=== PATIENT | male | born 1960 | race Hispanic/Latino ===

== ENCOUNTER 2018-10-12 11:32 | Emergency (ER) | payer OTHER ==
[~2018-10-12] VITALS: Ht 172.7 cm; Wt 63.5 kg
[~2018-10-12 11:32] MED LIST: AGGRENOX 25 MG-1 CAP PEG; BUSPIRONE HCL5 MG PEG; CARBAMAZEPINE200 MG PEG; DEPAKOTE125 MG PEG; NEXIUM40 M1 PEG; TOPAMAX25 MG PEG
--- OUTSIDE RECORDS SUMMARY | 2018-10-12 11:35 | XMS REPORT ---
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 Allergies, Adverse Reactions, Alerts Allergy Name Allergy Type Status Severity Reaction(s) Onset Date Inactive Date Treating Clinician Comments No Known Allergies DA Active U 2018-09-20 00:00:00 No Known Allergies DA Active U 2018-09-19 00:00:00 No Known Allergies DA Active U 2015-10-28 00:00:00 Medications This patient has no known medications.
[2018-10-12] MEDS ORDERED: DIATRIZOATE MEGL/DIATRIZOA SOD 30 ML BTL PO ONE (12:35)
--- NOTE | 2018-10-12 13:25 | Diagnostic Imaging Report ---
PROCEDURE:X-RAY ABDOMEN - KUB COMPARISON:None. INDICATIONS:G-TUBE PLACMENT FINDINGS: A tube overlying the stomach has been injected with contrast and there is opacification noted of the stomach. There are two T-tacks noted inferior to the greater curvature. There is a non-obstructed bowel-gas pattern. There are no calcifications projected over the renal shadows, expected course of the ureters or bladder. The rectum appears distended with contrast from a previous contrast exam. There are no acute osseous abnormalities. The lung bases are clear. CONCLUSION: Injection of tube in the abdomen shows opacification of the stomach. Aamir Ha D.O. Dictated by: Aamir Ha D.O. on 10/12/2018 at 13:36 Electronically approved by: Aamir Ha D.O. on 10/12/2018 at 13:36
[2018-10-12 13:39] VITALS: BP 101/73
== END 2018-10-12 13:45 | disposition home or self-care (01) ==
LOC: ER 11:32
DX: Z43.1 Encounter for attention to gastrostomy (principal); G40.909 Epilepsy, unspecified, not intractable, without status epilepticus; Z87.820 Personal history of traumatic brain injury; B19.20 Unspecified viral hepatitis C without hepatic coma
CPT/HCPCS: 74018; 99283; Q9663

== ENCOUNTER → 2019-12-04 | Day surgery (SDC) | payer OTHER ==
[2019-12-01 15:15] LABS: BASOPHILS % 0.6 % (0.0-1.0); EOSINOPHILS # (AUTO) 0.1 (0.0-0.4); EOSINOPHILS % 1.4 % (0.0-6.0); HEMATOCRIT 40.9 % (38.2-49.6); HEMOGLOBIN 13.5 g/dL (14.0-18.0); LYMPHOCYTES # (AUTO) 2.1 (1.0-3.2); MEAN CORPUSCULAR HEMOGLOBIN 26.6 pg (28-32); MEAN CORPUSCULAR VOLUME 80.5 fL (81-99); MONOCYTES # (AUTO) 0.5 (0.2-0.8); MONOCYTES % 9.6 % (4.4-11.3); NEUTROPHILS # (AUTO) 2.4 (2.1-6.9); NEUTROPHILS % 47.4 % (38.7-80.0); PLATELET COUNT 183 x10e3/uL (140-360); RED BLOOD COUNT 5.08 x10e6/uL (4.3-5.7); RED CELL DISTRIBUTION WIDTH 13.9 % (11.7-14.4)
[2019-12-01 15:37] LABS: INR 0.97; PROTHROMBIN TIME 13.5 seconds (11.9-14.5)
[2019-12-01 15:38] LABS: ALANINE AMINOTRANSFERASE 194 IU/L (0-55); ALBUMIN 3.5 g/dL (3.5-5.0); ALBUMIN/GLOBULIN RATIO 1.1 (0.8-2.0); ALKALINE PHOSPHATASE 135 IU/L (40-150); ANION GAP 13.9 mmol/L (8-16); BLOOD UREA NITROGEN 10 mg/dL (7-26); BUN/CREATININE RATIO 17 (6-25); CARBON DIOXIDE 21 mmol/L (22-29); CHLORIDE 97 mmol/L (98-107); EST GLOMERULAR FILTRATION RATE > 60 ML/MIN (60-); GLUCOSE 94 mg/dL (74-118); PARTIAL THROMBOPLASTIN TIME 34.9 seconds (23.8-35.5); POTASSIUM 3.9 mmol/L (3.5-5.1); SODIUM 128 mmol/L (136-145)
[~2019-12-04] MED LIST changes: +FENTANYL CITRATE/PF 100MCG/2 ML INJ ONE; +LIDOCAINE HCL 2% LOCAL INJ 5 ML SDV VIAL INJ ONE; +PROPOFOL IV EMULSION 10 MG/ML 20 ML VIAL ONE
[2019-12-04 16:42] VITALS: BP 112/71
--- NOTE | 2019-12-04 22:39 | Operative Report ---
DATE OF PROCEDURE: 12/04/2019 SURGEON: Fidel Savage MD PROCEDURE PERFORMED: EGD with PEG tube replacement. INDICATION FOR PROCEDURE: Dysphagia, dysfunctional G-tube, the patient is G-tube dependent. MEDICATIONS: The patient was done under MAC. Please see anesthesiologist's note. PROCEDURE IN DETAIL: With the patient in the supine position, the flexible fiberoptic Olympus gastroscope was introduced into the esophagus under direct visualization without any difficulty. There was some patchy erythema noted in the distal esophagus. The scope was then advanced with ease into the stomach and the mucosa overlying the antrum and the body revealed some patchy areas of erythema. Pylorus was of normal contour and shape, was intubated with ease and the scope was advanced all the way to the second portion of the duodenum. The scope was then withdrawn slowly. Mucosa overlying the proximal second portion and the duodenal bulb appeared to be within normal limits. The scope was then withdrawn back into the stomach and retroflexed mucosa overlying the fundus appeared to be within normal limits. An intact Janee fundoplication was also noted. The scope was then straightened out. The old G-tube was removed per the pull traction method. The G-tube was then inserted through the old G-tube stoma in the usual fashion. The scope was subsequently withdrawn after documenting good positioning of the intragastric bumper. The patient tolerated the procedure well. IMPRESSION: 1. Distal esophagitis, mild. 2. Status post Janee fundoplication intact. 3. Gastritis, mild. 4. PEG tube replacement carried out in the usual fashion. The patient tolerated procedure well. The patient can use the G-tube upon return to home. Fidel Savage MD [facility] [place]/MODL /[id number] cc: David Juarez MD
== END | disposition home or self-care (01) ==
LOC: OR 12:00
PROVIDERS: ATTEND Internal Medicine Gastroenterology
DX: K20.9 Esophagitis, unspecified (principal); K94.23 Gastrostomy malfunction; K29.70 Gastritis, unspecified, without bleeding; I69.365 Other paralytic syndrome following cerebral infarction, bilateral; N39.0 Urinary tract infection, site not specified; B19.10 Unspecified viral hepatitis B without hepatic coma; G40.909 Epilepsy, unspecified, not intractable, without status epilepticus; Z98.890 Other specified postprocedural states; Y83.3 Surgical operation with formation of external stoma as the cause of abnormal reaction of the patient, or of later complication, without mention of misadventure at the time of the procedure; Z01.810 Encounter for preprocedural cardiovascular examination; Z01.812 Encounter for preprocedural laboratory examination; Z87.891 Personal history of nicotine dependence
CPT/HCPCS: 36415; 43246; 80053; 85025; 85610; 85730; 93005; J2001; J2704; J3010; 43239

== ENCOUNTER 2020-06-11 15:00 | Emergency (ER) | payer OTHER ==
[~2020-06-11] VITALS: Ht 172.7 cm; Wt 63.5 kg
[~2020-06-11 15:00] MED LIST changes: -FENTANYL CITRATE/PF 100MCG/2 ML INJ ONE; -LIDOCAINE HCL 2% LOCAL INJ 5 ML SDV VIAL INJ ONE; -PROPOFOL IV EMULSION 10 MG/ML 20 ML VIAL ONE
--- OUTSIDE RECORDS SUMMARY | 2020-06-11 15:29 | XMS REPORT | Continuity of Care Document ---
Author Author [facility] t Organization [facility] Address [address] [place] [phone] Phone Unavailable Care Team Providers Care Court Transcriber Name Role Phone DAVID JUAREZ MD PCP Yuriy GREGG Attphys Unavailable Payers Payer Name Policy Type Policy Number Effective Date Expiration Date [employer] [id number] 2011 00:00 :00 [facility] Problems Condition Name Condition Details Condition Category Status Onset Date Resolution Date Last Treatment Date Treating Clinician Comments Source Status post insertion of percutaneous endoscopic gastr ostomy (PEG) tube Status post insertion of percutaneous endoscopic gastrostomy (PEG) tube Problem Active [facility] Allergies, Adverse Reactions, Alerts Allergy Name Allergy Type Status Severity Reaction(s) Onset Date Inacti ve Date Treating Clinician Comments Source No Known Allergies DA Active U 2019-11-03 00:00:00 [facility] No Known Allergies DA Active U 2018-09-20 00:00:00 [facility] No Known Allergies DA Active U 2018-09-19 00:00:00 [facility] No Known Allergies DA Active U 2015-10-28 00:00:00 [facility] Medications Ordered Medication Name Filled Medication Name Start Date Stop Da te Current Medication? Ordering Clinician Indication Dosage Frequency Signature (SIG) Comments Components Source Buspirone Hcl 5 Mg Tablet Buspirone Hcl 5 Mg Tablet Yes 10 Daily [facility] Carbamazepine 200 Mg Tablet Carbamazepine 200 Mg Tablet Yes 200 Four Times Daily [facility] Dipyridamole/Aspirin (Aggrenox 25 Mg-200 Mg Capsule) 1 Cap Capcr Dipyridamole/Aspirin (Aggrenox 25 Mg-200 Mg Capsule) 1 Cap Capcr Yes Twice A Day [facility] Divalproex Sodium (Depakote) 125 Mg Tablet. Divalpro ex Sodium (Depakote) 125 Mg Tablet. Yes 125 Twice A Day [facility] Esomeprazole Magnesium (Nexium) 40 Mg Suspdr.pkt Esome prazole Magnesium (Nexium) 40 Mg Suspdr.pkt Yes 40 Daily [facility] Topiramate (Topamax) 25 Mg Tablet Topiramate (Topamax) 25 Mg Tablet Yes 100 Daily [facility] Procedures This patient has no known procedures. Encounters Start Date/Time End Date/Time [facility] Source 2018-10-12 11:32:00 2018-10-12 13:45:00 Departed Emergency Room [address] [facility] [id number] [facility] Results Test Description Test Time Test Comments Results Result Comments Source PHOSPHOROUS 2019-11-11 15:00:00 Test Item PHOSPHOROUS (test code = PHOS) 3.5 MG/DL 2.5-4.9 N CBC W/AUTO [id number] 08:11:00* Test Item Value Reference Range Interpretation Comments WHITE BLOOD CELL (test code = WBC) 8.47 x10 3/uL 4.5-11.0 RED BLOOD CELL (test code = RBC) 3.91 x10 6/uL 4.00-5.60 L HEMOGLOBIN (test code = HGB) 10.3 g/dL 12.5-16.9 L HEMATOCRIT (test code = HCT) 32.2 % 37.5-50.7 L MEAN CELL VOLUME (test code = MCV) 82.4 fL 81.0-99.0 N MEAN CELL HGB (test code = MCH) 26.3 pg 27.0-33.0 L MEAN CELL HGB CONCETRATION (test code = MCHC) 32.0 g/dL 33.0-37. 0 L RED CELL DISTRIBUTION WIDTH CV (test code = RDW) 13.1 % 11.5- 14.5 N RED CELL DISTRIBUTION WIDTH SD (test code = RDW-SD) 39.0 fL 37 .0-54.0 N PLATELET COUNT (test code = PLT) 364 x10 3/uL 150-400 N MEAN PLATELET VOLUME (test code = MPV) 8.9 fL 7.0-9.0 N NEUTROPHIL % (test code = NT%) 72.9 % 56.0-77.0 N IMMATURE GRANULOCYTE % (test code = IG%) 0.9 % 0.0-2.0 N LYMPHOCYTE % (test code = LY%) 11.8 % 14.0-32.0 L MONOCYTE % (test code = MO%) 10.7 % 4.8-9.0 H EOSINOPHIL % (test code = EO%) 3.2 % 0.3-3.7 N BASOPHIL % (test code = BA%) 0.5 % 0.0-2.0 N NUCLEATED RBC % (test code = NRBC%) 0.0 % 0-0 N NEUTROPHIL # (test code = NT#) 6.17 x10 3/uL 2.0-7.6 N IMMATURE GRANULOCYTE # (test code = IG#) 0.08 x10 3/uL 0.00-0.03 H LYMPHOCYTE # (test code = LY#) 1.00 x10 3/uL 1.0-3.8 N MONOCYTE # (test code = MO#) 0.91 x10 3/uL 0.1-0.8 H EOSINOPHIL # (test code = EO#) 0.27 x10 3/uL 0.0-0.2 H BASOPHIL # (test code = BA#) 0.04 x10 3/uL 0.0-0.2 N NUCLEATED RBC # (test code = NRBC#) 0.00 x10 3/uL 0.0-0.1 N MANUAL DIFF REQUIRED (test code = MDIFF) NO BASIC METABOLIC [id number] 08:08:00* Test Item Value Reference Range Interpretation Comments SODIUM (test code = NA) 133 mEq/L 134-147 L POTASSIUM (test code = K) 4.0 mEq/L 3.4-5.0 N CHLORIDE (test code = CL) 102 mEq/L 100-108 N CARBON DIOXIDE (test code = CO2) 25 mEq/L 21-33 N ANION GAP (test code = GAP) 10 0-20 N GLUCOSE (test code = GLU) 126 mg/dL 70-110 H BLOOD UREA NITROGEN (test code = BUN) 17 mg/dL 7-18 N GLOMERULAR FILTRATION RATE (test code = GFR) 171.4 90-95 H Units of measure = ml/min/1.73 m2 CREATININE (test code = CREAT) 0.5 mg/dL 0.6-1.3 L CALCIUM (test code = CA) 8.3 mg/dL 8.0-10.5 N - XR SWLW FUN W/C [id number] 15:28:00 FAX: Juan Martinez NP [phone] [place]: St: ADM FAX: Сергей James I [phone] FAX: David Finch MD [phone] Name: CHRISTINA LYNN [facility] : 1960 Age/S: 59/M [address] [place] [address] Unit #: [id number] Loc: G.5531 [place] [address] Phys: Juan Martinez NP Acct: [id number] Dis Date: Status: ADM IN ONE #: [phone] Exam Date: 11/08/2019 1421 FAX #: [phone] Reason: DYSPHAGIA EXAMS: CPT CODE: [id number] XR SWLW FUN W/C V 37495 Modified barium swallow: HISTORY: Pneumonia, dysphagia area FINDIN GS: The study was performed with speech pathology using various barium con sistencies. The oral stage of the swallow is unremarkable with all tested consistencies. The patient was not able to drink through a straw. The patient demonstrated intermittent premature spillage over the base of the tongue within liquid and nectar consistency. There is consistent laryngeal penetration and tracheal aspiration with thin liquid. The patie nt performed better with increasingly thick consistencies of to and includ ing barium impregnated cracker. No further episodes of aspiration was witn essed. Please refer to speech pathology report for additional exam detail. Reference air kerma: 8.61 mGy, fluoroscopy time 230 seconds SL: [id number] at 1528 Reported and sign ed by: Dio Keene M.D. CC: Juan Martinez NP; Сергей rios MD; David Juarez M.D. Technologist: RT Richardson(Shawn) Trnscrd Date/Time/By: 11/08/2019 (4348) : By: NancyETG Orig Print D/T: S: 11/08/2019 (8642) PAGE 1 Signed Report VANCOMYCIN [id number] 10:06:00* Test Item Value Reference Range Interpretation Comments VANCOMYCIN TROUGH (test code = VANCT) 9.7 mcg/mL 10.0-20.0 L 10-15 mcg/mL - Cellulitis, Urinary Tract Infection. 15-20 mcg/mL - Bacteremia, Infective Endocarditis, Meningitis, Osteomyelitis, Pneumonia, Severe Skin/Soft- Tissue Infection, Spinal Abscess. INFLUENZA A [id number] 21:58:00* Test Item Value Reference Range Interpretation Comments INFLUENZA A (test code = FLUAPCR) Negative Negative INFLUENZA B (test code = FLUBPCR) Negative Negative LACTIC [id number] 22:20:00* Test Item Value Reference Range Interpretation Comments LACTIC ACID (test code = LACT) 1.1 mmol/L 0.4-1.9 N UA RFLX MICR CULT IF [id number] 20:38:00* Test Item Value Reference Range Interpretation Comments UA COLOR (test code = COLU) YOU YEL/STRAW A UA APPEARANCE (test code = APPU) CLEAR CLEAR UA GLUCOSE DIPSTICK (test code = DGLUU) NEGATIVE NEGATIVE UA BILIRUBIN DIPSTICK (test code = BILU) NEGATIVE NEGATIVE UA KETONE DIPSTICK (test code = KETU) NEGATIVE NEGATIVE UA SPECIFIC GRAVITY (test code = SGU) 1.015 1.005-1.030 N UA BLOOD DIPSTICK (test code = SHANNAN) NEGATIVE NEGATIVE UA PH DIPSTICK (test code = MP) 6.0 5.0-7.0 N UA PROTEIN DIPSTICK (test code = PROU) NEGATIVE NEGATIVE UA UROBILINIOGEN DIPSTICK (test code = URO) 4.0 mg/dL 0.2-1.0 A UA NITRITE DIPSTICK (test code = DEMETRI) NEGATIVE NEGATIVE UA LEUKOCYTE ESTERASE DIPSTICK (test code = LEUU) NEGATIVE NEGA TIVE UA WBC (test code = WBCU) 0-3 WBC/HPF 0-3 UA RBC (test code = RBCU) 0-3 RBC/HPF 0-3 UA WBC NO REFLEX (test code = WBCUCL) 0-3 WBC/HPF 0-3 UA BACTERIA (test code = BACU) TRACE /HPF NONE SEEN UA SQUAMOUS CELLS (test code = SQU) 0-5 /HPF NONE SEEN UA MUCUS (test code = MUCU) 3+ /LPF NONE SEEN A Indication for culture: Dysuria/FrequencySpecimen Description: STRAIGHT CATH VALPROIC ACID (DEPAKENE)2019-11-03 19:55:00* Test Item Value Reference Range Interpretation Comments VALPROIC ACID (DEPAKENE) (test code = VALP) 19 mcg/mL 50.0-100.0 L COMPREHENSIVE METABOLIC [id number] 19:55:00* Test Item Value Reference Range Interpretation Comments SODIUM (test code = NA) 129 mEq/L 134-147 L POTASSIUM (test code = K) 3.9 mEq/L 3.4-5.0 N CHLORIDE (test code = CL) 97 mEq/L 100-108 L CARBON DIOXIDE (test code = CO2) 25 mEq/L 21-33 N ANION GAP (test code = GAP) 11 0-20 N GLUCOSE (test code = GLU) 116 mg/dL 70-110 H BLOOD UREA NITROGEN (test code = BUN) 11 mg/dL 7-18 N GLOMERULAR FILTRATION RATE (test code = GFR) 171.4 90-95 H Units of measure = ml/min/1.73 m2 CREATININE (test code = CREAT) 0.5 mg/dL 0.6-1.3 L TOTAL PROTEIN (test code = PROT) 6.7 g/dL 6.4-8.2 N ALBUMIN (test code = ALB) 2.60 g/dL 3.4-5.0 L CALCIUM (test code = CA) 8.5 mg/dL 8.0-10.5 N BILIRUBIN TOTAL (test code = BILT) 0.7 MG/DL <1.5 N SGOT/AST (test code = AST) 26 IUnit/L 15-37 N SGPT/ALT (test code = ALT) 28 IUnit/L 15-65 N ALKALINE PHOSPHATASE TOTAL (test code = ALKP) 127 IUnit/L 20-125 H [id number] 19:55:00* Test Item Value Reference Range Interpretation Comments MAGNESIUM (test code = MAG) 2.00 mg/dL 1.8-2.4 N - XR CHEST 1 [id number] 19:53:00 FAX: Cari Lr MD [phone] [place]: St: REG FAX: David Finch MD [phone] Name: CHRISTINA LYNN [facility] : 1960 Age/S: 59/M [address] [place] [address] Unit #: [id number] Loc: [address] [address] Phys: Cari Mckee MD Acct: [id number] Dis Date: Status: REG ER PHONE #: [phone] Exam Date: 11/03/20191942 FAX #: [phone] Reason: acute cough fever EXAMS: CPT CODE: [id number] XR CHEST 1 V 64852 SINGLE VIEW RADIOGRAPH CHEST INDICATION: acute cough fever. TECHNIQUE: A single view frontal radiograph of the chest was obtained. COMPARISONS: Chest x-ray 09/22/2017 FINDINGS: There is internal fixation metallic plate and screw hardware within the distal right clavicle. There is no acute osseous fracture or dislocation. There is no subdiaphragmatic free gas. The cardiomediastinal size and contour are normal. There is reticular and consolidative opacity in the right lung base. There is no pneumothorax. There is a trace right pleural effusion. The left lung is clear. IMPRESSION: 1. There is pneumonia in the right lung base with a trace pleural effusion. Electronically Signed by Tiffani Rey on 0 11/03/2019 at 1952 Reported and signed by: Roosevelt Rey D.O. CC: Cari Mckee MD; David Juarez M.D. Technologist: Jeaneth Daly, RT(R)(M) Trn scrd Date/Time/By: 11/03/2019 (1952) : By: [email or web address] Orig Print D/T: S : 11/03/2019 (1955) PAGE 1 Signed Report COMPREHENSIVE METABOLIC [id number] 19:48:00* Test Item Value Reference Range Interpretation Comments SODIUM (test code = NA) 129 mEq/L 134-147 L POTASSIUM (test code = K) 3.9 mEq/L 3.4-5.0 N CHLORIDE (test code = CL) 97 mEq/L 100-108 L CARBON DIOXIDE (test code = CO2) 25 mEq/L 21-33 N ANION GAP (test code = GAP) 11 0-20 N GLUCOSE (test code = GLU) 116 mg/dL 70-110 H BLOOD UREA NITROGEN (test code = BUN) 11 mg/dL 7-18 N GLOMERULAR FILTRATION RATE (test code = GFR) 90-95 CREATININE (test code = CREAT) mg/dL 0.6-1.3 TOTAL PROTEIN (test code = PROT) g/dL 6.4-8.2 ALBUMIN (test code = ALB) g/dL 3.4-5.0 CALCIUM (test code = CA) 8.5 mg/dL 8.0-10.5 N BILIRUBIN TOTAL (test code = BILT) MG/DL <1.5 SGOT/AST (test code = AST) IUnit/L 15-37 SGPT/ALT (test code = ALT) IUnit/L 15-65 ALKALINE PHOSPHATASE TOTAL (test code = ALKP) IUnit/L 20-125 [id number] 19:48:00* Test Item Value Reference Range Interpretation Comments MAGNESIUM (test code = MAG) mg/dL 1.8-2.4 CBC W/AUTO [id number] 19:46:00* Test Item Value Reference Range Interpretation Comments WHITE BLOOD CELL (test code = WBC) 16.86 x10 3/uL 4.5-11.0 H RED BLOOD CELL (test code = RBC) 4.54 x10 6/uL 4.00-5.60 N HEMOGLOBIN (test code = HGB) 12.0 g/dL 12.5-16.9 L HEMATOCRIT (test code = HCT) 35.7 % 37.5-50.7 L MEAN CELL VOLUME (test code = MCV) 78.6 fL 81.0-99.0 L MEAN CELL HGB (test code = MCH) 26.4 pg 27.0-33.0 L MEAN CELL HGB CONCETRATION (test code = MCHC) 33.6 g/dL 33.0-37. 0 N RED CELL DISTRIBUTION WIDTH CV (test code = RDW) 12.7 % 11.5- 14.5 N RED CELL DISTRIBUTION WIDTH SD (test code = RDW-SD) 36.0 fL 37 .0-54.0 L PLATELET COUNT (test code = PLT) 475 x10 3/uL 150-400 H MEAN PLATELET VOLUME (test code = MPV) 8.6 fL 7.0-9.0 N NEUTROPHIL % (test code = NT%) 82.8 % 56.0-77.0 H IMMATURE GRANULOCYTE % (test code = IG%) 0.5 % 0.0-2.0 N LYMPHOCYTE % (test code = LY%) 6.9 % 14.0-32.0 L MONOCYTE % (test code = MO%) 8.0 % 4.8-9.0 N EOSINOPHIL % (test code = EO%) 1.6 % 0.3-3.7 N BASOPHIL % (test code = BA%) 0.2 % 0.0-2.0 N NUCLEATED RBC % (test code = NRBC%) 0.0 % 0-0 N NEUTROPHIL # (test code = NT#) 13.94 x10 3/uL 2.0-7.6 H IMMATURE GRANULOCYTE # (test code = IG#) 0.09 x10 3/uL 0.00-0.03 H LYMPHOCYTE # (test code = LY#) 1.17 x10 3/uL 1.0-3.8 N MONOCYTE # (test code = MO#) 1.35 x10 3/uL 0.1-0.8 H EOSINOPHIL # (test code = EO#) 0.27 x10 3/uL 0.0-0.2 H BASOPHIL # (test code = BA#) 0.04 x10 3/uL 0.0-0.2 N NUCLEATED RBC # (test code = NRBC#) 0.00 x10 3/uL 0.0-0.1 N MANUAL DIFF REQUIRED (test code = MDIFF) NO COMPREHENSIVE METABOLIC [id number] 06:09:00* Test Item Value Reference Range Interpretation Comments SODIUM (test code = NA) 139 mmol/L 136-145 N POTASSIUM (test code = K) 3.8 mmol/L 3.5-5.1 N CHLORIDE (test code = CL) 105.0 mmol/L 98-107 N CARBON DIOXIDE (test code = CO2) 28.0 mmol/L 21-32 N ANION GAP (test code = GAP) 9.8 10-20 L GLUCOSE (test code = GLU) 99 mg/dL 74-106 N BLOOD UREA NITROGEN (test code = BUN) 12 mg/dL 7-18 N GLOMERULAR FILTRATION RATE (test code = GFR) > 60 mL/min >=60 Estimated GFR by using Modified MDRD formula.Chronic kidney disease is defined as either kidney damageor GFR <60 mL/min/1.73 m2 for >3 months. CREATININE (test code = CREAT) 0.70 mg/dL 0.7-1.3 N BUN/CREATININE RATIO (test code = BUN/CREA) 18.1 10-20 N TOTAL PROTEIN (test code = PROT) 7.1 gram/dL 6.4-8.2 N ALBUMIN (test code = ALB) 3.0 g/dL 3.4-5.0 L GLOBULIN (test code = GLOB) 4.1 gram/dL 2.7-4.2 N ALBUMIN/GLOBULIN RATIO (test code = A/G) 0.7 0.75-1.50 L CALCIUM (test code = CA) 9.2 mg/dL 8.5-10.1 N BILIRUBIN TOTAL (test code = BILT) 0.30 mg/dL 0.0-1.0 N SGOT/AST (test code = AST) 37 IUnit/L 15-37 N SGPT/ALT (test code = ALT) 40 IUnit/L 12-78 N ALKALINE PHOSPHATASE TOTAL (test code = ALKP) 92 IUnit/L 45-117 N Note change in reference range due to change in reagent. LIPID PROFILE (CORONARY RISK)2019-09-26 06:09:00* Test Item Value Reference Range Interpretation Comments TRIGLYCERIDES (test code = TRIG) 132 mg/dL 20-150 N CHOLESTEROL (test code = CHOL) 158 mg/dL 0-200 N CHOLESTEROL/HDL RATIO (test code = CHOLHDL) 3.0 RATIO 0-4.9 N RISK ASSOCIATED WITH CHOL/HDL RATIOS: Risk Male Female1/2 AVERAGE 3.43 3.27AVERAGE 4.97 4.442X AVERAGE 9.55 7.053X AVERAGE 23.39 11.04 REFERENCE VALUE IS RELATED TO RISK LEVELS ASRECOMMENDED BY THE [place]. HEART, LUNG, AND BLOOD INST. HDL CHOLESTEROL (test code = HDL) 50 mg/dL 40-60 N LIPOPROTEIN LDL (test code = LDL) 95 mg/dL 100-129 L Reference Interval: mg/dL mmol/L Optimal <100 <2.6Near/above optimal 100-129 2.6- 3.3Borderline High 130-159 3.4-4.1High 160-189 4.1-4.9Very High >=190 >=4.9========= This LDL result is a direct measurement.========= VITAMIN D [id number] 06:09:00* Test Item Value Reference Range Interpretation Comments VITAMIN D 25-HYDROXY (test code = VITD25) 22.5 ng/mL 30.0-100.0 A Vitamin D deficiency has been defined by the [place] [employer] and an Endocrine Society practice guideline as alevel of serum 25-OH vitamin D less than 20 ng/mL (1,2).The Endocrine Society went on to further define vitamin Dinsufficiency as a level between 21 and 29 ng/mL (2).1. IOM ([place] [employer]). 2010. Dietary reference intakes for calcium and D. [place]: The National Academies Press.2. Andrey MF, Lili TREVINO, Chayo HURTADO, et al. Evaluation, treatment, and prevention of vitamin D deficiency: an Endocrine Society clinical practice guideline. JCEM. 2010; 96(7):1911-30.Performed At: [facility] [address] [id number] Koffi De La Torre MD Ph:[phone] performed at: [facility] [address] [id number] COMPREHENSIVE METABOLIC [id number] 12:07:00* Test Item Value Reference Range Interpretation Comments SODIUM (test code = NA) 139 mmol/L 136-145 N POTASSIUM (test code = K) 3.8 mmol/L 3.5-5.1 N CHLORIDE (test code = CL) 105.0 mmol/L 98-107 N CARBON DIOXIDE (test code = CO2) 28.0 mmol/L 21-32 N ANION GAP (test code = GAP) 9.8 10-20 L GLUCOSE (test code = GLU) 99 mg/dL 74-106 N BLOOD UREA NITROGEN (test code = BUN) 12 mg/dL 7-18 N GLOMERULAR FILTRATION RATE (test code = GFR) > 60 mL/min >=60 Estimated GFR by using Modified MDRD formula.Chronic kidney disease is defined as either kidney damageor GFR <60 mL/min/1.73 m2 for >3 months. CREATININE (test code = CREAT) 0.70 mg/dL 0.7-1.3 N BUN/CREATININE RATIO (test code = BUN/CREA) 18.1 10-20 N TOTAL PROTEIN (test code = PROT) 7.1 gram/dL 6.4-8.2 N ALBUMIN (test code = ALB) 3.0 g/dL 3.4-5.0 L GLOBULIN (test code = GLOB) 4.1 gram/dL 2.7-4.2 N ALBUMIN/GLOBULIN RATIO (test code = A/G) 0.7 0.75-1.50 L CALCIUM (test code = CA) 9.2 mg/dL 8.5-10.1 N BILIRUBIN TOTAL (test code = BILT) 0.30 mg/dL 0.0-1.0 N SGOT/AST (test code = AST) 37 IUnit/L 15-37 N SGPT/ALT (test code = ALT) 40 IUnit/L 12-78 N ALKALINE PHOSPHATASE TOTAL (test code = ALKP) 92 IUnit/L 45-117 N Note change in reference range due to change in reagent. LIPID PROFILE (CORONARY RISK)2019-09-25 12:07:00* Test Item Value Reference Range Interpretation Comments TRIGLYCERIDES (test code = TRIG) 132 mg/dL 20-150 N CHOLESTEROL (test code = CHOL) 158 mg/dL 0-200 N CHOLESTEROL/HDL RATIO (test code = CHOLHDL) 3.0 RATIO 0-4.9 N RISK ASSOCIATED WITH CHOL/HDL RATIOS: Risk Male Female1/2 AVERAGE 3.43 3.27AVERAGE 4.97 4.442X AVERAGE 9.55 7.053X AVERAGE 23.39 11.04 REFERENCE VALUE IS RELATED TO RISK LEVELS ASRECOMMENDED BY THE [employer]. HEART, LUNG, AND BLOOD INST. HDL CHOLESTEROL (test code = HDL) 50 mg/dL 40-60 N LIPOPROTEIN LDL (test code = LDL) 95 mg/dL 100-129 L Reference Interval: mg/dL mmol/L Optimal <100 <2.6Near/above optimal 100-129 2.6- 3.3Borderline High 130-159 3.4-4.1High 160-189 4.1-4.9Very High >=190 >=4.9========= This LDL result is a direct measurement.========= VITAMIN D [id number] 12:07:00* Test Item Value Reference Range Interpretation Comments VITAMIN D 25-HYDROXY (test code = VITD25) ng/mL 30-100 COMPREHENSIVE METABOLIC [id number] 11:50:00* Test Item Value Reference Range Interpretation Comments SODIUM (test code = NA) 139 mmol/L 136-145 N POTASSIUM (test code = K) 3.8 mmol/L 3.5-5.1 N CHLORIDE (test code = CL) 105.0 mmol/L 98-107 N CARBON DIOXIDE (test code = CO2) mmol/L 21-32 ANION GAP (test code = GAP) 10-20 GLUCOSE (test code = GLU) mg/dL 74-106 BLOOD UREA NITROGEN (test code = BUN) mg/dL 7-18 GLOMERULAR FILTRATION RATE (test code = GFR) mL/min >=60 CREATININE (test code = CREAT) mg/dL 0.7-1.3 BUN/CREATININE RATIO (test code = BUN/CREA) 10-20 TOTAL PROTEIN (test code = PROT) gram/dL 6.4-8.2 ALBUMIN (test code = ALB) g/dL 3.4-5.0 GLOBULIN (test code = GLOB) gram/dL 2.7-4.2 ALBUMIN/GLOBULIN RATIO (test code = A/G) 0.75-1.50 CALCIUM (test code = CA) mg/dL 8.5-10.1 BILIRUBIN TOTAL (test code = BILT) mg/dL 0.0-1.0 SGOT/AST (test code = AST) IUnit/L 15-37 SGPT/ALT (test code = ALT) IUnit/L 12-78 ALKALINE PHOSPHATASE TOTAL (test code = ALKP) IUnit/L 45-117 LIPID PROFILE (CORONARY RISK)2019-09-25 11:50:00* Test Item Value Reference Range Interpretation Comments TRIGLYCERIDES (test code = TRIG) mg/dL 20-150 CHOLESTEROL (test code = CHOL) mg/dL 0-200 CHOLESTEROL/HDL RATIO (test code = CHOLHDL) RATIO 0-4.9 HDL CHOLESTEROL (test code = HDL) mg/dL 40-60 LIPOPROTEIN LDL (test code = LDL) mg/dL 100-129 VITAMIN D [id number] 11:50:00* Test Item Value Reference Range Interpretation Comments VITAMIN D 25-HYDROXY (test code = VITD25) ng/mL 30-100 CBC W/AUTO [id number] 10:53:00* Test Item Value Reference Range Interpretation Comments WHITE BLOOD CELL (test code = WBC) 6.1 K/mm3 4.5-12.5 N RED BLOOD CELL (test code = RBC) 4.77 mill/mm3 4.0-5.8 N HEMOGLOBIN (test code = HGB) 12.9 gram/dL 13.0-17.5 L HEMATOCRIT (test code = HCT) 40.6 % 42.0-52.0 L MEAN CELL VOLUME (test code = MCV) 85.1 fL 80-98 N MEAN CELL HGB (test code = MCH) 27.0 picogram 27.0-33.0 N MEAN CELL HGB CONCETRATION (test code = MCHC) 31.8 gram/dL 33.0-36. 0 L RED CELL DISTRIBUTION WIDTH (test code = RDW) 12.6 % 11.6-16. 2 N RED CELL DISTRIBUTION WIDTH SD (test code = RDW-SD) 38.5 fL 37 .0-51.0 N PLATELET COUNT (test code = PLT) 348 K/mm3 150-450 N MEAN PLATELET VOLUME (test code = MPV) 9.3 fL 6.7-11.0 N NEUTROPHIL % (test code = NT%) 58.3 % 39.0-69.0 N IMMATURE GRANULOCYTE % (test code = IG%) 0.3 % 0.0-5.0 N LYMPHOCYTE % (test code = LY%) 27.9 % 25.0-55.0 N MONOCYTE % (test code = MO%) 10.3 % 0.0-10.0 H EOSINOPHIL % (test code = EO%) 2.5 % 0.0-5.0 N BASOPHIL % (test code = BA%) 0.7 % 0.0-1.0 N NUCLEATED RBC % (test code = NRBC%) 0.0 % 0-0 N NEUTROPHIL # (test code = NT#) 3.55 K/mm3 1.8-7.7 N IMMATURE GRANULOCYTE # (test code = IG#) 0.02 x10 3/uL 0-0.03 N LYMPHOCYTE # (test code = LY#) 1.70 K/mm3 1.0-5.0 N MONOCYTE # (test code = MO#) 0.63 K/mm3 0-0.8 N EOSINOPHIL # (test code = EO#) 0.15 K/mm3 0.0-0.5 N BASOPHIL # (test code = BA#) 0.04 K/mm3 0.0-0.2 N NUCLEATED RBC # (test code = NRBC#) 0.00 K/mm3 0.0-0.1 N COMPREHENSIVE METABOLIC [id number] 13:23:00* Test Item Value Reference Range Interpretation Comments SODIUM (test code = NA) 139 mmol/L 136-145 N POTASSIUM (test code = K) 4.0 mmol/L 3.5-5.1 N CHLORIDE (test code = CL) 106.0 mmol/L 98-107 N CARBON DIOXIDE (test code = CO2) 26.0 mmol/L 21-32 N ANION GAP (test code = GAP) 11.0 10-20 N GLUCOSE (test code = GLU) 91 mg/dL 74-106 N BLOOD UREA NITROGEN (test code = BUN) 10 mg/dL 7-18 N GLOMERULAR FILTRATION RATE (test code = GFR) > 60 mL/min >=60 Estimated GFR by using Modified MDRD formula.Chronic kidney disease is defined as either kidney damageor GFR <60 mL/min/1.73 m2 for >3 months. CREATININE (test code = CREAT) 0.60 mg/dL 0.7-1.3 L BUN/CREATININE RATIO (test code = BUN/CREA) 15.7 10-20 N TOTAL PROTEIN (test code = PROT) 7.4 gram/dL 6.4-8.2 N ALBUMIN (test code = ALB) 3.8 g/dL 3.4-5.0 N GLOBULIN (test code = GLOB) 3.6 gram/dL 2.7-4.2 N ALBUMIN/GLOBULIN RATIO (test code = A/G) 1.1 0.75-1.50 N CALCIUM (test code = CA) 8.9 mg/dL 8.5-10.1 N BILIRUBIN TOTAL (test code = BILT) 0.40 mg/dL 0.0-1.0 N SGOT/AST (test code = AST) 82 IUnit/L 15-37 H SGPT/ALT (test code = ALT) 112 IUnit/L 12-78 H ALKALINE PHOSPHATASE TOTAL (test code = ALKP) 100 IUnit/L 45-117 N Note change in reference range due to change in reagent. AG PROSTATE [id number] 13:23:00* Test Item Value Reference Range Interpretation Comments AG PROSTATE SPECIFIC (test code = PSA) 0.24 ng/mL 0.0-4.0 N THYROID STIMULATING [id number] 13:23:00* Test Item Value Reference Range Interpretation Comments THYROID STIMULATING HORMONE (test code = TSH) 1.890 uIU/mL 0.36-3.7 4 N TSH REFERENCE RANGES: EUTHYROID: 0.35 - 4.3 mIU/mL HYPO : > 5.5 mIU/mL HYPER : < 0.35 mIU/mL COMPREHENSIVE METABOLIC [id number] 13:19:00* Test Item Value Reference Range Interpretation Comments SODIUM (test code = NA) 139 mmol/L 136-145 N POTASSIUM (test code = K) 4.0 mmol/L 3.5-5.1 N CHLORIDE (test code = CL) 106.0 mmol/L 98-107 N CARBON DIOXIDE (test code = CO2) mmol/L 21-32 ANION GAP (test code = GAP) 10-20 GLUCOSE (test code = GLU) mg/dL 74-106 BLOOD UREA NITROGEN (test code = BUN) mg/dL 7-18 GLOMERULAR FILTRATION RATE (test code = GFR) mL/min >=60 CREATININE (test code = CREAT) mg/dL 0.7-1.3 BUN/CREATININE RATIO (test code = BUN/CREA) 10-20 TOTAL PROTEIN (test code = PROT) gram/dL 6.4-8.2 ALBUMIN (test code = ALB) g/dL 3.4-5.0 GLOBULIN (test code = GLOB) gram/dL 2.7-4.2 ALBUMIN/GLOBULIN RATIO (test code = A/G) 0.75-1.50 CALCIUM (test code = CA) mg/dL 8.5-10.1 BILIRUBIN TOTAL (test code = BILT) mg/dL 0.0-1.0 SGOT/AST (test code = AST) IUnit/L 15-37 SGPT/ALT (test code = ALT) IUnit/L 12-78 ALKALINE PHOSPHATASE TOTAL (test code = ALKP) IUnit/L 45-117 AG PROSTATE [id number] 13:19:00* Test Item Value Reference Range Interpretation Comments AG PROSTATE SPECIFIC (test code = PSA) 0.24 ng/mL 0.0-4.0 N THYROID STIMULATING [id number] 13:19:00* Test Item Value Reference Range Interpretation Comments THYROID STIMULATING HORMONE (test code = TSH) uIU/mL 0.36-3.7 4 COMPREHENSIVE METABOLIC [id number] 13:08:00* Test Item Value Reference Range Interpretation Comments SODIUM (test code = NA) 139 mmol/L 136-145 N POTASSIUM (test code = K) 4.0 mmol/L 3.5-5.1 N CHLORIDE (test code = CL) 106.0 mmol/L 98-107 N CARBON DIOXIDE (test code = CO2) mmol/L 21-32 ANION GAP (test code = GAP) 10-20 GLUCOSE (test code = GLU) mg/dL 74-106 BLOOD UREA NITROGEN (test code = BUN) mg/dL 7-18 GLOMERULAR FILTRATION RATE (test code = GFR) mL/min >=60 CREATININE (test code = CREAT) mg/dL 0.7-1.3 BUN/CREATININE RATIO (test code = BUN/CREA) 10-20 TOTAL PROTEIN (test code = PROT) gram/dL 6.4-8.2 ALBUMIN (test code = ALB) g/dL 3.4-5.0 GLOBULIN (test code = GLOB) gram/dL 2.7-4.2 ALBUMIN/GLOBULIN RATIO (test code = A/G) 0.75-1.50 CALCIUM (test code = CA) mg/dL 8.5-10.1 BILIRUBIN TOTAL (test code = BILT) mg/dL 0.0-1.0 SGOT/AST (test code = AST) IUnit/L 15-37 SGPT/ALT (test code = ALT) IUnit/L 12-78 ALKALINE PHOSPHATASE TOTAL (test code = ALKP) IUnit/L 45-117 AG PROSTATE [id number] 13:08:00* Test Item Value Reference Range Interpretation Comments AG PROSTATE SPECIFIC (test code = PSA) ng/mL 0.0-4.0 THYROID STIMULATING [id number] 13:08:00* Test Item Value Reference Range Interpretation Comments THYROID STIMULATING HORMONE (test code = TSH) uIU/mL 0.36-3.7 4 CBC W/AUTO [id number] 12:52:00* Test Item Value Reference Range Interpretation Comments WHITE BLOOD CELL (test code = WBC) 4.9 K/mm3 4.5-12.5 N RED BLOOD CELL (test code = RBC) 5.20 mill/mm3 4.0-5.8 N HEMOGLOBIN (test code = HGB) 13.8 gram/dL 13.0-17.5 N HEMATOCRIT (test code = HCT) 44.2 % 42.0-52.0 N MEAN CELL VOLUME (test code = MCV) 85.0 fL 80-98 N MEAN CELL HGB (test code = MCH) 26.5 picogram 27.0-33.0 L MEAN CELL HGB CONCETRATION (test code = MCHC) 31.2 gram/dL 33.0-36. 0 L RED CELL DISTRIBUTION WIDTH (test code = RDW) 13.1 % 11.6-16. 2 N RED CELL DISTRIBUTION WIDTH SD (test code = RDW-SD) 40.2 fL 37 .0-51.0 N PLATELET COUNT (test code = PLT) 205 K/mm3 150-450 N MEAN PLATELET VOLUME (test code = MPV) 10.2 fL 6.7-11.0 N NEUTROPHIL % (test code = NT%) 56.9 % 39.0-69.0 N IMMATURE GRANULOCYTE % (test code = IG%) 0.4 % 0.0-5.0 N LYMPHOCYTE % (test code = LY%) 30.9 % 25.0-55.0 N MONOCYTE % (test code = MO%) 9.6 % 0.0-10.0 N EOSINOPHIL % (test code = EO%) 1.6 % 0.0-5.0 N BASOPHIL % (test code = BA%) 0.6 % 0.0-1.0 N NUCLEATED RBC % (test code = NRBC%) 0.0 % 0-0 N NEUTROPHIL # (test code = NT#) 2.78 K/mm3 1.8-7.7 N IMMATURE GRANULOCYTE # (test code = IG#) 0.02 x10 3/uL 0-0.03 N LYMPHOCYTE # (test code = LY#) 1.51 K/mm3 1.0-5.0 N MONOCYTE # (test code = MO#) 0.47 K/mm3 0-0.8 N EOSINOPHIL # (test code = EO#) 0.08 K/mm3 0.0-0.5 N BASOPHIL # (test code = BA#) 0.03 K/mm3 0.0-0.2 N NUCLEATED RBC # (test code = NRBC#) 0.00 K/mm3 0.0-0.1 N MANUAL DIFF REQUIRED (test code = MDIFF) NO ABDOMEN-1VIEW (KUB)2018-10-12 13:36:00 [place] [id number] Patient Name: CHRISTINA LYNN MR #: [id number] : 1960 Age/Sex: 58/M Req #: [id number] Adm Physician: Ordered by: TONI GREGG MD Report #: [id number] Location: ER Room/Bed: Procedure: [id number] DX/ABD OMEN-1VIEW (KUB) Exam Date: Exam Time: REPORT STATUS: Signed PROCEDURE: X-RAY AB DOMEN - KUB COMPARISON: None. INDICATIONS: G-TUBE PLACMENT FINDINGS: A tube overlying the stomach has been injected with contrast and there is opacification noted of the stomach. There are two T-tacks noted inferior to the greater curvature. There is a non-obstructed bowel-gas patter n. There are no calcifications projected over the renal shadows, expected cou rse of the ureters or bladder. The rectum appears distended with contrast fro m a previous contrast exam. There are no acute osseous abnormalities. The guanaco g bases are clear. CONCLUSION: Injection of tube in the abdomen shows opacification of the stomach. Aamir Del Cid D.O. Dictated by: Aamir Del Cid D.O. on 10/12/2018 at 13:36 Electronically approved by: Bella Del Cid D.O. on 10/12/2018 at 13:36 Dictated By: AAMIR MERCHANT DO [id number] Transcri bed By: HAYDEE on 10/12/18 1336 COPY TO: TONI GREGG MD
--- NOTE | 2020-06-11 15:40 | Diagnostic Imaging Report ---
EXAMINATION: CHEST SINGLE (PORTABLE) INDICATION: Altered mental status COMPARISON: None FINDINGS: LINES/TUBES:None LUNGS:The lungs are well-inflated. No focal consolidation or pulmonary edema. PLEURA:No pleural effusion or pneumothorax. MEDIASTINUM:The cardiomediastinal silhouette appears normal in size and shape. BONES/SOFT TISSUES:No acute osseous injury. Right distal clavicle fixation hardware. ABDOMEN:No free air under the diaphragm. Surgical clips at the left upper abdomen. IMPRESSION: No focal pneumonia or pulmonary edema. Signed by: Raji Lewis MD on 06/11/2020 3:37 PM
[2020-06-11] MEDS ORDERED: SODIUM CHLORIDE 0.9% 1000ML 1,000 ML IV SCH (15:45)
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
[2020-06-11 16:26] LABS: BASOPHILS % 0.2 % (0.0-1.0); EOSINOPHILS # (AUTO) 0.1 (0.0-0.4); EOSINOPHILS % 0.9 % (0.0-6.0); HEMOGLOBIN 13.2 g/dL (14.0-18.0); LYMPHOCYTES # (AUTO) 1.2 (1.0-3.2); LYMPHOCYTES % 14.2 % (18.0-39.1); MEAN CORPUSCULAR HEMOGLOBIN 28.4 pg (28-32); MEAN CORPUSCULAR HGB CONC 33.8 g/dL (31-35); MEAN CORPUSCULAR VOLUME 83.9 fL (81-99); MONOCYTES # (AUTO) 1.2 (0.2-0.8); MONOCYTES % 15.2 % (4.4-11.3); NEUTROPHILS # (AUTO) 5.6 (2.1-6.9); PLATELET COUNT 179 x10e3/uL (140-360); RED BLOOD COUNT 4.65 x10e6/uL (4.3-5.7); RED CELL DISTRIBUTION WIDTH 12.3 % (11.7-14.4)
[2020-06-11 16:34] LABS: BILIRUBIN,URINE NEGATIVE (NEGATIVE); CLARITY,URINE SL CLOUDY (CLEAR); COLOR,URINE YELLOW (YELLOW); KETONES,URINE NEGATIVE (NEGATIVE); LEUKOCYTE ESTERASE ,URINE NEGATIVE (NEGATIVE); NITRITE,URINE NEGATIVE (NEGATIVE); PROTEIN,URINE DIPSTICK NEGATIVE (NEGATIVE); URINE UROBILINOGEN 2 mg/dL (0.2 - 1)
[2020-06-11 16:38] LABS: INR 0.87; PARTIAL THROMBOPLASTIN TIME 23.4 seconds (23.8-35.5); PROTHROMBIN TIME 12.3 seconds (11.9-14.5)
[2020-06-11 16:43] LABS: AMORPHOUS SEDIMENT,URINE MODERATE (FEW); BACTERIA,URINE FEW /HPF
--- NOTE | 2020-06-11 16:44 | Diagnostic Imaging Report ---
CT BRAIN WO HISTORY: Altered mental status COMPARISON: None. Technique: Noncontrast axial scans were obtained from skull base to the vertex. Coronal and sagittal reconstructions obtained from the axial data. One or more of the following dose reduction techniques were used: Automated exposure control, adjustment of the mA and/or kV according to patient size, and/or utilization of iterative reconstruction technique. DISCUSSION: Scalp/Skull: Left frontoparietal craniotomy changes. Apparent left mastoidectomy changes with opacification of the mastoidectomy bowl. Brain sulci: Mildly prominent. Ventricles: Compensatory dilatation. Extra-axial spaces: No masses or fluid collections. Carotid siphon calcifications are present. Parenchyma: Areas of right inferior frontal and left lateral temporal encephalomalacia may be from remote trauma. Mild bilateral deep white matter hypodensity is likely chronic microvascular ischemic change. Otherwise, no masses, hemorrhage, or large vascular territory acute infarct. Dural sinuses: No abnormal densities. Sellar/Suprasellar region: Intact. Skull base: Intact. Incidental findings: Old fracture of the left zygomatic arch. IMPRESSION: 1. No acute intracranial abnormalities. 2. Areas of right inferior frontal and left lateral temporal encephalomalacia may be from remote trauma. 3. Associated left frontoparietal craniotomy and left mastoidectomy changes. There is nonspecific opacification of the left mastoidectomy bowl 4. Mild supratentorial chronic microvascular ischemic change. Generalized cerebral volume loss. Signed by: Dr. Abraham Nunez M.D. on 06/11/2020 4:40 PM
[2020-06-11 16:48] LABS: ALANINE AMINOTRANSFERASE 75 IU/L (0-55); ALBUMIN 3.2 g/dL (3.5-5.0); ALBUMIN/GLOBULIN RATIO 1.1 (0.8-2.0); ALKALINE PHOSPHATASE 102 IU/L (40-150); ANION GAP 14.8 mmol/L (8-16); BLOOD UREA NITROGEN 12 mg/dL (7-26); BUN/CREATININE RATIO 18 (6-25); CALCIUM 8.6 mg/dL (8.4-10.2); CARBON DIOXIDE 20 mmol/L (22-29); CHLORIDE 97 mmol/L (98-107); CREATINE KINASE 35 IU/L (30-200); CREATININE, SERUM 0.66 mg/dL (0.72-1.25); EST GLOMERULAR FILTRATION RATE > 60 ML/MIN (60-); GLUCOSE 103 mg/dL (74-118); POTASSIUM 3.8 mmol/L (3.5-5.1); SODIUM 128 mmol/L (136-145)
--- NOTE | 2020-06-11 17:00 | NUR ---
CONTINUED LITER OF FLUID HUNG BY EMS, WILL DO REPEAT LACTIC
--- NOTE | 2020-06-11 17:08 | NUR ---
[facility] on way to get pt to take home
--- NOTE | 2020-06-11 17:38 | NUR ---
mom called er for update, update given, verified address and phone number and notified them ems to bring pt home. mom states they will wait there to receive him.
== END 2020-06-11 18:40 | disposition home or self-care (01) ==
LOC: ER 15:26
DX: F03.90 Unspecified dementia, unspecified severity, without behavioral disturbance, psychotic disturbance, mood disturbance, and anxiety (principal); G40.909 Epilepsy, unspecified, not intractable, without status epilepticus; B19.20 Unspecified viral hepatitis C without hepatic coma; Z87.820 Personal history of traumatic brain injury
CPT/HCPCS: 36415; 70450; 71045; 80053; 81001; 82550; 82553; 83605; 84484; 85025; 85610; 85730; 93005; 99284

== ENCOUNTER 2020-06-28 15:14 | Observation (INO) | payer OTHER ==
[~2020-06-28] VITALS: Ht 172.7 cm; Wt 63.5 kg
--- OUTSIDE RECORDS SUMMARY | 2020-06-28 15:29 | XMS REPORT | Continuity of Care Document ---
Author Author [facility] t Organization [facility] Address [address] [place] [phone] Phone Unavailable Care Team Providers Care Edge Banding Machine Offbearer Name Role Phone TISH DOSS, MD RICHARDS PCP Adeel Pacheco Attphys Unavailable Yuriy GREGG Attphys Unavailable Payers Payer Name Policy Type Policy Number Effective Date Expiration Date [facility] [id number] [facility] Problems Condition Name Condition Details Condition Category Status Onset Date Resolution Date Last Treatment Date Treating Clinician Comments Source Status post insertion of percutaneous endoscopic gastr ostomy (PEG) tube Status post insertion of percutaneous endoscopic gastrostomy (PEG) tube Problem Active [facility] Encounter for medical screening examination Problem Active [facility] Allergies, Adverse Reactions, Alerts Allergy Name Allergy Type Status Severity Reaction(s) Onset Date Inacti ve Date Treating Clinician Comments Source No Known Allergies DA Active U 2019-11-03 00:00:00 [facility] No Known Allergies DA Active U 2018-09-20 00:00:00 [facility] No Known Allergies DA Active U 2018-09-19 00:00:00 [facility] No Known Allergies DA Active U 2015-10-28 00:00:00 [facility] Social History Social Habit Start Date Stop Date Quantity Comments Source Sex Assigned At 1960 00:00:00 1960 00:00:00 Male [facility] Medications Ordered Medication Name Filled Medication Name Start Date Stop Da te Current Medication? Ordering Clinician Indication Dosage Frequency Signature (SIG) Comments Components Source Buspirone Hcl Buspirone Hcl Yes 10 Daily [facility] Carbamazepine Carbamazepine Yes 200 Three Times A Day [facility] Divalproex Sodium (Depakote) 125 Mg TABLET.DR Najerapro ex Sodium (Depakote) 125 Mg TABLET.DR Shannon 125 Twice A Day [facility] Topiramate (Topamax) 25 Mg TABLET Topiramate (Topamax) 25 Mg TABLET Yes 100 Daily [facility] Esomeprazole Magnesium (Nexium) 40 Mg SUSPDR.PKT Esome prazole Magnesium (Nexium) 40 Mg SUSPDR.PKT 2019-12-04 00:00:00 No 40 Daily [facility] Dipyridamole/Aspirin (Aggrenox 25 Mg-200 Mg Capsule) 1 Cap CAPCR Dipyridamole/Aspirin (Aggrenox 25 Mg-200 Mg Capsule) 1 Cap CAPCR 2019-12-01 00:00:00 No Twice A Day [facility] Vital Signs Vital Name Observation Time Observation Value Comments Source Weight 2020-06-11 15:12:00 140 [lb_av] [facility] BMI (Body Mass Index) 2020-06-11 15:12:00 21.3 kg/m2 [facility] Body Temperature 2019-12-04 15:22:00 97.6 [degF] [facility] Procedures Procedure Date / Time Performed Performing Clinician [facility] e Computed tomography of brain without radiopaque contrast 2020-05 00:00:00 [facility] EGD PLACE GASTROSTOMY TUBE 2019-12-04 00:00:00 [facility] Plan of Care Planned Activity Planned Date Details Comments Source Instructions Heart Healthy Diet [facility] Encounters Start Date/Time End Date/Time Encounter Type Admission Type Attendi [facility] Care Department Encounter ID Source 2019-12-04 11:00:00 2019-12-04 11:00:00 Registered Surgical Day Care [facility] [id number] [facility] 2018-10-12 11:32:00 2018-10-12 13:45:00 Departed Emergency Room 1 TONI GREGG [facility] [id number] [facility] Results Test Description Test Time Test Comments Results Result Comments Source CT BRAIN WO 2020-06-11 16:35:00 [facility] [address] [address] Patient Name: CHRISTINA LYNN MR #: [id number] : 1960 Age/Sex: 60/M Req #: [id number] Adm Physician: Ordered by: Marino Pacheco MD Report #: [id number] Location: ER Room/Bed: Procedure: [id number] CT/CT BRAIN WO Exam Date: 06/11/20 Exam Time: 1624 REPORT STATUS: Signed CT BRAIN WO HISTORY: Altered mental status COMPARISON: None. Technique: Noncontrast axial scans were obtained from skull base to the vertex. Coronal and sagittal reconstructions obtained from the axial data. One or more of the following dose reduction techniques were used: Automated exposure control, adjustment of the mA and/or kV according to patient size, and/or utilization of iterative reconstruction technique. DISCUSSION: Scalp/Skull: Left frontoparietal craniotomy changes. Apparent left mastoidectomy changes with opacification of the mastoidectomy bowl. Brain sulci: Mildly prominent. Ventricles: Compensatory dilatation. Extra-axial spaces: No masses or fluid collections. Carotid siphon calcifications are present. Parenchyma: Areas of right inferior frontal and left lateral temporal encephalomalacia may be from remote trauma. Mild bilateral deep white matter hypodensity is likely chronic microvascular ischemic change. Otherwise, no masses, hemorrhage, or large vascular territory acute infarct. Dural sinuses: No abnormal densities. Sellar/Suprasellar region: Intact. Skull base: Intact. Incidental findings: Old fracture of the left zygomatic arch. IMPRESSION: 1. No acute intracr anial abnormalities. 2. Areas of right inferior frontal and left lateral temporal encephalomalacia may be from remote trauma. 3. Associated left frontoparietal craniotomy and left mastoidectomy changes. There is nonspecific opacification of the left mastoidectomy bowl 4. Mild supratentorial chronic microvascular ischemic change. Generalized cerebral volume loss. Signed by: Dr. bAraham Nunez M.D. on 06/11/2020 4:40 PM Dictated By: ABRAHAM NUNEZ MD 1640 Transcribed By: DURAN on 06/11/20 1640 COPY TO: MARINO PACHECO MD Blood leukocytes automated count (number/volume) 2020-06-11 16:06:00 Test Item White Blood Count (test code = 6690-2) 8.09 4.8-10.8 [facility] automated count (number/volume)2020-06-11 16:06:00* Test Item Value Reference Range Interpretation Comments Red Blood Count (test code = 789-8) 4.65 4.3-5.7 [facility] hemoglobin measurement (moles/volume)2020-06-11 16:06:00* Test Item Value Reference Range Interpretation Comments Hemoglobin (test code = 33952-1) 13.2 14.0-18.0 [facility] HospitalAutomated blood hematocrit (volume fraction)2020-06-11 16:06:00* Test Item Value Reference Range Interpretation Comments Hematocrit (test code = 4544-3) 39.0 38.2-49.6 [facility] HospitalAutomated erythrocyte mean corpuscular aagvlh0094-49-16 16:06:00* Test Item Value Reference Range Interpretation Comments Mean Corpuscular Volume (test code = 787-2) 83.9 81-99 [facility] HospitalAutomated erythrocyte mean corpuscular hemoglobin (mass per erythrocyte)2020-06-11 16:06:00* Test Item Value Reference Range Interpretation Comments Mean Corpuscular Hemoglobin (test code = 785-6) 28.4 28-32 [facility] HospitalAutom[facility] erythrocyte mean corpuscular hemoglobin concentration measurement (mass/volume)2020-06-11 16:06:00* Test Item Value Reference Range Interpretation Comments Mean Corpuscular Hemoglobin Concent (test code = 786-4) 33.8 31-35 [facility] HospitalRDW LqeIh-Por7785-91-25 16:06:00* Test Item Value Reference Range Interpretation Comments Red Cell Distribution Width (test code = 16087-2) 12.3 11.7 -14.4 [facility] HospitalAutomated blood platelet count (count/volume)2020-06-11 16:06:00* Test Item Value Reference Range Interpretation Comments Platelet Count (test code = 777-3) 179 140-360 [facility] HospitalAutomated blood segmented neutrophil count as percentage of total vckntjymdk1841-08-51 16:06:00* Test Item Value Reference Range Interpretation Comments Neutrophils (%) (Auto) (test code = 05313-8) 69.0 38.7-80.0 [facility] HospitalAutomated blood lymphocyte count as percentage ot total nejiexmuup4321-56-99 16:06:00* Test Item Value Reference Range Interpretation Comments Lymphocytes (%) (Auto) (test code = 736-9) 14.2 18.0-39.1 [facility] HospitalAutomated blood monocyte count as percentage of total drkynwuuyv6255-67-36 16:06:00* Test Item Value Reference Range Interpretation Comments Monocytes (%) (Auto) (test code = 5905-5) 15.2 4.4-11.3 [facility] HospitalAutomated blood eosinophil count as percentage of total iiovrekfgc5467-37-57 16:06:00* Test Item Value Reference Range Interpretation Comments Eosinophils (%) (Auto) (test code = 713-8) 0.9 0.0-6.0 [facility] HospitalAutomated blood basophil count as percentage of total gfawdqjvpw0507-79-25 16:06:00* Test Item Value Reference Range Interpretation Comments Basophils (%) (Auto) (test code = 706-2) 0.2 0.0-1.0 [facility] HospitalFluoroscopic procedure less than one hour yzzegytv8033-83-10 16:06:00* Test Item Value Reference Range Interpretation Comments IM GRANULOCYTES % (test code = IM GRANULOCYTES %) 0.5 0.0- 1.0 [facility] HospitalAutomated blood neutrophil count 2020-06-11 16:06:00* Test Item Value Reference Range Interpretation Comments Neutrophils # (Auto) (test code = 751-8) 5.6 2.1-6.9 [facility] lymphocytes count (number/volume) 2020-06-11 16:06:00* Test Item Value Reference Range Interpretation Comments Lymphocytes # (Auto) (test code = 38148-3) 1.2 1.0-3.2 [facility] HospitalBlood monocytes automated count (number/volume)2020-06-11 16:06:00* Test Item Value Reference Range Interpretation Comments Monocytes # (Auto) (test code = 742-7) 1.2 0.2-0.8 [facility] HospitalAutomated blood eosinophil count 2020-06-11 16:06:00* Test Item Value Reference Range Interpretation Comments Eosinophils # (Auto) (test code = 711-2) 0.1 0.0-0.4 [facility] HospitalAutomated blood basophil count (count/volume)2020-06-11 16:06:00* Test Item Value Reference Range Interpretation Comments Basophils # (Auto) (test code = 704-7) 0.0 0.0-0.1 [facility] HospitalFluoroscopic procedure less than one hour vrkjrfnj9823-85-61 16:06:00* Test Item Value Reference Range Interpretation Comments Absolute Immature Granulocyte (auto (mark t code = Absolute Immature Granulocyte (auto) 0.04 0-0.1 [facility] HospitalProthrombin time (PT) in platelet poor plasma by coagulation hhwtw0917-00-34 16:06:00* Test Item Value Reference Range Interpretation Comments Prothrombin Time (test code = 5902-2) 12.3 11.9-14.5 [facility] HospitalINR in Platelet poor plasma by Coagulation zacjq0721-66-04 16:06:00* Test Item Value Reference Range Interpretation Comments Prothromb Time International Ratio (test code = 6301-6) 0.87 Oral Anticoagulant Therapy INR Values:1. Low Intensity Therapy 1.5 - 2.02 . Moderate Intensity Therapy 2.0 - 3.03. High Intensity Therapy(1) 2.5 - 3. 54. High Intensity Therapy(2) 3.0 - 4.05. Panic Value INR > 5.0 [facility] HospitalActivated partial thromboplastin time (aPTT) in platelet poor plasma by coagulation mxqpe6667-02-77 16:06:00* Test Item Value Reference Range Interpretation Comments Activated Partial Thromboplast Time (test code = 12586-4) 23.4 23.8-35.5 [facility] HospitalUrine color mmjesdlqbwzqn7025-97-69 16:06:00* Test Item Value Reference Range Interpretation Comments Urine Color (test code = 5778-6) YELLOW YELLOW [facility] HospitalUrine kqrwchi4184-85-74 16:06:00* Test Item Value Reference Range Interpretation Comments Urine Clarity (test code = 57842-4) SL CLOUDY CLEAR [facility] of Urine by Test strip 2020-06-11 16:06:00* Test Item Value Reference Range Interpretation Comments Urine Specific [place] (test code = 5811-5) 1.020 1.010-1.02 5 [facility] HospitalUrine pH measurement by automated test seokr4700-83-47 16:06:00* Test Item Value Reference Range Interpretation Comments Urine pH (test code = 93744-4) 7.5 5-7 [facility] HospitalUrine leukocyte esterase detection by skgvtunr2457-48-48 16:06:00* Test Item Value Reference Range Interpretation Comments Urine Leukocyte Esterase (test code = 5799-2) NEGATIVE NEGATIVE [facility] HospitalUrine nitrite xbujnaslp0869-45-52 16:06:00* Test Item Value Reference Range Interpretation Comments Urine Nitrite (test code = 61587-7) NEGATIVE NEGATIVE [facility] HospitalUrine protein measurement by test strip (mass/volume)2020-06-11 16:06:00* Test Item Value Reference Range Interpretation Comments Urine Protein (test code = 5804-0) NEGATIVE NEGATIVE [facility] HospitalUrine glucose abnxskfcc6802-18-82 16:06:00* Test Item Value Reference Range Interpretation Comments Urine Glucose (UA) (test code = 2349-9) NEGATIVE NEGATIVE [facility] HospitalUrine ketones detection by automated test edlrt5163-06-34 16:06:00* Test Item Value Reference Range Interpretation Comments Urine Ketones (test code = 45939-0) NEGATIVE NEGATIVE [facility] HospitalUrine urobilinogen measurement by test strip (mass/volume)2020-06-11 16:06:00* Test Item Value Reference Range Interpretation Comments Urine Urobilinogen (test code = 62414-2) 2 0.2-1 [facility] HospitalUrine total bilirubin measurement (mass/volume)2020-06-11 16:06:00* Test Item Value Reference Range Interpretation Comments Urine Bilirubin (test code = 1978-6) NEGATIVE NEGATIVE [facility] HospitalUrine erythrocytes lcxxdueim0652-08-38 16:06:00* Test Item Value Reference Range Interpretation Comments Urine Blood (test code = 79691-8) NEGATIVE NEGATIVE [facility] HospitalAutomated urine sediment leukocyte count by microscopy (number/high power field)2020-06-11 16:06:00* Test Item Value Reference Range Interpretation Comments Urine WBC (test code = 5821-4) NONE 0-5 [facility] HospitalErythrocytes detection in urine sediment by light ryetdvqnso0831-69-29 16:06:00* Test Item Value Reference Range Interpretation Comments Urine RBC (test code = 38793-4) NONE 0-5 [facility] HospitalBacteria detection in urine sediment by light ssnqyuzobf7325-79-06 16:06:00* Test Item Value Reference Range Interpretation Comments Urine Bacteria (test code = 69168-9) FEW NONE [facility] HospitalEpithelial cells detection in urine sediment by light auptbwqwal9280-04-00 16:06:00* Test Item Value Reference Range Interpretation Comments Urine Epithelial Cells (test code = 95337-8) NONE NONE [facility] HospitalAmorphous sediment detection in urine sediment by light evkflvtmpf2877-45-80 16:06:00* Test Item Value Reference Range Interpretation Comments Urine Amorphous Sediment (test code = 8246-1) MODERATE FEW [facility]oerum or plasma sodium measurement (moles/volume)2020-06-11 16:06:00* Test Item Value Reference Range Interpretation Comments Sodium Level (test code = 2951-2) 128 136-145 [facility]oerum or plasma potassium measurement (moles/volume)2020-06-11 16:06:00* Test Item Value Reference Range Interpretation Comments Potassium Level (test code = 2823-3) 3.8 3.5-5.1 [facility] or plasma chloride measurement (moles/volume)2020-06-11 16:06:00* Test Item Value Reference Range Interpretation Comments Chloride Level (test code = 2075-0) 97 98-107 [facility]erum or plasma carbon dioxide, total measurement (moles/volume)2020-06-11 16:06:00* Test Item Value Reference Range Interpretation Comments Carbon Dioxide Level (test code = 2028-9) 20 22-29 [facility]um or plasma anion lec3734-65-42 16:06:00* Test Item Value Reference Range Interpretation Comments Anion Gap (test code = 16327-0) 14.8 8-16 [facility] or plasma urea nitrogen measurement (mass/volume)2020-06-11 16:06:00* Test Item Value Reference Range Interpretation Comments Blood Urea Nitrogen (test code = 3094-0) 12 7-26 [facility] or plasma creatinine measurement (mass/volume)2020-06-11 16:06:00* Test Item Value Reference Range Interpretation Comments Creatinine (test code = 2160-0) 0.66 0.72-1.25 [facility]um or plasma urea nitrogen/creatinine mass jdaox3036-83-92 16:06:00* Test Item Value Reference Range Interpretation Comments BUN/Creatinine Ratio (test code = 3097-3) 18 6-25 [facility] HospitalEstimated glomerular filtration rate (GFR) ztamooazvdooe3939-93-61 16:06:00* Test Item Value Reference Range Interpretation Comments Estimat Glomerular Filtration Rate (test code = 070240127) > 60 >60 Ranges were taken from the National Kidney Disease Education Program and the [facility] Kidney Foundation literature.Reference ranges:60 or greater: Ubenjn97-52 ( for 3 consecutive months): Chronic kidney disease 15 or less: Kidney failureAspire Behavioral Health HospitalGlucose chxjnyebefj4896-41-66 16:06:00* Test Item Value Reference Range Interpretation Comments Glucose Level (test code = YTF8023) 103 74-118 [facility] or plasma calcium measurement (mass/volume)2020-06-11 16:06:00* Test Item Value Reference Range Interpretation Comments Calcium Level (test code = 76670-8) 8.6 8.4-10.2 [facility] HospitalFluoroscopic procedure less than one hour vnnqltqx0133-52-29 16:06:00* Test Item Value Reference Range Interpretation Comments Lactic Acid Level (test code = Lactic Acid Level) 2.4 0.5- 2.0 Results repeated and called to ADEN APONTE at 1641 on 06/11/20 by JOSY MCGRATH . Read back and verified.[facility]oerum or plasma total bilirubin measurement (mass/volume)2020-06-11 16:06:00* Test Item Value Reference Range Interpretation Comments Total Bilirubin (test code = 1975-2) 0.5 0.2-1.2 [facility] HospitalFluoroscopic procedure less than one hour qlyblurj3936-67-06 16:06:00* Test Item Value Reference Range Interpretation Comments Aspartate Amino Transf (AST/SGOT) (test code = Aspartate Amino Transf (AST/SGOT)) 60 5-34 [facility]um or plasma alanine aminotransferase measurement (enzymatic activity/volume)2020-06-11 16:06:00* Test Item Value Reference Range Interpretation Comments Alanine Aminotransferase (ALT/SGPT) (test code = 1742-6) 75 0-55 [facility] or plasma protein measurement (mass/volume)2020-06-11 16:06:00* Test Item Value Reference Range Interpretation Comments Total Protein (test code = 2885-2) 6.0 6.5-8.1 [facility] or plasma albumin measurement (mass/volume)2020-06-11 16:06:00* Test Item Value Reference Range Interpretation Comments Albumin (test code = 1751-7) 3.2 3.5-5.0 [facility] HospitalPlasma globulin measurement (mass/volume) 2020-06-11 16:06:00* Test Item Value Reference Range Interpretation Comments Globulin (test code = 02796-7) 2.8 2.3-3.5 [facility] or plasma albumin/globulin mass iyufg1975-12-91 16:06:00* Test Item Value Reference Range Interpretation Comments Albumin/Globulin Ratio (test code = 1759-0) 1.1 0.8-2.0 [facility] or plasma alkaline phosphatase measurement (enzymatic activity/volume)2020-06-11 16:06:00* Test Item Value Reference Range Interpretation Comments Alkaline Phosphatase (test code = 6768-6) 102 40-150 [facility]oerum or plasma creatine kinase measurement (enzymatic activity/volume)2020-06-11 16:06:00* Test Item Value Reference Range Interpretation Comments Creatine Kinase (test code = 2157-6) 35 30-200 [facility]oerum or plasma creatine kinase MB measurement (mass/volume)2020-06-11 16:06:00* Test Item Value Reference Range Interpretation Comments Creatine Kinase MB (test code = 87801-3) 0.60 0-5.0 [facility] HospitalTroponin I measurement by highly sensitive enzyme qirlbghndbg2345-82-41 16:06:00* Test Item Value Reference Range Interpretation Comments Troponin I (test code = 60415-2) 0.018 0-0.300 [facility] HospitalCHEST SINGLE (PORTABLE)2020-06-11 15:35:[address] [address] Patient Name: CHRISTINA LYNN MR #: [id number] : 1960 Age/Sex: 60/M Req #: [id number] Adm Physician: Ordered by: Marino Pacheco MD Report #: [id number] Location: ER Room/Bed: Procedure: [id number] DX/CHEST SIN GLE (PORTABLE) Exam Date: 06/11/20 Exam Time: 1500 REPORT STATUS: Signed EXAMINATION : CHEST SINGLE (PORTABLE) INDICATION: Altered mental status JAYE RISON: None FINDINGS: LINES/TUBES:None LUNGS:The lungs are w ell-inflated. No focal consolidation or pulmonary edema. PLEURA:No pleural effusion or pneumothorax. MEDIASTINUM:The cardiomediastinal silhouette appe ars normal in size and shape. BONES/SOFT TISSUES:No acute osseous injury. R ight distal clavicle fixation hardware. ABDOMEN:No free air under the vanessa phragm. Surgical clips at the left upper abdomen. IMPRESSION: No fo eliane pneumonia or pulmonary edema. Signed by: Ashutosh Pa MD on 06/11/2020 3: 37 PM Dictated By: ASHUTOSH PA MD 153 Transcribed By: DURAN on 06/11/20 1537 COPY TO: MARINO BURCH MD [id number] 15:00:00* Test Item Value Reference Range Interpretation Comments PHOSPHOROUS (test code = PHOS) 3.5 MG/DL 2.5-4.9 N CBC W/AUTO [id number] 08:11:00* Test Item Value Reference Range Interpretation [...] (test code = MDIFF) NO BASIC METABOLIC [id number] 08:08:00* Test Item Value Reference Range Interpretation [...] 8.3 mg/dL 8.0-10.5 N - XR SWLW [facility] W/C [id number] 15:28:00 FAX: Juan Martinez NP [phone] [place]: St: ADM FAX: Сергей James I [phone] FAX: David Finch MD [phone] Name: CHRISTINA YLNN PHILLY [facility] : 1960 Age/S: 59/M [address] [place] [address] Unit #: [id number] Loc: G.55[address] [place] [address] Phys: Jaun Martinez NP Acct: [id number] Dis Date: Status: ADM IN PH ONE #: [phone] Exam Date: 11/08/2019 1421 FAX #: [phone] Reason: DYSPHAGIA EXAMS: CPT CODE: [id number] XR SWLW FUNC W/C V 27145 Modified bariu m swallow: HISTORY: Pneumonia, dysphagia area FINDIN GS: [...] 8.61 mGy, fluoroscopy time 230 seconds SL: [id number] at 1528 Reported and sign ed by: Dio Keene M.D. CC: Juan Martinez NP; Сергей rios MD; David Juarez M.D. Technologist: RT Richardson(R) Trnscrd Date/Time/By: 11/08/2019 (1528) : By: NancyETG Orig Print D/T: S: 11/08/2019 (7482) PAGE 1 Signed Report VANCOMYCIN [id number] 10:06:00* Test Item Value Reference Range Interpretation Comments VANCOMYCIN TROUGH (test code = VANCT) 9.7 mcg/mL 10.0-20.0 L 10-15 mcg/mL - Cellulitis, Urinary Tract Infection. 15-20 mcg/mL - Bacteremia, Infective Endocarditis, Meningitis, Osteomyelitis, Pneumonia, Severe Skin/Soft- Tissue Infection, Spinal Abscess. INFLUENZA A [id number] 21:58:00* Test Item Value Reference Range Interpretation Comments INFLUENZA A (test code = FLUAPCR) Negative Negative INFLUENZA B (test code = FLUBPCR) Negative Negative LACTIC [id number] 22:20:00* Test Item Value Reference Range Interpretation Comments LACTIC ACID (test code = LACT) 1.1 mmol/L 0.4-1.9 N UA RFLX MICR CULT IF [id number] 20:38:00* Test Item Value Reference Range Interpretation [...] VALP) 19 mcg/mL 50.0-100.0 L COMPREHENSIVE METABOLIC [id number] 19:55:00* Test Item Value Reference Range Interpretation [...] code = ALKP) 127 IUnit/L 20-125 H [id number] 19:55:00* Test Item Value Reference Range Interpretation Comments MAGNESIUM (test code = MAG) 2.00 mg/dL 1.8-2.4 N - XR CHEST 1 [id number] 19:53:00 FAX: Cari Lr MD [phone] [place]: St: [facility] FAX: David Finch MD [phone] Name: CHRISTINA LYNN PHILLY [facility] : 1960 Age/S: 59/M [address] [place] [address] Unit #: [id number] Loc: [place] [address] Phys: Cari Mckee MD Acct: [id number] Dis Date: Status: REG ER PHONE #: [phone] Exam Date: 11/03/20191942 FAX #: [phone] Reason: acute cough fever EXAMS: CPT CODE: [id number] XR CHEST 1 V 95405 SINGLE VIEW RADIOGRAPH CHEST INDICATION: acute cough fever. TECHNIQUE: A single view frontal radiograph of the chest was obtained. COMPARISONS: Chest x-ray 09/22/2017 FINDINGS: There is internal fixation metallic plate and screw nayana dware within the distal right clavicle. There is no acute osseous fractur e or dislocation. There is no subdiaphragmatic free gas. The cardiomediastinal size and contour are normal. Ther e is reticular and consolidative opacity in the [...] Cari Mckee MD; David Juarez M.D. Technologist: RT Maribel(Shawn)(Eddie) Trn scrd Date/Time/By: 11/03/2019 (1952) : By: [email or web address] Orig Print D/T: S : 11/03/2019 (1955) PAGE 1 Signed Report COMPREHENSIVE METABOLIC [id number] 19:48:00* Test Item Value Reference Range Interpretation [...] TOTAL (test code = ALKP) IUnit/L 20-125 [id number] 19:48:00* Test Item Value Reference Range Interpretation Comments MAGNESIUM (test code = MAG) mg/dL 1.8-2.4 CBC W/AUTO [id number] 19:46:00* Test Item Value Reference Range Interpretation [...] (test code = MDIFF) NO COMPREHENSIVE METABOLIC [id number] 06:09:00* Test Item Value Reference Range Interpretation [...] result is a direct measurement.========= VITAMIN D [id number] 06:09:00* Test Item Value Reference Range Interpretation Comments VITAMIN D 25-HYDROXY (test code = VITD25) 22.5 ng/mL 30.0-100.0 A Vitamin D deficiency has been defined by the [place] [employer] and an Endocrine Society practice guideline as alevel of serum 25-OH vitamin D less than 20 ng/mL (1,2).The Endocrine Society went on to further define vitamin Dinsufficiency as a level between 21 and 29 ng/mL (2).1. IOM ([place] [employer]). 2010. Dietary reference intakes for calcium and D. [place]: The National Academies Press.2. Andrey MF, Lili NC, Chayo HURTADO, et al. Evaluation, treatment, and prevention of vitamin D deficiency: an Endocrine Society clinical practice guideline. JCEM. 2010; 96(7):1911-30.Performed At: [facility] [id number] Koffi De La Torre MD Ph:[phone] performed at: [facility] [address] COMPREHENSIVE METABOLIC [id number] 12:07:00* Test Item Value Reference Range Interpretation [...] result is a direct measurement.========= VITAMIN D 86-[id number] 12:07:00* Test Item Value Reference Range Interpretation Comments VITAMIN D 25-HYDROXY (test code = VITD25) ng/mL 30-100 COMPREHENSIVE METABOLIC [id number] 11:50:00* Test Item Value Reference Range Interpretation [...] code = LDL) mg/dL 100-129 VITAMIN D 12-[id number] 11:50:00* Test Item Value Reference Range Interpretation Comments VITAMIN D 25-HYDROXY (test code = VITD25) ng/mL 30-100 CBC W/AUTO [id number] 10:53:00* Test Item Value Reference Range Interpretation [...] NRBC#) 0.00 K/mm3 0.0-0.1 N COMPREHENSIVE METABOLIC [id number] 13:23:00* Test Item Value Reference Range Interpretation [...] due to change in reagent. AG PROSTATE [id number] 13:23:00* Test Item Value Reference Range Interpretation Comments AG PROSTATE SPECIFIC (test code = PSA) 0.24 ng/mL 0.0-4.0 N THYROID STIMULATING [id number] 13:23:00* Test Item Value Reference Range Interpretation Comments THYROID STIMULATING HORMONE (test code = TSH) 1.890 uIU/mL 0.36-3.7 4 N TSH REFERENCE RANGES: EUTHYROID: 0.35 - 4.3 mIU/mL HYPO : > 5.5 mIU/mL HYPER : < 0.35 mIU/mL COMPREHENSIVE METABOLIC [id number] 13:19:00* Test Item Value Reference Range Interpretation [...] code = ALKP) IUnit/L 45-117 AG PROSTATE [id number] 13:19:00* Test Item Value Reference Range Interpretation Comments AG PROSTATE SPECIFIC (test code = PSA) 0.24 ng/mL 0.0-4.0 N THYROID STIMULATING [id number] 13:19:00* Test Item Value Reference Range Interpretation Comments THYROID STIMULATING HORMONE (test code = TSH) uIU/mL 0.36-3.7 4 COMPREHENSIVE METABOLIC [id number] 13:08:00* Test Item Value Reference Range Interpretation [...] code = ALKP) IUnit/L 45-117 AG PROSTATE [id number] 13:08:00* Test Item Value Reference Range Interpretation Comments AG PROSTATE SPECIFIC (test code = PSA) ng/mL 0.0-4.0 THYROID STIMULATING [id number] 13:08:00* Test Item Value Reference Range Interpretation Comments THYROID STIMULATING HORMONE (test code = TSH) uIU/mL 0.36-3.7 4 CBC W/AUTO [id number] 12:52:00* Test Item Value Reference Range Interpretation [...] REQUIRED (test code = MDIFF) NO ABDOMEN-1VIEW ([facility])2018-10-12 13:36:00 [place] [address] Patient Name: CHRISTINA LYNN MR #: [id number] : 1960 Age/Sex: 58/M Req #: [id number] Adm Physician: Ordered by: TONI GREGG MD Report #: [id number] Location: ER Room/Bed: Procedure: [id number] DX/ABD OMEN-1VIEW ([facility]) Exam Date: Exam Time: [...]
[2020-06-28] MEDS ORDERED: SODIUM CHLORIDE 0.9% 1000ML 1,000 ML IV STA (15:31)
[2020-06-28] MEDS: CEFEPIME 1GM/NS 0.9% 50 ML 50 ML IV SCH (15:55)
--- NOTE | 2020-06-28 16:03 | NUR ---
Notified md of concern for availability of IV access for abd/pelvis ct with contrast. Multiple RN's looking to obtain iv access.
[2020-06-28] MEDS ORDERED: DIATRIZOATE MEGL/DIATRIZOA SOD 30 ML BTL PO ONE (16:22)
--- NOTE | 2020-06-28 16:25 | NUR ---
gastro grafin pushed into peg tube without incidence per md order for ct.
--- NOTE | 2020-06-28 16:26 | NUR ---
now to room to see pt.
[2020-06-28 16:27] LABS: BASOPHILS % 0.4 % (0.0-1.0); EOSINOPHILS # (AUTO) 0.1 (0.0-0.4); EOSINOPHILS % 0.6 % (0.0-6.0); HEMOGLOBIN 12.2 g/dL (14.0-18.0); MEAN CORPUSCULAR HGB CONC 34.9 g/dL (31-35); MEAN CORPUSCULAR VOLUME 80.5 fL (81-99); MONOCYTES % 11.9 % (4.4-11.3); NEUTROPHILS # (AUTO) 5.9 (2.1-6.9); NEUTROPHILS % 74.5 % (38.7-80.0); PLATELET COUNT 319 x10e3/uL (140-360); RED BLOOD COUNT 4.35 x10e6/uL (4.3-5.7)
[2020-06-28] MEDS ORDERED: VANCOMYCIN 1GM/NS 250 ML 250 ML IV ONE (16:30)
[2020-06-28 16:33] LABS: BILIRUBIN,URINE NEGATIVE (NEGATIVE); CLARITY,URINE SL CLOUDY (CLEAR); COLOR,URINE YELLOW (YELLOW); KETONES,URINE NEGATIVE (NEGATIVE); LEUKOCYTE ESTERASE ,URINE NEGATIVE (NEGATIVE); NITRITE,URINE NEGATIVE (NEGATIVE); PROTEIN,URINE DIPSTICK NEGATIVE (NEGATIVE); URINE UROBILINOGEN 2 mg/dL (0.2 - 1)
[2020-06-28 16:47] LABS: AMORPHOUS SEDIMENT,URINE MODERATE (FEW); BACTERIA,URINE FEW /HPF
[2020-06-28 16:50] LABS: ALANINE AMINOTRANSFERASE 62 IU/L (0-55); ALBUMIN 3.6 g/dL (3.5-5.0); ALBUMIN/GLOBULIN RATIO 1.4 (0.8-2.0); ALKALINE PHOSPHATASE 104 IU/L (40-150); ANION GAP 16.8 mmol/L (8-16); BLOOD UREA NITROGEN 11 mg/dL (7-26); BUN/CREATININE RATIO 18 (6-25); CALCIUM 8.4 mg/dL (8.4-10.2); CARBON DIOXIDE 20 mmol/L (22-29); CHLORIDE 93 mmol/L (98-107); CREATINE KINASE 21 IU/L (30-200); EST GLOMERULAR FILTRATION RATE > 60 ML/MIN (60-); GLUCOSE 123 mg/dL (74-118); POTASSIUM 3.8 mmol/L (3.5-5.1); SODIUM 126 mmol/L (136-145)
--- NOTE | 2020-06-28 17:11 | NUR ---
notified again of poor venous access. Unable to obtain iv in ac for ct abd/pelvis with contrast. states she will look with ultrasound for iv access.
--- NOTE | 2020-06-28 17:12 | NUR ---
Notified Alexis, Documentation Lead, of need for IV access. Alexis states he will come with his ultrasound machine and look for access for pt.
[2020-06-28] MEDS ORDERED: D5.45%NS/KCL 20MEQ 1,000 ML IV ONE (17:30)
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
--- OUTSIDE RECORDS SUMMARY | 2020-06-28 17:37 | XMS REPORT | Continuity of Care Document ---
Author Author [facility] t Organization [facility] Address [address] [place] [address] Phone Unavailable Care Team Providers Care Retail Stocker Name Role Phone TISH DOSS, MD RICHARDS PCP Adeel Pacheco Attphys Unavailable Yuriy GREGG Attphys Unavailable Payers Payer Name Policy Type Policy Number Effective Date Expiration Date [facility] [id number] [facility] Problems Condition Name Condition Details Condition Category Status Onset Date Resolution Date Last Treatment Date Treating Clinician Comments Source Status post insertion of percutaneous endoscopic gastr ostomy (PEG) tube Status post insertion of percutaneous endoscopic gastrostomy (PEG) tube Problem Active [facility] Encounter for medical screening examination Problem Active [facility] Allergies, Adverse Reactions, Alerts Allergy Name Allergy Type Status Severity Reaction(s) Onset Date Inacti ve Date Treating Clinician Comments Source No Known Allergies DA Active U 2019-11-03 00:00:00 [facility] No Known Allergies DA Active U 2018-09-20 00:00:00 [facility] No Known Allergies DA Active U 2018-09-19 00:00:00 [facility] No Known Allergies DA Active U 2015-10-28 00:00:00 [facility] Social History Social Habit Start Date Stop Date Quantity Comments Source Sex Assigned At 1960 00:00:00 1960 00:00:00 Male [facility] Medications Ordered Medication Name Filled Medication Name Start Date Stop Da te Current Medication? Ordering Clinician Indication Dosage Frequency Signature (SIG) Comments Components Source Buspirone Hcl Buspirone Hcl Yes 10 Daily [facility] Carbamazepine Carbamazepine Yes 200 Three Times A Day [facility] Divalproex Sodium (Depakote) 125 Mg TABLET.DR Najerapro ex Sodium (Depakote) 125 Mg TABLET.DR Shannon 125 Twice A Day [facility] Topiramate (Topamax) 25 Mg TABLET Topiramate (Topamax) 25 Mg TABLET Yes 100 Daily [facility] Esomeprazole Magnesium (Nexium) 40 Mg SUSPDR.PKT Esome prazole Magnesium (Nexium) 40 Mg SUSPDR.PKT 2019-12-04 00:00:00 No 40 Daily [facility] Dipyridamole/Aspirin (Aggrenox 25 Mg-200 Mg Capsule) 1 Cap CAPCR Dipyridamole/Aspirin (Aggrenox 25 Mg-200 Mg Capsule) 1 Cap CAPCR 2019-12-01 00:00:00 No Twice A Day [facility] Vital Signs Vital Name Observation Time Observation Value Comments Source Weight 2020-06-11 15:12:00 140 [lb_av] [facility] BMI (Body Mass Index) 2020-06-11 15:12:00 21.3 kg/m2 [facility] Body Temperature 2019-12-04 15:22:00 97.6 [degF] [facility] Procedures Procedure Date / Time Performed Performing Clinician [facility] e Computed tomography of brain without radiopaque contrast 2020-05 00:00:00 [facility] EGD PLACE GASTROSTOMY TUBE 2019-12-04 00:00:00 C [facility] Plan of Care Planned Activity Planned Date Details Comments Source Instructions Heart Healthy Diet [facility] Encounters Start Date/Time End Date/Time Encounter Type Admission Type [facility] Care Department Encounter ID Source 2019-12-04 11:00:00 2019-12-04 11:00:00 Registered Surgical Day Care [facility] [id number] [facility] 2018-10-12 11:32:00 2018-10-12 13:45:00 Departed Emergency Room 1 TONI GREGG [facility] [id number] [facility] Results Test Description Test Time Test Comments Results Result Comments Source CT BRAIN WO 2020-06-11 16:35:00 [facility] [address] [address] Patient Name: CHRISTINA LYNN MR #: [id number] : 1960 Age/Sex: 60/M Req #: [id number] Adm Physician: Ordered by: Marino Pacheco MD Report #: [id number] Location: ER Room/Bed: Procedure: [id number] CT/CT BRAIN WO Exam Date: 06/11/20 Exam [...] Generalized cerebral volume loss. Signed by: Dr. Abraham Nunez M.D. on 06/11/2020 4:40 PM Dictated By: ABRAHAM NUNEZ MD 1640 Transcribed By: DURAN on 06/11/20 1640 COPY TO: MARINO PACHECO MD Blood leukocytes automated count (number/volume) 2020-06-11 16:06:00 Test Item White Blood Count (test code = 6690-2) 8.09 4.8-10.8 [facility] erythrocytes automated count (number/volume)2020-06-11 16:06:00* Test Item Value Reference Range Interpretation Comments Red Blood Count (test code = 789-8) 4.65 4.3-5.7 [facility] hemoglobin measurement (moles/volume)2020-06-11 16:06:00* Test Item Value Reference Range Interpretation Comments Hemoglobin (test code = 46686-5) 13.2 14.0-18.0 [facility] Austin[facility] blood hematocrit (volume fraction)2020-06-11 16:06:00* Test Item Value Reference Range Interpretation Comments Hematocrit (test code = 4544-3) 39.0 38.2-49.6 [facility] Austin[facility] erythrocyte mean corpuscular aapbek4519-86-46 16:06:00* Test Item Value Reference Range Interpretation Comments Mean Corpuscular Volume (test code = 787-2) 83.9 81-99 [facility] Austin[facility] erythrocyte mean corpuscular hemoglobin (mass per erythrocyte)2020-06-11 16:06:00* Test Item Value Reference Range Interpretation Comments Mean Corpuscular Hemoglobin (test code = 785-6) 28.4 28-32 [facility] Austin[facility] erythrocyte mean corpuscular hemoglobin concentration measurement (mass/volume)2020-06-11 16:06:00* Test Item Value Reference Range Interpretation Comments Mean Corpuscular Hemoglobin Concent (test code = 786-4) 33.8 31-35 [facility] AustinRDW XsrZw-[id number] 16:06:00* Test Item Value Reference Range Interpretation Comments Red Cell Distribution Width (test code = 36449-7) 12.3 11.7 -14.4 [facility] Austin[facility] blood platelet count (count/volume)2020-06-11 16:06:00* Test Item Value Reference Range Interpretation Comments Platelet Count (test code = 777-3) 179 140-360 [facility] AustinAutomated blood segmented neutrophil count as percentage of total jdveqznnxl5599-54-95 16:06:00* Test Item Value Reference Range Interpretation Comments Neutrophils (%) (Auto) (test code = 18895-7) 69.0 38.7-80.0 [facility] AustinAutomated blood lymphocyte count as percentage ot total oidskrlepe5859-21-57 16:06:00* Test Item Value Reference Range Interpretation Comments Lymphocytes (%) (Auto) (test code = 736-9) 14.2 18.0-39.1 [facility] AustinAutomated blood monocyte count as percentage of total qjoailuwtg2023-89-87 16:06:00* Test Item Value Reference Range Interpretation Comments Monocytes (%) (Auto) (test code = 5905-5) 15.2 4.4-11.3 [facility] AustinAutomated blood eosinophil count as percentage of total pgfsminsma1447-32-91 16:06:00* Test Item Value Reference Range Interpretation Comments Eosinophils (%) (Auto) (test code = 713-8) 0.9 0.0-6.0 [facility] AustinAutomated blood basophil count as percentage of total sdrkwmywvo3498-45-53 16:06:00* Test Item Value Reference Range Interpretation Comments Basophils (%) (Auto) (test code = 706-2) 0.2 0.0-1.0 [facility] AustinFluoroscopic procedure less than one hour oqhiybxg2144-28-44 16:06:00* Test Item Value Reference Range Interpretation Comments IM GRANULOCYTES % (test code = IM GRANULOCYTES %) 0.5 0.0- 1.0 [facility] AustinAutom[facility] blood neutrophil count 2020-06-11 16:06:00* Test Item Value Reference Range Interpretation Comments Neutrophils # (Auto) (test code = 751-8) 5.6 2.1-6.9 [facility] lymphocytes count (number/volume) 2020-06-11 16:06:00* Test Item Value Reference Range Interpretation Comments Lymphocytes # (Auto) (test code = 62449-3) 1.2 1.0-3.2 [facility] AustinBlood monocytes automated count (number/volume)2020-06-11 16:06:00* Test Item Value Reference Range Interpretation Comments Monocytes # (Auto) (test code = 742-7) 1.2 0.2-0.8 [facility] AustinAutomated blood eosinophil count 2020-06-11 16:06:00* Test Item Value Reference Range Interpretation Comments Eosinophils # (Auto) (test code = 711-2) 0.1 0.0-0.4 [facility] AustinAutomated blood basophil count (count/volume)2020-06-11 16:06:00* Test Item Value Reference Range Interpretation Comments Basophils # (Auto) (test code = 704-7) 0.0 0.0-0.1 [facility] AustinFluoroscopic procedure less than one hour sbwdbfkw6626-78-85 16:06:00* Test Item Value Reference Range Interpretation Comments Absolute Immature Granulocyte (auto (mark t code = Absolute Immature Granulocyte (auto) 0.04 0-0.1 [facility] AustinProthrombin time (PT) in platelet poor plasma by coagulation btewj7369-50-64 16:06:00* Test Item Value Reference Range Interpretation Comments Prothrombin Time (test code = 5902-2) 12.3 11.9-14.5 [facility] AustinINR in Platelet poor plasma by Coagulation swndy8470-80-44 16:06:00* Test Item Value Reference Range Interpretation Comments Prothromb Time International Ratio (test code = 6301-6) 0.87 Oral Anticoagulant Therapy INR Values:1. Low Intensity Therapy 1.5 - 2.02 . Moderate Intensity Therapy 2.0 - 3.03. High Intensity Therapy(1) 2.5 - 3. 54. High Intensity Therapy(2) 3.0 - 4.05. Panic Value INR > 5.0 [facility] AustinActivated partial thromboplastin time (aPTT) in platelet poor plasma by coagulation iopsv4589-10-86 16:06:00* Test Item Value Reference Range Interpretation Comments Activated Partial Thromboplast Time (test code = 22367-6) 23.4 23.8-35.5 [facility] AustinUrine color wfkgpfhgbwtve0738-33-59 16:06:00* Test Item Value Reference Range Interpretation Comments Urine Color (test code = 5778-6) YELLOW YELLOW [facility] AustinUrine nuouqxv5342-61-32 16:06:00* Test Item Value Reference Range Interpretation Comments Urine Clarity (test code = 04827-1) SL CLOUDY CLEAR [facility] gravity of Urine by Test strip 2020-06-11 16:06:00* Test Item Value Reference Range Interpretation Comments Urine Specific [place] (test code = 5811-5) 1.020 1.010-1.02 5 [facility] AustinUrine pH measurement by automated test qodji0873-44-04 16:06:00* Test Item Value Reference Range Interpretation Comments Urine pH (test code = 87120-2) 7.5 5-7 [facility] AustinUrine leukocyte esterase detection by txidsskk2540-20-41 16:06:00* Test Item Value Reference Range Interpretation Comments Urine Leukocyte Esterase (test code = 5799-2) NEGATIVE NEGATIVE [facility] AustinUrine nitrite jeprvyvgz8967-87-74 16:06:00* Test Item Value Reference Range Interpretation Comments Urine Nitrite (test code = 12422-2) NEGATIVE NEGATIVE [facility] AustinUrine protein measurement by test strip (mass/volume)2020-06-11 16:06:00* Test Item Value Reference Range Interpretation Comments Urine Protein (test code = 5804-0) NEGATIVE NEGATIVE [facility] AustinUrine glucose pbdcmtzlt1002-46-73 16:06:00* Test Item Value Reference Range Interpretation Comments Urine Glucose (UA) (test code = 2349-9) NEGATIVE NEGATIVE [facility] AustinUrine ketones detection by automated test fuvec7374-19-84 16:06:00* Test Item Value Reference Range Interpretation Comments Urine Ketones (test code = 41951-3) NEGATIVE NEGATIVE [facility] AustinUrine urobilinogen measurement by test strip (mass/volume)2020-06-11 16:06:00* Test Item Value Reference Range Interpretation Comments Urine Urobilinogen (test code = 07919-3) 2 0.2-1 [facility] AustinUrine total bilirubin measurement (mass/volume)2020-06-11 16:06:00* Test Item Value Reference Range Interpretation Comments Urine Bilirubin (test code = 1978-6) NEGATIVE NEGATIVE [facility] AustinUrine erythrocytes afhpqdlys6188-92-71 16:06:00* Test Item Value Reference Range Interpretation Comments Urine Blood (test code = 68433-3) NEGATIVE NEGATIVE [facility] AustinAutomated urine sediment leukocyte count by microscopy (number/high power field)2020-06-11 16:06:00* Test Item Value Reference Range Interpretation Comments Urine WBC (test code = 5821-4) NONE 0-5 [facility] AustinErythrocytes detection in urine sediment by light fodtnhopgx0482-39-62 16:06:00* Test Item Value Reference Range Interpretation Comments Urine RBC (test code = 70671-9) NONE 0-5 [facility] AustinBacteria detection in urine sediment by light ahoexzrizv0355-03-55 16:06:00* Test Item Value Reference Range Interpretation Comments Urine Bacteria (test code = 62064-3) FEW NONE [facility] AustinEpithelial cells detection in urine sediment by light hcgdvibenw8775-22-33 16:06:00* Test Item Value Reference Range Interpretation Comments Urine Epithelial Cells (test code = 32080-9) NONE NONE [facility] AustinAmorphous sediment detection in urine sediment by light vcxairtlqq3622-07-41 16:06:00* Test Item Value Reference Range Interpretation Comments Urine Amorphous Sediment (test code = 8246-1) MODERATE FEW [facility]ererum or plasma sodium measurement (moles/volume)2020-06-11 16:06:00* Test Item Value Reference Range Interpretation Comments Sodium Level (test code = 2951-2) 128 136-145 [facility]ererum or plasma potassium measurement (moles/volume)2020-06-11 16:06:00* Test Item Value Reference Range Interpretation Comments Potassium Level (test code = 2823-3) 3.8 3.5-5.1 [facility]ererum or plasma chloride measurement (moles/volume)2020-06-11 16:06:00* Test Item Value Reference Range Interpretation Comments Chloride Level (test code = 2075-0) 97 98-107 [facility]ererum or plasma carbon dioxide, total measurement (moles/volume)2020-06-11 16:06:00* Test Item Value Reference Range Interpretation Comments Carbon Dioxide Level (test code = 2028-9) 20 22-29 [facility]ererum or plasma anion cds5131-19-58 16:06:00* Test Item Value Reference Range Interpretation Comments Anion Gap (test code = 54032-3) 14.8 8-16 [facility]ererum or plasma urea nitrogen measurement (mass/volume)2020-06-11 16:06:00* Test Item Value Reference Range Interpretation Comments Blood Urea Nitrogen (test code = 3094-0) 12 7-26 [facility]ererum or plasma creatinine measurement (mass/volume)2020-06-11 16:06:00* Test Item Value Reference Range Interpretation Comments Creatinine (test code = 2160-0) 0.66 0.72-1.25 [facility]ererum or plasma urea nitrogen/creatinine mass bhbtw5595-68-89 16:06:00* Test Item Value Reference Range Interpretation Comments BUN/Creatinine Ratio (test code = 3097-3) 18 6-25 [facility] AustinEstimated glomerular filtration rate (GFR) ckabvapxoqqqo2318-54-46 16:06:00* Test Item Value Reference Range Interpretation Comments Estimat Glomerular Filtration Rate (test code = 021722628) > 60 >60 Ranges were taken from the National Kidney Disease Education Program and the [facility] Kidney Foundation literature.Reference ranges:60 or greater: Osgrtx57-96 ( for 3 consecutive months): Chronic kidney disease 15 or less: Kidney failureHeart Hospital of AustinGlucose nohqfgdwgbq4131-61-15 16:06:00* Test Item Value Reference Range Interpretation Comments Glucose Level (test code = BMT4145) 103 74-118 [facility]ererum or plasma calcium measurement (mass/volume)2020-06-11 16:06:00* Test Item Value Reference Range Interpretation Comments Calcium Level (test code = 22106-2) 8.6 8.4-10.2 [facility] AustinFluoroscopic procedure less than one hour ezcyjsws0045-28-20 16:06:00* Test Item Value Reference Range Interpretation Comments Lactic Acid Level (test code = Lactic Acid Level) 2.4 0.5- 2.0 Results repeated and called to ADEN APONTE at 1641 on 06/11/20 by JOSY MCGRATH . Read back and verified.[facility]ererum or plasma total bilirubin measurement (mass/volume)2020-06-11 16:06:00* Test Item Value Reference Range Interpretation Comments Total Bilirubin (test code = 1975-2) 0.5 0.2-1.2 [facility] AustinFluoroscopic procedure less than one hour irsxuvlt7331-99-24 16:06:00* Test Item Value Reference Range Interpretation Comments Aspartate Amino Transf (AST/SGOT) (test code = Aspartate Amino Transf (AST/SGOT)) 60 5-34 [facility]ererum or plasma alanine aminotransferase measurement (enzymatic activity/volume)2020-06-11 16:06:00* Test Item Value Reference Range Interpretation Comments Alanine Aminotransferase (ALT/SGPT) (test code = 1742-6) 75 0-55 [facility]ere[facility] or plasma protein measurement (mass/volume)2020-06-11 16:06:00* Test Item Value Reference Range Interpretation Comments Total Protein (test code = 2885-2) 6.0 6.5-8.1 [facility]ererum or plasma albumin measurement (mass/volume)2020-06-11 16:06:00* Test Item Value Reference Range Interpretation Comments Albumin (test code = 1751-7) 3.2 3.5-5.0 [facility] AustinPlasma globulin measurement (mass/volume) 2020-06-11 16:06:00* Test Item Value Reference Range Interpretation Comments Globulin (test code = 41808-3) 2.8 2.3-3.5 [facility]ere[facility] or plasma albumin/globulin mass znfnw7751-00-10 16:06:00* Test Item Value Reference Range Interpretation Comments Albumin/Globulin Ratio (test code = 1759-0) 1.1 0.8-2.0 [facility]ererum or plasma alkaline phosphatase measurement (enzymatic activity/volume)2020-06-11 16:06:00* Test Item Value Reference Range Interpretation Comments Alkaline Phosphatase (test code = 6768-6) 102 40-150 [facility]ererum or plasma creatine kinase measurement (enzymatic activity/volume)2020-06-11 16:06:00* Test Item Value Reference Range Interpretation Comments Creatine Kinase (test code = 2157-6) 35 30-200 [facility]ererum or plasma creatine kinase MB measurement (mass/volume)2020-06-11 16:06:00* Test Item Value Reference Range Interpretation Comments Creatine Kinase MB (test code = 45064-4) 0.60 0-5.0 [facility] AustinTroponin I measurement by highly sensitive enzyme joqduczigdh4515-71-18 16:06:00* Test Item Value Reference Range Interpretation Comments Troponin I (test code = 41845-5) 0.018 0-0.300 [facility] AustinCHEST SINGLE (PORTABLE)2020-06-11 15:35:[address] [address] Patient Name: CHRISTINA LYNN MR #: [id number] : 1960 Age/Sex: 60/M Req #: [id number] Adm Physician: Ordered by: Marino Pacheco MD Report #: [id number] Location: ER Room/Bed: Procedure: [id number] DX/CHEST SIN GLE (PORTABLE) Exam Date: 06/11/20 [...] 06/11/20 1537 COPY TO: MARINO BURCH MD [id number] 15:00:00* Test Item Value Reference Range Interpretation Comments PHOSPHOROUS (test code = PHOS) 3.5 MG/DL 2.5-4.9 N CBC W/AUTO [id number] 08:11:00* Test Item Value Reference Range Interpretation [...] (test code = MDIFF) NO BASIC METABOLIC [id number] 08:08:00* Test Item Value Reference Range Interpretation [...] 8.3 mg/dL 8.0-10.5 N - XR [facility] W/C [id number] 15:28:00 FAX: Juan Martinez NP [phone] [place]: St: ADM FAX: Сергей James I [phone] FAX: David Finch MD [phone] Name: CHRISTINA LYNN PHILLY [facility] : 1960 Age/S: 59/M [address] [place] [address] Unit #: [id number] Loc: G.5531 [place] [address] Phys: Juan Martinez NP Acct: [id number] Dis Date: Status: ADM IN PH ONE #: [phone] Exam Date: 11/08/2019 1421 FAX #: [phone] Reason: DYSPHAGIA EXAMS: CPT CODE: [id number] XR SWLW FUNC W/C V 32987 Modified bariu m swallow: HISTORY: Pneumonia, dysphagia [...] 8.61 mGy, fluoroscopy time 230 seconds SL: [id number] at 1528 Reported and sign ed by: Dio Keene M.D. CC: Juan Martinez NP; Сергей rios MD; David Juarez M.D. Technologist: RT Richardson(R) Trnscrd Date/Time/By: 11/08/2019 (1528) : By: NancyETG Orig Print D/T: S: 11/08/2019 (1949) PAGE 1 Signed Report VANCOMYCIN [id number] 10:06:00* Test Item Value Reference Range Interpretation Comments VANCOMYCIN TROUGH (test code = VANCT) 9.7 mcg/mL 10.0-20.0 L 10-15 mcg/mL - Cellulitis, Urinary Tract Infection. 15-20 mcg/mL - Bacteremia, Infective Endocarditis, Meningitis, Osteomyelitis, Pneumonia, Severe Skin/Soft- Tissue Infection, Spinal Abscess. INFLUENZA A [id number] 21:58:00* Test Item Value Reference Range Interpretation Comments INFLUENZA A (test code = FLUAPCR) Negative Negative INFLUENZA B (test code = FLUBPCR) Negative Negative LACTIC [id number] 22:20:00* Test Item Value Reference Range Interpretation Comments LACTIC ACID (test code = LACT) 1.1 mmol/L 0.4-1.9 N UA RFLX MICR CULT IF [id number] 20:38:00* Test Item Value Reference Range Interpretation [...] VALP) 19 mcg/mL 50.0-100.0 L COMPREHENSIVE METABOLIC [id number] 19:55:00* Test Item Value Reference Range Interpretation [...] code = ALKP) 127 IUnit/L 20-125 H GEVTULFBA6101-10-20 19:55:00* Test Item Value Reference Range Interpretation Comments MAGNESIUM (test code = MAG) 2.00 mg/dL 1.8-2.4 N - XR CHEST 1 [id number] 19:53:00 FAX: Cari Lr MD [phone] [place]: St: [facility] FAX: David Finch MD [phone] Name: CHRISTINA LYNN PHILLY [facility] : 1960 Age/S: 59/M [address] [place] [address] Unit #: [id number] Loc: [address] [address] Phys: Cari Mckee MD Acct: [id number] Dis Date: Status: REG ER PHONE #: [phone] Exam Date: 11/03/20191942 FAX #: [phone] Reason: acute cough fever EXAMS: CPT CODE: [id number] XR CHEST 1 V 69077 SINGLE VIEW RADIOGRAPH CHEST INDICATION: acute cough [...] (1955) PAGE 1 Signed Report COMPREHENSIVE METABOLIC [id number] 19:48:00* Test Item Value Reference Range Interpretation [...] TOTAL (test code = ALKP) IUnit/L 20-125 [id number] 19:48:00* Test Item Value Reference Range Interpretation Comments MAGNESIUM (test code = MAG) mg/dL 1.8-2.4 CBC W/AUTO [id number] 19:46:00* Test Item Value Reference Range Interpretation [...] (test code = MDIFF) NO COMPREHENSIVE METABOLIC [id number] 06:09:00* Test Item Value Reference Range Interpretation [...] result is a direct measurement.========= VITAMIN D 75-DDSESDL2862-10-10 06:09:00* Test Item Value Reference Range Interpretation Comments VITAMIN D 25-HYDROXY (test code = VITD25) 22.5 ng/mL 30.0-100.0 A Vitamin D deficiency has been defined by the [place] of[place] and an Endocrine Society practice guideline as alevel of serum 25-OH vitamin D less than 20 ng/mL (1,2).The Endocrine Society went on to further define vitamin Dinsufficiency as a level between 21 and 29 ng/mL (2).1. IOM ([place] of [employer]). 2010. Dietary reference intakes for calcium and D. [place]: The National Academies Press.2. Andrey MF, Lili NC, Chayo HURTADO, et al. Evaluation, treatment, and prevention of vitamin D deficiency: an Endocrine Society clinical practice guideline. JCEM. 2010; 96(7):1911-30.Performed At: [facility] [id number] Koffi De La Torre MD Ph:[phone] performed at: [facility] [address] COMPREHENSIVE METABOLIC [id number] 12:07:00* Test Item Value Reference Range Interpretation [...] result is a direct measurement.========= VITAMIN D 06-[id number] 12:07:00* Test Item Value Reference Range Interpretation Comments VITAMIN D 25-HYDROXY (test code = VITD25) ng/mL 30-100 COMPREHENSIVE METABOLIC [id number] 11:50:00* Test Item Value Reference Range Interpretation [...] code = LDL) mg/dL 100-129 VITAMIN D 84-[id number] 11:50:00* Test Item Value Reference Range Interpretation Comments VITAMIN D 25-HYDROXY (test code = VITD25) ng/mL 30-100 CBC W/AUTO [id number] 10:53:00* Test Item Value Reference Range Interpretation [...] NRBC#) 0.00 K/mm3 0.0-0.1 N COMPREHENSIVE METABOLIC [id number] 13:23:00* Test Item Value Reference Range Interpretation [...] due to change in reagent. AG PROSTATE [id number] 13:23:00* Test Item Value Reference Range Interpretation Comments AG PROSTATE SPECIFIC (test code = PSA) 0.24 ng/mL 0.0-4.0 N THYROID STIMULATING [id number] 13:23:00* Test Item Value Reference Range Interpretation Comments THYROID STIMULATING HORMONE (test code = TSH) 1.890 uIU/mL 0.36-3.7 4 N TSH REFERENCE RANGES: EUTHYROID: 0.35 - 4.3 mIU/mL HYPO : > 5.5 mIU/mL HYPER : < 0.35 mIU/mL COMPREHENSIVE METABOLIC [id number] 13:19:00* Test Item Value Reference Range Interpretation [...] code = ALKP) IUnit/L 45-117 AG PROSTATE [id number] 13:19:00* Test Item Value Reference Range Interpretation Comments AG PROSTATE SPECIFIC (test code = PSA) 0.24 ng/mL 0.0-4.0 N THYROID STIMULATING [id number] 13:19:00* Test Item Value Reference Range Interpretation Comments THYROID STIMULATING HORMONE (test code = TSH) uIU/mL 0.36-3.7 4 COMPREHENSIVE METABOLIC [id number] 13:08:00* Test Item Value Reference Range Interpretation [...] code = ALKP) IUnit/L 45-117 AG PROSTATE [id number] 13:08:00* Test Item Value Reference Range Interpretation Comments AG PROSTATE SPECIFIC (test code = PSA) ng/mL 0.0-4.0 THYROID STIMULATING [id number] 13:08:00* Test Item Value Reference Range Interpretation Comments THYROID STIMULATING HORMONE (test code = TSH) uIU/mL 0.36-3.7 4 CBC W/AUTO [id number] 12:52:00* Test Item Value Reference Range Interpretation [...] REQUIRED (test code = MDIFF) NO ABDOMEN-1VIEW ([facility])2018-10-12 13:36:00 [place] [id number] Patient Name: CHRISTINA LYNN MR #: [id number] : 1960 Age/Sex: 58/M Req #: [id number] Adm Physician: Ordered by: TONI GREGG MD Report #: [id number] Location: ER Room/Bed: Procedure: [id number] DX/ABD OMEN-1VIEW ([facility]) Exam Date: Exam Time: [...]
--- NOTE | 2020-06-28 17:55 | NUR ---
Alexis unable to get iv access. Md notified. Md ask for central line set up. Ultrasound and all supplies at bedside for md.
--- NOTE | 2020-06-28 18:10 | NUR ---
XRAY HERE TO SHOOT FOR LINE PLACEMENT
--- NOTE | 2020-06-28 18:26 | NUR ---
Per er md, called xray for line verification placement. orders read back and verified with md. pippa did xray. order placed in computer per radiology need to put xray on line. per er md dr coughlin and carroll green to use central line she placed.
[2020-06-28] MEDS ORDERED: BUSPIRONE HCL10 MG (18:35)
[2020-06-28] MEDS ORDERED: CIPROFLOXACIN2.5 ML (18:35)
[2020-06-28] MEDS ORDERED: MIRTAZAPINE7.5 MG PO (18:35)
[2020-06-28] MEDS ORDERED: DIVALPROEX SOD125 M1 (18:35)
--- NOTE | 2020-06-28 18:44 | NUR ---
CALLED FOR TELE BOX
--- NOTE | 2020-06-28 18:44 | Diagnostic Imaging Report ---
EXAMINATION: CHEST SINGLE (PORTABLE) INDICATION: LINE PLACEMENT VERIFICATION COMPARISON: Chest x-ray on 06/11/2020. FINDINGS: TUBES and LINES: Interval placement of right central venous catheter which takes a turn underneath the right clavicle. Bibasilar atelectasis. LUNGS: Normal lung volumes. No interval change in radiographic appearance of the lungs. PLEURA: No pleural effusion or pneumothorax. HEART AND MEDIASTINUM: The cardiomediastinal silhouette is unchanged. BONES AND SOFT TISSUES: No acute osseous lesion. Soft tissues are unchanged. UPPER ABDOMEN: No free air under the diaphragm. IMPRESSION: Interval placement of right central venous catheter which likely terminates in the subclavian vein. Recommend repositioning. Signed by: Margarita Gamez MD on 06/28/2020 6:41 PM
[2020-06-28] MEDS ORDERED: IOPAMIDOL 370 MG/ML 200 ML INFUS..BTL INJ ONE (19:00)
[2020-06-28] MEDS ORDERED: SODIUM CHLORIDE 0.9% 50ML 50 ML ONE (19:00)
[2020-06-28 19:34] VITALS: BP 103/72
[2020-06-28 20:00] VITALS: BP 103/72
--- NOTE | 2020-06-28 20:27 | Diagnostic Imaging Report ---
ADDENDUM #1 PEG tube terminates appropriately within the gastric body. Signed by: Margarita Gamez MD on 06/29/2020 8:56 AM ORIGINAL REPORT EXAM: CT Abdomen and Pelvis WITH contrast INDICATION: Abdominal pain COMPARISON: None. TECHNIQUE: Abdomen and pelvis were scanned utilizing a multidetector helical scanner from the lung base to the pubic symphysis after administration of IV contrast. Coronal and sagittal reformations were obtained. Routine protocol was performed. Scan was performed when during portal venous phase. IV CONTRAST: 100 mL of Isovue 370 ORAL CONTRAST: None COMPLICATIONS: None RADIATION DOSE: Total DLP: 322.56 mGy*cm Estimated effective dose: (DLP x 0.015 x size factor) mSv CTDIvol has been reviewed. It is below the limits set by the Radiation Protocol Committee (RPC). Dose modulation, iterative reconstruction, and/or weight based adjustment of the mA/kV was utilized to reduce the radiation dose to as low as reasonably achievable. FINDINGS: LINES and TUBES: None. LOWER THORAX: There is partially imaged groundglass opacity in the right middle lobe. Is bibasilar atelectasis. HEPATOBILIARY: There is a hypodense 1.3 x 0.6 cm lesion in the right hepatic lobe with patchy peripheral enhancement which most likely represents a hemangioma (series 2 image 18). No biliary ductal dilation. GALLBLADDER: No radio-opaque stones or sludge. No wall thickening. SPLEEN: No splenomegaly. PANCREAS: No focal masses or ductal dilatation. ADRENALS: No adrenal nodules KIDNEYS/URETERS: Kidneys enhance symmetrically. No hydronephrosis. No cystic or solid mass lesions. There is a nonobstructive stone in the inferior pole of the left kidney. GI TRACT: There is large impacted well-formed stool burden in the severely distended rectum and distal sigmoid colon which measures up to 9 x 7.5 cm. There is also mucosal wall thickening, hyperenhancement and peripheral fat stranding. This severely distended rectosigmoid colon causes mass effect and displacement of the urinary bladder. There is also well-formed stool throughout the colon although with no evidence of abnormal distention or or obstruction. Appendix is normal. PELVIC ORGANS/BLADDER: The urinary bladder is displaced by the distended rectum. No abnormal wall contour of the urinary bladder. LYMPH NODES: No lymphadenopathy. VESSELS: Scattered mild arterial vascular calcifications. PERITONEUM / RETROPERITONEUM: No free air or fluid. BONES: There are degenerative changes in the spine. SOFT TISSUES: Unremarkable. IMPRESSION: 1. Large impacted stool burden in the severely distended rectum/distal sigmoid colon with associated mucosal wall thickening, hyperenhancement and peripheral fat stranding. 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 The degree of distention puts patient at risk for rectosigmoid perforation and/or ulceration. 2. Well-formed stool burden throughout the colon can present clinically as constipation. 3. Partially imaged groundglass opacity in the right middle lobe. Nonemergent baseline chest CT is recommended for complete assessment of the lungs. 4. Left nonobstructive nephrolithiasis. Signed by: Margarita Gamez MD on 06/28/2020 8:23 PM
[2020-06-28] MEDS: FLUCONAZOLE 100 MG/NS 50 ML 50 ML IV SCH (21:17)
[2020-06-28] MEDS ORDERED: NAPROXEN250 MG PO (21:56)
[2020-06-28] MEDS ORDERED: LORAZEPAM PO (21:56)
[2020-06-29] VITALS (8 sets, daily range): BP systolic 101–122; BP diastolic 63–77
--- NOTE | 2020-06-29 03:45 | NUR ---
CENTRAL LINE CARE PROVIDED. DAILY CHG BATH. NEW PORTS. SALINE FLUSHES. ALCOHOL CAPS APPLIED. PERICARE PROVIDED. TOLERATED WELL.
[2020-06-29 06:03] LABS: BASOPHILS % 0.4 % (0.0-1.0); EOSINOPHILS # (AUTO) 0.1 (0.0-0.4); EOSINOPHILS % 1.2 % (0.0-6.0); HEMATOCRIT 33.7 % (38.2-49.6); HEMOGLOBIN 11.6 g/dL (14.0-18.0); LYMPHOCYTES # (AUTO) 1.1 (1.0-3.2); MEAN CORPUSCULAR HEMOGLOBIN 28.2 pg (28-32); MEAN CORPUSCULAR HGB CONC 34.4 g/dL (31-35); MEAN CORPUSCULAR VOLUME 81.8 fL (81-99); MONOCYTES # (AUTO) 0.6 (0.2-0.8); MONOCYTES % 11.9 % (4.4-11.3); NEUTROPHILS # (AUTO) 3.3 (2.1-6.9); NEUTROPHILS % 63.9 % (38.7-80.0); PLATELET COUNT 296 x10e3/uL (140-360); RED BLOOD COUNT 4.12 x10e6/uL (4.3-5.7); RED CELL DISTRIBUTION WIDTH 12.4 % (11.7-14.4)
--- NOTE | 2020-06-29 06:32 | NUR ---
SPOKE TO MD HOOD. REPORTS WILL PUT CONSULT FOR GI.
[2020-06-29 06:35] LABS: ALANINE AMINOTRANSFERASE 58 IU/L (0-55); ALBUMIN 3.5 g/dL (3.5-5.0); ANION GAP 14.4 mmol/L (8-16); BLOOD UREA NITROGEN 8 mg/dL (7-26); BUN/CREATININE RATIO 14 (6-25); CALCIUM 8.2 mg/dL (8.4-10.2); CARBON DIOXIDE 20 mmol/L (22-29); CHLORIDE 102 mmol/L (98-107); CREATININE, SERUM 0.56 mg/dL (0.72-1.25); EST GLOMERULAR FILTRATION RATE > 60 ML/MIN (60-); GLUCOSE 127 mg/dL (74-118); POTASSIUM 4.4 mmol/L (3.5-5.1); SODIUM 132 mmol/L (136-145)
--- NOTE | 2020-06-29 06:35 | NUR ---
H&P cc: dislodged feeding tube HPI 60yoM, PCP , sent to hospital for dislodged feeding tube. Pt is unable to provide any history. D/w sister Diana, via telephone. PMH: Dysphagia s/p feeidng tube, Mood d/o, constipaiton, CVA, head injusry s/p multiple marciano surgeries PShx: multiple brain surgeries, feeding tube Allergies; see emr Fh/SH: lives with mother (also Diana) Med;s see MAR ROS: unobtainable v/s; revd PE nad anicteric ns1s2 mod bs soft; PEG; no e/t; B/L LEG CONTRACTURES; RIGHT ARM AND HAND CONTRACTURE skin dry flat affect tracks with eyes; moves left arm labs/meds revd A/P: 60yoM Dislodged feeding tube- GI eval Cellulitis at feeding tube site- IV abx Hyponatremia- start NS Transaminitis- IVF Fecal impaction- bowel regimen Left nephrolithiasis- not symptomatic Mood d/o- resume meds as soon as possible Prop; scd; PPi Dispo: consult GI; d/w sister Diana via telephone (mother's name is also Diana). BRO TOM MD, PHD.
[2020-06-29 06:36] LABS: ALBUMIN/GLOBULIN RATIO 1.5 (0.8-2.0); ALKALINE PHOSPHATASE 91 IU/L (40-150)
--- NOTE | 2020-06-29 06:36 | NUR ---
CALLED MD Stu DIAZ. LEFT MESSAGE WITH ANSWERING SERVICE REGARDING NEW CONSULT. AWAITING CALL BACK.
--- NOTE | 2020-06-29 07:24 | NUR ---
REPORT GIVEN TO DAYSHIFT NURSE. ALERT AND RESTING IN BED. NO SIGNS IV INFILTRATION. BED LOCKED AND IN LOW POSITION. CALL LIGHT WITHIN REACH. BED ALARM ACTIVATED.
--- NOTE | 2020-06-29 08:50 | NUR ---
SPOKE WITH DR. Stu DIAZ WHO STATES CONFIRM WITH PT'S MOTHER IF PT CAN HAVE ANYTHING BY MOUTH. MOTHER STATES IS TOTALLY TUBE DEPENDENT AND ASPIRATES WITH ANY FOOD OR DRINK BY MOUTH. STAT KUB X-RAY ORDERED PER MD REQUEST.
[2020-06-29] MEDS: CARBAMAZEPINE 200 MG TAB PEG SCH ×3 (09:00→19:38)
[2020-06-29] MEDS: BUSPIRONE HCL 5 MG TAB PEG SCH (09:00)
[2020-06-29] MEDS: VALPROATE 250MG/5ML ORAL LIQ 5ml PEG SCH ×2 (10:00→17:00)
[2020-06-29] MEDS: TOPIRAMATE 100 MG TAB PEG SCH (10:00)
[2020-06-29] MEDS: FAMOTIDINE 20 MG/2 ML VIAL IV SCH ×2 (10:30→17:53)
--- NOTE | 2020-06-29 11:15 | NUR ---
SPOKE WITH DR. DIAZ ABOUT CT FINDINGS ADDENDUM. NO NEW ORDERS RECEIVED. Addendum: 06/29/20 at 1214 by Fabricio Solis RN DR. DIAZ STATES HE WILL VIEW THE CT REPORT WHEN HE COMES TO SEE THE PATIENT.
--- NOTE | 2020-06-29 12:21 | NUR ---
Nutrition Intervention Note RD Recommendation(s) for Physician: Awaiting GI consult for EN access. If medically feasible can place post pyloric nasoenteric tube until PEG can be replaced. Jevity 1.2 at 60ml/hr. Plan of Care: RD following, monitoring for tolerance and adequacy Nutrition reason for involvement: Nutrition Risk Trigger - PEG tube dislodged RD Assessment Initial encounter with patient. Pt was not able to provide a nutrition Hx at the time of visit. Pt with a dislodged PEG. Pt has dysphagia, has been on Home EN, and is not safe for PO due to high aspiration risk. Pt will require EN greater than 90 days. Pt is contracted, bedbound. Unable to observe oral cavity. Principal Problems/Diagnoses: PEG dislodged PMH: Dysphagia, CVA, Constipation, brain injury GI: Constipation Skin: Cellulitis at PEG site Labs: 06/29/2020) biochemical data reviewed Meds: (06/29/2020) MAR reviewed Ht:68 in. Wt:140lbs BMI:21.3kg/m2 IBW:154lbs (-/+)10% Malnutrition Evaluation (06/29/2020) The patient does not meet criteria for a specified degree of malnutrition at this time. Will re-evaluate at follow-up as appropriate. Nutrition Prescription (Diet Order):NPO Estimated Nutritional Needs: 4329-6600 kcals at 25-30 kcals/kg/BW 64-76g protein/day ( 1-1.2g pro/kg/ BW) Diet Adequacy: Not meeting calorie needs, Not meeting protein needs Diet Education Needs Assessment: Diet education not indicated. Nutrition Care Level: High Nutrition Diagnosis: Swallowing difficulty related to CVA as evidenced by dysphagia Goal: Patient will meet 75-100% of estimated needs by follow up Progress: ( Not Progressing) Interventions: Commercial food, Composition, Rate, Route, IVF, Prescription medications, Collaboration with other providers Monitoring/Evaluation: Total energy intake, Total protein intake, Formula/Solution, IVF, Prescription medication, Weight change. Signed: Nam Marcelo RD, LD, [facility]
--- NOTE | 2020-06-29 17:14 | NUR ---
STILL AWAITING DR. AILYN DIAZ TO EVALUATE PT; UNABLE TO USE PEG TUBE AT THIS TIME.
[2020-06-29] MEDS: CEFEPIME 1GM/NS 0.9% 50 ML 50 ML IV SCH (17:53)
--- NOTE | 2020-06-29 19:11 | NUR ---
WALKING ROUNDS PERFORMED, RECEIVED PT (R) SIDE LAYING IN BED, PT EYES OPEN TO VERBAL CUES BUT NO RESPONSE FROM PT, RR EVEN AND NON-LABORED, ON ROOM AIR. NO S/SX OF DISTRESS NOTED. LEFT PT LAYING (R) SIDE LAYING IN BED, BED IN LOW LOCKED POSITION, SIDE RAILS UPX3, CALL LIGHT AND PHONE WITHIN REACH.
[2020-06-29] MEDS: FLUCONAZOLE 100 MG/NS 50 ML 50 ML IV SCH (19:46)
--- NOTE | 2020-06-29 19:50 | NUR ---
Resumed care of patient. Patient awake and resting quietly in bed, no s/s of distress at this time. Bed locked and in lowest position, side rails upx3, call light placed within reach. All safety measures in place.
--- NOTE | 2020-06-29 19:55 | NUR ---
REPORT GIVEN TO DAMARIS Davis RN FOR CONTINUED CARE OF PATIENT. PT IN STABLE CONDITION, NO S/SX OF DISTRESS.
[2020-06-29] MEDS ORDERED: MIRTAZAPINE 15 MG TAB PO SCH (21:00)
--- NOTE | 2020-06-29 22:59 | NUR ---
Dr. Stu Savage here to see patient. PEG tube flushed at bedside, no drainage or leakage noted. Received orders from MD to clean site and apply single-ply sterile gauze. Per okay to resume tube feedings, Jevity 1.2 at 30 cc/hr with goal rate of 50 cc/hr.
--- NOTE | 2020-06-29 23:11 | NUR ---
Received orders from Dr. Stu Savage to give 20 mg Dulcolax suppository and 60 cc milk of magnesia via PEG tube now. Per MD, if patient does not have bowel movement by morning, give one fleet enema followed by another 60 cc milk of magnesia.
[2020-06-29] MEDS ORDERED: MAGNESIUM HYDROXIDE 30 ML UDC PEG ONE (23:15)
[2020-06-29] MEDS ORDERED: BISACODYL 10 MG SUPP PR ONE (23:15)
[2020-06-30] VITALS: BP 109/80
--- NOTE | 2020-06-30 00:23 | NUR ---
Provided PEG tube care. Tube feedings resumed at 30 cc/hr as ordered with 100 ml water flush Q4H. Will increase as tolerated.
[2020-06-30 04:00] VITALS: BP 110/74
[2020-06-30] MEDS ORDERED: MINERAL OIL 132 ML BTL PR ONE (06:00)
[2020-06-30] MEDS ORDERED: MAGNESIUM HYDROXIDE 30 ML UDC PEG ONE (06:00)
--- NOTE | 2020-06-30 07:17 | NUR ---
Bedside report given to oncoming nurse. Patient in stable condition, no s/s of distress at this time. All safety measures in place.
[2020-06-30 07:33] VITALS: BP 121/82
[2020-06-30 07:43] VITALS: BP 121/82
[2020-06-30] MEDS: VALPROATE 250MG/5ML ORAL LIQ 5ml PEG SCH (08:16)
[2020-06-30] MEDS: CARBAMAZEPINE 200 MG TAB PEG SCH (08:16)
[2020-06-30] MEDS: BUSPIRONE HCL 5 MG TAB PEG SCH (08:16)
[2020-06-30] MEDS: TOPIRAMATE 100 MG TAB PEG SCH (08:16)
[2020-06-30] MEDS: FAMOTIDINE 20 MG/2 ML VIAL IV SCH (08:16)
[2020-06-30 11:21] VITALS: BP 107/73
--- NOTE | 2020-06-30 12:03 | NUR ---
D/C summary Principal Dx: Dislodged feeding tube- GI eval Cellulitis at feeding tube site- IV abx Hyponatremia- start NS Transaminitis- IVF Fecal impaction- bowel regimen Left nephrolithiasis- not symptomatic Secondary Dx: Mood d/o- resume meds as soon as possible Dysphagia- has PEg Prop; scd; PPi Dispo: consult GI; d/w sister Diana via telephone (mother's name is also Diana). PEG flushed; had large BM; d/c home d/c home with mother; stable d/c>35mins f/u pcp [address]>Janette in 2 weeks BRO TOM MD, PHD.
[2020-06-30] MEDS ORDERED: VIBRAMYCIN100 MG PO (12:05)
[2020-06-30] MEDS ORDERED: SENOKOT8.6 MG PO (12:05)
[2020-06-30] MEDS ORDERED: COLACE100 MG/10 NG (12:05)
--- NOTE | 2020-06-30 12:33 | NUR ---
Dr. Arciniega put in discharge orders. called and spoke with Diana Rousseau (mother) to inform her that the PEG tube was now functional and that the patient was being discharged. the mother was upset because the PEG tube was not changed, requested that Dr. Savage be called to get the PEG tube changed.
[2020-06-30 15:39] VITALS: BP 124/78
[2020-06-30] MEDS ORDERED: DOCUSATE SODIUM LIQD 100 MG/10 ML UDC NG SCH (17:00)
[2020-06-30] MEDS ORDERED: SENNOSIDES 8.6 MG TAB PO SCH (17:00)
== END 2020-06-30 17:25 | disposition home or self-care (01) ==
LOC: ER 15:25 → INTOOBSV 17:27 → ERHOLD 17:27 → MED/SURG3 20:17
PROVIDERS: ADMIT Internal Medicine; ATTEND Internal Medicine
DX: K94.23 Gastrostomy malfunction (principal); Z87.820 Personal history of traumatic brain injury; N20.0 Calculus of kidney; K94.22 Gastrostomy infection; L03.311 Cellulitis of abdominal wall; E87.1 Hypo-osmolality and hyponatremia; R74.0 Nonspecific elevation of levels of transaminase and lactic acid dehydrogenase [LDH]; K56.41 Fecal impaction; F39 Unspecified mood [affective] disorder; Z11.59 Encounter for screening for other viral diseases
CPT/HCPCS: 36415 ×2; 36556; 71045; 74177; 80053 ×2; 81001; 82550; 82553; 83605; 84484; 85025 ×2; 87040; 99285; G0378 ×3; J0692 ×2; J1450 ×3; J3370; J7030; Q9967; U0002; 36555

== ENCOUNTER → 2020-07-01 | Day surgery (SDC) | payer OTHER ==
[~2020-07-01] VITALS: Ht 172.7 cm; Wt 63.5 kg
[~2020-07-01] MED LIST changes: +BUSPIRONE HCL10 MG; +CIPROFLOXACIN2.5 ML; +COLACE100 MG/10 NG; +DIATRIZOATE MEGL/DIATRIZOA SOD 30 ML BTL PO ONE; +DIVALPROEX SOD125 M1; +LORAZEPAM PO; +MIRTAZAPINE7.5 MG PO; +NAPROXEN250 MG PO; +PROPOFOL IV EMULSION 10 MG/ML 20 ML VIAL ONE; +SENOKOT8.6 MG PO; +VIBRAMYCIN100 MG PO
--- OUTSIDE RECORDS SUMMARY | 2020-07-01 14:14 | XMS REPORT | Continuity of Care Document ---
Author Author [facility] t Organization [facility] Address 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 Name Role Phone TISH DOSS, MD RICHARDS PCP BRO HOOD Attphys Unavailable Adeel Pacheco Attphys Unavailable Yuriy GREGG Attphys Unavailable BRO HOOD Admphytevin Unavailable Payers Payer Name Policy Type Policy Number Effective Date Expiration Date [facility] [id number] 2019 00:00 :00 [facility] Problems Condition Name Condition Details Condition Category Status Onset Date Resolution Date Last Treatment Date Treating Clinician Comments Source Status post insertion of percutaneous endoscopic gastr ostomy (PEG) tube Status post insertion of percutaneous endoscopic gastrostomy (PEG) tube Problem Active [facility] Encounter for medical screening examination Problem Active [facility] Gastrostomy tube dysfunction Problem Active [facility] Allergies, Adverse Reactions, Alerts Allergy Name Allergy Type Status Severity Reaction(s) Onset Date Inacti ve Date Treating Clinician Comments Source No Known Allergies DA Active U 2019-11-03 00:00:00 [facility] No Known Allergies DA Active U 2018-09-20 00:00:00 [facility] No Known Allergies DA Active U 2018-09-19 00:00:00 [facility] No Known Allergies DA Active U 2015-10-28 00:00:00 [facility] Social History Social Habit Start Date Stop Date Quantity Comments Source Sex Assigned At 1960 00:00:00 1960 00:00:00 Male [facility] Medications Ordered Medication Name Filled Medication Name Start Date Stop Da te Current Medication? Ordering Clinician Indication Dosage Frequency Signature (SIG) Comments Components Source Docusate Sodium (Colace) 100 Mg/10 Ml LIQD Docusate So dium (Colace) 100 Mg/10 Ml LIQD 2020-06-30 12:05:00 Yes 100 Twice A Day [facility] Doxycycline Hyclate (Vibramycin) 100 Mg CAPSULE Doxycy gonzales Hyclate (Vibramycin) 100 Mg CAPSULE 2020-06-30 12:05:00 Yes 100 Every 12 Hours [facility] Sennosides (Senokot) 8.6 Mg TABLET Sennosides (Senokot) 8.6 Mg TABLET 2020-06-30 12:05:00 Yes 8.6 Twice A Day [facility] Buspirone Hcl Buspirone Hcl Yes 10 Daily [facility] Buspirone Hcl Buspirone Hcl Yes [facility] Carbamazepine Carbamazepine Yes 200 Three Times A Day [facility] Ciprofloxacin Hcl Ciprofloxacin Hcl Yes [facility] Divalproex Sodium (Depakote) 125 Mg TABLET. Divalpro ex Sodium (Depakote) 125 Mg TABLET. Yes 125 Twice A Day [facility] Divalproex Sodium Divalproex Sodium Yes [facility] Lorazepam Lorazepam Yes .5 [facility] Mirtazapine Mirtazapine Yes 7.5 Bedtime [facility] Naproxen Naproxen Yes 500 Twice A Day [facility] Topiramate (Topamax) 25 Mg TABLET Topiramate (Topamax) 25 Mg TABLET Yes 100 Daily [facility] Esomeprazole Magnesium (Nexium) 40 Mg SUSPDR.PKT Esome prazole Magnesium (Nexium) 40 Mg SUSPDR.PKT 2019-12-04 00:00:00 No 40 Daily [facility] Dipyridamole/Aspirin (Aggrenox 25 Mg-200 Mg Capsule) 1 Cap CAPCR Dipyridamole/Aspirin (Aggrenox 25 Mg-200 Mg Capsule) 1 Cap CAPCR 2019-12-01 00:00:00 No Twice A Day [facility] Vital Signs Vital Name Observation Time Observation Value Comments Source Body Temperature 2020-06-30 15:39:00 98.1 [degF] [facility] BMI (Body Mass Index) 2020-06-28 19:34:00 21.3 kg/m2 [facility] Weight 2020-06-28 15:20:00 140 [lb_av] [facility] Weight 2020-06-11 15:12:00 140 [lb_av] [facility] BMI (Body Mass Index) 2020-06-11 15:12:00 21.3 kg/m2 [facility] Body Temperature 2019-12-04 15:22:00 97.6 [degF] [facility] Procedures Procedure Date / Time Performed Performing Clinician Formerly [facility] e Computed tomography of abdomen and pelvis with contrast 00:00:00 [facility] Computed tomography of brain without radiopaque contrast 2020-05 00:00:00 [facility] EGD PLACE GASTROSTOMY TUBE 2019-12-04 00:00:00 [facility] Plan of Care Planned Activity Planned Date Details Comments Source Instructions GI Tube Care [facility] Encounters Start Date/Time End Date/Time Encounter Type Admission Type Attendi [facility] Emergency Department Facility Care Department Encounter ID Source 2020-06-28 17:27:00 2020-06-30 17:25:00 Discharged Inpatient (obs) 1 BRO HOOD [facility] [id number] I [facility] 2020-06-11 15:26:00 2020-06-11 18:40:00 Departed Emergency Room 1 Marino Pacheco [facility] [id number] OLIVE Sandoval [facility] 2019-12-04 11:00:00 2019-12-04 11:00:00 Registered Surgical Day Care [facility] [id number] [facility] 2018-10-12 11:32:00 2018-10-12 13:45:00 Departed Emergency Room 1 TONI GREGG [facility] [id number] [facility] Results Test Description Test Time Test Comments Results Result Comments Source Blood leukocytes automated count (number/volume) 2020-06-29 05:36:00 Test Item White Blood Count (test code = 6690-2) 5.19 4.8-10.8 [facility] automated count (number/volume)2020-06-29 05:36:00* Test Item Value Reference Range Interpretation Comments Red Blood Count (test code = 789-8) 4.12 4.3-5.7 [facility] hemoglobin measurement (moles/volume)2020-06-29 05:36:00* Test Item Value Reference Range Interpretation Comments Hemoglobin (test code = 17531-7) 11.6 14.0-18.0 [facility] blood hematocrit (volume fraction)2020-06-29 05:36:00* Test Item Value Reference Range Interpretation Comments Hematocrit (test code = 4544-3) 33.7 38.2-49.6 [facility] erythrocyte mean corpuscular ihqurm3473-06-70 05:36:00* Test Item Value Reference Range Interpretation Comments Mean Corpuscular Volume (test code = 787-2) 81.8 81-99 [facility] erythrocyte mean corpuscular hemoglobin (mass per erythrocyte)2020-06-29 05:36:00* Test Item Value Reference Range Interpretation Comments Mean Corpuscular Hemoglobin (test code = 785-6) 28.2 28-32 [facility] erythrocyte mean corpuscular hemoglobin concentration measurement (mass/volume)2020-06-29 05:36:00* Test Item Value Reference Range Interpretation Comments Mean Corpuscular Hemoglobin Concent (test code = 786-4) 34.4 31-35 [facility] CampusRDW NieMp-Nzg7787-06-12 05:36:00* Test Item Value Reference Range Interpretation Comments Red Cell Distribution Width (test code = 75291-7) 12.4 11.7 -14.4 [facility] CampusAutom[facility] blood platelet count (count/volume)2020-06-29 05:36:00* Test Item Value Reference Range Interpretation Comments Platelet Count (test code = 777-3) 296 140-360 [facility] CampusAutom[facility] blood segmented neutrophil count as percentage of total xmdtxrmwvb2884-93-84 05:36:00* Test Item Value Reference Range Interpretation Comments Neutrophils (%) (Auto) (test code = 77566-7) 63.9 38.7-80.0 [facility] CampusAutom[facility] blood lymphocyte count as percentage ot total dzaysyutlg7313-25-29 05:36:00* Test Item Value Reference Range Interpretation Comments Lymphocytes (%) (Auto) (test code = 736-9) 22.0 18.0-39.1 [facility] CampusAutom[facility] blood monocyte count as percentage of total ncdwaacvht5068-86-48 05:36:00* Test Item Value Reference Range Interpretation Comments Monocytes (%) (Auto) (test code = 5905-5) 11.9 4.4-11.3 [facility] CampusAutomated blood eosinophil count as percentage of total boevmjfpua4155-05-45 05:36:00* Test Item Value Reference Range Interpretation Comments Eosinophils (%) (Auto) (test code = 713-8) 1.2 0.0-6.0 [facility] CampusAutomated blood basophil count as percentage of total gcfenovfbz8620-52-25 05:36:00* Test Item Value Reference Range Interpretation Comments Basophils (%) (Auto) (test code = 706-2) 0.4 0.0-1.0 [facility] CampusFluoroscopic procedure less than one hour gtlciibi0948-28-26 05:36:00* Test Item Value Reference Range Interpretation Comments IM GRANULOCYTES % (test code = IM GRANULOCYTES %) 0.6 0.0- 1.0 [facility] CampusAutom[facility] blood neutrophil count 2020-06-29 05:36:00* Test Item Value Reference Range Interpretation Comments Neutrophils # (Auto) (test code = 751-8) 3.3 2.1-6.9 [facility] lymphocytes count (number/volume) 2020-06-29 05:36:00* Test Item Value Reference Range Interpretation Comments Lymphocytes # (Auto) (test code = 41922-4) 1.1 1.0-3.2 [facility] monocytes automated count (number/volume)2020-06-29 05:36:00* Test Item Value Reference Range Interpretation Comments Monocytes # (Auto) (test code = 742-7) 0.6 0.2-0.8 [facility] CampusAutomated blood eosinophil count 2020-06-29 05:36:00* Test Item Value Reference Range Interpretation Comments Eosinophils # (Auto) (test code = 711-2) 0.1 0.0-0.4 [facility] CampusAutomated blood basophil count (count/volume)2020-06-29 05:36:00* Test Item Value Reference Range Interpretation Comments Basophils # (Auto) (test code = 704-7) 0.0 0.0-0.1 [facility] CampusFluoroscopic procedure less than one hour qbeqnuzr0450-20-74 05:36:00* Test Item Value Reference Range Interpretation Comments Absolute Immature Granulocyte (auto (mark t code = Absolute Immature Granulocyte (auto) 0.03 0-0.1 [facility] plasma sodium measurement (moles/volume)2020-06-29 05:36:00* Test Item Value Reference Range Interpretation Comments Sodium Level (test code = 2951-2) 132 136-145 [facility]erum or plasma potassium measurement (moles/volume)2020-06-29 05:36:00* Test Item Value Reference Range Interpretation Comments Potassium Level (test code = 2823-3) 4.4 3.5-5.1 [facility]erum or plasma chloride measurement (moles/volume)2020-06-29 05:36:00* Test Item Value Reference Range Interpretation Comments Chloride Level (test code = 2075-0) 102 98-107 [facility]erum or plasma carbon dioxide, total measurement (moles/volume)2020-06-29 05:36:00* Test Item Value Reference Range Interpretation Comments Carbon Dioxide Level (test code = 2028-9) 20 22-29 [facility] Springserum or plasma anion jgn7306-32-58 05:36:00* Test Item Value Reference Range Interpretation Comments Anion Gap (test code = 57222-9) 14.4 8-16 [facility]erum or plasma urea nitrogen measurement (mass/volume)2020-06-29 05:36:00* Test Item Value Reference Range Interpretation Comments Blood Urea Nitrogen (test code = 3094-0) 8 7-26 [facility]um or plasma creatinine measurement (mass/volume)2020-06-29 05:36:00* Test Item Value Reference Range Interpretation Comments Creatinine (test code = 2160-0) 0.56 0.72-1.25 [facility]erum or plasma urea nitrogen/creatinine mass lkwmz9939-02-36 05:36:00* Test Item Value Reference Range Interpretation Comments BUN/Creatinine Ratio (test code = 3097-3) 14 6-25 [facility] CampusEstimated glomerular filtration rate (GFR) midwfcltmooxo4555-81-16 05:36:00* Test Item Value Reference Range Interpretation Comments Estimat Glomerular Filtration Rate (test code = 289778749) > 60 >60 Ranges were taken from the National Kidney Disease Education Program and the Darcie american healthcare systemsal Kidney Foundation literature.Reference ranges:60 or greater: Eernfd87-00 ( for 3 consecutive months): Chronic kidney disease 15 or less: Kidney failureThe Hospitals of [facility] CampusGlucose uxuhbiknpac3761-77-26 05:36:00* Test Item Value Reference Range Interpretation Comments Glucose Level (test code = AEU4272) 127 74-118 [facility]erum or plasma calcium measurement (mass/volume)2020-06-29 05:36:00* Test Item Value Reference Range Interpretation Comments Calcium Level (test code = 52784-7) 8.2 8.4-10.2 [facility]erum or plasma total bilirubin measurement (mass/volume)2020-06-29 05:36:00* Test Item Value Reference Range Interpretation Comments Total Bilirubin (test code = 1975-2) 0.5 0.2-1.2 [facility] CampusFluoroscopic procedure less than one hour zdkdjylb0447-82-53 05:36:00* Test Item Value Reference Range Interpretation Comments Aspartate Amino Transf (AST/SGOT) (test code = Aspartate Amino Transf (AST/SGOT)) 51 5-34 [facility] Springserum or plasma alanine aminotransferase measurement (enzymatic activity/volume)2020-06-29 05:36:00* Test Item Value Reference Range Interpretation Comments Alanine Aminotransferase (ALT/SGPT) (test code = 1742-6) 58 0-55 [facility]erum or plasma protein measurement (mass/volume)2020-06-29 05:36:00* Test Item Value Reference Range Interpretation Comments Total Protein (test code = 2885-2) 5.9 6.5-8.1 [facility] Springserum or plasma albumin measurement (mass/volume)2020-06-29 05:36:00* Test Item Value Reference Range Interpretation Comments Albumin (test code = 1751-7) 3.5 3.5-5.0 [facility] CampusPlasma globulin measurement (mass/volume) 2020-06-29 05:36:00* Test Item Value Reference Range Interpretation Comments Globulin (test code = 67990-9) 2.4 2.3-3.5 [facility] or plasma albumin/globulin mass wdusk2416-87-27 05:36:00* Test Item Value Reference Range Interpretation Comments Albumin/Globulin Ratio (test code = 1759-0) 1.5 0.8-2.0 [facility]um or plasma alkaline phosphatase measurement (enzymatic activity/volume)2020-06-29 05:36:00* Test Item Value Reference Range Interpretation Comments Alkaline Phosphatase (test code = 6768-6) 91 40-150 [facility] CampusCT ABDOMEN/PELVIS [id number] 20:01:00 [facility] [address] [address] Patient Name: CHRISTINA LYNN JR MR #: [id number] : 1960 Age/Sex: 60/M Req #: [id number] Adm Physician: BRO HOOD MD Ordered by: PASCALE CONTI DO Report #: [id number] Location: MED/SURG[address] [place] [address]/Bed: 289-1 Procedure: [id number] CT/CT ABDOM EN/PELVIS W Exam Date: 06/28/20 Exam Time: 1910 REPORT STATUS: Signed AD DENDUM #1 PEG tube terminates appropriately within the gastric bod y. Signed by: Marcus Chávez MD on 06/29/2020 8:56 AM ORIGINAL REP ORT EXAM: CT Abdomen and Pelvis WITH contrast INDICATION: Abdo jose pain COMPARISON: None. TECHNIQUE: Abdomen and pelvis were scanned util izing a multidetector helical scanner from the lung base to the pubic symphysi s after administration of IV contrast. Coronal and sagittal reformations were obtained. Routine protocol was performed. Scan was performed when during marie l venous phase. IV CONTRAST: 100 mL of Isovue 370 ORAL CONTRAS T: None COMPLICATIONS: None RADIATION DOSE: Total D LP: 322.56 mGy*cm Estimated effective dose: (DLP x 0.015 x size factor) m Sv CTDIvol has been reviewed. It is below the limits set by the Radiation Protocol Committee (RPC). Dose modulation, iterative reconstruction, a nd/or weight based adjustment of the mA/kV was utilized to reduce the radiatio n dose to as low as reasonably achievable. FINDINGS: LINES and TUBE S: None. LOWER THORAX: There is partially imaged groundglass opacity in th e right middle lobe. Is bibasilar atelectasis. HEPATOBILIARY: There is a hypodense 1.3 x 0.6 cm lesion in the right hepatic lobe with patchy perip heral enhancement which most likely represents a hemangioma (series 2 image 18 ). No biliary ductal dilation. GALLBLADDER: No radio-opaque stones or slud ge. No wall thickening. SPLEEN: No splenomegaly. PANCREAS: No focal masses or ductal dilatation. ADRENALS: No adrenal nodules KIDNEY S/URETERS: Kidneys enhance symmetrically. No hydronephrosis. No cystic or sri id mass lesions. There is a nonobstructive stone in the inferior pole of the left kidney. GI TRACT: There is large impacted well-formed stool burden in the severely distended rectum and distal sigmoid colon which measures up to 9 x 7.5 cm. There is also mucosal wall thickening, hyperenhancement and periphe ral fat stranding. This severely distended rectosigmoid colon causes mass effe ct and displacement of the urinary bladder. There is also well-formed stool th roughout the colon although with no evidence of abnormal distention or or obst ruction. Appendix is normal. PELVIC ORGANS/BLADDER: The urinary bladder i s displaced by the distended rectum. No abnormal wall contour of the urinary b ladder. LYMPH NODES: No lymphadenopathy. VESSELS: Scattered mild arter ial vascular calcifications. PERITONEUM / RETROPERITONEUM: No free air or f luid. BONES: There are degenerative changes in the spine. SOFT TISSUES : Unremarkable. IMPRESSION: 1. Large impacted stool burden in the severely distended rectum/distal sigmoid colon with associated mucosal wall thickening, hyperenhancement and peripheral fat stranding. 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 The degree of distenti on puts patient at risk for rectosigmoid perforation and/or ulceration. 2. Well-formed stool burden throughout the colon can present clinically as const ipation. 3. Partially imaged groundglass opacity in the right middle lobe. No nemergent baseline chest CT is recommended for complete assessment of the lung s. 4. Left nonobstructive nephrolithiasis. Signed by: Marcus Chávez MD on 06/28/2020 8:23 PM Dictated By: MARCUS CHÁVEZ MD Electronically Sanam d By: MARCUS CHÁVEZ MD on 06/29/20 0856 Transcribed By: DURAN on 06/28/20 COPY TO: PASCALE CONTI DO CHEST SINGLE (PORTABLE) 2020-06-28 18:37:[address] [place] [address] Patient Name: CHRISTINA LYNN JR MR #: [id number] : 1960 Age/Sex: 60/M Req #: [id number] Adm Physician: BRO HOOD MD Ordered by: PASCALE CONTI DO Report #: [id number] Location: [facility] Room/Bed: [address] [address] Procedure: [id number] DX/CHEST SI NGLE (PORTABLE) Exam Date: 06/28/20 Exam Time: 180 REPORT STATUS: Signed EXAMINATIO N: CHEST SINGLE (PORTABLE) INDICATION: LINE PLACEMENT VERIFICATION C OMPARISON: Chest x-ray on 06/11/2020. FINDINGS: TUBES and SHIREEN ES: Interval placement of right central venous catheter which takes a turn un derneath the right clavicle. Bibasilar atelectasis. LUNGS: Normal lung vo lumes. No interval change in radiographic appearance of the lungs. PLEURA : No pleural effusion or pneumothorax. HEART AND MEDIASTINUM: The cardiom ediastinal silhouette is unchanged. BONES AND SOFT TISSUES: No acute osseo us lesion. Soft tissues are unchanged. UPPER ABDOMEN: No free air under th e diaphragm. IMPRESSION: Interval placement of right central veno us catheter which likely terminates in the subclavian vein. Recommend repositi oning. Signed by: Marcus Chávez MD on 06/28/2020 6:41 PM Dictated By: MARCUS CHÁVEZ MD 1 841 Transcribed By: DURAN on 06/28/20 1841 COPY TO: PASCALE CONTI DO Urine color mhjlozpyfzhbl3278-77-77 16:16:00* Test Item Value Reference Range Interpretation Comments Urine Color (test code = 5778-6) YELLOW YELLOW [facility] lmmfxjj6241-89-25 16:16:00* Test Item Value Reference Range Interpretation Comments Urine Clarity (test code = 74513-5) SL CLOUDY CLEAR [facility] Springspecific gravity of Urine by Test strip 2020-06-28 16:16:00* Test Item Value Reference Range Interpretation Comments Urine Specific [place] (test code = 5811-5) 1.015 1.010-1.02 5 [facility]Urine pH measurement by automated test rdmad0614-44-10 16:16:00* Test Item Value Reference Range Interpretation Comments Urine pH (test code = 72637-3) 8.5 5-7 [facility] CampusUrine leukocyte esterase detection by jqdbpgsl2809-08-92 16:16:00* Test Item Value Reference Range Interpretation Comments Urine Leukocyte Esterase (test code = 5799-2) NEGATIVE NEGATIVE [facility] CampusUrine nitrite pijhatcba1710-47-93 16:16:00* Test Item Value Reference Range Interpretation Comments Urine Nitrite (test code = 28308-0) NEGATIVE NEGATIVE [facility] CampusUrine protein measurement by test strip (mass/volume)2020-06-28 16:16:00* Test Item Value Reference Range Interpretation Comments Urine Protein (test code = 5804-0) NEGATIVE NEGATIVE [facility] CampusUrine glucose xetmjzggt7131-19-97 16:16:00* Test Item Value Reference Range Interpretation Comments Urine Glucose (UA) (test code = 2349-9) NEGATIVE NEGATIVE [facility] CampusUrine ketones detection by automated test [id number] 16:16:00* Test Item Value Reference Range Interpretation Comments Urine Ketones (test code = 73508-8) NEGATIVE NEGATIVE [facility] CampusUrine urobilinogen measurement by test strip (mass/volume)2020-06-28 16:16:00* Test Item Value Reference Range Interpretation Comments Urine Urobilinogen (test code = 86428-8) 2 0.2-1 [facility] CampusUrine total bilirubin measurement (mass/volume)2020-06-28 16:16:00* Test Item Value Reference Range Interpretation Comments Urine Bilirubin (test code = 1978-6) NEGATIVE NEGATIVE [facility] CampusUrine erythrocytes ycjzmgzxp8700-39-93 16:16:00* Test Item Value Reference Range Interpretation Comments Urine Blood (test code = 43059-5) NEGATIVE NEGATIVE [facility] CampusAutomated urine sediment leukocyte count by microscopy (number/high power field)2020-06-28 16:16:00* Test Item Value Reference Range Interpretation Comments Urine WBC (test code = 5821-4) NONE 0-5 [facility] CampusErythrocytes detection in urine sediment by light csjyouiiht1806-27-33 16:16:00* Test Item Value Reference Range Interpretation Comments Urine RBC (test code = 03066-6) NONE 0-5 [facility] CampusBacteria detection in urine sediment by light mwhpinlxjr0308-55-65 16:16:00* Test Item Value Reference Range Interpretation Comments Urine Bacteria (test code = 28227-3) FEW NONE [facility] CampusEpithelial cells detection in urine sediment by light zgwgdwidao5765-70-36 16:16:00* Test Item Value Reference Range Interpretation Comments Urine Epithelial Cells (test code = 33283-9) NONE NONE [facility] CampusAmorphous sediment detection in urine sediment by light tficnfdeci5264-23-24 16:16:00* Test Item Value Reference Range Interpretation Comments Urine Amorphous Sediment (test code = 8246-1) MODERATE FEW [facility] CampusFluoroscopic procedure less than one hour qhmstvbl2120-50-25 16:00:00* Test Item Value Reference Range Interpretation Comments Lactic Acid Level (test code = Lactic Acid Level) 1.8 0.5- 2.0 [facility] Springserum or plasma creatine kinase measurement (enzymatic activity/volume)2020-06-28 16:00:00* Test Item Value Reference Range Interpretation Comments Creatine Kinase (test code = 2157-6) 21 30-200 [facility] Springserum or plasma creatine kinase MB measurement (mass/volume)2020-06-28 16:00:00* Test Item Value Reference Range Interpretation Comments Creatine Kinase MB (test code = 35645-4) 0.60 0-5.0 [facility] CampusTroponin I measurement by highly sensitive enzyme jrsagqcsbau0858-39-03 16:00:00* Test Item Value Reference Range Interpretation Comments Troponin I (test code = 63172-7) 0.001 0-0.300 [facility] CampusBlood uqfiekk8182-61-26 16:00:00* Test Item Value Reference Range Interpretation Comments Blood Culture (test code = 41508631) NO GROWTH AFTER 48 HOURS [facility] CampusCT BRAIN [id number] 16:35:00 [facility] [address] [place] [address] Patient Name: CHRISTINA LYNN MR #: [id number] : 1960 Age/Sex: 60/M Req #: [id number] Adm Physician: Ordered by: Marino Pacheco MD Report #: [id number] Location: ER Room/Bed: Procedure: [id number] CT/CT BRAIN WO Exam Date: 06/11/20 Exam Time: 1624 REPORT STATUS: Signed CT BRAIN WO HISTOR Y: Altered mental status COMPARISON: None. Technique: Noncontrast axial scans were obtained from skull base to the vertex. Coronal and sagittal reconstructions obtained from the axial data. One or more of the following d ose reduction techniques were used: Automated exposure control, adjustment of the mA and/or kV according to patient size, and/or utilization of iterative re construction technique. DISCUSSION: Scalp/Skull: Left frontoparietal c raniotomy changes. Apparent left mastoidectomy changes with opacification of t he mastoidectomy bowl. Brain sulci: Mildly prominent. Ventricles: Compensato ry dilatation. Extra-axial spaces: No masses or fluid collections. Carotid sip hon calcifications are present. Parenchyma: Areas of right inferior fr ontal and left lateral temporal encephalomalacia may be from remote trauma. Mild bilateral deep white matter hypodensity is likely chronic microvascular i schemic change. Otherwise, no masses, hemorrhage, or large vascular territory acute infarct. Dural sinuses: No abnormal densities. Sellar/Suprasellar region: Intact. Skull base: Intact. Incidental findings: Old fracture of th e left zygomatic arch. IMPRESSION: 1. No acute intracranial abnormalitie s. 2. Areas of right inferior frontal and left lateral temporal encephalomala joaquín may be from remote trauma. 3. Associated left frontoparietal craniotomy and left mastoidectomy changes. There is nonspecific opacification of the lef t mastoidectomy bowl 4. Mild supratentorial chronic microvascular ischemic ch matthew. Generalized cerebral volume loss. Signed by: Dr. Abraham Nunez M.D. on 06/11/2020 4:40 PM Dictated By: ABRAHAM NUNEZ MD Electronical ly Signed By: ABRAHAM NUNEZ MD on 06/11/20 1640 Transcribed By: DURAN on 0 06/11/20 1640 COPY TO: MARINO PACHECO MD Blood leukocytes automated count (number/volume)2020-06-11 16:06:00* Test Item Value Reference Range Interpretation Comments White Blood Count (test code = 6690-2) 8.09 4.8-10.8 [facility] erythrocytes automated count (number/volume)2020-06-11 16:06:00* Test Item Value Reference Range Interpretation Comments Red Blood Count (test code = 789-8) 4.65 4.3-5.7 [facility]Blood hemoglobin measurement (moles/volume)2020-06-11 16:06:00* Test Item Value Reference Range Interpretation Comments Hemoglobin (test code = 14947-9) 13.2 14.0-18.0 [facility] CampusAutomated blood hematocrit (volume fraction)2020-06-11 16:06:00* Test Item Value Reference Range Interpretation Comments Hematocrit (test code = 4544-3) 39.0 38.2-49.6 [facility] CampusAutomated erythrocyte mean corpuscular hunngx7283-62-37 16:06:00* Test Item Value Reference Range Interpretation Comments Mean Corpuscular Volume (test code = 787-2) 83.9 81-99 [facility] CampusAutomated erythrocyte mean corpuscular hemoglobin (mass per erythrocyte)2020-06-11 16:06:00* Test Item Value Reference Range Interpretation Comments Mean Corpuscular Hemoglobin (test code = 785-6) 28.4 28-32 [facility] CampusAutomated erythrocyte mean corpuscular hemoglobin concentration measurement (mass/volume)2020-06-11 16:06:00* Test Item Value Reference Range Interpretation Comments Mean Corpuscular Hemoglobin Concent (test code = 786-4) 33.8 31-35 [facility] CampusRDW ZkpAj-Mgn7426-43-25 16:06:00* Test Item Value Reference Range Interpretation Comments Red Cell Distribution Width (test code = 55052-3) 12.3 11.7 -14.4 [facility] CampusAutomated blood platelet count (count/volume)2020-06-11 16:06:00* Test Item Value Reference Range Interpretation Comments Platelet Count (test code = 777-3) 179 140-360 [facility] CampusAutomated blood segmented neutrophil count as percentage of total aixyviuacy7304-00-88 16:06:00* Test Item Value Reference Range Interpretation Comments Neutrophils (%) (Auto) (test code = 06678-5) 69.0 38.7-80.0 [facility] CampusAutomated blood lymphocyte count as percentage ot total saoijilgaf9438-13-65 16:06:00* Test Item Value Reference Range Interpretation Comments Lymphocytes (%) (Auto) (test code = 736-9) 14.2 18.0-39.1 [facility] CampusAutomated blood monocyte count as percentage of total xyfbntzyqe1586-46-65 16:06:00* Test Item Value Reference Range Interpretation Comments Monocytes (%) (Auto) (test code = 5905-5) 15.2 4.4-11.3 [facility] CampusAutomated blood eosinophil count as percentage of total dawphbthdh9891-82-50 16:06:00* Test Item Value Reference Range Interpretation Comments Eosinophils (%) (Auto) (test code = 713-8) 0.9 0.0-6.0 [facility] CampusAutomated blood basophil count as percentage of total almiguowtl6484-54-57 16:06:00* Test Item Value Reference Range Interpretation Comments Basophils (%) (Auto) (test code = 706-2) 0.2 0.0-1.0 [facility] CampusFluoroscopic procedure less than one hour zrlghplv5384-38-21 16:06:00* Test Item Value Reference Range Interpretation Comments IM GRANULOCYTES % (test code = IM GRANULOCYTES %) 0.5 0.0- 1.0 [facility] CampusAutomated blood neutrophil count 2020-06-11 16:06:00* Test Item Value Reference Range Interpretation Comments Neutrophils # (Auto) (test code = 751-8) 5.6 2.1-6.9 [facility]Blood lymphocytes count (number/volume) 2020-06-11 16:06:00* Test Item Value Reference Range Interpretation Comments Lymphocytes # (Auto) (test code = 48486-9) 1.2 1.0-3.2 [facility]Blood monocytes automated count (number/volume)2020-06-11 16:06:00* Test Item Value Reference Range Interpretation Comments Monocytes # (Auto) (test code = 742-7) 1.2 0.2-0.8 [facility] CampusAutomated blood eosinophil count 2020-06-11 16:06:00* Test Item Value Reference Range Interpretation Comments Eosinophils # (Auto) (test code = 711-2) 0.1 0.0-0.4 [facility] CampusAutomated blood basophil count (count/volume)2020-06-11 16:06:00* Test Item Value Reference Range Interpretation Comments Basophils # (Auto) (test code = 704-7) 0.0 0.0-0.1 [facility] CampusFluoroscopic procedure less than one hour rxeksucz6064-53-75 16:06:00* Test Item Value Reference Range Interpretation Comments Absolute Immature Granulocyte (auto (mark t code = Absolute Immature Granulocyte (auto) 0.04 0-0.1 [facility] CampusProthrombin time (PT) in platelet poor plasma by coagulation nneir9468-53-36 16:06:00* Test Item Value Reference Range Interpretation Comments Prothrombin Time (test code = 5902-2) 12.3 11.9-14.5 [facility] CampusINR in Platelet poor plasma by Coagulation sfvhd6706-13-96 16:06:00* Test Item Value Reference Range Interpretation Comments Prothromb Time International Ratio (test code = 6301-6) 0.87 Oral Anticoagulant Therapy INR Values:1. Low Intensity Therapy 1.5 - 2.02 . Moderate Intensity Therapy 2.0 - 3.03. High Intensity Therapy(1) 2.5 - 3. 54. High Intensity Therapy(2) 3.0 - 4.05. Panic Value INR > 5.0 [facility] CampusActivated partial thromboplastin time (aPTT) in platelet poor plasma by coagulation apanv9077-03-27 16:06:00* Test Item Value Reference Range Interpretation Comments Activated Partial Thromboplast Time (test code = 41925-2) 23.4 23.8-35.5 [facility] CampusUrine color fcrnmuzzanshl3586-44-62 16:06:00* Test Item Value Reference Range Interpretation Comments Urine Color (test code = 5778-6) YELLOW YELLOW [facility] CampusUrine tbmebax7940-21-19 16:06:00* Test Item Value Reference Range Interpretation Comments Urine Clarity (test code = 77882-3) SL CLOUDY CLEAR [facility] Springspecific gravity of Urine by Test strip 2020-06-11 16:06:00* Test Item Value Reference Range Interpretation Comments Urine Specific [place] (test code = 5811-5) 1.020 1.010-1.02 5 [facility] CampusUrine pH measurement by automated test swzty9111-43-92 16:06:00* Test Item Value Reference Range Interpretation Comments Urine pH (test code = 50025-3) 7.5 5-7 [facility] CampusUrine leukocyte esterase detection by wnlnjvdk1860-94-16 16:06:00* Test Item Value Reference Range Interpretation Comments Urine Leukocyte Esterase (test code = 5799-2) NEGATIVE NEGATIVE [facility] CampusUrine nitrite kwhjyishf9602-04-70 16:06:00* Test Item Value Reference Range Interpretation Comments Urine Nitrite (test code = 08632-0) NEGATIVE NEGATIVE [facility] CampusUrine protein measurement by test strip (mass/volume)2020-06-11 16:06:00* Test Item Value Reference Range Interpretation Comments Urine Protein (test code = 5804-0) NEGATIVE NEGATIVE [facility] CampusUrine glucose jihjxftry3210-54-84 16:06:00* Test Item Value Reference Range Interpretation Comments Urine Glucose (UA) (test code = 2349-9) NEGATIVE NEGATIVE [facility] CampusUrine ketones detection by automated test hzblp3251-99-84 16:06:00* Test Item Value Reference Range Interpretation Comments Urine Ketones (test code = 41646-7) NEGATIVE NEGATIVE [facility] CampusUrine urobilinogen measurement by test strip (mass/volume)2020-06-11 16:06:00* Test Item Value Reference Range Interpretation Comments Urine Urobilinogen (test code = 58471-7) 2 0.2-1 [facility] CampusUrine total bilirubin measurement (mass/volume)2020-06-11 16:06:00* Test Item Value Reference Range Interpretation Comments Urine Bilirubin (test code = 1978-6) NEGATIVE NEGATIVE [facility] CampusUrine erythrocytes mwwiwuywy3921-26-75 16:06:00* Test Item Value Reference Range Interpretation Comments Urine Blood (test code = 61005-1) NEGATIVE NEGATIVE [facility] CampusAutomated urine sediment leukocyte count by microscopy (number/high power field)2020-06-11 16:06:00* Test Item Value Reference Range Interpretation Comments Urine WBC (test code = 5821-4) NONE 0-5 [facility] CampusErythrocytes detection in urine sediment by light oehpwhgvxz1780-78-73 16:06:00* Test Item Value Reference Range Interpretation Comments Urine RBC (test code = 95875-8) NONE 0-5 [facility] CampusBacteria detection in urine sediment by light xpdljinqwd7659-97-65 16:06:00* Test Item Value Reference Range Interpretation Comments Urine Bacteria (test code = 89996-9) FEW NONE [facility] CampusEpithelial cells detection in urine sediment by light ebmybhtmxm5158-63-60 16:06:00* Test Item Value Reference Range Interpretation Comments Urine Epithelial Cells (test code = 26161-9) NONE NONE [facility] CampusAmorphous sediment detection in urine sediment by light bmjalwrwiv4954-00-58 16:06:00* Test Item Value Reference Range Interpretation Comments Urine Amorphous Sediment (test code = 8246-1) MODERATE FEW [facility]erum or plasma sodium measurement (moles/volume)2020-06-11 16:06:00* Test Item Value Reference Range Interpretation Comments Sodium Level (test code = 2951-2) 128 136-145 [facility] Springserum or plasma potassium measurement (moles/volume)2020-06-11 16:06:00* Test Item Value Reference Range Interpretation Comments Potassium Level (test code = 2823-3) 3.8 3.5-5.1 [facility] Springserum or plasma chloride measurement (moles/volume)2020-06-11 16:06:00* Test Item Value Reference Range Interpretation Comments Chloride Level (test code = 2075-0) 97 98-107 [facility] Springserum or plasma carbon dioxide, total measurement (moles/volume)2020-06-11 16:06:00* Test Item Value Reference Range Interpretation Comments Carbon Dioxide Level (test code = 2028-9) 20 22-29 [facility] Springserum or plasma anion smx2576-45-31 16:06:00* Test Item Value Reference Range Interpretation Comments Anion Gap (test code = 06667-1) 14.8 8-16 [facility] Springserum or plasma urea nitrogen measurement (mass/volume)2020-06-11 16:06:00* Test Item Value Reference Range Interpretation Comments Blood Urea Nitrogen (test code = 3094-0) 12 7-26 [facility] Springserum or plasma creatinine measurement (mass/volume)2020-06-11 16:06:00* Test Item Value Reference Range Interpretation Comments Creatinine (test code = 2160-0) 0.66 0.72-1.25 [facility] Springserum or plasma urea nitrogen/creatinine mass vhoon6796-49-94 16:06:00* Test Item Value Reference Range Interpretation Comments BUN/Creatinine Ratio (test code = 3097-3) 18 6- [facility] CampusEstimated glomerular filtration rate (GFR) xhsdptmhjyrxh0711-64-44 16:06:00* Test Item Value Reference Range Interpretation Comments Estimat Glomerular Filtration Rate (test code = 156890567) > 60 >60 Ranges were taken from the National Kidney Disease Education Program and the [facility] literature.Reference ranges:60 or greater: Pbghrc39-46 ( for 3 consecutive months): Chronic kidney disease 15 or less: Kidney failureThe Hospitals of Providence Sierra CampusGlucose mhkdtfcesct2309-72-03 16:06:00* Test Item Value Reference Range Interpretation Comments Glucose Level (test code = PUK2098) 103 74-118 [facility]er[facility] or plasma calcium measurement (mass/volume)2020-06-11 16:06:00* Test Item Value Reference Range Interpretation Comments Calcium Level (test code = 53546-5) 8.6 8.4-10.2 [facility] CampusFluoroscopic procedure less than one hour zlmcziof7209-48-01 16:06:00* Test Item Value Reference Range Interpretation Comments Lactic Acid Level (test code = Lactic Acid Level) 2.4 0.5- 2.0 Results repeated and called to ADEN APONTE at 1641 on 06/11/20 by JOSY MCGRATH . Read back and verified.[facility]er[facility] or plasma total bilirubin measurement (mass/volume)2020-06-11 16:06:00* Test Item Value Reference Range Interpretation Comments Total Bilirubin (test code = 1975-2) 0.5 0.2-1.2 [facility] CampusFluoroscopic procedure less than one hour osbskypa4822-97-42 16:06:00* Test Item Value Reference Range Interpretation Comments Aspartate Amino Transf (AST/SGOT) (test code = Aspartate Amino Transf (AST/SGOT)) 60 5-34 [facility] Springserum or plasma alanine aminotransferase measurement (enzymatic activity/volume)2020-06-11 16:06:00* Test Item Value Reference Range Interpretation Comments Alanine Aminotransferase (ALT/SGPT) (test code = 1742-6) 75 0-55 [facility] Springserum or plasma protein measurement (mass/volume)2020-06-11 16:06:00* Test Item Value Reference Range Interpretation Comments Total Protein (test code = 2885-2) 6.0 6.5-8.1 [facility] Springserum or plasma albumin measurement (mass/volume)2020-06-11 16:06:00* Test Item Value Reference Range Interpretation Comments Albumin (test code = 1751-7) 3.2 3.5-5.0 [facility] CampusPlasma globulin measurement (mass/volume) 2020-06-11 16:06:00* Test Item Value Reference Range Interpretation Comments Globulin (test code = 55240-8) 2.8 2.3-3.5 [facility] Springserum or plasma albumin/globulin mass hqxee1706-50-95 16:06:00* Test Item Value Reference Range Interpretation Comments Albumin/Globulin Ratio (test code = 1759-0) 1.1 0.8-2.0 [facility] Springserum or plasma alkaline phosphatase measurement (enzymatic activity/volume)2020-06-11 16:06:00* Test Item Value Reference Range Interpretation Comments Alkaline Phosphatase (test code = 6768-6) 102 40-150 [facility] Springserum or plasma creatine kinase measurement (enzymatic activity/volume)2020-06-11 16:06:00* Test Item Value Reference Range Interpretation Comments Creatine Kinase (test code = 2157-6) 35 30-200 [facility] Springserum or plasma creatine kinase MB measurement (mass/volume)2020-06-11 16:06:00* Test Item Value Reference Range Interpretation Comments Creatine Kinase MB (test code = 77426-9) 0.60 0-5.0 [facility] CampusTroponin I measurement by highly sensitive enzyme omvzxrxvszs0218-72-54 16:06:00* Test Item Value Reference Range Interpretation Comments Troponin I (test code = 75989-2) 0.018 0-0.300 [facility] CampusProthrombin time (PT) in platelet poor plasma by coagulation swgml3550-12-76 16:06:00* Test Item Value Reference Range Interpretation Comments Prothrombin Time (test code = 5902-2) 12.3 11.9-14.5 [facility] CampusINR in Platelet poor plasma by Coagulation dormv4334-07-70 16:06:00* Test Item Value Reference Range Interpretation Comments Prothromb Time International Ratio (test code = 6301-6) 0.87 Oral Anticoagulant Therapy INR Values:1. Low Intensity Therapy 1.5 - 2.02 . Moderate Intensity Therapy 2.0 - 3.03. High Intensity Therapy(1) 2.5 - 3. 54. High Intensity Therapy(2) 3.0 - 4.05. Panic Value INR > 5.0 [facility] CampusActivated partial thromboplastin time (aPTT) in platelet poor plasma by coagulation lidem1227-44-80 16:06:00* Test Item Value Reference Range Interpretation Comments Activated Partial Thromboplast Time (test code = 41272-4) 23.4 23.8-35.5 [facility] CampusCHEST SINGLE (PORTABLE)2020-06-11 15:35:00 [place] [address] Patient Name: CHRISTINA LYNN MR #: [id number] : 1960 Age/Sex: 60/M Req #: [id number] Adm Physician: Ordered by: Marino Pacheco MD Report #: [id number] Location: ER Room/Bed: Procedure: [id number] DX/CHEST SIN GLE (PORTABLE) Exam Date: 06/11/20 [...] 37 PM Dictated By: ASHUTOSH PA MD 36 Transcribed By: DURAN on 06/11/201536 COPY TO: MARINO BURCH MD HAIOZZJXNMA4107-76-31 15:00:00* Test Item Value Reference Range Interpretation Comments PHOSPHOROUS (test code = PHOS) 3.5 MG/DL 2.5-4.9 N CBC W/AUTO [id number] 08:11:00* Test Item Value Reference Range Interpretation [...] (test code = MDIFF) NO BASIC METABOLIC [id number] 08:08:00* Test Item Value Reference Range Interpretation [...] 8.3 mg/dL 8.0-10.5 N - XR SWLW FUNC W/C [id number] 15:28:00 FAX: Juan Martinez NP [phone] [place]: St: ADM FAX: Сергей James I [phone] FAX: David Finch MD [phone] Name: CHRISTINA LYNN [facility] : 1960 Age/S: 59/M [address] [place] [address] Unit #: [id number] Loc: G.[address] [place] [address] Phys: Juan Martinez NP Acct: [id number] Dis Date: Status: ADM IN PH ONE #: [phone] Exam Date: 11/08/2019 142 FAX #: [phone] Reason: DYSPHAGIA EXAMS: CPT CODE: [id number] XR SWLW FUNC W/C V 21221 Modified brayan machado swallow: HISTORY: Pneumonia, dysphagia area FINDIN GS: [...] 8.61 mGy, fluoroscopy time 230 seconds SL: [id number] at 1528 Reported and sign ed by: Dio Keene M.D. CC: Juan Martinez NP; Сергей rios MD; David Juarez M.D. Technologist: Сергей Diaz RT(R) Trnscrd Date/Time/By: 11/08/2019 (1528) : By: [email or web address] Orig Print D/T: S: 11/08/2019 (7374) PAGE 1 Signed Report VANCOMYCIN [id number] 10:06:00* Test Item Value Reference Range Interpretation Comments VANCOMYCIN TROUGH (test code = VANCT) 9.7 mcg/mL 10.0-20.0 L 10-15 mcg/mL - Cellulitis, Urinary Tract Infection. 15-20 mcg/mL - Bacteremia, Infective Endocarditis, Meningitis, Osteomyelitis, Pneumonia, Severe Skin/Soft- Tissue Infection, Spinal Abscess. INFLUENZA A [id number] 21:58:00* Test Item Value Reference Range Interpretation Comments INFLUENZA A (test code = FLUAPCR) Negative Negative INFLUENZA B (test code = FLUBPCR) Negative Negative LACTIC [id number] 22:20:00* Test Item Value Reference Range Interpretation Comments LACTIC ACID (test code = LACT) 1.1 mmol/L 0.4-1.9 N UA RFLX MICR CULT IF [id number] 20:38:00* Test Item Value Reference Range Interpretation [...] VALP) 19 mcg/mL 50.0-100.0 L COMPREHENSIVE METABOLIC [id number] 19:55:00* Test Item Value Reference Range Interpretation [...] code = ALKP) 127 IUnit/L 20-125 H [id number] 19:55:00* Test Item Value Reference Range Interpretation Comments MAGNESIUM (test code = MAG) 2.00 mg/dL 1.8-2.4 N - XR CHEST 1 [id number] 19:53:00 FAX: Cari Lr MD [phone] [place]: St: REG FAX: David Finch MD [phone] Name: CHRISTINA LYNN [facility] : 1960 Age/S: 59/M [address] [place] [address] Unit #: [id number] Loc: G.[address] [address] Phys: Cari Mckee MD Acct: [id number] Dis Date: Status: REG ER PHONE #: [phone] Exam Date: 11/03/20191942 FAX #: [phone] Reason: acute cough fever EXAMS: CPT CODE: [id number] XR CHEST 1 V 71614 SINGLE VIEW RADIOGRAPH CHEST INDICATION: acute cough [...] by Tiffani Rey on 0 11/03/2019 at 1953 Reported and signed by: Roosevelt Rey D.O. CC: Cari Mckee MD; David Juarez M.D. Technologist: RT Maribel(Shawn)(Eddie) Trn scrd Date/Time/By: 11/03/2019 (1952) : By: [email or web address] Orig Print D/T: S : 11/03/2019 (1955) PAGE 1 Signed Report COMPREHENSIVE METABOLIC [id number] 19:48:00* Test Item Value Reference Range Interpretation [...] TOTAL (test code = ALKP) IUnit/L 20-125 [id number] 19:48:00* Test Item Value Reference Range Interpretation Comments MAGNESIUM (test code = MAG) mg/dL 1.8-2.4 CBC W/AUTO [id number] 19:46:00* Test Item Value Reference Range Interpretation [...] (test code = MDIFF) NO COMPREHENSIVE METABOLIC [id number] 06:09:00* Test Item Value Reference Range Interpretation [...] RELATED TO RISK LEVELS ASRECOMMENDED BY THE DARCI[facility]. HEART, LUNG, AND BLOOD INST. HDL CHOLESTEROL (test code = HDL) 50 mg/dL 40-60 N LIPOPROTEIN LDL (test code = LDL) 95 mg/dL 100-129 L Reference Interval: mg/dL mmol/L Optimal <100 <2.6Near/above optimal 100-129 2.6- 3.3Borderline High 130-159 3.4-4.1High 160-189 4.1-4.9Very High >=190 >=4.9========= This LDL result is a direct measurement.========= VITAMIN D [id number] 06:09:00* Test Item Value Reference Range Interpretation Comments VITAMIN D 25-HYDROXY (test code = VITD25) 22.5 ng/mL 30.0-100.0 A Vitamin D deficiency has been defined by the [place] [employer] and an Endocrine Society practice guideline as alevel of serum 25-OH vitamin D less than 20 ng/mL (1,2).The Endocrine Society went on to further define vitamin Dinsufficiency as a level between 21 and 29 ng/mL (2).1. IOM ([place] [employer]). 2010. Dietary reference intakes for calcium and D. [place]: The National Academies Press.2. Andrey MF, Lili NC, Chayo HURTADO, et al. Evaluation, treatment, and prevention of vitamin D deficiency: an Endocrine Society clinical practice guideline. JCEM. 2010; 96(7):1911-30.Performed At: [facility] [id number] Kyle L MD Ph:[phone] performed at: [facility] [address] [address] COMPREHENSIVE METABOLIC [id number] 12:07:00* Test Item Value Reference Range Interpretation [...] RELATED TO RISK LEVELS ASRECOMMENDED BY THE DARCIE. HEART, LUNG, AND BLOOD INST. HDL CHOLESTEROL (test code = HDL) 50 mg/dL 40-60 N LIPOPROTEIN LDL (test code = LDL) 95 mg/dL 100-129 L Reference Interval: mg/dL mmol/L Optimal <100 <2.6Near/above optimal 100-129 2.6- 3.3Borderline High 130-159 3.4-4.1High 160-189 4.1-4.9Very High >=190 >=4.9========= This LDL result is a direct measurement.========= VITAMIN D 89-[id number] 12:07:00* Test Item Value Reference Range Interpretation Comments VITAMIN D 25-HYDROXY (test code = VITD25) ng/mL 30-100 COMPREHENSIVE METABOLIC [id number] 11:50:00* Test Item Value Reference Range Interpretation [...] code = LDL) mg/dL 100-129 VITAMIN D 30-[id number] 11:50:00* Test Item Value Reference Range Interpretation Comments VITAMIN D 25-HYDROXY (test code = VITD25) ng/mL 30-100 CBC W/AUTO [id number] 10:53:00* Test Item Value Reference Range Interpretation [...] NRBC#) 0.00 K/mm3 0.0-0.1 N COMPREHENSIVE METABOLIC [id number] 13:23:00* Test Item Value Reference Range Interpretation [...] due to change in reagent. AG PROSTATE [id number] 13:23:00* Test Item Value Reference Range Interpretation Comments AG PROSTATE SPECIFIC (test code = PSA) 0.24 ng/mL 0.0-4.0 N THYROID STIMULATING [id number] 13:23:00* Test Item Value Reference Range Interpretation Comments THYROID STIMULATING HORMONE (test code = TSH) 1.890 uIU/mL 0.36-3.7 4 N TSH REFERENCE RANGES: EUTHYROID: 0.35 - 4.3 mIU/mL HYPO : > 5.5 mIU/mL HYPER : < 0.35 mIU/mL COMPREHENSIVE METABOLIC [id number] 13:19:00* Test Item Value Reference Range Interpretation [...] code = ALKP) IUnit/L 45-117 AG PROSTATE [id number] 13:19:00* Test Item Value Reference Range Interpretation Comments AG PROSTATE SPECIFIC (test code = PSA) 0.24 ng/mL 0.0-4.0 N THYROID STIMULATING [id number] 13:19:00* Test Item Value Reference Range Interpretation Comments THYROID STIMULATING HORMONE (test code = TSH) uIU/mL 0.36-3.7 4 COMPREHENSIVE METABOLIC [id number] 13:08:00* Test Item Value Reference Range Interpretation [...] code = ALKP) IUnit/L 45-117 AG PROSTATE [id number] 13:08:00* Test Item Value Reference Range Interpretation Comments AG PROSTATE SPECIFIC (test code = PSA) ng/mL 0.0-4.0 THYROID STIMULATING [id number] 13:08:00* Test Item Value Reference Range Interpretation Comments THYROID STIMULATING HORMONE (test code = TSH) uIU/mL 0.36-3.7 4 CBC W/AUTO [id number] 12:52:00* Test Item Value Reference Range Interpretation [...] REQUIRED (test code = MDIFF) NO ABDOMEN-1VIEW (AKASH)2018-10-12 13:36:00 [place] [address] Patient Name: CHRISTINA LYNN MR #: [id number] : 1960 Age/Sex: 58/M Req #: [id number] Adm Physician: Ordered by: TONI GREGG MD Report #: [id number] Location: ER Room/Bed: Procedure: [id number] DX/ABD OMEN-1VIEW (KUB) Exam Date: Exam Time: REPORT STATUS: Signed PROCEDURE: X-RAY AB ARACELI - AKASH COMPARISON: None. INDICATIONS: G-TUBE PLACMENT FINDINGS: A [...] 1336 Transcri bed By: HAYDEE on 10/12/18 1692 COPY TO: TONI GREGG MD
--- NOTE | 2020-07-01 14:26 | Emergency Department Note ---
History of Present Illnes History of Present Illness Chief Complaint: Abdominal Complaints History of Present Illness This is a 60 year old male recently evaluated for feeding tube issue and admitted. 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 Required: No Onset (how long ago): day(s) Radiation: Reports non-radiation Severity: mild Onset quality: gradual Duration (how long): week(s) Timing of current episode: constant Progression: unchanged Chronicity: recurrent Context: Reports recent immobilization Associated symptoms: Denies denies other symptoms, Denies confusion, Denies chest pain, Denies cough, Denies diaphoresis, Denies fever/chills, Denies headaches, Denies loss of appetite, Denies malaise, Denies nausea/vomiting, Denies rash, Denies seizure, Denies shortness of breath, Denies syncope, Denies weakness, Denies other Past Medical/Family History Physician Review I have reviewed the patient's past medical and family history. Any updates have been documented here. Past Medical History Recent Fever: No Clinical Suspicion of Infectio: No New/Unexplained Change in Ment: No Past Medical History: Hepatitis C, Seizure Disorder Other Medical History: HEPATITIS C, SEIZURE DISORDER, HEAD INJURY X2, TBI (1987), TBI (1996) Other Surgery: BRAIN SURGERY X2, PEG X3, PARTIAL LEFT LATERA; SKULL REMOVED Social History Smoking Cessation: Never Smoker Alcohol Use: None Any Illegal Drug Use: No Other Last Tetanus: utd Review of Systems Review of Systems Constitutional: Reports no symptoms EENTM: Reports no symptoms Cardiovascular: Reports no symptoms Respiratory: Reports no symptoms Gastrointestinal: Reports no symptoms Genitourinary: Reports no symptoms Musculoskeletal: Reports no symptoms Integumentary: Reports no symptoms Neurological: Reports no symptoms Psychological: Reports no symptoms Endocrine: Reports no symptoms Hematological/Lymphatic: Reports no symptoms Physical Exam Related Data Allergies: Coded Allergies: No Known Allergies (Unverified , 10/12/18) Triage Vital Signs Vital Signs Date Time Temp Pulse Resp B/P (MAP) Pulse Ox O2 Delivery O2 Flow Rate FiO2 07/01/20 14:15 97.9 61 16 104/86 98 Room Air Vital signs reviewed: Yes Physical Exam CONSTITUTIONAL Constitutional: Present well-developed, Present well-nourished HENT HENT: Present normocephalic, Present atraumatic, Present oropharynx clear/moist, Present nose normal HENT L/R: Present left ext ear normal, Present right ext ear normal EYES Eyes: Reports PERRL, Reports conjunctivae normal NECK Neck: Present ROM normal PULMONARY Pulmonary: Present effort normal, Present breath sounds normal CARDIOVASCULAR Cardiovascular: Present regular rhythm, Present heart sounds normal, Present capillary refill normal, Present normal rate GASTROINTESTINAL Abdominal: Present soft, Present nontender, Present other (feeding tube orifice patent. Tube with discoloration ) GENITOURINARY Genitourinary: Present exam deferred SKIN Skin: Present warm, Present dry MUSCULOSKELETAL Musculoskeletal: Present ROM normal NEUROLOGICAL Neurological: Present alert, Present oriented x 3 PSYCHOLOGICAL Psychological: Present mood/affect normal, Present judgement normal Results Imaging Imaging results reviewed: Yes Impressions [place] [address] Patient Name: CHRISTINA LYNN JR MR #: [id number] : 1960 Age/Sex: 60/M Req #: [id number] Adm Physician: Ordered by: GEM HAAS DO Report #: [id number] Location: ER Room/Bed: Procedure: [id number] DX/ABDOMEN-1VIEW (KUB) Exam Date: 07/01/20 Exam Time: 1445 REPORT STATUS: Signed Abdomen one view (KUB) INDICATION: ^feeding tube ^20200701 ^1445 Comparison: None available. Discussion: Contrast is identified within the gastric fundus, injected via the gastrostomy tube. Contrast although is identified within the small bowel loops and colon likely from recent CT scan on 06/28/2020. Partially visualized lung bases are clear. Nonobstructive bowel gas pattern is noted. No acute osseous abnormality. IMPRESSION: Contrast is identified within the gastric fundus injected via the indwelling gastrostomy tube. Nonobstructive bowel gas pattern. Signed by: Rebecca Smith MD on 07/01/2020 3:15 PM Dictated By: REBECCA SMITH MD 14 Transcribed By: DURAN on 07/01/201514 COPY TO: GEM HAAS DO~ Assessment & Plan Medical Decision Making MDM Diff Dx : feeding tube obstruction, dysfunction Assessment & Plan Final Impression: (1) Gastrostomy tube dysfunction Depart Disposition: ADMITTED Home Meds Active Scripts Doxycycline Hyclate (VIBRAMYCIN) 100 Mg Capsule, 100 MG PO Q12H, #14 Prov:BRO HOOD MD 06/30/20 Sennosides (SENOKOT) 8.6 Mg Tablet, 8.6 MG PO BID for 30 Days Prov:BRO HOOD MD 06/30/20 Docusate Sodium (COLACE) 100 Mg/10 Ml Liqd, 100 MG NG BID for 30 Days Prov:BRO HOOD MD 06/30/20 Reported Medications Naproxen (NAPROXEN) 250 Mg Tablet, 500 MG PO BID, TAB 06/28/20 [Lorazepam ] No Conflict Check, 0.5 MG PO 06/28/20 Divalproex Sodium (DIVALPROEX SODIUM) 125 Mg Tablet. 06/28/20 Mirtazapine (MIRTAZAPINE) 7.5 Mg Tablet, 7.5 MG PO HS 06/28/20 Ciprofloxacin Hcl (CIPROFLOXACIN HCL) 2.5 Ml Drops 06/28/20 Buspirone Hcl (BUSPIRONE HCL) 10 Mg Tablet 06/28/20 Topiramate (TOPAMAX) 25 Mg Tablet, 100 MG PEG DAILY 02/16/17 Divalproex Sodium (DEPAKOTE) 125 Mg Tablet., 125 MG PEG BID 02/16/17 Carbamazepine (CARBAMAZEPINE) 200 Mg Tablet, 200 MG PEG TID, #30 TAB 02/16/17 Buspirone Hcl (BUSPIRONE HCL) 5 Mg Tablet, 10 MG PEG DAILY, #60 TAB 02/16/17 GEM HAAS DO Jul 01, 2020 14:26
--- NOTE | 2020-07-01 15:19 | Diagnostic Imaging Report ---
Abdomen one view (KUB) INDICATION: ^feeding tube ^20200701 ^1442 Comparison: None available. Discussion: Contrast is identified within the gastric fundus, injected via the gastrostomy tube. Contrast although is identified within the small bowel loops and colon likely from recent CT scan on 06/28/2020. Partially visualized lung bases are clear. Nonobstructive bowel gas pattern is noted. No acute osseous abnormality. IMPRESSION: Contrast is identified within the gastric fundus injected via the indwelling gastrostomy tube. Nonobstructive bowel gas pattern. Signed by: Vipul Smith MD on 07/01/2020 3:15 PM
--- OUTSIDE RECORDS SUMMARY | 2020-07-01 15:52 | XMS REPORT | Continuity of Care Document ---
Author Author [facility] t Organization [facility] Address [address] [place] [id number] Phone Unavailable Care Team Providers Care Medical Receptionist Name Role Phone TISH DOSS, MD RICHARDS PCP GEM HAAS Attphys Unavailable BRO HOOD Attphys Unavailable Adeel Pacheco Attphys Unavailable Yuriy GREGG Attphys Unavailable AILYN DIAZ Admphys Unavailable BRO HOOD Admphys Unavailable Payers Payer Name Policy Type Policy Number Effective Date Expiration Date [facility] [id number] 2019 00:00 :00 [facility] Problems Condition Name Condition Details Condition Category Status Onset Date Resolution Date Last Treatment Date Treating Clinician Comments Source Status post insertion of percutaneous endoscopic gastr ostomy (PEG) tube Status post insertion of percutaneous endoscopic gastrostomy (PEG) tube Problem Active [facility] Encounter for medical screening examination Problem Active [facility] Gastrostomy tube dysfunction Problem Active [facility] Allergies, Adverse Reactions, Alerts Allergy Name Allergy Type Status Severity Reaction(s) Onset Date Inacti ve Date Treating Clinician Comments Source No Known Allergies DA Active U 2019-11-03 00:00:00 [facility] No Known Allergies DA Active U 2018-09-20 00:00:00 [facility] No Known Allergies DA Active U 2018-09-19 00:00:00 [facility] No Known Allergies DA Active U 2015-10-28 00:00:00 [facility] Social History Social Habit Start Date Stop Date Quantity Comments Source Sex Assigned At 1960 00:00:00 1960 00:00:00 Male [facility] Medications Ordered Medication Name Filled Medication Name Start Date Stop Da te Current Medication? Ordering Clinician Indication Dosage Frequency Signature (SIG) Comments Components Source Docusate Sodium (Colace) 100 Mg/10 Ml LIQD Docusate So dium (Colace) 100 Mg/10 Ml LIQD 2020-06-30 12:05:00 Yes 100 Twice A Day [facility] Doxycycline Hyclate (Vibramycin) 100 Mg CAPSULE Doxycy gonzales Hyclate (Vibramycin) 100 Mg CAPSULE 2020-06-30 12:05:00 Yes 100 Every 12 Hours [facility] Sennosides (Senokot) 8.6 Mg TABLET Sennosides (Senokot) 8.6 Mg TABLET 2020-06-30 12:05:00 Yes 8.6 Twice A Day [facility] Buspirone Hcl Buspirone Hcl Yes 10 Daily [facility] Buspirone Hcl Buspirone Hcl Yes [facility] Carbamazepine Carbamazepine Yes 200 Three Times A Day [facility] Ciprofloxacin Hcl Ciprofloxacin Hcl Yes [facility] Divalproex Sodium (Depakote) 125 Mg TABLET. Divalpro ex Sodium (Depakote) 125 Mg TABLET. Yes 125 Twice A Day [facility] Divalproex Sodium Divalproex Sodium Yes [facility] Lorazepam Lorazepam Yes .5 [facility] Mirtazapine Mirtazapine Yes 7.5 Bedtime [facility] Naproxen Naproxen Yes 500 Twice A Day [facility] Topiramate (Topamax) 25 Mg TABLET Topiramate (Topamax) 25 Mg TABLET Yes 100 Daily [facility] Esomeprazole Magnesium (Nexium) 40 Mg SUSPDR.PKT Esome prazole Magnesium (Nexium) 40 Mg SUSPDR.PKT 2019-12-04 00:00:00 No 40 Daily [facility] Dipyridamole/Aspirin (Aggrenox 25 Mg-200 Mg Capsule) 1 Cap CAPCR Dipyridamole/Aspirin (Aggrenox 25 Mg-200 Mg Capsule) 1 Cap CAPCR 2019-12-01 00:00:00 No Twice A Day [facility] Vital Signs Vital Name Observation Time Observation Value Comments Source Body Temperature 2020-06-30 15:39:00 98.1 [degF] [facility] BMI (Body Mass Index) 2020-06-28 19:34:00 21.3 kg/m2 [facility] Weight 2020-06-28 15:20:00 140 [lb_av] [facility] Weight 2020-06-11 15:12:00 140 [lb_av] [facility] BMI (Body Mass Index) 2020-06-11 15:12:00 21.3 kg/m2 [facility] Body Temperature 2019-12-04 15:22:00 97.6 [degF] [facility] Procedures Procedure Date / Time Performed Performing Clinician [facility] e Computed tomography of abdomen and pelvis with contrast 00:00:00 [facility] Computed tomography of brain without radiopaque contrast 2020-05 00:00:00 [facility] EGD PLACE GASTROSTOMY TUBE 2019-12-04 00:00:00 C [facility] Plan of Care Planned Activity Planned Date Details Comments Source Instructions GI Tube Care [facility] Encounters Start Date/Time End Date/Time Encounter Type Admission Type [facility] Care Department Encounter ID Source 2020-06-28 17:27:00 2020-06-30 17:25:00 Discharged Inpatient (obs) 1 BRO HOOD [facility] [id number] [facility] 2020-06-11 15:26:00 2020-06-11 18:40:00 Departed Emergency Room 1 Marino Pacheco [facility] [id number] [facility] 2019-12-04 11:00:00 2019-12-04 11:00:00 Registered Surgical Day Care [facility] [id number] [facility] 2018-10-12 11:32:00 2018-10-12 13:45:00 Departed Emergency Room 1 TONI GREGG [facility] [id number] [facility] Results Test Description Test Time Test Comments Results Result Comments Source ABDOMEN-1VIEW (KUB) 2020-07-01 15:14:[address] [place] [address] Patient Name: CHRISTINA LYNN JR MR #: [id number] : 1960 Age/Sex: 60/M Req #: [id number] Adm Physician: Ordered by: GEM HAAS DO Report #: [id number] Location: ER Room/Bed: Procedure: [id number] DX/ABDOMEN-1VIEW (KUB) Exam Date: 07/01/20 Exam Time: 1444 REPORT STATUS: Signed Abdomen one view (KUB) INDICATION: feeding tube [id number] Comparison: None available. Discussion: Contrast is identified within the gastric fundus, injected via the gastrostomy tube. Contrast although is identified within the small bowel loops and colon likely from recent CT scan on 06/28/2020. Partially visualized lung bases are clear. Nonobstructive bowel gas pattern is noted. No acute osseous abnormality. IMPRESSION: Contrast is identified within the gastric fundus injected via the indwelling gastrostomy tube. Nonobstructive bowel gas pattern. Signed by: Rebecca Smith MD on 07/01/2020 3:15 PM Dictated By: REBECCA SMITH MD 14 Transcribed By: DURAN on 07/01/201514 COPY TO: GEM HAAS DO Blood leukocytes automated count (number/volume) 2020-06-29 05:36:00 Test Item White Blood Count (test code = 6690-2) 5.19 4.8-10.8 [facility] automated count (number/volume)2020-06-29 05:36:00* Test Item Value Reference Range Interpretation Comments Red Blood Count (test code = 789-8) 4.12 4.3-5.7 [facility] hemoglobin measurement (moles/volume)2020-06-29 05:36:00* Test Item Value Reference Range Interpretation Comments Hemoglobin (test code = 34416-1) 11.6 14.0-18.0 [facility] blood hematocrit (volume fraction)2020-06-29 05:36:00* Test Item Value Reference Range Interpretation Comments Hematocrit (test code = 4544-3) 33.7 38.2-49.6 [facility] erythrocyte mean corpuscular ahkqkq2111-95-61 05:36:00* Test Item Value Reference Range Interpretation Comments Mean Corpuscular Volume (test code = 787-2) 81.8 81-99 [facility] erythrocyte mean corpuscular hemoglobin (mass per erythrocyte)2020-06-29 05:36:00* Test Item Value Reference Range Interpretation Comments Mean Corpuscular Hemoglobin (test code = 785-6) 28.2 28-32 [facility]ated erythrocyte mean corpuscular hemoglobin concentration measurement (mass/volume)2020-06-29 05:36:00* Test Item Value Reference Range Interpretation Comments Mean Corpuscular Hemoglobin Concent (test code = 786-4) 34.4 31-35 [facility]oRDW YykXy-Bgv3810-44-12 05:36:00* Test Item Value Reference Range Interpretation Comments Red Cell Distribution Width (test code = 92353-4) 12.4 11.7 -14.4 [facility]ated blood platelet count (count/volume)2020-06-29 05:36:00* Test Item Value Reference Range Interpretation Comments Platelet Count (test code = 777-3) 296 140-360 [facility]oAutomated blood segmented neutrophil count as percentage of total dcfcdonflp7808-09-31 05:36:00* Test Item Value Reference Range Interpretation Comments Neutrophils (%) (Auto) (test code = 54290-5) 63.9 38.7-80.0 [facility]ated blood lymphocyte count as percentage ot total dcilmzszjc8355-29-63 05:36:00* Test Item Value Reference Range Interpretation Comments Lymphocytes (%) (Auto) (test code = 736-9) 22.0 18.0-39.1 [facility]ated blood monocyte count as percentage of total enbqbvfmga3392-24-26 05:36:00* Test Item Value Reference Range Interpretation Comments Monocytes (%) (Auto) (test code = 5905-5) 11.9 4.4-11.3 [facility]ated blood eosinophil count as percentage of total ehfxntkjwm6656-41-50 05:36:00* Test Item Value Reference Range Interpretation Comments Eosinophils (%) (Auto) (test code = 713-8) 1.2 0.0-6.0 [facility]ated blood basophil count as percentage of total ckgviydziw4850-57-14 05:36:00* Test Item Value Reference Range Interpretation Comments Basophils (%) (Auto) (test code = 706-2) 0.4 0.0-1.0 [facility]oFluoroscopic procedure less than one hour uhybibjn0157-76-23 05:36:00* Test Item Value Reference Range Interpretation Comments IM GRANULOCYTES % (test code = IM GRANULOCYTES %) 0.6 0.0- 1.0 [facility] blood neutrophil count 2020-06-29 05:36:00* Test Item Value Reference Range Interpretation Comments Neutrophils # (Auto) (test code = 751-8) 3.3 2.1-6.9 [facility] lymphocytes count (number/volume) 2020-06-29 05:36:00* Test Item Value Reference Range Interpretation Comments Lymphocytes # (Auto) (test code = 05633-3) 1.1 1.0-3.2 [facility] monocytes automated count (number/volume)2020-06-29 05:36:00* Test Item Value Reference Range Interpretation Comments Monocytes # (Auto) (test code = 742-7) 0.6 0.2-0.8 [facility]ated blood eosinophil count 2020-06-29 05:36:00* Test Item Value Reference Range Interpretation Comments Eosinophils # (Auto) (test code = 711-2) 0.1 0.0-0.4 [facility]oAutomated blood basophil count (count/volume)2020-06-29 05:36:00* Test Item Value Reference Range Interpretation Comments Basophils # (Auto) (test code = 704-7) 0.0 0.0-0.1 [facility]oFluoroscopic procedure less than one hour ehmfwoqx3529-99-12 05:36:00* Test Item Value Reference Range Interpretation Comments Absolute Immature Granulocyte (auto (mark t code = Absolute Immature Granulocyte (auto) 0.03 0-0.1 [facility] sodium measurement (moles/volume)2020-06-29 05:36:00* Test Item Value Reference Range Interpretation Comments Sodium Level (test code = 2951-2) 132 136-145 [facility] plasma potassium measurement (moles/volume)2020-06-29 05:36:00* Test Item Value Reference Range Interpretation Comments Potassium Level (test code = 2823-3) 4.4 3.5-5.1 [facility] or plasma chloride measurement (moles/volume)2020-06-29 05:36:00* Test Item Value Reference Range Interpretation Comments Chloride Level (test code = 2075-0) 102 98-107 [facility] or plasma carbon dioxide, total measurement (moles/volume)2020-06-29 05:36:00* Test Item Value Reference Range Interpretation Comments Carbon Dioxide Level (test code = 2028-9) 20 22-29 [facility] or plasma anion qlo6861-30-35 05:36:00* Test Item Value Reference Range Interpretation Comments Anion Gap (test code = 60293-4) 14.4 8-16 [facility] or plasma urea nitrogen measurement (mass/volume)2020-06-29 05:36:00* Test Item Value Reference Range Interpretation Comments Blood Urea Nitrogen (test code = 3094-0) 8 7-26 [facility] or plasma creatinine measurement (mass/volume)2020-06-29 05:36:00* Test Item Value Reference Range Interpretation Comments Creatinine (test code = 2160-0) 0.56 0.72-1.25 [facility] or plasma urea nitrogen/creatinine mass qndez6972-84-18 05:36:00* Test Item Value Reference Range Interpretation Comments BUN/Creatinine Ratio (test code = 3097-3) 14 6-25 [facility]oEstimated glomerular filtration rate (GFR) oxqqpejleceqy8516-25-33 05:36:00* Test Item Value Reference Range Interpretation Comments Estimat Glomerular Filtration Rate (test code = 366544651) > 60 >60 Ranges were taken from the National Kidney Disease Education Program and the [facility] Kidney Foundation literature.Reference ranges:60 or greater: Nmxxze86-99 ( for 3 consecutive months): Chronic kidney disease 15 or less: Kidney failureDoctors Hospital of LaredoGlucose oprmpisrceu8462-03-67 05:36:00* Test Item Value Reference Range Interpretation Comments Glucose Level (test code = EKR2517) 127 74-118 [facility] or plasma calcium measurement (mass/volume)2020-06-29 05:36:00* Test Item Value Reference Range Interpretation Comments Calcium Level (test code = 65181-4) 8.2 8.4-10.2 [facility] or plasma total bilirubin measurement (mass/volume)2020-06-29 05:36:00* Test Item Value Reference Range Interpretation Comments Total Bilirubin (test code = 1975-2) 0.5 0.2-1.2 [facility]oFluoroscopic procedure less than one hour zfwemret1866-38-49 05:36:00* Test Item Value Reference Range Interpretation Comments Aspartate Amino Transf (AST/SGOT) (test code = Aspartate Amino Transf (AST/SGOT)) 51 5-34 [facility] or plasma alanine aminotransferase measurement (enzymatic activity/volume)2020-06-29 05:36:00* Test Item Value Reference Range Interpretation Comments Alanine Aminotransferase (ALT/SGPT) (test code = 1742-6) 58 0-55 [facility] or plasma protein measurement (mass/volume)2020-06-29 05:36:00* Test Item Value Reference Range Interpretation Comments Total Protein (test code = 2885-2) 5.9 6.5-8.1 [facility] or plasma albumin measurement (mass/volume)2020-06-29 05:36:00* Test Item Value Reference Range Interpretation Comments Albumin (test code = 1751-7) 3.5 3.5-5.0 [facility]oPlasma globulin measurement (mass/volume) 2020-06-29 05:36:00* Test Item Value Reference Range Interpretation Comments Globulin (test code = 10138-3) 2.4 2.3-3.5 [facility] or plasma albumin/globulin mass dkeci1871-03-46 05:36:00* Test Item Value Reference Range Interpretation Comments Albumin/Globulin Ratio (test code = 1759-0) 1.5 0.8-2.0 [facility] or plasma alkaline phosphatase measurement (enzymatic activity/volume)2020-06-29 05:36:00* Test Item Value Reference Range Interpretation Comments Alkaline Phosphatase (test code = 6768-6) 91 40-150 [facility]oCT ABDOMEN/PELVIS T6135-40-77 20:01:00 [facility] [address] [address] Patient Name: CHRISTINA LYNN JR MR #: [id number] : 1960 Age/Sex: 60/M Req #: [id number] Adm Physician: BRO HOOD MD Ordered by: PASCALE CONTI DO Report #: [id number] Location: MED/SURG[address] [place] [address]/Bed: 289-1 Procedure: [id number] CT/CT ABDOM EN/PELVIS W Exam Date: 06/28/20 [...] CONTI DO CHEST SINGLE (PORTABLE) 2020-06-28 18:37:00 [place] [address] Patient Name: CHRISTINA LYNN JR MR #: [id number] : 1960 Age/Sex: 60/M Req #: [id number] Adm Physician: BRO HOOD MD Ordered by: PASCALE CONTI DO Report #: [id number] Location: [facility] Room/Bed: [place] [address] Procedure: [id number] DX/CHEST SI NGLE (PORTABLE) Exam Date: 06/28/20 Exam Time: 1806 REPORT STATUS: Signed EXAMINATIO N: CHEST SINGLE [...] COPY TO: PASCALE CONTI DO Urine color pzowrmkwliyuf8053-86-77 16:16:00* Test Item Value Reference Range Interpretation Comments Urine Color (test code = 5778-6) YELLOW YELLOW [facility]oUrine sodqtev7171-94-24 16:16:00* Test Item Value Reference Range Interpretation Comments Urine Clarity (test code = 08796-7) SL CLOUDY CLEAR [facility] gravity of Urine by Test strip 2020-06-28 16:16:00* Test Item Value Reference Range Interpretation Comments Urine Specific [place] (test code = 5811-5) 1.015 1.010-1.02 5 [facility]oUrine pH measurement by automated test yjpwp6526-83-50 16:16:00* Test Item Value Reference Range Interpretation Comments Urine pH (test code = 20365-2) 8.5 5-7 [facility]oUrine leukocyte esterase detection by dfqiomtb7130-74-07 16:16:00* Test Item Value Reference Range Interpretation Comments Urine Leukocyte Esterase (test code = 5799-2) NEGATIVE NEGATIVE [facility]oUrine nitrite gtpgrghgk4126-32-70 16:16:00* Test Item Value Reference Range Interpretation Comments Urine Nitrite (test code = 76472-9) NEGATIVE NEGATIVE [facility]oUrine protein measurement by test strip (mass/volume)2020-06-28 16:16:00* Test Item Value Reference Range Interpretation Comments Urine Protein (test code = 5804-0) NEGATIVE NEGATIVE [facility]oUrine glucose ydhowhtiv4155-80-37 16:16:00* Test Item Value Reference Range Interpretation Comments Urine Glucose (UA) (test code = 2349-9) NEGATIVE NEGATIVE [facility]oUrine ketones detection by automated test ypscq6104-87-33 16:16:00* Test Item Value Reference Range Interpretation Comments Urine Ketones (test code = 57817-9) NEGATIVE NEGATIVE [facility]oUrine urobilinogen measurement by test strip (mass/volume)2020-06-28 16:16:00* Test Item Value Reference Range Interpretation Comments Urine Urobilinogen (test code = 11895-8) 2 0.2-1 [facility]oUrine total bilirubin measurement (mass/volume)2020-06-28 16:16:00* Test Item Value Reference Range Interpretation Comments Urine Bilirubin (test code = 1978-6) NEGATIVE NEGATIVE [facility]oUrine erythrocytes rbrudwjup8143-42-73 16:16:00* Test Item Value Reference Range Interpretation Comments Urine Blood (test code = 79844-8) NEGATIVE NEGATIVE [facility]aredoAutomated urine sediment leukocyte count by microscopy (number/high power field)2020-06-28 16:16:00* Test Item Value Reference Range Interpretation Comments Urine WBC (test code = 5821-4) NONE 0-5 [facility]oErythrocytes detection in urine sediment by light somvstgcaf3015-56-99 16:16:00* Test Item Value Reference Range Interpretation Comments Urine RBC (test code = 46379-9) NONE 0-5 [facility]oBacteria detection in urine sediment by light rofcafzdeu6418-98-57 16:16:00* Test Item Value Reference Range Interpretation Comments Urine Bacteria (test code = 77835-4) FEW NONE [facility]oEpithelial cells detection in urine sediment by light vueqkhyqxs0634-14-74 16:16:00* Test Item Value Reference Range Interpretation Comments Urine Epithelial Cells (test code = 17005-9) NONE NONE [facility]oAmorphous sediment detection in urine sediment by light rdcevxinti9568-15-30 16:16:00* Test Item Value Reference Range Interpretation Comments Urine Amorphous Sediment (test code = 8246-1) MODERATE FEW [facility]oFluoroscopic procedure less than one hour iwgrxlot0663-93-81 16:00:00* Test Item Value Reference Range Interpretation Comments Lactic Acid Level (test code = Lactic Acid Level) 1.8 0.5- 2.0 [facility] or plasma creatine kinase measurement (enzymatic activity/volume)2020-06-28 16:00:00* Test Item Value Reference Range Interpretation Comments Creatine Kinase (test code = 2157-6) 21 30-200 [facility] or plasma creatine kinase MB measurement (mass/volume)2020-06-28 16:00:00* Test Item Value Reference Range Interpretation Comments Creatine Kinase MB (test code = 75993-2) 0.60 0-5.0 [facility]oTroponin I measurement by highly sensitive enzyme slkmegbnyer5995-56-40 16:00:00* Test Item Value Reference Range Interpretation Comments Troponin I (test code = 58061-6) 0.001 0-0.300 [facility]oBlood ixcicap1909-63-44 16:00:00* Test Item Value Reference Range Interpretation Comments Blood Culture (test code = 37990739) NO GROWTH AFTER 48 HOURS [facility]oCT BRAIN UB2732-86-89 16:35:00 [facility] [address] [place] [address] Patient Name: CHRISTINA LYNN MR #: [id number] : 1960 Age/Sex: 60/M Req #: [id number] Adm Physician: Ordered by: Marino Pacheco MD Report #: [id number] Location: ER Room/Bed: Procedure: [id number] CT/CT BRAIN WO Exam Date: 06/11/20 Exam [...] Count (test code = 6690-2) 8.09 4.8-10.8 [facility]oBlood erythrocytes automated count (number/volume)2020-06-11 16:06:00* Test Item Value Reference Range Interpretation Comments Red Blood Count (test code = 789-8) 4.65 4.3-5.7 [facility]oBlood hemoglobin measurement (moles/volume)2020-06-11 16:06:00* Test Item Value Reference Range Interpretation Comments Hemoglobin (test code = 78244-3) 13.2 14.0-18.0 [facility]oAutomated blood hematocrit (volume fraction)2020-06-11 16:06:00* Test Item Value Reference Range Interpretation Comments Hematocrit (test code = 4544-3) 39.0 38.2-49.6 [facility]oAutomated erythrocyte mean corpuscular agetvo7452-26-89 16:06:00* Test Item Value Reference Range Interpretation Comments Mean Corpuscular Volume (test code = 787-2) 83.9 81-99 [facility]oAutomated erythrocyte mean corpuscular hemoglobin (mass per erythrocyte)2020-06-11 16:06:00* Test Item Value Reference Range Interpretation Comments Mean Corpuscular Hemoglobin (test code = 785-6) 28.4 28-32 [facility] mean corpuscular hemoglobin concentration measurement (mass/volume)2020-06-11 16:06:00* Test Item Value Reference Range Interpretation Comments Mean Corpuscular Hemoglobin Concent (test code = 786-4) 33.8 31-35 [facility]aredoRDW TraSw-Swb1969-88-25 16:06:00* Test Item Value Reference Range Interpretation Comments Red Cell Distribution Width (test code = 71302-0) 12.3 11.7 -14.4 [facility]Aut[facility] blood platelet count (count/volume)2020-06-11 16:06:00* Test Item Value Reference Range Interpretation Comments Platelet Count (test code = 777-3) 179 140-360 [facility] blood segmented neutrophil count as percentage of total iyiyaftyrj4366-35-07 16:06:00* Test Item Value Reference Range Interpretation Comments Neutrophils (%) (Auto) (test code = 88733-3) 69.0 38.7-80.0 [facility]Aut[facility] blood lymphocyte count as percentage ot total fazlnjiacm8946-34-19 16:06:00* Test Item Value Reference Range Interpretation Comments Lymphocytes (%) (Auto) (test code = 736-9) 14.2 18.0-39.1 [facility]oAutomated blood monocyte count as percentage of total ejlzsshdvc5500-79-51 16:06:00* Test Item Value Reference Range Interpretation Comments Monocytes (%) (Auto) (test code = 5905-5) 15.2 4.4-11.3 [facility]oAutomated blood eosinophil count as percentage of total hoqdkgbzpf3332-51-44 16:06:00* Test Item Value Reference Range Interpretation Comments Eosinophils (%) (Auto) (test code = 713-8) 0.9 0.0-6.0 [facility]oAutomated blood basophil count as percentage of total hfgbgtoxwc5405-16-25 16:06:00* Test Item Value Reference Range Interpretation Comments Basophils (%) (Auto) (test code = 706-2) 0.2 0.0-1.0 [facility]oFluoroscopic procedure less than one hour qpatxlgd1468-24-36 16:06:00* Test Item Value Reference Range Interpretation Comments IM GRANULOCYTES % (test code = IM GRANULOCYTES %) 0.5 0.0- 1.0 [facility]aredoAutomated blood neutrophil count 2020-06-11 16:06:00* Test Item Value Reference Range Interpretation Comments Neutrophils # (Auto) (test code = 751-8) 5.6 2.1-6.9 [facility] count (number/volume) 2020-06-11 16:06:00* Test Item Value Reference Range Interpretation Comments Lymphocytes # (Auto) (test code = 56320-7) 1.2 1.0-3.2 [facility] monocytes automated count (number/volume)2020-06-11 16:06:00* Test Item Value Reference Range Interpretation Comments Monocytes # (Auto) (test code = 742-7) 1.2 0.2-0.8 [facility] eosinophil count 2020-06-11 16:06:00* Test Item Value Reference Range Interpretation Comments Eosinophils # (Auto) (test code = 711-2) 0.1 0.0-0.4 [facility] blood basophil count (count/volume)2020-06-11 16:06:00* Test Item Value Reference Range Interpretation Comments Basophils # (Auto) (test code = 704-7) 0.0 0.0-0.1 [facility]oFluoroscopic procedure less than one hour gzfvzfbx9832-47-99 16:06:00* Test Item Value Reference Range Interpretation Comments Absolute Immature Granulocyte (auto (mark t code = Absolute Immature Granulocyte (auto) 0.04 0-0.1 [facility]oProthrombin time (PT) in platelet poor plasma by coagulation gtllz8426-92-76 16:06:00* Test Item Value Reference Range Interpretation Comments Prothrombin Time (test code = 5902-2) 12.3 11.9-14.5 [facility] in Platelet poor plasma by Coagulation [id number] 16:06:00* Test Item Value Reference Range Interpretation Comments Prothromb Time International Ratio (test code = 6301-6) 0.87 Oral Anticoagulant Therapy INR Values:1. Low Intensity Therapy 1.5 - 2.02 . Moderate Intensity Therapy 2.0 - 3.03. High Intensity Therapy(1) 2.5 - 3. 54. High Intensity Therapy(2) 3.0 - 4.05. Panic Value INR > 5.0 [facility]oActivated partial thromboplastin time (aPTT) in platelet poor plasma by coagulation ldyon9531-61-93 16:06:00* Test Item Value Reference Range Interpretation Comments Activated Partial Thromboplast Time (test code = 46263-0) 23.4 23.8-35.5 [facility]oUrine color apbonmghdlbnc5368-87-83 16:06:00* Test Item Value Reference Range Interpretation Comments Urine Color (test code = 5778-6) YELLOW YELLOW [facility] rmzisrd9871-39-89 16:06:00* Test Item Value Reference Range Interpretation Comments Urine Clarity (test code = 64814-7) SL CLOUDY CLEAR [facility] Urine by Test strip 2020-06-11 16:06:00* Test Item Value Reference Range Interpretation Comments Urine Specific [place] (test code = 5811-5) 1.020 1.010-1.02 5 [facility] pH measurement by automated test fcaaz3091-58-03 16:06:00* Test Item Value Reference Range Interpretation Comments Urine pH (test code = 62792-7) 7.5 5-7 [facility] leukocyte esterase detection by ebyftodd9954-06-61 16:06:00* Test Item Value Reference Range Interpretation Comments Urine Leukocyte Esterase (test code = 5799-2) NEGATIVE NEGATIVE [facility] nitrite mkxynwqft4751-09-65 16:06:00* Test Item Value Reference Range Interpretation Comments Urine Nitrite (test code = 98173-9) NEGATIVE NEGATIVE [facility] protein measurement by test strip (mass/volume)2020-06-11 16:06:00* Test Item Value Reference Range Interpretation Comments Urine Protein (test code = 5804-0) NEGATIVE NEGATIVE [facility] glucose rbpmpadfl1323-37-93 16:06:00* Test Item Value Reference Range Interpretation Comments Urine Glucose (UA) (test code = 2349-9) NEGATIVE NEGATIVE [facility] ketones detection by automated test rdijx0275-41-71 16:06:00* Test Item Value Reference Range Interpretation Comments Urine Ketones (test code = 87672-6) NEGATIVE NEGATIVE [facility] urobilinogen measurement by test strip (mass/volume)2020-06-11 16:06:00* Test Item Value Reference Range Interpretation Comments Urine Urobilinogen (test code = 46495-8) 2 0.2-1 [facility] total bilirubin measurement (mass/volume)2020-06-11 16:06:00* Test Item Value Reference Range Interpretation Comments Urine Bilirubin (test code = 1978-6) NEGATIVE NEGATIVE [facility]oU[facility] erythrocytes alhgldtbl6037-04-89 16:06:00* Test Item Value Reference Range Interpretation Comments Urine Blood (test code = 44440-8) NEGATIVE NEGATIVE [facility]oAutom[facility] urine sediment leukocyte count by microscopy (number/high power field)2020-06-11 16:06:00* Test Item Value Reference Range Interpretation Comments Urine WBC (test code = 5821-4) NONE 0-5 [facility]oErythrocytes detection in urine sediment by light uiwrltmrly8478-54-48 16:06:00* Test Item Value Reference Range Interpretation Comments Urine RBC (test code = 79627-8) NONE 0-5 [facility]oBacteria detection in urine sediment by light jiyxgwfobk9627-94-14 16:06:00* Test Item Value Reference Range Interpretation Comments Urine Bacteria (test code = 20002-4) FEW NONE [facility]oEpithelial cells detection in urine sediment by light rntyxbttat8279-27-02 16:06:00* Test Item Value Reference Range Interpretation Comments Urine Epithelial Cells (test code = 40192-9) NONE NONE [facility]oAmorphous sediment detection in urine sediment by light dvqbkafado5586-99-36 16:06:00* Test Item Value Reference Range Interpretation Comments Urine Amorphous Sediment (test code = 8246-1) MODERATE FEW [facility] or plasma sodium measurement (moles/volume)2020-06-11 16:06:00* Test Item Value Reference Range Interpretation Comments Sodium Level (test code = 2951-2) 128 136-145 [facility] or plasma potassium measurement (moles/volume)2020-06-11 16:06:00* Test Item Value Reference Range Interpretation Comments Potassium Level (test code = 2823-3) 3.8 3.5-5.1 [facility] or plasma chloride measurement (moles/volume)2020-06-11 16:06:00* Test Item Value Reference Range Interpretation Comments Chloride Level (test code = 2075-0) 97 98-107 [facility] or plasma carbon dioxide, total measurement (moles/volume)2020-06-11 16:06:00* Test Item Value Reference Range Interpretation Comments Carbon Dioxide Level (test code = 2028-9) 20 22-29 [facility] or plasma anion hzr9209-84-82 16:06:00* Test Item Value Reference Range Interpretation Comments Anion Gap (test code = 42281-0) 14.8 8-16 [facility] or plasma urea nitrogen measurement (mass/volume)2020-06-11 16:06:00* Test Item Value Reference Range Interpretation Comments Blood Urea Nitrogen (test code = 3094-0) 12 - [facility] or plasma creatinine measurement (mass/volume)2020-06-11 16:06:00* Test Item Value Reference Range Interpretation Comments Creatinine (test code = 2160-0) 0.66 0.72-1.25 [facility] or plasma urea nitrogen/creatinine mass xczfd9522-27-16 16:06:00* Test Item Value Reference Range Interpretation Comments BUN/Creatinine Ratio (test code = 3097-3) 18 - [facility]oEstimated glomerular filtration rate (GFR) shnskzwmnkuav3911-45-42 16:06:00* Test Item Value Reference Range Interpretation Comments Estimat Glomerular Filtration Rate (test code = 166082079) > 60 >60 Ranges were taken from the National Kidney Disease Education Program and the [facility] literature.Reference ranges:60 or greater: Itdgae58-51 ( for 3 consecutive months): Chronic kidney disease 15 or less: Kidney failureDoctors Hospital of LaredoGlucose uodpreeniof1361-30-12 16:06:00* Test Item Value Reference Range Interpretation Comments Glucose Level (test code = VUF4507) 103 74-118 [facility] or plasma calcium measurement (mass/volume)2020-06-11 16:06:00* Test Item Value Reference Range Interpretation Comments Calcium Level (test code = 26432-1) 8.6 8.4-10.2 [facility]oFluoroscopic procedure less than one hour vrphncyg2655-22-19 16:06:00* Test Item Value Reference Range Interpretation Comments Lactic Acid Level (test code = Lactic Acid Level) 2.4 0.5- 2.0 Results repeated and called to ADEN APONTE at 1641 on 06/11/20 by JOSY MCGRATH . Read back and verified.[facility] or plasma total bilirubin measurement (mass/volume)2020-06-11 16:06:00* Test Item Value Reference Range Interpretation Comments Total Bilirubin (test code = 1975-2) 0.5 0.2-1.2 [facility]oFluoroscopic procedure less than one hour bcnwqmam8089-60-39 16:06:00* Test Item Value Reference Range Interpretation Comments Aspartate Amino Transf (AST/SGOT) (test code = Aspartate Amino Transf (AST/SGOT)) 60 5-34 [facility] or plasma alanine aminotransferase measurement (enzymatic activity/volume)2020-06-11 16:06:00* Test Item Value Reference Range Interpretation Comments Alanine Aminotransferase (ALT/SGPT) (test code = 1742-6) 75 0-55 [facility] or plasma protein measurement (mass/volume)2020-06-11 16:06:00* Test Item Value Reference Range Interpretation Comments Total Protein (test code = 2885-2) 6.0 6.5-8.1 [facility] or plasma albumin measurement (mass/volume)2020-06-11 16:06:00* Test Item Value Reference Range Interpretation Comments Albumin (test code = 1751-7) 3.2 3.5-5.0 [facility]oPlasma globulin measurement (mass/volume) 2020-06-11 16:06:00* Test Item Value Reference Range Interpretation Comments Globulin (test code = 18662-9) 2.8 2.3-3.5 [facility] or plasma albumin/globulin mass ziiyd0585-68-70 16:06:00* Test Item Value Reference Range Interpretation Comments Albumin/Globulin Ratio (test code = 1759-0) 1.1 0.8-2.0 [facility] or plasma alkaline phosphatase measurement (enzymatic activity/volume)2020-06-11 16:06:00* Test Item Value Reference Range Interpretation Comments Alkaline Phosphatase (test code = 6768-6) 102 40-150 [facility] or plasma creatine kinase measurement (enzymatic activity/volume)2020-06-11 16:06:00* Test Item Value Reference Range Interpretation Comments Creatine Kinase (test code = 2157-6) 35 30-200 [facility] or plasma creatine kinase MB measurement (mass/volume)2020-06-11 16:06:00* Test Item Value Reference Range Interpretation Comments Creatine Kinase MB (test code = 49527-1) 0.60 0-5.0 [facility]oTroponin I measurement by highly sensitive enzyme svkxlqfvbdd2261-05-20 16:06:00* Test Item Value Reference Range Interpretation Comments Troponin I (test code = 51651-9) 0.018 0-0.300 [facility]oProthrombin time (PT) in platelet poor plasma by coagulation gnncj1075-37-14 16:06:00* Test Item Value Reference Range Interpretation Comments Prothrombin Time (test code = 5902-2) 12.3 11.9-14.5 [facility]oINR in Platelet poor plasma by Coagulation vlxba3817-85-97 16:06:00* Test Item Value Reference Range Interpretation Comments Prothromb Time International Ratio (test code = 6301-6) 0.87 Oral Anticoagulant Therapy INR Values:1. Low Intensity Therapy 1.5 - 2.02 . Moderate Intensity Therapy 2.0 - 3.03. High Intensity Therapy(1) 2.5 - 3. 54. High Intensity Therapy(2) 3.0 - 4.05. Panic Value INR > 5.0 [facility]aredoActivated partial thromboplastin time (aPTT) in platelet poor plasma by coagulation dmeka6513-35-55 16:06:00* Test Item Value Reference Range Interpretation Comments Activated Partial Thromboplast Time (test code = 96153-4) 23.4 23.8-35.5 [facility]oCHEST SINGLE (PORTABLE)2020-06-11 15:35:00 [place] [address] Patient Name: CHRISTINA LYNN MR #: [id number] : 1960 Age/Sex: 60/M Req #: [id number] Adm Physician: Ordered by: Marino Pacheco MD Report #: [id number] Location: ER Room/Bed: Procedure: [id number] DX/CHEST SIN GLE (PORTABLE) Exam Date: 06/11/20 [...] on 06/11/201536 COPY TO: MARINO BURCH MD NZPVNWABAZT3905-90-03 15:00:00* Test Item Value Reference Range Interpretation Comments PHOSPHOROUS (test code = PHOS) 3.5 MG/DL 2.5-4.9 N CBC W/AUTO [id number] 08:11:00* Test Item Value Reference Range Interpretation [...] (test code = MDIFF) NO BASIC METABOLIC SPCGO0121-94-68 08:08:00* Test Item Value Reference Range Interpretation [...] 8.0-10.5 N - XR SWLW FUNC W/C [id number] 15:28:00 FAX: Juan Martinez NP [phone] [place]: St: [facility] FAX: Сергей James I [phone] FAX: David Finch MD [phone] Name: CHRISTINA LYNN [facility] : 1960 Age/S: 59/M [address] [place] [address] Unit #: [id number] Loc: G.[address] [place] [address] Phys: Juan Martinez NP Acct: [id number] Dis Date: Status: ADM IN ONE #: [phone] Exam Date: 11/08/2019 1421 FAX #: [phone] Reason: DYSPHAGIA EXAMS: CPT CODE: [id number] XR SWLW FUNC W/C V 86755 Modified brayan machado swallow: HISTORY: Pneumonia, dysphagia [...] 8.61 mGy, fluoroscopy time 230 seconds SL: [id number] at 1528 Reported and sign ed by: Dio Keene M.D. CC: Juan Martinez NP; Сергей rios MD; David Juarez M.D. Technologist: Сергей Diaz RT(R) Trnscrd Date/Time/By: 11/08/2019 (1528) : By: NancyETG Orig Print D/T: S: 11/08/2019 (9572) PAGE 1 Signed Report VANCOMYCIN [id number] 10:06:00* Test Item Value Reference Range Interpretation Comments VANCOMYCIN TROUGH (test code = VANCT) 9.7 mcg/mL 10.0-20.0 L 10-15 mcg/mL - Cellulitis, Urinary Tract Infection. 15-20 mcg/mL - Bacteremia, Infective Endocarditis, Meningitis, Osteomyelitis, Pneumonia, Severe Skin/Soft- Tissue Infection, Spinal Abscess. INFLUENZA A [id number] 21:58:00* Test Item Value Reference Range Interpretation Comments INFLUENZA A (test code = FLUAPCR) Negative Negative INFLUENZA B (test code = FLUBPCR) Negative Negative LACTIC [id number] 22:20:00* Test Item Value Reference Range Interpretation Comments LACTIC ACID (test code = LACT) 1.1 mmol/L 0.4-1.9 N UA RFLX MICR CULT IF MNFJMOVER7754-80-55 20:38:00* Test Item Value Reference Range Interpretation [...] VALP) 19 mcg/mL 50.0-100.0 L COMPREHENSIVE METABOLIC [id number] 19:55:00* Test Item Value Reference Range Interpretation [...] code = ALKP) 127 IUnit/L 20-125 H [id number] 19:55:00* Test Item Value Reference Range Interpretation Comments MAGNESIUM (test code = MAG) 2.00 mg/dL 1.8-2.4 N - XR CHEST 1 [id number] 19:53:00 FAX: Cari Lr MD [phone] [place]: St: REG FAX: David Finch MD [phone] Name: CHRISTINA LYNN [facility] : 1960 Age/S: 59/M [address] [place] [address] Unit #: [id number] Loc: G.[address] [address] Phys: Cari Mckee MD Acct: [id number] Dis Date: Status: REG ER PHONE #: [phone] Exam Date: 11/03/20191942 FAX #: [phone] Reason: acute cough fever EXAMS: CPT CODE: [id number] XR CHEST 1 V 04502 SINGLE VIEW RADIOGRAPH CHEST INDICATION: acute cough [...] MD; David Juarez M.D. Technologist: Jeaneth Daly, (R)(M) Trn scrd Date/Time/By: 11/03/2019 (1952) : By: [email or web address] Orig Print D/T: S : 11/03/2019 (1955) PAGE 1 Signed Report COMPREHENSIVE METABOLIC [id number] 19:48:00* Test Item Value Reference Range Interpretation [...] TOTAL (test code = ALKP) IUnit/L 20-125 [id number] 19:48:00* Test Item Value Reference Range Interpretation Comments MAGNESIUM (test code = MAG) mg/dL 1.8-2.4 CBC W/AUTO [id number] 19:46:00* Test Item Value Reference Range Interpretation [...] (test code = MDIFF) NO COMPREHENSIVE METABOLIC [id number] 06:09:00* Test Item Value Reference Range Interpretation [...] result is a direct measurement.========= VITAMIN D 44-MGFPHLL6551-88-10 06:09:00* Test Item Value Reference Range Interpretation Comments VITAMIN D 25-HYDROXY (test code = VITD25) 22.5 ng/mL 30.0-100.0 A Vitamin D deficiency has been defined by the [place] [employer] and an Endocrine Society practice guideline as alevel of serum 25-OH vitamin D less than 20 ng/mL (1,2).The Endocrine Society went on to further define vitamin Dinsufficiency as a level between 21 and 29 ng/mL (2).1. IOM ([place] [employer]). 2010. Dietary reference intakes for calcium and D. [place]: The National Academies Press.2. Andrey MF, Lili TREVINO, Chayo HURTADO, et al. Evaluation, treatment, and prevention of vitamin D deficiency: an Endocrine Society clinical practice guideline. JCEM. 2010; 96(7):1911-30.Performed At: [facility] [address] [id number] Kyle L MD Ph:[phone] performed at: [facility] [address] [address] COMPREHENSIVE METABOLIC [id number] 12:07:00* Test Item Value Reference Range Interpretation [...] result is a direct measurement.========= VITAMIN D 92-[id number] 12:07:00* Test Item Value Reference Range Interpretation Comments VITAMIN D 25-HYDROXY (test code = VITD25) ng/mL 30-100 COMPREHENSIVE METABOLIC [id number] 11:50:00* Test Item Value Reference Range Interpretation [...] code = LDL) mg/dL 100-129 VITAMIN D 94-[id number] 11:50:00* Test Item Value Reference Range Interpretation Comments VITAMIN D 25-HYDROXY (test code = VITD25) ng/mL 30-100 CBC W/AUTO [id number] 10:53:00* Test Item Value Reference Range Interpretation [...] NRBC#) 0.00 K/mm3 0.0-0.1 N COMPREHENSIVE METABOLIC [id number] 13:23:00* Test Item Value Reference Range Interpretation [...] due to change in reagent. AG PROSTATE [id number] 13:23:00* Test Item Value Reference Range Interpretation Comments AG PROSTATE SPECIFIC (test code = PSA) 0.24 ng/mL 0.0-4.0 N THYROID STIMULATING [id number] 13:23:00* Test Item Value Reference Range Interpretation Comments THYROID STIMULATING HORMONE (test code = TSH) 1.890 uIU/mL 0.36-3.7 4 N TSH REFERENCE RANGES: EUTHYROID: 0.35 - 4.3 mIU/mL HYPO : > 5.5 mIU/mL HYPER : < 0.35 mIU/mL COMPREHENSIVE METABOLIC [id number] 13:19:00* Test Item Value Reference Range Interpretation [...] code = ALKP) IUnit/L 45-117 AG PROSTATE [id number] 13:19:00* Test Item Value Reference Range Interpretation Comments AG PROSTATE SPECIFIC (test code = PSA) 0.24 ng/mL 0.0-4.0 N THYROID STIMULATING [id number] 13:19:00* Test Item Value Reference Range Interpretation Comments THYROID STIMULATING HORMONE (test code = TSH) uIU/mL 0.36-3.7 4 COMPREHENSIVE METABOLIC [id number] 13:08:00* Test Item Value Reference Range Interpretation [...] code = ALKP) IUnit/L 45-117 AG PROSTATE [id number] 13:08:00* Test Item Value Reference Range Interpretation Comments AG PROSTATE SPECIFIC (test code = PSA) ng/mL 0.0-4.0 THYROID STIMULATING [id number] 13:08:00* Test Item Value Reference Range Interpretation Comments THYROID STIMULATING HORMONE (test code = TSH) uIU/mL 0.36-3.7 4 CBC W/AUTO [id number] 12:52:00* Test Item Value Reference Range Interpretation [...] code = MDIFF) NO ABDOMEN-1VIEW (KUB)2018-10-12 13:36:00 [place] [address] Patient Name: CHRISTINA LYNN MR #: [id number] : 1960 Age/Sex: 58/M Req #: [id number] Adm Physician: Ordered by: TONI GREGG MD Report #: [id number] Location: ER Room/Bed: Procedure: [id number] DX/ABD OMEN-1VIEW (KUB) Exam Date: Exam Time: [...] 1336 Transcri bed By: HAYDEE on 10/12/18 1337 COPY TO: TONI GREGG MD
[2020-07-01 19:50] VITALS: BP 5/8
--- NOTE | 2020-07-01 20:17 | Operative Report ---
DATE OF PROCEDURE: 07/01/2020 SURGEON: Fidel Savage MD PROCEDURE: EGD with PEG tube replacement. INDICATIONS FOR PROCEDURE: Dysfunctional G-tube. MEDICATIONS: The patient was done under MAC, please see anesthesiologist's note. PROCEDURE IN DETAIL: With the patient in the supine position, a flexible fiberoptic Olympus gastroscope was introduced into the esophagus under direct visualization without any difficulty. There were some patchy erythema noted in distal esophagus. The scope was then advanced with ease into the stomach, mucosa overlying the antrum and the body revealed some erythema. Pylorus was of normal contour and shape, it was intubated with ease and the scope was advanced all the way to the second portion of the duodenum. The scope was withdrawn slowly, mucosa overlying the proximal second portion and the duodenal bulb appeared to be within normal limits. The scope was then withdrawn back into the stomach and retroflexed, mucosa overlying the fundus and cardia appeared to be within normal limits. The scope was then straightened out, the OG tube was removed per the old traction method and PEG tube replacement was carried out in the usual fashion through the old G-tube stoma. The scope was subsequently withdrawn after documenting a good positioning of the intragastric bumper. The patient tolerated the procedure well. IMPRESSION: 1. Distal esophagitis, mild. 2. Gastritis, mild. 3. PEG tube replacement carried out in usual fashion through the old G-tube stoma, after removal of the old G-tube per the pull traction method. The patient tolerated procedure well. Can use G-tube upon returning to facility. Fidel Savage MD [facility] [place]/MODL /[id number] cc: David Juarez MD
== END | disposition home or self-care (01) ==
LOC: ER 14:11 → UNDOADMOB 14:34 → ERHOLD 14:34 → ENDO 17:49
PROVIDERS: ATTEND Internal Medicine Gastroenterology
DX: K94.23 Gastrostomy malfunction (principal); K29.70 Gastritis, unspecified, without bleeding; K20.9 Esophagitis, unspecified; G40.909 Epilepsy, unspecified, not intractable, without status epilepticus; R47.89 Other speech disturbances; B19.20 Unspecified viral hepatitis C without hepatic coma; Z87.820 Personal history of traumatic brain injury
CPT/HCPCS: 43246; 74018; 99284; J2704

== ENCOUNTER 2020-08-03 11:16 | Inpatient (IN) | payer OTHER ==
[~2020-08-03] VITALS: Ht 162.6 cm; Wt 59.4 kg
[~2020-08-03 11:16] MED LIST changes: -CIPROFLOXACIN2.5 ML; +CIPROFLOXACIN2.5 ML EACH EAR; -DIATRIZOATE MEGL/DIATRIZOA SOD 30 ML BTL PO ONE; -PROPOFOL IV EMULSION 10 MG/ML 20 ML VIAL ONE
[2020-08-03] MEDS ORDERED: SODIUM CHLORIDE 0.9% 1000ML 1,000 ML IV STA (11:25)
--- NOTE | 2020-08-03 12:12 | Diagnostic Imaging Report ---
EXAMINATION: CHEST SINGLE (PORTABLE) INDICATION: FEVER COMPARISON: Chest radiograph 06-28-2020. FINDINGS: TUBES and LINES: None. LUNGS: Lungs are well inflated. There is increasing consolidative opacity in the left lower lung. Increasing patchy right basilar opacity. PLEURA: No pleural effusion or pneumothorax. HEART AND MEDIASTINUM: The cardiomediastinal silhouette is unremarkable. BONES AND SOFT TISSUES: No acute osseous abnormality. Diffuse osteopenia. Fixation hardware in the distal right clavicle. Remote healed left-sided rib fractures. UPPER ABDOMEN: No free air under the diaphragm. IMPRESSION: Increasing bibasilar opacities, left greater than right, suggestive of pneumonia the setting of fever. Recommend follow-up chest radiograph in 6-8 weeks to assess for resolution. Signed by: Dr. Alaina Aparicio MD on 08/03/2020 12:08 PM
[2020-08-03 13:10] LABS: CLARITY,URINE CLEAR (CLEAR); COLOR,URINE YELLOW (YELLOW); KETONES,URINE TRACE (NEGATIVE); LEUKOCYTE ESTERASE ,URINE LARGE (NEGATIVE); NITRITE,URINE POSITIVE (NEGATIVE); PROTEIN,URINE DIPSTICK 2+ (NEGATIVE)
[2020-08-03 13:11] LABS: BILIRUBIN,URINE SMALL (NEGATIVE)
--- OUTSIDE RECORDS SUMMARY | 2020-08-03 13:33 | XMS REPORT | Continuity of Care Document ---
Author Author [facility] t Organization [facility] Address [address] [place]. [address] [place] [address] Phone Unavailable Care Team Providers Care Service Correspondent Name Role Phone TISH DOSS, MD RICHARDS PCP Yuriy GREGG Attphys Unavailable GEM HAAS Attphys Unavailable BRO HOOD Attphys Unavailable Adeel Pacheco Attphys Unavailable AILYN DIAZ Admphys Unavailable BRO HOOD Admphys Unavailable Payers Payer Name Policy Type Policy Number Effective Date Expiration Date [facility] [id number] 2019 00:00 :00 [facility] Problems Condition Name Condition Details Condition Category Status Onset Date Resolution Date Last Treatment Date Treating Clinician Comments Source Status post insertion of percutaneous endoscopic gastr ostomy (PEG) tube Status post insertion of percutaneous endoscopic gastrostomy (PEG) tube Problem Active [facility] Encounter for medical screening examination Problem Active [facility] Gastrostomy tube dysfunction Problem Active [facility] Allergies, Adverse Reactions, Alerts Allergy Name Allergy Type Status Severity Reaction(s) Onset Date Inacti ve Date Treating Clinician Comments Source No Known Allergies DA Active U 2019-11-03 00:00:00 [facility] No Known Allergies DA Active U 2018-09-20 00:00:00 [facility] No Known Allergies DA Active U 2018-09-19 00:00:00 [facility] No Known Allergies DA Active U 2015-10-28 00:00:00 [facility] Social History Social Habit Start Date Stop Date Quantity Comments Source Sex Assigned At 1960 00:00:00 1960 00:00:00 Male [facility] Medications Ordered Medication Name Filled Medication Name Start Date Stop Da te Current Medication? Ordering Clinician Indication Dosage Frequency Signature (SIG) Comments Components Source Docusate Sodium (Colace) 100 Mg/10 Ml LIQD Docusate So dium (Colace) 100 Mg/10 Ml LIQD 2020-06-30 12:05:00 Yes 100 Twice A Day [facility] Doxycycline Hyclate (Vibramycin) 100 Mg CAPSULE Doxycy gonzales Hyclate (Vibramycin) 100 Mg CAPSULE 2020-06-30 12:05:00 Yes 100 Every 12 Hours [facility] Sennosides (Senokot) 8.6 Mg TABLET Sennosides (Senokot) 8.6 Mg TABLET 2020-06-30 12:05:00 Yes 8.6 Twice A Day [facility] Buspirone Hcl Buspirone Hcl Yes 10 Daily [facility] Buspirone Hcl Buspirone Hcl Yes [facility] Carbamazepine Carbamazepine Yes 200 Three Times A Day [facility] Ciprofloxacin Hcl Ciprofloxacin Hcl Yes [facility] Divalproex Sodium (Depakote) 125 Mg TABLET. Divalpro ex Sodium (Depakote) 125 Mg TABLET. Yes 125 Twice A Day [facility] Divalproex Sodium Divalproex Sodium Yes [facility] Lorazepam Lorazepam Yes .5 [facility] Mirtazapine Mirtazapine Yes 7.5 Bedtime [facility] Naproxen Naproxen Yes 500 Twice A Day [facility] Topiramate (Topamax) 25 Mg TABLET Topiramate (Topamax) 25 Mg TABLET Yes 100 Daily [facility] Esomeprazole Magnesium (Nexium) 40 Mg SUSPDR.PKT Esome prazole Magnesium (Nexium) 40 Mg SUSPDR.PKT 2019-12-04 00:00:00 No 40 Daily [facility] Dipyridamole/Aspirin (Aggrenox 25 Mg-200 Mg Capsule) 1 Cap CAPCR Dipyridamole/Aspirin (Aggrenox 25 Mg-200 Mg Capsule) 1 Cap CAPCR 2019-12-01 00:00:00 No Twice A Day [facility] Vital Signs Vital Name Observation Time Observation Value Comments Source Body Temperature 2020-06-30 15:39:00 98.1 [degF] [facility] BMI (Body Mass Index) 2020-06-28 19:34:00 21.3 kg/m2 [facility] Weight 2020-06-28 15:20:00 140 [lb_av] [facility] Weight 2020-06-11 15:12:00 140 [lb_av] [facility] BMI (Body Mass Index) 2020-06-11 15:12:00 21.3 kg/m2 [facility] Body Temperature 2019-12-04 15:22:00 97.6 [degF] [facility] Procedures Procedure Date / Time Performed Performing Clinician [facility] Computed tomography of abdomen and pelvis with contrast 00:00:00 [facility] Computed tomography of brain without radiopaque contrast 2020-05 00:00:00 [facility] EGD PLACE GASTROSTOMY TUBE 2019-12-04 00:00:00 C [facility] Plan of Care Planned Activity Planned Date Details Comments Source Instructions GI Tube Care [facility] Encounters Start Date/Time End Date/Time Encounter Type Admission Type Attendi [facility] Care Department Encounter ID Source 2020-06-28 17:27:00 2020-06-30 17:25:00 Discharged Inpatient (obs) 1 BRO HOOD [id number] [facility] 2020-06-11 15:26:00 2020-06-11 18:40:00 Departed Emergency Room 1 Marino Pacheco [facility] [id number] [facility] 2019-12-04 11:00:00 2019-12-04 11:00:00 Registered Surgical Day Care [facility] [id number] [facility] 2018-10-12 11:32:00 2018-10-12 13:45:00 Departed Emergency Room 1 TONI GREGG [facility] [id number] [facility] Results Test Description Test Time Test Comments Results Result Comments Source CHEST SINGLE (PORTABLE) 2020-08-03 12:05:00 [facility] 1960 Sex: [place] [address] Patient Name: CHRISTINA LYNN JR MR #: [id number] : 1960 Age/Sex: 60/M Req #: [id number] [facility] Physician: Ordered by: TONI GREGG MD Report #: [id number] Location: ER Room/Bed: Procedure: [id number] DX/CHEST SINGLE (PORTABLE) Exam Date: 08/03/20 Exam Time: 1141 REPORT STATUS: Signed EXAMINATION: CHEST SINGLE (PORTABLE) INDICATION: FEVER COMPARISON: Chest radiograph 06-28-2020. FINDINGS: TUBES and LINES: None. LUNGS: Lungs are well inflated. There is increasing consolidative opacity in the left lower lung. Increasing patchy right basilar opacity. PLEURA: No pleural effusion or pneumothorax. HEART AND MEDIASTINUM: The cardiomediastinal silhouette is unremarkable. BONES AND SOFT TISSUES: No acute osseous abnormality. Diffuse osteopenia. Fixation hardware in the distal right clavicle. Remote healed left-sided rib fractures. UPPER ABDOMEN: No free air under the diaphragm. IMPRESSION: Increasing bibasilar opacities, left greater than right, suggestive of pneumonia the setting of fever. Recommend follow-up chest radiograph in 6-8 weeks to assess for resolution. Signed by: Dr. Inna Rivera MD on 08/03/2020 12:08 PM Dictated By: INNA RIVERA MD 07 Transcribed By: DURAN on 08/03/201207 COPY TO: TONI GREGG MD ABDOMEN-1VIEW ([facility]) 2020-07-01 15:14:00 [place] [address] Patient Name: CHRISTINA LYNN JR MR #: [id number] : 1960 Age/Sex: 60/M Req #: [id number] Adm Physician: Ordered by: GEM HAAS DO Report #: [id number] Location: ER Room/Bed: Procedure: [id number] DX/ABDOMEN-1VIEW (KUB) Exam Date: 07/01/20 Exam Time: 1445 REPORT STATUS: Signed Abdomen one view (KUB) [...] Count (test code = 6690-2) 5.19 4.8-10.8 [facility] automated count (number/volume)2020-06-29 05:36:00* Test Item Value Reference Range Interpretation Comments Red Blood Count (test code = 789-8) 4.12 4.3-5.7 [facility] hemoglobin measurement (moles/volume)2020-06-29 05:36:00* Test Item Value Reference Range Interpretation Comments Hemoglobin (test code = 86351-3) 11.6 14.0-18.0 [facility] HospitalAutomated blood hematocrit (volume fraction)2020-06-29 05:36:00* Test Item Value Reference Range Interpretation Comments Hematocrit (test code = 4544-3) 33.7 38.2-49.6 [facility] HospitalAutomated erythrocyte mean corpuscular sazsfj1031-17-92 05:36:00* Test Item Value Reference Range Interpretation Comments Mean Corpuscular Volume (test code = 787-2) 81.8 81-99 [facility]Autom[facility] erythrocyte mean corpuscular hemoglobin (mass per erythrocyte)2020-06-29 05:36:00* Test Item Value Reference Range Interpretation Comments Mean Corpuscular Hemoglobin (test code = 785-6) 28.2 28-32 [facility] HospitalAutomated erythrocyte mean corpuscular hemoglobin concentration measurement (mass/volume)2020-06-29 05:36:00* Test Item Value Reference Range Interpretation Comments Mean Corpuscular Hemoglobin Concent (test code = 786-4) 34.4 31-35 [facility] HospitalRDW OugQc-Vdb8872-26-12 05:36:00* Test Item Value Reference Range Interpretation Comments Red Cell Distribution Width (test code = 24478-5) 12.4 11.7 -14.4 [facility] HospitalAutomated blood platelet count (count/volume)2020-06-29 05:36:00* Test Item Value Reference Range Interpretation Comments Platelet Count (test code = 777-3) 296 140-360 [facility] HospitalAutomated blood segmented neutrophil count as percentage of total jkrvljjmvv6683-98-30 05:36:00* Test Item Value Reference Range Interpretation Comments Neutrophils (%) (Auto) (test code = 95027-7) 63.9 38.7-80.0 [facility] HospitalAutomated blood lymphocyte count as percentage ot total pvhloktmcd9603-42-29 05:36:00* Test Item Value Reference Range Interpretation Comments Lymphocytes (%) (Auto) (test code = 736-9) 22.0 18.0-39.1 [facility] HospitalAutomated blood monocyte count as percentage of total cxonqetkoq7882-92-39 05:36:00* Test Item Value Reference Range Interpretation Comments Monocytes (%) (Auto) (test code = 5905-5) 11.9 4.4-11.3 [facility] HospitalAutomated blood eosinophil count as percentage of total jlurhbacxx9491-69-78 05:36:00* Test Item Value Reference Range Interpretation Comments Eosinophils (%) (Auto) (test code = 713-8) 1.2 0.0-6.0 [facility] HospitalAutomated blood basophil count as percentage of total msteevkegd5455-04-36 05:36:00* Test Item Value Reference Range Interpretation Comments Basophils (%) (Auto) (test code = 706-2) 0.4 0.0-1.0 [facility] HospitalFluoroscopic procedure less than one hour rsrpkcte8812-85-09 05:36:00* Test Item Value Reference Range Interpretation Comments IM GRANULOCYTES % (test code = IM GRANULOCYTES %) 0.6 0.0- 1.0 [facility] HospitalAutomated blood neutrophil count 2020-06-29 05:36:00* Test Item Value Reference Range Interpretation Comments Neutrophils # (Auto) (test code = 751-8) 3.3 2.1-6.9 [facility] HospitalBlood lymphocytes count (number/volume) 2020-06-29 05:36:00* Test Item Value Reference Range Interpretation Comments Lymphocytes # (Auto) (test code = 13629-5) 1.1 1.0-3.2 [facility] HospitalBlood monocytes automated count (number/volume)2020-06-29 05:36:00* Test Item Value Reference Range Interpretation Comments Monocytes # (Auto) (test code = 742-7) 0.6 0.2-0.8 [facility] HospitalAutomated blood eosinophil count 2020-06-29 05:36:00* Test Item Value Reference Range Interpretation Comments Eosinophils # (Auto) (test code = 711-2) 0.1 0.0-0.4 [facility] HospitalAutomated blood basophil count (count/volume)2020-06-29 05:36:00* Test Item Value Reference Range Interpretation Comments Basophils # (Auto) (test code = 704-7) 0.0 0.0-0.1 [facility] HospitalFluoroscopic procedure less than one hour zfnrkyfh0259-97-61 05:36:00* Test Item Value Reference Range Interpretation Comments Absolute Immature Granulocyte (auto (mark t code = Absolute Immature Granulocyte (auto) 0.03 0-0.1 [facility] sodium measurement (moles/volume)2020-06-29 05:36:00* Test Item Value Reference Range Interpretation Comments Sodium Level (test code = 2951-2) 132 136-145 [facility] or plasma potassium measurement (moles/volume)2020-06-29 05:36:00* Test Item Value Reference Range Interpretation Comments Potassium Level (test code = 2823-3) 4.4 3.5-5.1 [facility] or plasma chloride measurement (moles/volume)2020-06-29 05:36:00* Test Item Value Reference Range Interpretation Comments Chloride Level (test code = 2075-0) 102 98-107 [facility] or plasma carbon dioxide, total measurement (moles/volume)2020-06-29 05:36:00* Test Item Value Reference Range Interpretation Comments Carbon Dioxide Level (test code = 2028-9) 20 22-29 [facility] or plasma anion xyf3784-77-28 05:36:00* Test Item Value Reference Range Interpretation Comments Anion Gap (test code = 12469-0) 14.4 8-16 [facility] or plasma urea nitrogen measurement (mass/volume)2020-06-29 05:36:00* Test Item Value Reference Range Interpretation Comments Blood Urea Nitrogen (test code = 3094-0) 8 7-26 [facility] plasma creatinine measurement (mass/volume)2020-06-29 05:36:00* Test Item Value Reference Range Interpretation Comments Creatinine (test code = 2160-0) 0.56 0.72-1.25 [facility] or plasma urea nitrogen/creatinine mass tahwm9516-78-68 05:36:00* Test Item Value Reference Range Interpretation Comments BUN/Creatinine Ratio (test code = 3097-3) 14 6-25 [facility] HospitalEstimated glomerular filtration rate (GFR) xggfcpcxoxcha3645-04-67 05:36:00* Test Item Value Reference Range Interpretation Comments Estimat Glomerular Filtration Rate (test code = 564797668) > 60 >60 Ranges were taken from the National Kidney Disease Education Program and the [facility] literature.Reference ranges:60 or greater: Mmpino48-80 ( for 3 consecutive months): Chronic kidney disease 15 or less: Kidney failureNortheast Baptist HospitalGlucose qtadoxosrjk0233-44-50 05:36:00* Test Item Value Reference Range Interpretation Comments Glucose Level (test code = PMY8914) 127 74-118 [facility] plasma calcium measurement (mass/volume)2020-06-29 05:36:00* Test Item Value Reference Range Interpretation Comments Calcium Level (test code = 50037-3) 8.2 8.4-10.2 [facility] or plasma total bilirubin measurement (mass/volume)2020-06-29 05:36:00* Test Item Value Reference Range Interpretation Comments Total Bilirubin (test code = 1975-2) 0.5 0.2-1.2 [facility] HospitalFluoroscopic procedure less than one hour dxnclulx3157-40-04 05:36:00* Test Item Value Reference Range Interpretation Comments Aspartate Amino Transf (AST/SGOT) (test code = Aspartate Amino Transf (AST/SGOT)) 51 5-34 [facility]er[facility] or plasma alanine aminotransferase measurement (enzymatic activity/volume)2020-06-29 05:36:00* Test Item Value Reference Range Interpretation Comments Alanine Aminotransferase (ALT/SGPT) (test code = 1742-6) 58 0-55 [facility] or plasma protein measurement (mass/volume)2020-06-29 05:36:00* Test Item Value Reference Range Interpretation Comments Total Protein (test code = 2885-2) 5.9 6.5-8.1 [facility] or plasma albumin measurement (mass/volume)2020-06-29 05:36:00* Test Item Value Reference Range Interpretation Comments Albumin (test code = 1751-7) 3.5 3.5-5.0 [facility] HospitalPlasma globulin measurement (mass/volume) 2020-06-29 05:36:00* Test Item Value Reference Range Interpretation Comments Globulin (test code = 94288-0) 2.4 2.3-3.5 [facility] or plasma albumin/globulin mass szxib5087-83-73 05:36:00* Test Item Value Reference Range Interpretation Comments Albumin/Globulin Ratio (test code = 1759-0) 1.5 0.8-2.0 [facility] or plasma alkaline phosphatase measurement (enzymatic activity/volume)2020-06-29 05:36:00* Test Item Value Reference Range Interpretation Comments Alkaline Phosphatase (test code = 6768-6) 91 40-150 [facility] HospitalCT ABDOMEN/PELVIS N5310-75-60 20:01:00 [facility] [address] [place] [address] Patient Name: CHRISTINA LYNN JR MR #: [id number] : 1960 Age/Sex: 60/M Req #: [id number] Adm Physician: BRO HOOD MD Ordered by: PASCALE CONTI DO Report #: [id number] Location: [facility]/[address]/Bed: [facility] Procedure: [id number] CT/CT ABDOM EN/PELVIS W Exam Date: 06/28/20 [...] Sanam d By: MARCUS CHÁVEZ MD on 06/29/20855 Transcribed By: DURAN on 06/28/20 COPY TO: PASCALE CONTI DO CHEST SINGLE (PORTABLE) 2020-06-28 18:37:00 [place] [address] Patient Name: CHRISTINA LYNN JR MR #: [id number] : 1960 Age/Sex: 60/M Req #: [id number] Adm Physician: BRO HOOD MD Ordered by: PASCALE CONTI DO Report #: [id number] Location: [facility] Room/Bed: [place] [address] Procedure: [id number] DX/CHEST SI NGLE (PORTABLE) Exam Date: 06/28/20 [...] COPY TO: PASCALE CONTI DO Urine color lqqxamawcbgbm8614-34-95 16:16:00* Test Item Value Reference Range Interpretation Comments Urine Color (test code = 5778-6) YELLOW YELLOW [facility] HospitalUrine hbevyoo0889-40-43 16:16:00* Test Item Value Reference Range Interpretation Comments Urine Clarity (test code = 63162-8) SL CLOUDY CLEAR [facility] Arlingtonpecific gravity of Urine by Test strip 2020-06-28 16:16:00* Test Item Value Reference Range Interpretation Comments Urine Specific [place] (test code = 5811-5) 1.015 1.010-1.02 5 [facility] HospitalUrine pH measurement by automated test edgda9856-03-30 16:16:00* Test Item Value Reference Range Interpretation Comments Urine pH (test code = 20005-1) 8.5 5-7 [facility] HospitalUrine leukocyte esterase detection by oqryiyby5064-09-93 16:16:00* Test Item Value Reference Range Interpretation Comments Urine Leukocyte Esterase (test code = 5799-2) NEGATIVE NEGATIVE [facility] HospitalUrine nitrite lnpjewqxy7456-21-83 16:16:00* Test Item Value Reference Range Interpretation Comments Urine Nitrite (test code = 80442-2) NEGATIVE NEGATIVE [facility] HospitalUrine protein measurement by test strip (mass/volume)2020-06-28 16:16:00* Test Item Value Reference Range Interpretation Comments Urine Protein (test code = 5804-0) NEGATIVE NEGATIVE [facility] HospitalUrine glucose ntdgekuie8627-70-79 16:16:00* Test Item Value Reference Range Interpretation Comments Urine Glucose (UA) (test code = 2349-9) NEGATIVE NEGATIVE [facility] HospitalUrine ketones detection by automated test cyvzf9583-88-86 16:16:00* Test Item Value Reference Range Interpretation Comments Urine Ketones (test code = 85067-6) NEGATIVE NEGATIVE [facility] HospitalUrine urobilinogen measurement by test strip (mass/volume)2020-06-28 16:16:00* Test Item Value Reference Range Interpretation Comments Urine Urobilinogen (test code = 23206-6) 2 0.2-1 [facility] HospitalUrine total bilirubin measurement (mass/volume)2020-06-28 16:16:00* Test Item Value Reference Range Interpretation Comments Urine Bilirubin (test code = 1978-6) NEGATIVE NEGATIVE [facility] HospitalUrine erythrocytes pgxghzxwf7450-71-93 16:16:00* Test Item Value Reference Range Interpretation Comments Urine Blood (test code = 69265-6) NEGATIVE NEGATIVE [facility] HospitalAutomated urine sediment leukocyte count by microscopy (number/high power field)2020-06-28 16:16:00* Test Item Value Reference Range Interpretation Comments Urine WBC (test code = 5821-4) NONE 0-5 [facility] HospitalErythrocytes detection in urine sediment by light gswbypffvi6699-15-70 16:16:00* Test Item Value Reference Range Interpretation Comments Urine RBC (test code = 42455-1) NONE 0-5 [facility] HospitalBacteria detection in urine sediment by light fwuqsaowus2051-43-27 16:16:00* Test Item Value Reference Range Interpretation Comments Urine Bacteria (test code = 46876-7) FEW NONE [facility] HospitalEpithelial cells detection in urine sediment by light hjwpmhyktt7249-08-64 16:16:00* Test Item Value Reference Range Interpretation Comments Urine Epithelial Cells (test code = 59057-7) NONE NONE [facility] HospitalAmorphous sediment detection in urine sediment by light czgyupbman8714-65-52 16:16:00* Test Item Value Reference Range Interpretation Comments Urine Amorphous Sediment (test code = 8246-1) MODERATE FEW [facility] HospitalFluoroscopic procedure less than one hour wblxatfx8973-04-72 16:00:00* Test Item Value Reference Range Interpretation Comments Lactic Acid Level (test code = Lactic Acid Level) 1.8 0.5- 2.0 [facility] or plasma creatine kinase measurement (enzymatic activity/volume)2020-06-28 16:00:00* Test Item Value Reference Range Interpretation Comments Creatine Kinase (test code = 2157-6) 21 30-200 [facility]er[facility] or plasma creatine kinase MB measurement (mass/volume)2020-06-28 16:00:00* Test Item Value Reference Range Interpretation Comments Creatine Kinase MB (test code = 31037-5) 0.60 0-5.0 [facility] HospitalTroponin I measurement by highly sensitive enzyme iitmpzrzzok0221-47-49 16:00:00* Test Item Value Reference Range Interpretation Comments Troponin I (test code = 88627-9) 0.001 0-0.300 [facility] HospitalBlood jhekcoq1262-39-26 16:00:00* Test Item Value Reference Range Interpretation Comments Blood Culture (test code = 84975444) NO GROWTH AFTER 48 HOURS [facility] HospitalCT BRAIN WP4519-95-11 16:35:00 [facility] [address] [place] [address] Patient Name: CHRISTINA LYNN MR #: [id number] : 1960 Age/Sex: 60/M Req #: [id number] Adm Physician: Ordered by: Marino Pacheco MD Report #: [id number] Location: Room/Bed: Procedure: [id number] CT/CT BRAIN WO Exam Date: 06/11/20 Exam [...] Count (test code = 6690-2) 8.09 4.8-10.8 [facility] HospitalBlood erythrocytes automated count (number/volume)2020-06-11 16:06:00* Test Item Value Reference Range Interpretation Comments Red Blood Count (test code = 789-8) 4.65 4.3-5.7 [facility] hemoglobin measurement (moles/volume)2020-06-11 16:06:00* Test Item Value Reference Range Interpretation Comments Hemoglobin (test code = 85985-3) 13.2 14.0-18.0 [facility] HospitalAutomated blood hematocrit (volume fraction)2020-06-11 16:06:00* Test Item Value Reference Range Interpretation Comments Hematocrit (test code = 4544-3) 39.0 38.2-49.6 [facility] HospitalAutomated erythrocyte mean corpuscular nvrgec3985-20-61 16:06:00* Test Item Value Reference Range Interpretation Comments Mean Corpuscular Volume (test code = 787-2) 83.9 81-99 [facility] HospitalAutomated erythrocyte mean corpuscular hemoglobin (mass per erythrocyte)2020-06-11 16:06:00* Test Item Value Reference Range Interpretation Comments Mean Corpuscular Hemoglobin (test code = 785-6) 28.4 28-32 [facility] HospitalAutomated erythrocyte mean corpuscular hemoglobin concentration measurement (mass/volume)2020-06-11 16:06:00* Test Item Value Reference Range Interpretation Comments Mean Corpuscular Hemoglobin Concent (test code = 786-4) 33.8 31-35 [facility] HospitalRDW LqfIc-Ref7986-79-25 16:06:00* Test Item Value Reference Range Interpretation Comments Red Cell Distribution Width (test code = 09737-7) 12.3 11.7 -14.4 [facility] HospitalAutatrium health harrisburged blood platelet count (count/volume)2020-06-11 16:06:00* Test Item Value Reference Range Interpretation Comments Platelet Count (test code = 777-3) 179 140-360 [facility] segmented neutrophil count as percentage of total zmdjnscjjs4909-68-18 16:06:00* Test Item Value Reference Range Interpretation Comments Neutrophils (%) (Auto) (test code = 17442-1) 69.0 38.7-80.0 [facility] HospitalAutomated blood lymphocyte count as percentage ot total sswribzokk9518-34-69 16:06:00* Test Item Value Reference Range Interpretation Comments Lymphocytes (%) (Auto) (test code = 736-9) 14.2 18.0-39.1 [facility] HospitalAutom[facility] monocyte count as percentage of total qnshyajbnu0994-87-28 16:06:00* Test Item Value Reference Range Interpretation Comments Monocytes (%) (Auto) (test code = 5905-5) 15.2 4.4-11.3 [facility]Autom[facility] blood eosinophil count as percentage of total gweeczqhuk0536-92-37 16:06:00* Test Item Value Reference Range Interpretation Comments Eosinophils (%) (Auto) (test code = 713-8) 0.9 0.0-6.0 [facility]Autom[facility] blood basophil count as percentage of total upmfvxangk7573-62-89 16:06:00* Test Item Value Reference Range Interpretation Comments Basophils (%) (Auto) (test code = 706-2) 0.2 0.0-1.0 [facility] HospitalFluoroscopic procedure less than one hour vwvnzmam7552-23-36 16:06:00* Test Item Value Reference Range Interpretation Comments IM GRANULOCYTES % (test code = IM GRANULOCYTES %) 0.5 0.0- 1.0 [facility]Automated blood neutrophil count 2020-06-11 16:06:00* Test Item Value Reference Range Interpretation Comments Neutrophils # (Auto) (test code = 751-8) 5.6 2.1-6.9 [facility] HospitalBlood lymphocytes count (number/volume) 2020-06-11 16:06:00* Test Item Value Reference Range Interpretation Comments Lymphocytes # (Auto) (test code = 66190-5) 1.2 1.0-3.2 [facility] HospitalBlood monocytes automated count (number/volume)2020-06-11 16:06:00* Test Item Value Reference Range Interpretation Comments Monocytes # (Auto) (test code = 742-7) 1.2 0.2-0.8 [facility] HospitalAutomated blood eosinophil count 2020-06-11 16:06:00* Test Item Value Reference Range Interpretation Comments Eosinophils # (Auto) (test code = 711-2) 0.1 0.0-0.4 [facility] HospitalAutomated blood basophil count (count/volume)2020-06-11 16:06:00* Test Item Value Reference Range Interpretation Comments Basophils # (Auto) (test code = 704-7) 0.0 0.0-0.1 [facility] HospitalFluoroscopic procedure less than one hour zvbfnrwe0335-74-71 16:06:00* Test Item Value Reference Range Interpretation Comments Absolute Immature Granulocyte (auto (mark t code = Absolute Immature Granulocyte (auto) 0.04 0-0.1 [facility] HospitalProthrombin time (PT) in platelet poor plasma by coagulation vdfnn6915-62-35 16:06:00* Test Item Value Reference Range Interpretation Comments Prothrombin Time (test code = 5902-2) 12.3 11.9-14.5 [facility] HospitalINR in Platelet poor plasma by Coagulation hspee8586-85-89 16:06:00* Test Item Value Reference Range Interpretation Comments Prothromb Time International Ratio (test code = 6301-6) 0.87 Oral Anticoagulant Therapy INR Values:1. Low Intensity Therapy 1.5 - 2.02 . Moderate Intensity Therapy 2.0 - 3.03. High Intensity Therapy(1) 2.5 - 3. 54. High Intensity Therapy(2) 3.0 - 4.05. Panic Value INR > 5.0 [facility] HospitalActivated partial thromboplastin time (aPTT) in platelet poor plasma by coagulation hjdko5035-76-31 16:06:00* Test Item Value Reference Range Interpretation Comments Activated Partial Thromboplast Time (test code = 46389-6) 23.4 23.8-35.5 [facility] HospitalUrine color ffoqisedmnvlz3136-63-87 16:06:00* Test Item Value Reference Range Interpretation Comments Urine Color (test code = 5778-6) YELLOW YELLOW [facility] HospitalUrine tezspop0515-35-81 16:06:00* Test Item Value Reference Range Interpretation Comments Urine Clarity (test code = 18984-5) SL CLOUDY CLEAR [facility] gravity of Urine by Test strip 2020-06-11 16:06:00* Test Item Value Reference Range Interpretation Comments Urine Specific [place] (test code = 5811-5) 1.020 1.010-1.02 5 [facility] HospitalUrine pH measurement by automated test tavdu4844-63-34 16:06:00* Test Item Value Reference Range Interpretation Comments Urine pH (test code = 90105-3) 7.5 5-7 [facility] HospitalUrine leukocyte esterase detection by xrxgrtbh6868-67-94 16:06:00* Test Item Value Reference Range Interpretation Comments Urine Leukocyte Esterase (test code = 5799-2) NEGATIVE NEGATIVE [facility] HospitalUrine nitrite emnndpkby8579-08-92 16:06:00* Test Item Value Reference Range Interpretation Comments Urine Nitrite (test code = 76509-3) NEGATIVE NEGATIVE [facility] HospitalUrine protein measurement by test strip (mass/volume)2020-06-11 16:06:00* Test Item Value Reference Range Interpretation Comments Urine Protein (test code = 5804-0) NEGATIVE NEGATIVE [facility] HospitalUrine glucose rgaersuxa6089-65-71 16:06:00* Test Item Value Reference Range Interpretation Comments Urine Glucose (UA) (test code = 2349-9) NEGATIVE NEGATIVE [facility] HospitalUrine ketones detection by automated test pdpvr8349-45-94 16:06:00* Test Item Value Reference Range Interpretation Comments Urine Ketones (test code = 21653-1) NEGATIVE NEGATIVE [facility] HospitalUrine urobilinogen measurement by test strip (mass/volume)2020-06-11 16:06:00* Test Item Value Reference Range Interpretation Comments Urine Urobilinogen (test code = 35069-9) 2 0.2-1 [facility] HospitalUrine total bilirubin measurement (mass/volume)2020-06-11 16:06:00* Test Item Value Reference Range Interpretation Comments Urine Bilirubin (test code = 1978-6) NEGATIVE NEGATIVE [facility] HospitalUrine erythrocytes rzxqpiquz2227-86-17 16:06:00* Test Item Value Reference Range Interpretation Comments Urine Blood (test code = 00062-9) NEGATIVE NEGATIVE [facility] HospitalAutomated urine sediment leukocyte count by microscopy (number/high power field)2020-06-11 16:06:00* Test Item Value Reference Range Interpretation Comments Urine WBC (test code = 5821-4) NONE 0-5 [facility] HospitalErythrocytes detection in urine sediment by light dprsxdmwjl7762-31-85 16:06:00* Test Item Value Reference Range Interpretation Comments Urine RBC (test code = 97649-0) NONE 0-5 [facility] HospitalBacteria detection in urine sediment by light cyqxxlsudt9865-01-16 16:06:00* Test Item Value Reference Range Interpretation Comments Urine Bacteria (test code = 20703-0) FEW NONE [facility] HospitalEpithelial cells detection in urine sediment by light bdcdgodkqz7432-69-39 16:06:00* Test Item Value Reference Range Interpretation Comments Urine Epithelial Cells (test code = 50957-0) NONE NONE [facility] HospitalAmorphous sediment detection in urine sediment by light bftzerlaav4283-70-26 16:06:00* Test Item Value Reference Range Interpretation Comments Urine Amorphous Sediment (test code = 8246-1) MODERATE FEW [facility] Arlingtonerum or plasma sodium measurement (moles/volume)2020-06-11 16:06:00* Test Item Value Reference Range Interpretation Comments Sodium Level (test code = 2951-2) 128 136-145 [facility] Arlingtonerum or plasma potassium measurement (moles/volume)2020-06-11 16:06:00* Test Item Value Reference Range Interpretation Comments Potassium Level (test code = 2823-3) 3.8 3.5-5.1 [facility] Arlingtoner[facility] or plasma chloride measurement (moles/volume)2020-06-11 16:06:00* Test Item Value Reference Range Interpretation Comments Chloride Level (test code = 2075-0) 97 98-107 [facility] Arlingtonerum or plasma carbon dioxide, total measurement (moles/volume)2020-06-11 16:06:00* Test Item Value Reference Range Interpretation Comments Carbon Dioxide Level (test code = 2028-9) 20 - [facility] Arlingtonerum or plasma anion axl2478-27-51 16:06:00* Test Item Value Reference Range Interpretation Comments Anion Gap (test code = 19208-7) 14.8 8-16 [facility]er[facility] or plasma urea nitrogen measurement (mass/volume)2020-06-11 16:06:00* Test Item Value Reference Range Interpretation Comments Blood Urea Nitrogen (test code = 3094-0) 12 7- [facility] or plasma creatinine measurement (mass/volume)2020-06-11 16:06:00* Test Item Value Reference Range Interpretation Comments Creatinine (test code = 2160-0) 0.66 0.72-1.25 [facility] or plasma urea nitrogen/creatinine mass escnu0959-91-37 16:06:00* Test Item Value Reference Range Interpretation Comments BUN/Creatinine Ratio (test code = 3097-3) 18 6- [facility] HospitalEstimated glomerular filtration rate (GFR) ejevwxocajhat3233-64-09 16:06:00* Test Item Value Reference Range Interpretation Comments Estimat Glomerular Filtration Rate (test code = 749916421) > 60 >60 Ranges were taken from the National Kidney Disease Education Program and the [facility] [employer] literature.Reference ranges:60 or greater: Btnnpu54-71 ( for 3 consecutive months): Chronic kidney disease 15 or less: Kidney failureNortheast Baptist HospitalGlucose xxetgdxaogw8186-49-92 16:06:00* Test Item Value Reference Range Interpretation Comments Glucose Level (test code = MUH5192) 103 74-118 [facility] or plasma calcium measurement (mass/volume)2020-06-11 16:06:00* Test Item Value Reference Range Interpretation Comments Calcium Level (test code = 92086-2) 8.6 8.4-10.2 [facility] HospitalFluoroscopic procedure less than one hour ztauprvz4905-80-61 16:06:00* Test Item Value Reference Range Interpretation Comments Lactic Acid Level (test code = Lactic Acid Level) 2.4 0.5- 2.0 Results repeated and called to ADEN APONTE at 1641 on 06/11/20 by JOSY MCGRATH . Read back and verified.[facility]er[facility] or plasma total bilirubin measurement (mass/volume)2020-06-11 16:06:00* Test Item Value Reference Range Interpretation Comments Total Bilirubin (test code = 1975-2) 0.5 0.2-1.2 [facility] HospitalFluoroscopic procedure less than one hour fqhcnaed2242-73-04 16:06:00* Test Item Value Reference Range Interpretation Comments Aspartate Amino Transf (AST/SGOT) (test code = Aspartate Amino Transf (AST/SGOT)) 60 5-34 [facility]er[facility] or plasma alanine aminotransferase measurement (enzymatic activity/volume)2020-06-11 16:06:00* Test Item Value Reference Range Interpretation Comments Alanine Aminotransferase (ALT/SGPT) (test code = 1742-6) 75 0-55 [facility]er[facility] or plasma protein measurement (mass/volume)2020-06-11 16:06:00* Test Item Value Reference Range Interpretation Comments Total Protein (test code = 2885-2) 6.0 6.5-8.1 [facility] or plasma albumin measurement (mass/volume)2020-06-11 16:06:00* Test Item Value Reference Range Interpretation Comments Albumin (test code = 1751-7) 3.2 3.5-5.0 [facility] HospitalPlasma globulin measurement (mass/volume) 2020-06-11 16:06:00* Test Item Value Reference Range Interpretation Comments Globulin (test code = 66639-6) 2.8 2.3-3.5 [facility] or plasma albumin/globulin mass eqpqk3231-77-87 16:06:00* Test Item Value Reference Range Interpretation Comments Albumin/Globulin Ratio (test code = 1759-0) 1.1 0.8-2.0 [facility] or plasma alkaline phosphatase measurement (enzymatic activity/volume)2020-06-11 16:06:00* Test Item Value Reference Range Interpretation Comments Alkaline Phosphatase (test code = 6768-6) 102 40-150 [facility]er[facility] or plasma creatine kinase measurement (enzymatic activity/volume)2020-06-11 16:06:00* Test Item Value Reference Range Interpretation Comments Creatine Kinase (test code = 2157-6) 35 30-200 [facility] Arlingtoner[facility] or plasma creatine kinase MB measurement (mass/volume)2020-06-11 16:06:00* Test Item Value Reference Range Interpretation Comments Creatine Kinase MB (test code = 65002-9) 0.60 0-5.0 [facility] HospitalTroponin I measurement by highly sensitive enzyme qxaxlqfruww5711-25-32 16:06:00* Test Item Value Reference Range Interpretation Comments Troponin I (test code = 11665-3) 0.018 0-0.300 [facility] HospitalProthrombin time (PT) in platelet poor plasma by coagulation lbzzv3678-24-05 16:06:00* Test Item Value Reference Range Interpretation Comments Prothrombin Time (test code = 5902-2) 12.3 11.9-14.5 [facility] HospitalINR in Platelet poor plasma by Coagulation mkdtu5203-15-57 16:06:00* Test Item Value Reference Range Interpretation Comments Prothromb Time International Ratio (test code = 6301-6) 0.87 Oral Anticoagulant Therapy INR Values:1. Low Intensity Therapy 1.5 - 2.02 . Moderate Intensity Therapy 2.0 - 3.03. High Intensity Therapy(1) 2.5 - 3. 54. High Intensity Therapy(2) 3.0 - 4.05. Panic Value INR > 5.0 [facility] HospitalActivated partial thromboplastin time (aPTT) in platelet poor plasma by coagulation zlojw2465-41-41 16:06:00* Test Item Value Reference Range Interpretation Comments Activated Partial Thromboplast Time (test code = 27234-4) 23.4 23.8-35.5 [facility] HospitalCHEST SINGLE (PORTABLE)2020-06-11 15:35:00 [facility] [address] [place] [address] Patient Name: CHRISTINA LYNN MR #: [id number] : 1960 Age/Sex: 60/M Req #: [id number] Adm Physician: Ordered by: Marino Pacheco MD Report #: [id number] Location: ER Room/Bed: Procedure: [id number] DX/CHEST SIN GLE (PORTABLE) Exam Date: 06/11/20 [...] on 06/11/201536 COPY TO: MARINO BURCH MD BCPWEQPGOSU2212-62-39 15:00:00* Test Item Value Reference Range Interpretation Comments PHOSPHOROUS (test code = PHOS) 3.5 MG/DL 2.5-4.9 N CBC W/AUTO TGUV2783-93-93 08:11:00* Test Item Value Reference Range Interpretation [...] (test code = MDIFF) NO BASIC METABOLIC CERPS1831-42-47 08:08:00* Test Item Value Reference Range Interpretation [...] 8.0-10.5 N - XR SWLW FUNC W/C [id number] 15:28:00 FAX: Juan Martinez NP [phone] [place]: St: ADM FAX: Сергей James I [phone] FAX: David Finch MD [phone] Name: CHRISTINA LYNN [facility] : 1960 Age/S: 59/M [address] [place] [address] Unit #: [id number] Loc: G.5531 [place] [address] Phys: Juan Martinez NP Acct: [id number] Dis Date: Status: ADM IN ONE #: [phone] Exam Date: 11/08/2019 1421 FAX #: [phone] Reason: DYSPHAGIA EXAMS: CPT CODE: [id number] XR SWLW FUNC W/C V 96821 Modified brayan machado swallow: HISTORY: Pneumonia, dysphagia [...] 8.61 mGy, fluoroscopy time 230 seconds SL: [id number] at 1528 Reported and sign ed by: Dio Keene M.D. CC: Juan Martinez NP; Сергей rios MD; David Juarez M.D. Technologist: Сергей Diaz RT(R) Trnscrd Date/Time/By: 11/08/2019 (1528) : By: NancyETG Orig Print D/T: S: 11/08/2019 (9724) PAGE 1 Signed Report VANCOMYCIN [id number] 10:06:00* Test Item Value Reference Range Interpretation Comments VANCOMYCIN TROUGH (test code = VANCT) 9.7 mcg/mL 10.0-20.0 L 10-15 mcg/mL - Cellulitis, Urinary Tract Infection. 15-20 mcg/mL - Bacteremia, Infective Endocarditis, Meningitis, Osteomyelitis, Pneumonia, Severe Skin/Soft- Tissue Infection, Spinal Abscess. INFLUENZA A [id number] 21:58:00* Test Item Value Reference Range Interpretation Comments INFLUENZA A (test code = FLUAPCR) Negative Negative INFLUENZA B (test code = FLUBPCR) Negative Negative LACTIC [id number] 22:20:00* Test Item Value Reference Range Interpretation Comments LACTIC ACID (test code = LACT) 1.1 mmol/L 0.4-1.9 N UA RFLX MICR CULT IF [id number] 20:38:00* Test Item Value Reference Range Interpretation [...] VALP) 19 mcg/mL 50.0-100.0 L COMPREHENSIVE METABOLIC [id number] 19:55:00* Test Item Value Reference Range Interpretation [...] code = ALKP) 127 IUnit/L 20-125 H [id number] 19:55:00* Test Item Value Reference Range Interpretation Comments MAGNESIUM (test code = MAG) 2.00 mg/dL 1.8-2.4 N - XR CHEST 1 [id number] 19:53:00 FAX: Cari Lr MD [phone] [place]: St: REG FAX: David Finch MD [phone] Name: CHRISTINA LYNN [facility] [place] : 1960 Age/S: 59/M [address] [place] [address] Unit #: [id number] Loc: [place] [address] Phys: Cari Mckee MD Acct: [id number] Dis Date: Status: REG ER PHONE #: [phone] Exam Date: 11/03/20191942 FAX #: [phone] Reason: acute cough fever EXAMS: CPT CODE: [id number] XR CHEST 1 V 80296 SINGLE VIEW RADIOGRAPH CHEST INDICATION: acute cough [...] (1955) PAGE 1 Signed Report COMPREHENSIVE METABOLIC [id number] 19:48:00* Test Item Value Reference Range Interpretation [...] TOTAL (test code = ALKP) IUnit/L 20-125 [id number] 19:48:00* Test Item Value Reference Range Interpretation Comments MAGNESIUM (test code = MAG) mg/dL 1.8-2.4 CBC W/AUTO [id number] 19:46:00* Test Item Value Reference Range Interpretation [...] (test code = MDIFF) NO COMPREHENSIVE METABOLIC IMWVM1059-06-00 06:09:00* Test Item Value Reference Range Interpretation [...] result is a direct measurement.========= VITAMIN D 00-PIPTOYC2809-32-10 06:09:00* Test Item Value Reference Range Interpretation Comments VITAMIN D 25-HYDROXY (test code = VITD25) 22.5 ng/mL 30.0-100.0 A Vitamin D deficiency has been defined by the [place] of[employer]icine and an Endocrine Society practice guideline as alevel of serum 25-OH vitamin D less than 20 ng/mL (1,2).The Endocrine Society went on to further define vitamin Dinsufficiency as a level between 21 and 29 ng/mL (2).1. IOM ([place] of [employer]). 2010. Dietary reference intakes for calcium and D. [place]: The National Academies Press.2. Andrey MF, Lili TREVINO, Chayo HURTADO, et al. Evaluation, treatment, and prevention of vitamin D deficiency: an Endocrine Society clinical practice guideline. JCEM. 2010; 96(7):1911-30.Performed At: [facility] [address] [place], [place] [id number] Kyle L MD Ph:[phone] performed at: [facility] [id number] [place] [address] COMPREHENSIVE METABOLIC [id number] 12:07:00* Test Item Value Reference Range Interpretation [...] result is a direct measurement.========= VITAMIN D 97-PKHIQGD1702-89-09 12:07:00* Test Item Value Reference Range Interpretation Comments VITAMIN D 25-HYDROXY (test code = VITD25) ng/mL 30-100 COMPREHENSIVE METABOLIC [id number] 11:50:00* Test Item Value Reference Range Interpretation [...] code = LDL) mg/dL 100-129 VITAMIN D 23-FZLIYHG6701-85-09 11:50:00* Test Item Value Reference Range Interpretation Comments VITAMIN D 25-HYDROXY (test code = VITD25) ng/mL 30-100 CBC W/AUTO [id number] 10:53:00* Test Item Value Reference Range Interpretation [...] NRBC#) 0.00 K/mm3 0.0-0.1 N COMPREHENSIVE METABOLIC [id number] 13:23:00* Test Item Value Reference Range Interpretation [...] due to change in reagent. AG PROSTATE [id number] 13:23:00* Test Item Value Reference Range Interpretation Comments AG PROSTATE SPECIFIC (test code = PSA) 0.24 ng/mL 0.0-4.0 N THYROID STIMULATING [id number] 13:23:00* Test Item Value Reference Range Interpretation Comments THYROID STIMULATING HORMONE (test code = TSH) 1.890 uIU/mL 0.36-3.7 4 N TSH REFERENCE RANGES: EUTHYROID: 0.35 - 4.3 mIU/mL HYPO : > 5.5 mIU/mL HYPER : < 0.35 mIU/mL COMPREHENSIVE METABOLIC [id number] 13:19:00* Test Item Value Reference Range Interpretation [...] code = ALKP) IUnit/L 45-117 AG PROSTATE [id number] 13:19:00* Test Item Value Reference Range Interpretation Comments AG PROSTATE SPECIFIC (test code = PSA) 0.24 ng/mL 0.0-4.0 N THYROID STIMULATING [id number] 13:19:00* Test Item Value Reference Range Interpretation Comments THYROID STIMULATING HORMONE (test code = TSH) uIU/mL 0.36-3.7 4 COMPREHENSIVE METABOLIC [id number] 13:08:00* Test Item Value Reference Range Interpretation [...] code = ALKP) IUnit/L 45-117 AG PROSTATE [id number] 13:08:00* Test Item Value Reference Range Interpretation Comments AG PROSTATE SPECIFIC (test code = PSA) ng/mL 0.0-4.0 THYROID STIMULATING [id number] 13:08:00* Test Item Value Reference Range Interpretation Comments THYROID STIMULATING HORMONE (test code = TSH) uIU/mL 0.36-3.7 4 CBC W/AUTO [id number] 12:52:00* Test Item Value Reference Range Interpretation [...] code = MDIFF) NO ABDOMEN-1VIEW (AKASH)2018-10-12 13:36:00 [place] [address] Patient Name: CHRISTINA LYNN MR #: [id number] : 1960 Age/Sex: 58/M Req #: [id number] Adm Physician: Ordered by: TONI GREGG MD Report #: [id number] Location: ER Room/Bed: Procedure: [id number] DX/ABD OMEN-1VIEW (AKASH) Exam Date: Exam Time: REPORT STATUS: Signed [...] at 13:36 Dictated By: AAMIR MERCHANT DO 3906 Transcri bed By: HAYDEE on 10/12/18 4770 COPY TO: TONI GREGG MD
[2020-08-03 13:37] LABS: BACTERIA,URINE MANY /HPF; EPITHELIAL CELLS,URINE RARE /LPF; WBC,URINE (MAN) >50 /HPF (0-5)
[2020-08-03 14:04] LABS: BASOPHILS % 0.2 % (0.0-1.0); EOSINOPHILS % 0.1 % (0.0-6.0); HEMOGLOBIN 10.8 g/dL (14.0-18.0); LYMPHOCYTES # (AUTO) 0.8 (1.0-3.2); LYMPHOCYTES % 4.4 % (18.0-39.1); MEAN CORPUSCULAR HEMOGLOBIN 27.7 pg (28-32); MEAN CORPUSCULAR HGB CONC 34.8 g/dL (31-35); MEAN CORPUSCULAR VOLUME 79.5 fL (81-99); MONOCYTES # (AUTO) 2.2 (0.2-0.8); MONOCYTES % 11.6 % (4.4-11.3); NEUTROPHILS # (AUTO) 15.6 (2.1-6.9); PLATELET COUNT 315 x10e3/uL (140-360)
[2020-08-03 14:14] LABS: INR 1.14; PROTHROMBIN TIME 15.2 seconds (11.9-14.5)
[2020-08-03 14:15] LABS: PARTIAL THROMBOPLASTIN TIME 35.5 seconds (23.8-35.5)
[2020-08-03 14:22] LABS: ALANINE AMINOTRANSFERASE 23 IU/L (0-55); ALBUMIN 2.5 g/dL (3.5-5.0); ALBUMIN/GLOBULIN RATIO 0.8 (0.8-2.0); ALKALINE PHOSPHATASE 121 IU/L (40-150); ANION GAP 12.9 mmol/L (8-16); BLOOD UREA NITROGEN 12 mg/dL (7-26); BUN/CREATININE RATIO 20 (6-25); CALCIUM 8.3 mg/dL (8.4-10.2); CARBON DIOXIDE 23 mmol/L (22-29); CHLORIDE 93 mmol/L (98-107); CREATINE KINASE 56 IU/L (30-200); EST GLOMERULAR FILTRATION RATE > 60 ML/MIN (60-); GLUCOSE 131 mg/dL (74-118); POTASSIUM 3.9 mmol/L (3.5-5.1); SODIUM 125 mmol/L (136-145)
[2020-08-03] MEDS ORDERED: LIDOCAINE HCL 1% LOCAL INJ 20 ML VIAL ONE (14:51)
--- NOTE | 2020-08-03 14:57 | Emergency Department Note ---
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 Historian: Director Of Operations/EMS Arrival Mode: [facility] History limited by: condition of the patient Manager Of Investigations Required: No Onset (how long ago): day(s) Radiation: Reports non-radiation Severity: moderate Onset quality: gradual Timing of current episode: intermittent Chronicity: new Context: Denies recent illness Relieving factors: none Exacerbating factors: none Associated symptoms: Reports denies other symptoms, Reports fever/chills Past Medical/Family History Physician Review I have reviewed the patient's past medical and family history. Any updates have been documented here. Past Medical History Recent Fever: Yes Clinical Suspicion of Infectio: Yes New/Unexplained Change in Ment: No Past Medical History: CVA, Seizure Disorder Other Medical History: Traumatic Brain Injury Other Surgery: PEG Tube Social History Smoking Cessation: Never Smoker Counseling Performed: No Alcohol Use: None Any Illegal Drug Use: No TB Exposure/Symptoms: No Physically hurt or threatened: No Family History Family history of heart diseas: No Other Last Tetanus: utd Review of Systems ROS Narrative Unable to obtain ROS: Unable to obtain due to, altered mental status Physical Exam Related Data Allergies: Coded Allergies: No Known Allergies (Unverified , 10/12/18) Triage Vital Signs Vital Signs Date Time Temp Pulse Resp B/P (MAP) Pulse Ox O2 Delivery O2 Flow Rate FiO2 08/03/20 11:23 100.1 114 18 107/77 97 Room Air Vital signs reviewed: Yes Physical Exam CONSTITUTIONAL Constitutional: Present ill appearing HENT HENT: Present normocephalic, Present atraumatic, Present oropharynx clear/moist, Present nose normal HENT L/R: Present left ext ear normal, Present right ext ear normal EYES Eyes: Reports PERRL, Reports conjunctivae normal NECK Neck: Present ROM normal PULMONARY Pulmonary: Present effort normal, Present breath sounds normal CARDIOVASCULAR Cardiovascular: Present regular rhythm, Present heart sounds normal, Present capillary refill normal, Present normal rate GASTROINTESTINAL Abdominal: Present soft, Present nontender, Present bowel sounds normal GENITOURINARY Genitourinary: Present exam deferred SKIN Skin: Present warm, Present dry MUSCULOSKELETAL Musculoskeletal: Present ROM normal, Present other (CONTRACTURES) NEUROLOGICAL Neurological: Present other (NO SPEECH, DOES NOT FOLLOW COMMANDS) PSYCHOLOGICAL Results Laboratory Result Diagram: 08/03/20 1350 08/03/20 1350 Laboratory Laboratory Tests Test 08/03/20 14:20 08/03/20 13:50 08/03/20 12:48 White Blood Count 18.75 x10e3/uL (4.8-10.8) Red Blood Count 3.90 x10e6/uL (4.3-5.7) Hemoglobin 10.8 g/dL (14.0-18.0) Hematocrit 31.0 % (38.2-49.6) Mean Corpuscular Volume 79.5 fL (81-99) Mean Corpuscular Hemoglobin 27.7 pg (28-32) Mean Corpuscular Hemoglobin Concent 34.8 g/dL (31-35) Red Cell Distribution Width 12.0 % (11.7-14.4) Platelet Count 315 x10e3/uL (140-360) Neutrophils (%) (Auto) 83.0 % (38.7-80.0) Lymphocytes (%) (Auto) 4.4 % (18.0-39.1) Monocytes (%) (Auto) 11.6 % (4.4-11.3) Eosinophils (%) (Auto) 0.1 % (0.0-6.0) Basophils (%) (Auto) 0.2 % (0.0-1.0) Neutrophils # (Auto) 15.6 (2.1-6.9) Lymphocytes # (Auto) 0.8 (1.0-3.2) Monocytes # (Auto) 2.2 (0.2-0.8) Eosinophils # (Auto) 0.0 (0.0-0.4) Basophils # (Auto) 0.0 (0.0-0.1) Absolute Immature Granulocyte (auto 0.13 x10e3/uL (0-0.1) Prothrombin Time 15.2 seconds (11.9-14.5) Prothromb Time International Ratio 1.14 Activated Partial Thromboplast Time 35.5 seconds (23.8-35.5) Sodium Level 125 mmol/L (136-145) Potassium Level 3.9 mmol/L (3.5-5.1) Chloride Level 93 mmol/L (98-107) Carbon Dioxide Level 23 mmol/L (22-29) Anion Gap 12.9 mmol/L (8-16) Blood Urea Nitrogen 12 mg/dL (7-26) Creatinine 0.60 mg/dL (0.72-1.25) Estimat Glomerular Filtration Rate > 60 ML/MIN (60-) BUN/Creatinine Ratio 20 (6-25) Glucose Level 131 mg/dL (74-118) Lactic Acid Level 1.1 mmol/L (0.5-2.0) Calcium Level 8.3 mg/dL (8.4-10.2) Total Bilirubin 0.8 mg/dL (0.2-1.2) Aspartate Amino Transf (AST/SGOT) 21 IU/L (5-34) Alanine Aminotransferase (ALT/SGPT) 23 IU/L (0-55) Alkaline Phosphatase 121 IU/L (40-150) Creatine Kinase 56 IU/L (30-200) Creatine Kinase MB 0.30 ng/mL (0-5.0) Troponin I < 0.001 ng/mL (0-0.300) Total Protein 5.8 g/dL (6.5-8.1) Albumin 2.5 g/dL (3.5-5.0) Globulin 3.3 g/dL (2.3-3.5) Albumin/Globulin Ratio 0.8 (0.8-2.0) Urine Color Yellow (YELLOW) Urine Clarity Clear (CLEAR) Urine pH 6 (5 - 7) Urine Specific [place] 1.020 (1.010-1.025) Urine Protein 2+ (NEGATIVE) Urine Glucose (UA) Negative (NEGATIVE) Urine Ketones Trace (NEGATIVE) Urine Blood Small (NEGATIVE) Urine Nitrite Positive (NEGATIVE) Urine Bilirubin Small (NEGATIVE) Urine Urobilinogen mg/dL (0.2 - 1) Urine Leukocyte Esterase Large (NEGATIVE) Urine RBC 11-20 /HPF (0-5) Urine WBC >50 /HPF (0-5) Urine Epithelial Cells Rare /LPF (NONE) Urine Bacteria Many /HPF (NONE) Lab results reviewed: Yes Imaging Imaging results reviewed: Yes Assessment & Plan Medical Decision Making MDM FEVER IN A PT WITH TBI - CBC, CHEM, CARDIACS, LACTIC, PANCX'S, UA, CXR, COVID - EVAL FOR PNEUMONIA, UTI, SEPSIS, COVID19, ELECTROLYTE ABNL, RENAL INSUFF Reassessment Reassessment ADMIT TO ERIBERTO REYEZ CONSULT TO DR FLORES Assessment & Plan Final Impression: (1) UTI (urinary tract infection) (2) Hyponatremia (3) Dehydration Depart Disposition: ADMITTED Last Vital Signs Date Time Temp Pulse Resp B/P (MAP) Pulse Ox O2 Delivery O2 Flow Rate FiO2 08/03/20 11:23 100.1 114 18 107/77 97 Room Air Home Meds Active Scripts Doxycycline Hyclate (VIBRAMYCIN) 100 Mg Capsule, 100 MG PO Q12H, #14 Prov:BRO HOOD MD 06/30/20 Sennosides (SENOKOT) 8.6 Mg Tablet, 8.6 MG PO BID for 30 Days Prov:BRO HOOD MD 06/30/20 Docusate Sodium (COLACE) 100 Mg/10 Ml Liqd, 100 MG NG BID for 30 Days Prov:BRO HOOD MD 06/30/20 Reported Medications Naproxen (NAPROXEN) 250 Mg Tablet, 500 MG PO BID, TAB 06/28/20 [Lorazepam ] No Conflict Check, 0.5 MG PO 06/28/20 Divalproex Sodium (DIVALPROEX SODIUM) 125 Mg Tablet. 06/28/20 Mirtazapine (MIRTAZAPINE) 7.5 Mg Tablet, 7.5 MG PO HS 06/28/20 Ciprofloxacin Hcl (CIPROFLOXACIN HCL) 2.5 Ml Drops 06/28/20 Buspirone Hcl (BUSPIRONE HCL) 10 Mg Tablet 06/28/20 Topiramate (TOPAMAX) 25 Mg Tablet, 100 MG PEG DAILY 02/16/17 Divalproex Sodium (DEPAKOTE) 125 Mg Tablet., 125 MG PEG BID 02/16/17 Carbamazepine (CARBAMAZEPINE) 200 Mg Tablet, 200 MG PEG TID, #30 TAB 02/16/17 Buspirone Hcl (BUSPIRONE HCL) 5 Mg Tablet, 10 MG PEG DAILY, #60 TAB 02/16/17 Medications in the ED Sodium Chloride 1,000 ml @ 0 mls/hr Q0M STAT IV ; Start 10/17/20 at 11:25; Stop 08/03/20 at 11:27; Status DC Lidocaine HCl 20 ml STK-MED ONCE .ROUTE ; Start 08/03/20 at 14:51; Stop 08/03/20 at 14:44; Status DC Ceftriaxone Sodium 50 ml @ 100 mls/hr Q12H IV ; Start 08/03/20 at 15:00; Stop 08/10/20 at 14:59 Azithromycin 250 ml @ 200 mls/hr Q24H IV ; Start 08/03/20 at 15:00; Stop 08/10/20 at 14:59 TONI GREGG MD Aug 03, 2020 14:57
[2020-08-03] MEDS ORDERED: ONDANSETRON HCL INJ 2MG/ML 2ML 2 MG/ML VIAL IV PRN (15:00)
[2020-08-03] MEDS ORDERED: AZITHROMYCIN 500MG/NS 250 ML 250 ML IV SCH (15:00)
[2020-08-03] MEDS ORDERED: CEFTRIAXONE SOD 1 GM/NS 50 ML 50 ML IV SCH (15:00)
--- OUTSIDE RECORDS SUMMARY | 2020-08-03 15:41 | XMS REPORT | Continuity of Care Document ---
Author Author [facility] t Organization [facility] Address [address] [place] [address] Phone Unavailable Care Team Providers Care Skip Miner Blasting Name Role Phone TISH DOSS, MD RICHARDS PCP Yuriy GREGG Attphys Unavailable GEM HAAS Attphys Unavailable BRO HOOD Attphys Unavailable Adeel Pacheco Attphys Unavailable AILYN DIAZ Admphys Unavailable BRO HOOD Admphys Unavailable Payers Payer Name Policy Type Policy Number Effective Date Expiration Date [facility] [id number] 2019 00:00 :00 [facility] Problems Condition Name Condition Details Condition Category Status Onset Date Resolution Date Last Treatment Date Treating Clinician Comments Source Status post insertion of percutaneous endoscopic gastr ostomy (PEG) tube Status post insertion of percutaneous endoscopic gastrostomy (PEG) tube Problem Active [facility] Encounter for medical screening examination Problem Active [facility] Gastrostomy tube dysfunction Problem Active [facility] Allergies, Adverse Reactions, Alerts Allergy Name Allergy Type Status Severity Reaction(s) Onset Date Inacti ve Date Treating Clinician Comments Source No Known Allergies DA Active U 2019-11-03 00:00:00 [facility] No Known Allergies DA Active U 2018-09-20 00:00:00 [facility] No Known Allergies DA Active U 2018-09-19 00:00:00 [facility] No Known Allergies DA Active U 2015-10-28 00:00:00 [facility] Social History Social Habit Start Date Stop Date Quantity Comments Source Sex Assigned At 1960 00:00:00 1960 00:00:00 Male [facility] Medications Ordered Medication Name Filled Medication Name Start Date Stop Da te Current Medication? Ordering Clinician Indication Dosage Frequency Signature (SIG) Comments Components Source Docusate Sodium (Colace) 100 Mg/10 Ml LIQD Docusate So dium (Colace) 100 Mg/10 Ml LIQD 2020-06-30 12:05:00 Yes 100 Twice A Day [facility] Doxycycline Hyclate (Vibramycin) 100 Mg CAPSULE Doxycy gonzales Hyclate (Vibramycin) 100 Mg CAPSULE 2020-06-30 12:05:00 Yes 100 Every 12 Hours [facility] Sennosides (Senokot) 8.6 Mg TABLET Sennosides (Senokot) 8.6 Mg TABLET 2020-06-30 12:05:00 Yes 8.6 Twice A Day [facility] Buspirone Hcl Buspirone Hcl Yes 10 Daily [facility] Buspirone Hcl Buspirone Hcl Yes [facility] Carbamazepine Carbamazepine Yes 200 Three Times A Day [facility] Ciprofloxacin Hcl Ciprofloxacin Hcl Yes [facility] Divalproex Sodium (Depakote) 125 Mg TABLET. Divalpro ex Sodium (Depakote) 125 Mg TABLET. Yes 125 Twice A Day [facility] Divalproex Sodium Divalproex Sodium Yes [facility] Lorazepam Lorazepam Yes .5 [facility] Mirtazapine Mirtazapine Yes 7.5 Bedtime [facility] Naproxen Naproxen Yes 500 Twice A Day [facility] Topiramate (Topamax) 25 Mg TABLET Topiramate (Topamax) 25 Mg TABLET Yes 100 Daily [facility] Esomeprazole Magnesium (Nexium) 40 Mg SUSPDR.PKT Esome prazole Magnesium (Nexium) 40 Mg SUSPDR.PKT 2019-12-04 00:00:00 No 40 Daily [facility] Dipyridamole/Aspirin (Aggrenox 25 Mg-200 Mg Capsule) 1 Cap CAPCR Dipyridamole/Aspirin (Aggrenox 25 Mg-200 Mg Capsule) 1 Cap CAPCR 2019-12-01 00:00:00 No Twice A Day [facility] Vital Signs Vital Name Observation Time Observation Value Comments Source Body Temperature 2020-06-30 15:39:00 98.1 [degF] [facility] BMI (Body Mass Index) 2020-06-28 19:34:00 21.3 kg/m2 [facility] Weight 2020-06-28 15:20:00 140 [lb_av] [facility] Weight 2020-06-11 15:12:00 140 [lb_av] [facility] BMI (Body Mass Index) 2020-06-11 15:12:00 21.3 kg/m2 [facility] Body Temperature 2019-12-04 15:22:00 97.6 [degF] [facility] Procedures Procedure Date / Time Performed Performing Clinician [facility] e Computed tomography of abdomen and pelvis with contrast 00:00:00 [facility] Computed tomography of brain without radiopaque contrast 2020-05 00:00:00 [facility] EGD PLACE GASTROSTOMY TUBE 2019-12-04 00:00:00 [facility] Plan of Care Planned Activity Planned Date Details Comments Source Instructions GI Tube Care [facility] Encounters Start Date/Time End Date/Time Encounter Type Admission Type [facility] Care Department Encounter ID Source 2020-06-28 17:27:00 2020-06-30 17:25:00 Discharged Inpatient (obs) 1 BRO HOOD [id number] [facility] 2020-06-11 15:26:00 2020-06-11 18:40:00 Departed Emergency Room 1 Marino Pacheco [facility] [id number] [facility] 2019-12-04 11:00:00 2019-12-04 11:00:00 Registered Surgical Day Care [facility] [id number] [facility] 2018-10-12 11:32:00 2018-10-12 13:45:00 Departed Emergency Room 1 TONI GREGG [facility] [id number] [facility] Results Test Description Test Time Test Comments Results Result Comments Source CHEST SINGLE (PORTABLE) 2020-08-03 12:05:00 [facility] 1960 Sex: [place] [address] Patient Name: CHRISTINA LYNN JR MR #: [id number] : 1960 Age/Sex: 60/M Req #: [id number] [facility] Physician: Ordered by: TONI GREGG MD Report #: [id number] Location: ER Room/Bed: Procedure: [id number] DX/CHEST SINGLE (PORTABLE) Exam Date: 08/03/20 Exam [...] 08/03/201207 COPY TO: TONI GREGG MD ABDOMEN-1VIEW ([facility]) 2020-07-01 15:14:00 [place] [address] Patient Name: CHRISTINA LYNN JR MR #: [id number] : 1960 Age/Sex: 60/M Req #: [id number] Adm Physician: Ordered by: GEM HAAS DO Report #: [id number] Location: ER Room/Bed: Procedure: [id number] DX/ABDOMEN-1VIEW ([facility]) Exam Date: 07/01/20 Exam Time: [...] Count (test code = 6690-2) 5.19 4.8-10.8 [facility] automated count (number/volume)2020-06-29 05:36:00* Test Item Value Reference Range Interpretation Comments Red Blood Count (test code = 789-8) 4.12 4.3-5.7 [facility] hemoglobin measurement (moles/volume)2020-06-29 05:36:00* Test Item Value Reference Range Interpretation Comments Hemoglobin (test code = 16066-3) 11.6 14.0-18.0 [facility] RegionalAutomated blood hematocrit (volume fraction)2020-06-29 05:36:00* Test Item Value Reference Range Interpretation Comments Hematocrit (test code = 4544-3) 33.7 38.2-49.6 [facility] RegionalAutom[facility] erythrocyte mean corpuscular pdtwnp5835-76-71 05:36:00* Test Item Value Reference Range Interpretation Comments Mean Corpuscular Volume (test code = 787-2) 81.8 81-99 [facility]Autom[facility] erythrocyte mean corpuscular hemoglobin (mass per erythrocyte)2020-06-29 05:36:00* Test Item Value Reference Range Interpretation Comments Mean Corpuscular Hemoglobin (test code = 785-6) 28.2 28-32 [facility] RegionalAutom[facility] erythrocyte mean corpuscular hemoglobin concentration measurement (mass/volume)2020-06-29 05:36:00* Test Item Value Reference Range Interpretation Comments Mean Corpuscular Hemoglobin Concent (test code = 786-4) 34.4 31-35 [facility] RegionalRDW MdgMf-Zkt1636-16-12 05:36:00* Test Item Value Reference Range Interpretation Comments Red Cell Distribution Width (test code = 23195-6) 12.4 11.7 -14.4 [facility] RegionalAutom[facility] blood platelet count (count/volume)2020-06-29 05:36:00* Test Item Value Reference Range Interpretation Comments Platelet Count (test code = 777-3) 296 140-360 [facility] RegionalAutomated blood segmented neutrophil count as percentage of total fdjqswrduy0915-94-30 05:36:00* Test Item Value Reference Range Interpretation Comments Neutrophils (%) (Auto) (test code = 24218-4) 63.9 38.7-80.0 [facility] RegionalAutom[facility] blood lymphocyte count as percentage ot total ugcosvohxd2402-06-26 05:36:00* Test Item Value Reference Range Interpretation Comments Lymphocytes (%) (Auto) (test code = 736-9) 22.0 18.0-39.1 [facility] RegionalAutom[facility] blood monocyte count as percentage of total jgxivquyeo3582-57-97 05:36:00* Test Item Value Reference Range Interpretation Comments Monocytes (%) (Auto) (test code = 5905-5) 11.9 4.4-11.3 [facility] RegionalAutom[facility] blood eosinophil count as percentage of total zheuiasyvy3445-20-08 05:36:00* Test Item Value Reference Range Interpretation Comments Eosinophils (%) (Auto) (test code = 713-8) 1.2 0.0-6.0 [facility] RegionalAutom[facility] blood basophil count as percentage of total cwhneorxux6950-22-75 05:36:00* Test Item Value Reference Range Interpretation Comments Basophils (%) (Auto) (test code = 706-2) 0.4 0.0-1.0 [facility] RegionalFluoroscopic procedure less than one hour aeutvjct8873-27-90 05:36:00* Test Item Value Reference Range Interpretation Comments IM GRANULOCYTES % (test code = IM GRANULOCYTES %) 0.6 0.0- 1.0 [facility] RegionalAutom[facility] blood neutrophil count 2020-06-29 05:36:00* Test Item Value Reference Range Interpretation Comments Neutrophils # (Auto) (test code = 751-8) 3.3 2.1-6.9 [facility]Blood lymphocytes count (number/volume) 2020-06-29 05:36:00* Test Item Value Reference Range Interpretation Comments Lymphocytes # (Auto) (test code = 78471-9) 1.1 1.0-3.2 [facility] RegionalBlood monocytes automated count (number/volume)2020-06-29 05:36:00* Test Item Value Reference Range Interpretation Comments Monocytes # (Auto) (test code = 742-7) 0.6 0.2-0.8 [facility] RegionalAutomated blood eosinophil count 2020-06-29 05:36:00* Test Item Value Reference Range Interpretation Comments Eosinophils # (Auto) (test code = 711-2) 0.1 0.0-0.4 [facility] RegionalAutomated blood basophil count (count/volume)2020-06-29 05:36:00* Test Item Value Reference Range Interpretation Comments Basophils # (Auto) (test code = 704-7) 0.0 0.0-0.1 [facility] RegionalFluoroscopic procedure less than one hour umyozttj6165-68-66 05:36:00* Test Item Value Reference Range Interpretation Comments Absolute Immature Granulocyte (auto (mark t code = Absolute Immature Granulocyte (auto) 0.03 0-0.1 [facility] or plasma sodium measurement (moles/volume)2020-06-29 05:36:00* Test Item Value Reference Range Interpretation Comments Sodium Level (test code = 2951-2) 132 136-145 [facility]um or plasma potassium measurement (moles/volume)2020-06-29 05:36:00* Test Item Value Reference Range Interpretation Comments Potassium Level (test code = 2823-3) 4.4 3.5-5.1 [facility]um or plasma chloride measurement (moles/volume)2020-06-29 05:36:00* Test Item Value Reference Range Interpretation Comments Chloride Level (test code = 2075-0) 102 98-107 [facility] Uptownerum or plasma carbon dioxide, total measurement (moles/volume)2020-06-29 05:36:00* Test Item Value Reference Range Interpretation Comments Carbon Dioxide Level (test code = 2028-9) 20 22-29 [facility] Uptownerum or plasma anion ydk3931-46-42 05:36:00* Test Item Value Reference Range Interpretation Comments Anion Gap (test code = 58642-9) 14.4 8-16 [facility]ownerum or plasma urea nitrogen measurement (mass/volume)2020-06-29 05:36:00* Test Item Value Reference Range Interpretation Comments Blood Urea Nitrogen (test code = 3094-0) 8 7-26 [facility]ownerum or plasma creatinine measurement (mass/volume)2020-06-29 05:36:00* Test Item Value Reference Range Interpretation Comments Creatinine (test code = 2160-0) 0.56 0.72-1.25 [facility]ownerum or plasma urea nitrogen/creatinine mass egzkx7852-03-53 05:36:00* Test Item Value Reference Range Interpretation Comments BUN/Creatinine Ratio (test code = 3097-3) 14 6-25 [facility] RegionalEstimated glomerular filtration rate (GFR) felvvhcmvyacy2583-23-30 05:36:00* Test Item Value Reference Range Interpretation Comments Estimat Glomerular Filtration Rate (test code = 959814047) > 60 >60 Ranges were taken from the National Kidney Disease Education Program and the [facility] Kidney Foundation literature.Reference ranges:60 or greater: Sxjdzj48-01 ( for 3 consecutive months): Chronic kidney disease 15 or less: Kidney failureCorpus Christi Medical Center – Doctors RegionalGlucose jbynfgbkqrd9008-50-57 05:36:00* Test Item Value Reference Range Interpretation Comments Glucose Level (test code = OZL0663) 127 74-118 [facility]um or plasma calcium measurement (mass/volume)2020-06-29 05:36:00* Test Item Value Reference Range Interpretation Comments Calcium Level (test code = 10336-2) 8.2 8.4-10.2 [facility]ptownerum or plasma total bilirubin measurement (mass/volume)2020-06-29 05:36:00* Test Item Value Reference Range Interpretation Comments Total Bilirubin (test code = 1975-2) 0.5 0.2-1.2 [facility] RegionalFluoroscopic procedure less than one hour bvhubqvi5993-79-20 05:36:00* Test Item Value Reference Range Interpretation Comments Aspartate Amino Transf (AST/SGOT) (test code = Aspartate Amino Transf (AST/SGOT)) 51 5-34 [facility] Uptownerum or plasma alanine aminotransferase measurement (enzymatic activity/volume)2020-06-29 05:36:00* Test Item Value Reference Range Interpretation Comments Alanine Aminotransferase (ALT/SGPT) (test code = 1742-6) 58 0-55 [facility] Uptownerum or plasma protein measurement (mass/volume)2020-06-29 05:36:00* Test Item Value Reference Range Interpretation Comments Total Protein (test code = 2885-2) 5.9 6.5-8.1 [facility]ownerum or plasma albumin measurement (mass/volume)2020-06-29 05:36:00* Test Item Value Reference Range Interpretation Comments Albumin (test code = 1751-7) 3.5 3.5-5.0 [facility] RegionalPlasma globulin measurement (mass/volume) 2020-06-29 05:36:00* Test Item Value Reference Range Interpretation Comments Globulin (test code = 43998-2) 2.4 2.3-3.5 [facility]ownerum or plasma albumin/globulin mass diqeq2613-91-98 05:36:00* Test Item Value Reference Range Interpretation Comments Albumin/Globulin Ratio (test code = 1759-0) 1.5 0.8-2.0 [facility]ptownerum or plasma alkaline phosphatase measurement (enzymatic activity/volume)2020-06-29 05:36:00* Test Item Value Reference Range Interpretation Comments Alkaline Phosphatase (test code = 6768-6) 91 40-150 [facility] RegionalCT ABDOMEN/PELVIS [id number] 20:01:00 [facility] [address] [place] [address] Patient Name: CHRISTINA LYNN JR MR #: [id number] : 1960 Age/Sex: 60/M Req #: [id number] Adm Physician: BRO HOOD MD Ordered by: PASCALE CONTI DO Report #: [id number] Location: [facility]/[address]/Bed: [facility] Procedure: [id number] CT/CT ABDOM EN/PELVIS W Exam Date: 06/28/20 [...] CONTI DO CHEST SINGLE (PORTABLE) 2020-06-28 18:37:00 [place] [address] Patient Name: CHRISTINA LYNN JR MR #: [id number] : 1960 Age/Sex: 60/M Req #: [id number] Adm Physician: BRO HOOD MD Ordered by: PASCALE CONTI DO Report #: [id number] Location: [facility] Room/Bed: [place] [address] Procedure: [id number] DX/CHEST SI NGLE (PORTABLE) Exam Date: 06/28/20 [...] COPY TO: PASCALE CONTI DO Urine color byinnwawrmkym5495-44-68 16:16:00* Test Item Value Reference Range Interpretation Comments Urine Color (test code = 5778-6) YELLOW YELLOW [facility] RegionalUrine bjlkynw5931-66-44 16:16:00* Test Item Value Reference Range Interpretation Comments Urine Clarity (test code = 10606-8) SL CLOUDY CLEAR [facility] Uptownpecific gravity of Urine by Test strip 2020-06-28 16:16:00* Test Item Value Reference Range Interpretation Comments Urine Specific Estill (test code = 5811-5) 1.015 1.010-1.02 5 [facility] RegionalUrine pH measurement by automated test snzed6478-38-84 16:16:00* Test Item Value Reference Range Interpretation Comments Urine pH (test code = 20975-0) 8.5 5-7 [facility] RegionalUrine leukocyte esterase detection by trkyjlgl0568-04-02 16:16:00* Test Item Value Reference Range Interpretation Comments Urine Leukocyte Esterase (test code = 5799-2) NEGATIVE NEGATIVE [facility] RegionalUrine nitrite vasfcpvep7699-54-90 16:16:00* Test Item Value Reference Range Interpretation Comments Urine Nitrite (test code = 37464-2) NEGATIVE NEGATIVE [facility] RegionalUrine protein measurement by test strip (mass/volume)2020-06-28 16:16:00* Test Item Value Reference Range Interpretation Comments Urine Protein (test code = 5804-0) NEGATIVE NEGATIVE [facility] RegionalUrine glucose eozwwvzpa3461-90-94 16:16:00* Test Item Value Reference Range Interpretation Comments Urine Glucose (UA) (test code = 2349-9) NEGATIVE NEGATIVE [facility] RegionalUrine ketones detection by automated test llwny0867-53-04 16:16:00* Test Item Value Reference Range Interpretation Comments Urine Ketones (test code = 43125-0) NEGATIVE NEGATIVE [facility] RegionalUrine urobilinogen measurement by test strip (mass/volume)2020-06-28 16:16:00* Test Item Value Reference Range Interpretation Comments Urine Urobilinogen (test code = 82577-0) 2 0.2-1 [facility] RegionalUrine total bilirubin measurement (mass/volume)2020-06-28 16:16:00* Test Item Value Reference Range Interpretation Comments Urine Bilirubin (test code = 1978-6) NEGATIVE NEGATIVE [facility] RegionalUrine erythrocytes xhqxczpyq0120-70-54 16:16:00* Test Item Value Reference Range Interpretation Comments Urine Blood (test code = 36703-6) NEGATIVE NEGATIVE [facility] RegionalAutomated urine sediment leukocyte count by microscopy (number/high power field)2020-06-28 16:16:00* Test Item Value Reference Range Interpretation Comments Urine WBC (test code = 5821-4) NONE 0-5 [facility] RegionalErythrocytes detection in urine sediment by light rreokfglin8464-48-82 16:16:00* Test Item Value Reference Range Interpretation Comments Urine RBC (test code = 99485-2) NONE 0-5 [facility] RegionalBacteria detection in urine sediment by light mxdbhgfmgw8880-82-49 16:16:00* Test Item Value Reference Range Interpretation Comments Urine Bacteria (test code = 96516-2) FEW NONE [facility] RegionalEpithelial cells detection in urine sediment by light uhbdkerxym6385-56-32 16:16:00* Test Item Value Reference Range Interpretation Comments Urine Epithelial Cells (test code = 95716-5) NONE NONE [facility] RegionalAmorphous sediment detection in urine sediment by light gkggltbqcz2175-48-93 16:16:00* Test Item Value Reference Range Interpretation Comments Urine Amorphous Sediment (test code = 8246-1) MODERATE FEW [facility] RegionalFluoroscopic procedure less than one hour vuenmhih5956-38-31 16:00:00* Test Item Value Reference Range Interpretation Comments Lactic Acid Level (test code = Lactic Acid Level) 1.8 0.5- 2.0 [facility] Uptownerum or plasma creatine kinase measurement (enzymatic activity/volume)2020-06-28 16:00:00* Test Item Value Reference Range Interpretation Comments Creatine Kinase (test code = 2157-6) 21 30-200 [facility] Uptownerum or plasma creatine kinase MB measurement (mass/volume)2020-06-28 16:00:00* Test Item Value Reference Range Interpretation Comments Creatine Kinase MB (test code = 03951-7) 0.60 0-5.0 [facility] RegionalTroponin I measurement by highly sensitive enzyme aihfvccasec5140-99-22 16:00:00* Test Item Value Reference Range Interpretation Comments Troponin I (test code = 27699-8) 0.001 0-0.300 [facility] RegionalBlood gyliill0708-35-87 16:00:00* Test Item Value Reference Range Interpretation Comments Blood Culture (test code = 29571067) NO GROWTH AFTER 48 HOURS [facility] RegionalCT BRAIN EQ5652-28-99 16:35:00 [facility] [address] [place] [address] Patient Name: CHRISTINA LYNN MR #: [id number] : 1960 Age/Sex: 60/M Req #: [id number] Adm Physician: Ordered by: Marino Pacheco MD Report #: [id number] Location: Room/Bed: Procedure: [id number] CT/CT BRAIN WO Exam Date: 06/11/20 Exam [...] Count (test code = 6690-2) 8.09 4.8-10.8 [facility] RegionalBlood erythrocytes automated count (number/volume)2020-06-11 16:06:00* Test Item Value Reference Range Interpretation Comments Red Blood Count (test code = 789-8) 4.65 4.3-5.7 [facility] hemoglobin measurement (moles/volume)2020-06-11 16:06:00* Test Item Value Reference Range Interpretation Comments Hemoglobin (test code = 45696-1) 13.2 14.0-18.0 [facility] RegionalAutomated blood hematocrit (volume fraction)2020-06-11 16:06:00* Test Item Value Reference Range Interpretation Comments Hematocrit (test code = 4544-3) 39.0 38.2-49.6 [facility] RegionalAutomated erythrocyte mean corpuscular llnnxd5028-42-77 16:06:00* Test Item Value Reference Range Interpretation Comments Mean Corpuscular Volume (test code = 787-2) 83.9 81-99 [facility] RegionalAutomated erythrocyte mean corpuscular hemoglobin (mass per erythrocyte)2020-06-11 16:06:00* Test Item Value Reference Range Interpretation Comments Mean Corpuscular Hemoglobin (test code = 785-6) 28.4 28-32 [facility] RegionalAutomated erythrocyte mean corpuscular hemoglobin concentration measurement (mass/volume)2020-06-11 16:06:00* Test Item Value Reference Range Interpretation Comments Mean Corpuscular Hemoglobin Concent (test code = 786-4) 33.8 31-35 [facility] RegionalRDW VzeEq-Ffj9717-91-25 16:06:00* Test Item Value Reference Range Interpretation Comments Red Cell Distribution Width (test code = 99717-1) 12.3 11.7 -14.4 [facility] RegionalAutmaria parham healthed blood platelet count (count/volume)2020-06-11 16:06:00* Test Item Value Reference Range Interpretation Comments Platelet Count (test code = 777-3) 179 140-[address] [facility] segmented neutrophil count as percentage of total kwcpfmllms5558-55-20 16:06:00* Test Item Value Reference Range Interpretation Comments Neutrophils (%) (Auto) (test code = 48434-5) 69.0 38.7-80.0 [facility] RegionalAutomated blood lymphocyte count as percentage ot total xaoffknkvq3173-08-58 16:06:00* Test Item Value Reference Range Interpretation Comments Lymphocytes (%) (Auto) (test code = 736-9) 14.2 18.0-39.1 [facility] RegionalAutomated blood monocyte count as percentage of total taptkyshse7134-77-72 16:06:00* Test Item Value Reference Range Interpretation Comments Monocytes (%) (Auto) (test code = 5905-5) 15.2 4.4-11.3 [facility] RegionalAutomated blood eosinophil count as percentage of total dwxuvxvwao8430-64-51 16:06:00* Test Item Value Reference Range Interpretation Comments Eosinophils (%) (Auto) (test code = 713-8) 0.9 0.0-6.0 [facility] RegionalAutomated blood basophil count as percentage of total spwmzbifpv2185-97-05 16:06:00* Test Item Value Reference Range Interpretation Comments Basophils (%) (Auto) (test code = 706-2) 0.2 0.0-1.0 [facility] RegionalFluoroscopic procedure less than one hour iyroppxg5339-92-18 16:06:00* Test Item Value Reference Range Interpretation Comments IM GRANULOCYTES % (test code = IM GRANULOCYTES %) 0.5 0.0- 1.0 [facility] RegionalAutomated blood neutrophil count 2020-06-11 16:06:00* Test Item Value Reference Range Interpretation Comments Neutrophils # (Auto) (test code = 751-8) 5.6 2.1-6.9 [facility] RegionalBlood lymphocytes count (number/volume) 2020-06-11 16:06:00* Test Item Value Reference Range Interpretation Comments Lymphocytes # (Auto) (test code = 28159-3) 1.2 1.0-3.2 [facility] RegionalBlood monocytes automated count (number/volume)2020-06-11 16:06:00* Test Item Value Reference Range Interpretation Comments Monocytes # (Auto) (test code = 742-7) 1.2 0.2-0.8 [facility] RegionalAutomated blood eosinophil count 2020-06-11 16:06:00* Test Item Value Reference Range Interpretation Comments Eosinophils # (Auto) (test code = 711-2) 0.1 0.0-0.4 [facility] RegionalAutomated blood basophil count (count/volume)2020-06-11 16:06:00* Test Item Value Reference Range Interpretation Comments Basophils # (Auto) (test code = 704-7) 0.0 0.0-0.1 [facility] RegionalFluoroscopic procedure less than one hour cfbignrh7567-01-38 16:06:00* Test Item Value Reference Range Interpretation Comments Absolute Immature Granulocyte (auto (mark t code = Absolute Immature Granulocyte (auto) 0.04 0-0.1 [facility] RegionalProthrombin time (PT) in platelet poor plasma by coagulation glnde8307-01-79 16:06:00* Test Item Value Reference Range Interpretation Comments Prothrombin Time (test code = 5902-2) 12.3 11.9-14.5 [facility] RegionalINR in Platelet poor plasma by Coagulation tepfz8504-09-23 16:06:00* Test Item Value Reference Range Interpretation Comments Prothromb Time International Ratio (test code = 6301-6) 0.87 Oral Anticoagulant Therapy INR Values:1. Low Intensity Therapy 1.5 - 2.02 . Moderate Intensity Therapy 2.0 - 3.03. High Intensity Therapy(1) 2.5 - 3. 54. High Intensity Therapy(2) 3.0 - 4.05. Panic Value INR > 5.0 [facility] RegionalActivated partial thromboplastin time (aPTT) in platelet poor plasma by coagulation sqrjg6374-66-12 16:06:00* Test Item Value Reference Range Interpretation Comments Activated Partial Thromboplast Time (test code = 91854-4) 23.4 23.8-35.5 [facility] RegionalUrine color nnhmrvutwfvpv9579-98-58 16:06:00* Test Item Value Reference Range Interpretation Comments Urine Color (test code = 5778-6) YELLOW YELLOW [facility] RegionalUrine qgpzkpy1133-73-84 16:06:00* Test Item Value Reference Range Interpretation Comments Urine Clarity (test code = 31439-0) SL CLOUDY CLEAR [facility] Uptownpecific gravity of Urine by Test strip 2020-06-11 16:06:00* Test Item Value Reference Range Interpretation Comments Urine Specific Estill (test code = 5811-5) 1.020 1.010-1.02 5 [facility] RegionalUrine pH measurement by automated test jcglo5137-66-22 16:06:00* Test Item Value Reference Range Interpretation Comments Urine pH (test code = 44822-2) 7.5 5-7 [facility] RegionalUrine leukocyte esterase detection by hmuysmke3963-42-59 16:06:00* Test Item Value Reference Range Interpretation Comments Urine Leukocyte Esterase (test code = 5799-2) NEGATIVE NEGATIVE [facility] RegionalUrine nitrite gjegdpina5728-59-62 16:06:00* Test Item Value Reference Range Interpretation Comments Urine Nitrite (test code = 82822-0) NEGATIVE NEGATIVE [facility] RegionalUrine protein measurement by test strip (mass/volume)2020-06-11 16:06:00* Test Item Value Reference Range Interpretation Comments Urine Protein (test code = 5804-0) NEGATIVE NEGATIVE [facility] RegionalUrine glucose gjfalbcrf4167-88-94 16:06:00* Test Item Value Reference Range Interpretation Comments Urine Glucose (UA) (test code = 2349-9) NEGATIVE NEGATIVE [facility] RegionalUrine ketones detection by automated test hmgkj4023-10-48 16:06:00* Test Item Value Reference Range Interpretation Comments Urine Ketones (test code = 15397-4) NEGATIVE NEGATIVE [facility] RegionalUrine urobilinogen measurement by test strip (mass/volume)2020-06-11 16:06:00* Test Item Value Reference Range Interpretation Comments Urine Urobilinogen (test code = 81575-4) 2 0.2-1 [facility] RegionalUrine total bilirubin measurement (mass/volume)2020-06-11 16:06:00* Test Item Value Reference Range Interpretation Comments Urine Bilirubin (test code = 1978-6) NEGATIVE NEGATIVE [facility] RegionalUrine erythrocytes jonbqfcga5751-80-19 16:06:00* Test Item Value Reference Range Interpretation Comments Urine Blood (test code = 47384-3) NEGATIVE NEGATIVE [facility] RegionalAutomated urine sediment leukocyte count by microscopy (number/high power field)2020-06-11 16:06:00* Test Item Value Reference Range Interpretation Comments Urine WBC (test code = 5821-4) NONE 0-5 [facility] RegionalErythrocytes detection in urine sediment by light zzlmjixhgc8976-46-98 16:06:00* Test Item Value Reference Range Interpretation Comments Urine RBC (test code = 92786-3) NONE 0-5 [facility] RegionalBacteria detection in urine sediment by light hhmvkxkkru8669-37-30 16:06:00* Test Item Value Reference Range Interpretation Comments Urine Bacteria (test code = 72234-9) FEW NONE [facility] RegionalEpithelial cells detection in urine sediment by light yrbaidgyek3903-11-43 16:06:00* Test Item Value Reference Range Interpretation Comments Urine Epithelial Cells (test code = 60062-4) NONE NONE [facility] RegionalAmorphous sediment detection in urine sediment by light bndqixpwlx3342-32-50 16:06:00* Test Item Value Reference Range Interpretation Comments Urine Amorphous Sediment (test code = 8246-1) MODERATE FEW [facility] Uptownerum or plasma sodium measurement (moles/volume)2020-06-11 16:06:00* Test Item Value Reference Range Interpretation Comments Sodium Level (test code = 2951-2) 128 136-145 [facility] Uptownerum or plasma potassium measurement (moles/volume)2020-06-11 16:06:00* Test Item Value Reference Range Interpretation Comments Potassium Level (test code = 2823-3) 3.8 3.5-5.1 [facility] Uptownerum or plasma chloride measurement (moles/volume)2020-06-11 16:06:00* Test Item Value Reference Range Interpretation Comments Chloride Level (test code = 2075-0) 97 98-107 [facility] Uptownerum or plasma carbon dioxide, total measurement (moles/volume)2020-06-11 16:06:00* Test Item Value Reference Range Interpretation Comments Carbon Dioxide Level (test code = 2028-9) 20 - [facility] Uptownerum or plasma anion qpu3971-18-11 16:06:00* Test Item Value Reference Range Interpretation Comments Anion Gap (test code = 14360-6) 14.8 8-16 [facility] Uptownerum or plasma urea nitrogen measurement (mass/volume)2020-06-11 16:06:00* Test Item Value Reference Range Interpretation Comments Blood Urea Nitrogen (test code = 3094-0) 12 7- [facility] Uptownerum or plasma creatinine measurement (mass/volume)2020-06-11 16:06:00* Test Item Value Reference Range Interpretation Comments Creatinine (test code = 2160-0) 0.66 0.72-1.25 [facility] Uptownerum or plasma urea nitrogen/creatinine mass pmnmu4070-22-34 16:06:00* Test Item Value Reference Range Interpretation Comments BUN/Creatinine Ratio (test code = 3097-3) 18 6- [facility] RegionalEstimated glomerular filtration rate (GFR) ixbbfhebuivzf5416-20-83 16:06:00* Test Item Value Reference Range Interpretation Comments Estimat Glomerular Filtration Rate (test code = 576725882) > 60 >60 Ranges were taken from the National Kidney Disease Education Program and the [facility] Kidney Foundation literature.Reference ranges:60 or greater: Pgsjxd05-01 ( for 3 consecutive months): Chronic kidney disease 15 or less: Kidney failureCorpus Christi Medical Center – Doctors RegionalGlucose bpbrxaxuznf0825-94-26 16:06:00* Test Item Value Reference Range Interpretation Comments Glucose Level (test code = IES7766) 103 74-118 [facility] Uptownerum or plasma calcium measurement (mass/volume)2020-06-11 16:06:00* Test Item Value Reference Range Interpretation Comments Calcium Level (test code = 53376-5) 8.6 8.4-10.2 [facility] RegionalFluoroscopic procedure less than one hour injtamyj9298-92-82 16:06:00* Test Item Value Reference Range Interpretation Comments Lactic Acid Level (test code = Lactic Acid Level) 2.4 0.5- 2.0 Results repeated and called to ADEN APONTE at 1641 on 06/11/20 by JOSY MCGRATH . Read back and verified.[facility] Uptownerum or plasma total bilirubin measurement (mass/volume)2020-06-11 16:06:00* Test Item Value Reference Range Interpretation Comments Total Bilirubin (test code = 1975-2) 0.5 0.2-1.2 [facility] RegionalFluoroscopic procedure less than one hour athluloh4057-90-92 16:06:00* Test Item Value Reference Range Interpretation Comments Aspartate Amino Transf (AST/SGOT) (test code = Aspartate Amino Transf (AST/SGOT)) 60 5-34 [facility] Uptownerum or plasma alanine aminotransferase measurement (enzymatic activity/volume)2020-06-11 16:06:00* Test Item Value Reference Range Interpretation Comments Alanine Aminotransferase (ALT/SGPT) (test code = 1742-6) 75 0-55 [facility] Uptownerum or plasma protein measurement (mass/volume)2020-06-11 16:06:00* Test Item Value Reference Range Interpretation Comments Total Protein (test code = 2885-2) 6.0 6.5-8.1 [facility]ptownerum or plasma albumin measurement (mass/volume)2020-06-11 16:06:00* Test Item Value Reference Range Interpretation Comments Albumin (test code = 1751-7) 3.2 3.5-5.0 [facility] RegionalPlasma globulin measurement (mass/volume) 2020-06-11 16:06:00* Test Item Value Reference Range Interpretation Comments Globulin (test code = 64821-4) 2.8 2.3-3.5 [facility] Uptownerum or plasma albumin/globulin mass cyjdi5092-84-71 16:06:00* Test Item Value Reference Range Interpretation Comments Albumin/Globulin Ratio (test code = 1759-0) 1.1 0.8-2.0 [facility] Uptownerum or plasma alkaline phosphatase measurement (enzymatic activity/volume)2020-06-11 16:06:00* Test Item Value Reference Range Interpretation Comments Alkaline Phosphatase (test code = 6768-6) 102 40-150 [facility] Uptownerum or plasma creatine kinase measurement (enzymatic activity/volume)2020-06-11 16:06:00* Test Item Value Reference Range Interpretation Comments Creatine Kinase (test code = 2157-6) 35 30-200 [facility] Uptownerum or plasma creatine kinase MB measurement (mass/volume)2020-06-11 16:06:00* Test Item Value Reference Range Interpretation Comments Creatine Kinase MB (test code = 03970-8) 0.60 0-5.0 [facility] RegionalTroponin I measurement by highly sensitive enzyme secohnkegny7899-34-51 16:06:00* Test Item Value Reference Range Interpretation Comments Troponin I (test code = 28681-8) 0.018 0-0.300 [facility] RegionalProthrombin time (PT) in platelet poor plasma by coagulation imomd3105-16-08 16:06:00* Test Item Value Reference Range Interpretation Comments Prothrombin Time (test code = 5902-2) 12.3 11.9-14.5 [facility] RegionalINR in Platelet poor plasma by Coagulation haamb4372-61-03 16:06:00* Test Item Value Reference Range Interpretation Comments Prothromb Time International Ratio (test code = 6301-6) 0.87 Oral Anticoagulant Therapy INR Values:1. Low Intensity Therapy 1.5 - 2.02 . Moderate Intensity Therapy 2.0 - 3.03. High Intensity Therapy(1) 2.5 - 3. 54. High Intensity Therapy(2) 3.0 - 4.05. Panic Value INR > 5.0 [facility] RegionalActivated partial thromboplastin time (aPTT) in platelet poor plasma by coagulation rtksx8666-93-77 16:06:00* Test Item Value Reference Range Interpretation Comments Activated Partial Thromboplast Time (test code = 28272-6) 23.4 23.8-35.5 [facility] RegionalCHEST SINGLE (PORTABLE)2020-06-11 15:35:00 [facility] [address] [place] [address] Patient Name: CHRISTINA LYNN MR #: [id number] : 1960 Age/Sex: 60/M Req #: [id number] Adm Physician: Ordered by: Marino Pacheco MD Report #: [id number] Location: ER Room/Bed: Procedure: [id number] DX/CHEST SIN GLE (PORTABLE) Exam Date: 06/11/20 [...] on 06/11/201536 COPY TO: MARINO BURCH MD LVNDJLHTNHC1336-09-18 15:00:00* Test Item Value Reference Range Interpretation Comments PHOSPHOROUS (test code = PHOS) 3.5 MG/DL 2.5-4.9 N CBC W/AUTO [id number] 08:11:00* Test Item Value Reference Range Interpretation [...] (test code = MDIFF) NO BASIC METABOLIC [id number] 08:08:00* Test Item Value Reference Range Interpretation [...] 8.0-10.5 N - XR SWLW FUNC W/C [id number] 15:28:00 FAX: Juan Martinez NP [phone] Hugo: St: ADM FAX: Сергей James I [phone] FAX: David Finch MD [phone] Name: CHRISTINA LYNN [facility] : 1960 Age/S: 59/M [address] [place] [address] Unit #: [id number] Loc: G.55[address] [place] [address] Phys: Juan Martinez NP Acct: [id number] Dis Date: Status: ADM IN ONE #: [phone] Exam Date: 11/08/2019 1421 FAX #: [phone] Reason: DYSPHAGIA EXAMS: CPT CODE: [id number] XR SWLW FUNC W/C V 11336 Modified brayan machado swallow: HISTORY: Pneumonia, dysphagia [...] 8.61 mGy, fluoroscopy time 230 seconds SL: [id number] at 1528 Reported and sign ed by: Dio Keene M.D. CC: Juan Martinez NP; Сергей rios MD; David Juarez M.D. Technologist: Сергей Diaz RT(R) Trnscrd Date/Time/By: 11/08/2019 (1528) : By: NancyETG Orig Print D/T: S: 11/08/2019 (9993) PAGE 1 Signed Report VANCOMYCIN [id number] 10:06:00* Test Item Value Reference Range Interpretation Comments VANCOMYCIN TROUGH (test code = VANCT) 9.7 mcg/mL 10.0-20.0 L 10-15 mcg/mL - Cellulitis, Urinary Tract Infection. 15-20 mcg/mL - Bacteremia, Infective Endocarditis, Meningitis, Osteomyelitis, Pneumonia, Severe Skin/Soft- Tissue Infection, Spinal Abscess. INFLUENZA A [id number] 21:58:00* Test Item Value Reference Range Interpretation Comments INFLUENZA A (test code = FLUAPCR) Negative Negative INFLUENZA B (test code = FLUBPCR) Negative Negative LACTIC [id number] 22:20:00* Test Item Value Reference Range Interpretation Comments LACTIC ACID (test code = LACT) 1.1 mmol/L 0.4-1.9 N UA RFLX MICR CULT IF [id number] 20:38:00* Test Item Value Reference Range Interpretation [...] VALP) 19 mcg/mL 50.0-100.0 L COMPREHENSIVE METABOLIC [id number] 19:55:00* Test Item Value Reference Range Interpretation [...] code = ALKP) 127 IUnit/L 20-125 H [id number] 19:55:00* Test Item Value Reference Range Interpretation Comments MAGNESIUM (test code = MAG) 2.00 mg/dL 1.8-2.4 N - XR CHEST 1 [id number] 19:53:00 FAX: Cari Lr MD [phone] Hugo: St: REG FAX: David Finch MD [phone] Name: CHRISTINA LYNN [facility] Menan : 1960 Age/S: 59/M [address] [place] [address] Unit #: [id number] Loc: [place]SE [place] [address] Phys: Cari cMkee MD Acct: [id number] Dis Date: Status: REG ER PHONE #: [phone] Exam Date: 11/03/20191942 FAX #: [phone] Reason: acute cough fever EXAMS: CPT CODE: [id number] XR CHEST 1 V 14669 SINGLE VIEW RADIOGRAPH CHEST INDICATION: acute cough [...] (1955) PAGE 1 Signed Report COMPREHENSIVE METABOLIC [id number] 19:48:00* Test Item Value Reference Range Interpretation [...] TOTAL (test code = ALKP) IUnit/L 20-125 [id number] 19:48:00* Test Item Value Reference Range Interpretation Comments MAGNESIUM (test code = MAG) mg/dL 1.8-2.4 CBC W/AUTO [id number] 19:46:00* Test Item Value Reference Range Interpretation [...] (test code = MDIFF) NO COMPREHENSIVE METABOLIC [id number] 06:09:00* Test Item Value Reference Range Interpretation [...] result is a direct measurement.========= VITAMIN D 11-ALQILSR0203-92-10 06:09:00* Test Item Value Reference Range Interpretation Comments VITAMIN D 25-HYDROXY (test code = VITD25) 22.5 ng/mL 30.0-100.0 A Vitamin D deficiency has been defined by the [place] [employer] and an Endocrine Society practice guideline as alevel of serum 25-OH vitamin D less than 20 ng/mL (1,2).The Endocrine Society went on to further define vitamin Dinsufficiency as a level between 21 and 29 ng/mL (2).1. IOM ([place] [employer]). 2010. Dietary reference intakes for calcium and D. [place]: The National Academies Press.2. Andrey MF, Lili TREVINO, Chayo HURTADO, et al. Evaluation, treatment, and prevention of vitamin D deficiency: an Endocrine Society clinical practice guideline. JCEM. 2010; 96(7):1911-30.Performed At: [facility] [address] [place], [place] [id number] Kyle L MD Ph:[phone] performed at: [facility] [place] [address] [place] [address] COMPREHENSIVE METABOLIC [id number] 12:07:00* Test Item Value Reference Range Interpretation [...] result is a direct measurement.========= VITAMIN D 73-[id number] 12:07:00* Test Item Value Reference Range Interpretation Comments VITAMIN D 25-HYDROXY (test code = VITD25) ng/mL 30-100 COMPREHENSIVE METABOLIC [id number] 11:50:00* Test Item Value Reference Range Interpretation [...] code = LDL) mg/dL 100-129 VITAMIN D 23-[id number] 11:50:00* Test Item Value Reference Range Interpretation Comments VITAMIN D 25-HYDROXY (test code = VITD25) ng/mL 30-100 CBC W/AUTO [id number] 10:53:00* Test Item Value Reference Range Interpretation [...] NRBC#) 0.00 K/mm3 0.0-0.1 N COMPREHENSIVE METABOLIC [id number] 13:23:00* Test Item Value Reference Range Interpretation [...] due to change in reagent. AG PROSTATE [id number] 13:23:00* Test Item Value Reference Range Interpretation Comments AG PROSTATE SPECIFIC (test code = PSA) 0.24 ng/mL 0.0-4.0 N THYROID STIMULATING [id number] 13:23:00* Test Item Value Reference Range Interpretation Comments THYROID STIMULATING HORMONE (test code = TSH) 1.890 uIU/mL 0.36-3.7 4 N TSH REFERENCE RANGES: EUTHYROID: 0.35 - 4.3 mIU/mL HYPO : > 5.5 mIU/mL HYPER : < 0.35 mIU/mL COMPREHENSIVE METABOLIC [id number] 13:19:00* Test Item Value Reference Range Interpretation [...] code = ALKP) IUnit/L 45-117 AG PROSTATE [id number] 13:19:00* Test Item Value Reference Range Interpretation Comments AG PROSTATE SPECIFIC (test code = PSA) 0.24 ng/mL 0.0-4.0 N THYROID STIMULATING [id number] 13:19:00* Test Item Value Reference Range Interpretation Comments THYROID STIMULATING HORMONE (test code = TSH) uIU/mL 0.36-3.7 4 COMPREHENSIVE METABOLIC [id number] 13:08:00* Test Item Value Reference Range Interpretation [...] code = ALKP) IUnit/L 45-117 AG PROSTATE [id number] 13:08:00* Test Item Value Reference Range Interpretation Comments AG PROSTATE SPECIFIC (test code = PSA) ng/mL 0.0-4.0 THYROID STIMULATING [id number] 13:08:00* Test Item Value Reference Range Interpretation Comments THYROID STIMULATING HORMONE (test code = TSH) uIU/mL 0.36-3.7 4 CBC W/AUTO [id number] 12:52:00* Test Item Value Reference Range Interpretation [...] code = MDIFF) NO ABDOMEN-1VIEW (AKASH)2018-10-12 13:36:00 [place] [address] Patient Name: CHRISTINA LYNN MR #: [id number] : 1960 Age/Sex: 58/M Req #: [id number] Adm Physician: Ordered by: TONI GREGG MD Report #: [id number] Location: ER Room/Bed: Procedure: [id number] DX/ABD OMEN-1VIEW (AKASH) Exam Date: Exam Time: [...] on 10/12/2018 at 13:36 Electronically approved by: Belal Del Cid D.O. on 10/12/2018 at 13:36 Dictated By: AAMIR MERCHANT DO 7412 Transcri bed By: HAYDEE on 10/12/18 5095 COPY TO: TONI GREGG MD
[2020-08-03] MEDS: VANCOMYCIN 750MG/NS 150ML IVPB 150 ML IV SCH (16:32)
--- NOTE | 2020-08-03 16:33 | Diagnostic Imaging Report ---
EXAMINATION: CHEST SINGLE (PORTABLE) INDICATION: central line placement verification COMPARISON: Chest radiograph 08/03/2020. FINDINGS: TUBES and LINES: Interval placement of right IJ central venous catheter which terminates in the lower SVC. LUNGS: Lungs are well inflated. There is somewhat ovoid and consolidative opacity in the left lower lung. Mild patchy right basilar opacity. PLEURA: No pleural effusion or pneumothorax. HEART AND MEDIASTINUM: The cardiomediastinal silhouette is unremarkable. BONES AND SOFT TISSUES: No acute osseous abnormality. Diffuse osteopenia. Fixation hardware in the distal right clavicle. Remote healed left-sided rib fractures. UPPER ABDOMEN: No free air under the diaphragm. IMPRESSION: Interval placement of right IJ central venous catheter which terminates in the SVC. No evidence of pneumothorax. Somewhat ovoid consolidative opacity in the left lower lung may be infectious, however underlying mass is not excluded. Recommend chest CT for further evaluation. Signed by: Dr. Alaina Aparicio MD on 08/03/2020 4:30 PM
[2020-08-03] MEDS: DOCUSATE SODIUM LIQD 100 MG/10 ML UDC NG SCH ×2 (17:00→23:10)
[2020-08-03] MEDS: SENNOSIDES 8.6 MG TAB PO SCH ×2 (17:00→23:10)
--- NOTE | 2020-08-03 17:09 | Operative Report ---
DATE OF PROCEDURE: SURGEON: Ernesto Roblero MD PROCEDURE: Central line placement under ultrasound guidance. PREOPERATIVE DIAGNOSIS: Hyponatremia, dehydration, and prior traumatic brain injury. POSTOPERATIVE DIAGNOSIS: Hyponatremia, dehydration, and prior traumatic brain injury. CONSENT: Consent was obtained from the daughter. MEDICATIONS: 1% lidocaine for local anesthesia. DESCRIPTION OF PROCEDURE: The patient was placed in a supine position. The right neck was prepped sterilely with chlorhexidine. A full length sterile drape, sterile gown, sterile gloves were used. 1% lidocaine was used to anesthetize the area between the heads of the sternocleidomastoid. A 16-gauge needle was then used to cannulate the right internal jugular vein under direct visualization. A wire was placed through the needle. A dilator was used to open the skin and a triple-lumen catheter was placed over the dilator by the Seldinger technique. All the ports flushed. COMPLICATIONS: None. ESTIMATED BLOOD LOSS: None. Ernesto Roblero MD [facility] /[id number]
--- NOTE | 2020-08-03 17:29 | Consultation ---
DATE OF CONSULTATION: Pulmonary Critical Care Consultation CHIEF COMPLAINT: Urinary tract infection, low blood pressure and prior traumatic brain injury. HISTORY OF PRESENT ILLNESS: The patient is a 60-year-old man. He has a history of a traumatic brain injury. He is cared for by his family at home. According to the family, he has had low blood pressure intermittently for the past several weeks. Today, he had a fever and some discolored urine. He has not had any nausea or vomiting. He has no abdominal pain. He does have a feeding tube in place. When he arrived in the emergency department, he was found to have pyuria along with low sodium. PAST SURGICAL HISTORY: 1. Status post PEG placement. 2. History of traumatic brain injury. PAST MEDICAL HISTORY: 1. Nephrolithiasis. 2. Fecal impaction. 3. Neurological impairment. 4. Prior cerebrovascular accident. SOCIAL HISTORY: The patient lives at home with his family. He is not a drinker. He is not a smoker. ALLERGIES: THERE ARE NO KNOWN DRUG ALLERGIES. FAMILY HISTORY: Noncontributory. REVIEW OF SYSTEMS: The patient has no headache. He is not having any neck pain. He has no chest pain. There was no reported cough or congestion. He is not having any nausea or vomiting. There is no diarrhea. He has no leg swelling. PHYSICAL EXAMINATION: VITAL SIGNS: Blood pressure is 107/77 and the pulse is 100 to 110. The T-max is 100.1. HEENT: No facial swelling or erythema. LYMPHATIC: No submandibular, cervical, or supraclavicular adenopathy. CARDIAC: Regular rate and rhythm with normal S1, S2. LUNGS: Auscultation of lungs reveals decreased breath sounds at the bases. There is no wheezing. ABDOMEN: Soft, nontender. There is no rebound or guarding. EXTREMITIES: No leg edema or calf tenderness. There is no cyanosis or clubbing. SKIN: No rashes. LABORATORY DATA: White blood cell count is 18.75, hemoglobin is 10.8. The platelet count is 315. The BUN to creatinine ratio is normal. The sodium is 125. The lactic acid is 1.1 and the total bilirubin is 0.8. The albumin is 2.5. IMPRESSION: 1. Urinary tract infection with sepsis, present on admission. 2. Moderate protein-calorie malnutrition, present on admission. 3. Hyponatremia. 4. History of traumatic brain injury and prior neurological surgeries. 5. Anemia, unspecified. PLAN: 1. The patient will receive intravenous hydration. 2. Begin broad-spectrum antibiotics and panculture patient. 3. Monitor sodium levels. 4. Restart enteral feedings. 5. DVT prophylaxis. MD SANJAY [facility]/[place] /[id number]
[2020-08-03] MEDS: SODIUM CHLORIDE 0.9% 1000ML 1,000 ML IV SCH (18:11)
--- NOTE | 2020-08-03 19:00 | NUR ---
REPORT GIVEN TO ONCOMING NURSE. PATIENT COMING FROM ER TO ROOM 292. NOT IN ROOM YET.
--- NOTE | 2020-08-03 19:05 | NUR ---
Patient arrived on the unit via stretcher bed as new admit from ED to Rm 292. Pt admitting dx is dehydration, hyponatremia, UTI. Pt on IVF (NS at 100ml/hr) and scheduled IV antibiotics. Patient contracted on upper and lower extremeties and is aphasic. Pt is bedridden and needs to be turned Q2hr. Nurse (Fabian) to obtain medical history of patient from medical POA (Diana Fernandez - sister). Pt is diapered and incontinent. Bed alarm active. Pt to be turned Q2hr.
[2020-08-03 20:00] VITALS: BP 105/75
--- NOTE | 2020-08-03 20:00 | NUR ---
Nurse (Fabian) spoke with patient's sister (Diana Fernandez) and patient's mother (Diana Rousseau) via phone. Patient's medical history were obtained from family.
[2020-08-03 21:00] VITALS: BP 105/75
[2020-08-03] MEDS: MEROPENEM 1GM 100 ML IV SCH (21:43)
[2020-08-03] MEDS ORDERED: MEROPENEM 1GRAM 1 GM in SODIUM CHLORIDE 0.9% 100 ML 100 ML IV SCH (22:00)
--- NOTE | 2020-08-03 22:33 | Diagnostic Imaging Report ---
EXAM: Abdomen 1 View INDICATION: ^abdominal distention ^[id number] ^[id number] COMPARISON: KUB dated 07/01/2020 FINDINGS: Large rectal fecal impaction along with mild gaseous distention of more proximal sigmoid colon and large amount of stool throughout the entire colon. No evidence of bowel obstruction. No definite signs of pneumoperitoneum. Round density projecting over left upper quadrant, probably percutaneous gastrostomy tube. Left upper quadrant surgical clips are again seen. Again seen surgical elissa projecting at medial left lung base. No acute osseous abnormality. IMPRESSION: Large rectal fecal impaction and colonic stool burden. Gaseous distention of sigmoid colon proximal to the fecal impaction. Signed by: Dr. Bravo Mensah MD on 08/03/2020 10:30 PM
[2020-08-03] MEDS: MIRTAZAPINE 15 MG TAB PO SCH (22:45)
[2020-08-03] MEDS: CARBAMAZEPINE 200 MG TAB PEG SCH (22:45)
--- NOTE | 2020-08-03 23:25 | NUR ---
Called and informed Marisela Salazar (PACKAGER MACHINE for Dr. Gamez) about result of KUB taken tonight. Marisela made aware by nurse (Fabian) that patient had a large bowel movement even before KUB was done. Marisela allowed for pt to received crushed meds and give via PEG but no re-start of feeding via PEG at this time. Pt is kept NPO.
[2020-08-04] VITALS (8 sets, daily range): BP systolic 88–117; BP diastolic 54–85
[2020-08-04] MEDS: SODIUM CHLORIDE 0.9% 1000ML 1,000 ML IV SCH ×2 (02:20→11:00)
[2020-08-04] MEDS: VANCOMYCIN 750MG/NS 150ML IVPB 150 ML IV SCH ×2 (04:00→16:20)
--- NOTE | 2020-08-04 04:40 | NUR ---
Called and spoke with Marisela Salazar ([place]) and informed patient's temp = 101 F. Marisela ordered Tylenol elixir 650mg via PEG Q6hr prn.
[2020-08-04] MEDS: ACETAMINOPHEN 325 MG/10 ML UDC PEG PRN (05:00)
[2020-08-04] MEDS: MEROPENEM 1GM 100 ML IV SCH ×3 (06:00→22:00)
--- NOTE | 2020-08-04 06:46 | NUR ---
Received bedside shift report from off going nurse. Patient is resting in bed, no acute distress noted. Call light within reach. Bed in the lowest position. Bed alarm on.
--- NOTE | 2020-08-04 06:53 | Diagnostic Imaging Report ---
EXAMINATION: CHEST SINGLE (PORTABLE) INDICATION: ^resp failure ^[id number] ^0606 COMPARISON: 08/03/2020 FINDINGS: AP view TUBES and LINES: Stable right internal jugular central line. LUNGS: Lungs are well inflated. Unchanged left basilar consolidation. PLEURA: No pneumothorax. Small left pleural effusion. HEART AND MEDIASTINUM: The cardiomediastinal silhouette is unremarkable. BONES AND SOFT TISSUES: No acute osseous lesion. Soft tissues are unremarkable. UPPER ABDOMEN: No free air under the diaphragm. IMPRESSION: Unchanged small left pleural effusion and left basilar consolidation, representing atelectasis and/or pneumonia. Signed by: Dr. Bravo Mensah MD on 08/04/2020 6:49 AM
[2020-08-04 07:24] LABS: BASOPHILS % 0.1 % (0.0-1.0); EOSINOPHILS % 0.1 % (0.0-6.0); HEMATOCRIT 25.9 % (38.2-49.6); HEMOGLOBIN 8.9 g/dL (14.0-18.0); LYMPHOCYTES # (AUTO) 0.7 (1.0-3.2); LYMPHOCYTES % 4.6 % (18.0-39.1); MEAN CORPUSCULAR HGB CONC 34.4 g/dL (31-35); MEAN CORPUSCULAR VOLUME 81.4 fL (81-99); MONOCYTES # (AUTO) 1.5 (0.2-0.8); MONOCYTES % 10.4 % (4.4-11.3); NEUTROPHILS # (AUTO) 11.8 (2.1-6.9); NEUTROPHILS % 84.2 % (38.7-80.0); PLATELET COUNT 237 x10e3/uL (140-360); RED BLOOD COUNT 3.18 x10e6/uL (4.3-5.7); RED CELL DISTRIBUTION WIDTH 12.1 % (11.7-14.4)
[2020-08-04 07:42] LABS: ALANINE AMINOTRANSFERASE 19 IU/L (0-55); ALBUMIN/GLOBULIN RATIO 0.7 (0.8-2.0); ALKALINE PHOSPHATASE 89 IU/L (40-150); ANION GAP 10.4 mmol/L (8-16); BLOOD UREA NITROGEN 9 mg/dL (7-26); BUN/CREATININE RATIO 17 (6-25); CALCIUM 7.6 mg/dL (8.4-10.2); CARBON DIOXIDE 23 mmol/L (22-29); CHLORIDE 102 mmol/L (98-107); CREATININE, SERUM 0.53 mg/dL (0.72-1.25); EST GLOMERULAR FILTRATION RATE > 60 ML/MIN (60-); GLUCOSE 128 mg/dL (74-118); POTASSIUM 3.4 mmol/L (3.5-5.1); SODIUM 132 mmol/L (136-145)
[2020-08-04] MEDS: SENNOSIDES 8.6 MG TAB PO SCH ×2 (08:00→16:20)
[2020-08-04] MEDS: CARBAMAZEPINE 200 MG TAB PEG SCH ×3 (08:00→21:50)
[2020-08-04] MEDS: DOCUSATE SODIUM LIQD 100 MG/10 ML UDC NG SCH ×2 (08:00→16:20)
--- NOTE | 2020-08-04 11:47 | Progress Note ---
DATE: SUBJECTIVE: The patient received intravenous fluids last night. He did have a temperature to 101. His enteral feedings are on hold because of some severe constipation on the x-ray. PHYSICAL EXAMINATION: VITAL SIGNS: Blood pressure is 100/60, saturation is 99% on room air, and the pulse is 90. HEENT: Shows no facial swelling or erythema. LYMPHATIC: Shows no submandibular, cervical, or supraclavicular adenopathy. CARDIAC: Reveals regular rate and rhythm with normal S1 and S2. LUNGS: Auscultation of lungs reveals crackles and rhonchi bilaterally. ABDOMEN: Soft and nontender. There is no rebound or guarding. LABORATORY DATA: Sodium is 132 and potassium is 3.4. Other electrolytes are within normal limits. BUN to creatinine ratio is 9 to 0.53 and the albumin is 2. White blood cell count is 14.07 and hemoglobin is 8.9. The platelet count is 237. RADIOGRAPHIC DATA: Chest x-ray shows a left basilar consolidation. IMPRESSION: 1. Aspiration pneumonia with sepsis, present on admission. 2. Urinary tract infection with gram-negative rods and sepsis, present on admission. 3. Fecal impaction. 4. Hyponatremia. 5. Anemia, unspecified. 6. History of traumatic brain injury. PLAN: 1. Continue current antibiotics and await culture results. 2. Continue to monitor sodium levels. 3. Stool softeners and laxatives. 4. Restart enteral feedings. Ernesto Roblero MD [facility] /[id number]
[2020-08-04] MEDS ORDERED: CALCIUM GLUCONATE 10% INJ 9.3 MEQ in SODIUM CHLORIDE 0.9% 100 ML 100 ML IV ONE (17:15)
[2020-08-04] MEDS ORDERED: POTASSIUM CHLORIDE 20MEQ/100ML IVPB INJ ONE (17:15)
[2020-08-04] MEDS ORDERED: POTASSIUM CHLORIDE 20MEQ/100ML 200 ML IV ONE (17:30)
--- NOTE | 2020-08-04 19:18 | NUR ---
BEDSIDE SHIFT REPORT GIVEN TO ONCOMING NURSE. PATIENT IS RESTING IN BED, NO S/S OF DISTRESS NOTED AT THIS TIME. CALL LIGHT WITHIN REACH. BED IN THE LOWEST POSITION.
--- NOTE | 2020-08-04 19:24 | NUR ---
CALLED DR. JASMINE TO ASK ABOUT RESUMING PEG TUBE FEEDINGS AND NOTIFIED HIM OF THE KUB RESULTS THAT SHOWED LARGE FECAL IMPACTION AND COLONIC STOOL BURDEN. PER MD HOLD OFF ON THE FEEDINGS, GIVE PATIENT A SOAP SUDS ENEMA X ONE, AND REPEAT KUB IN AM.
--- NOTE | 2020-08-04 19:35 | NUR ---
Patient visited in room during nursing rounds. Pt lying in bed comfortably. Patient contracted on upper and lower extremeties and is aphasic. Pt is bedridden and needs to be turned Q2hr. Pt is diapered and incontinent. Pt just had a large and soft-formed bowel movement. Plan to give pt soap-suds enema per MD (Dr. Gamez) order. Pt is currently kept NPO and has no PEG feed infusing at this time (MD aware). Bed alarm active.
--- NOTE | 2020-08-04 20:00 | NUR ---
Called Marisela Salazar (CENTRAL SUPPLY TECHNICIAN SUPERVISOR for Dr. Gamez) and asked if she wants to order IVF for pt since the last IVF was discontinued this afternoon. Marisela stated patient should be ok without IVF at this time till tomorrow (08/05/20).
[2020-08-04] MEDS: METOCLOPRAMIDE HCL 10 MG TAB PO SCH (21:50)
[2020-08-04] MEDS: FAMOTIDINE 20 MG TAB PO SCH (21:50)
[2020-08-04] MEDS: MIRTAZAPINE 15 MG TAB PO SCH (21:50)
--- NOTE | 2020-08-04 21:50 | NUR ---
Soap suds enema done on the patient per MD (Dr. Gamez) order. Patient continuously having soft formed to loose bowel brown bowel movements. Patient's abdomen slightly distended but soft to touch at this time.
[2020-08-04] MEDS ORDERED: SODIUM CHLORIDE 0.9% 250ML 250 ML ONE (22:19)
[2020-08-05] VITALS (7 sets, daily range): BP systolic 94–130; BP diastolic 64–89
[2020-08-05] MEDS: ALBUTEROL/IPRATROPIUM 3 ML NEB NEB SCH ×2 (00:01→20:40)
[2020-08-05] MEDS: VANCOMYCIN 750MG/NS 150ML IVPB 150 ML IV SCH ×2 (04:20→16:44)
[2020-08-05] MEDS: ACETAMINOPHEN 325 MG/10 ML UDC PEG PRN (05:05)
[2020-08-05 05:48] LABS: BASOPHILS % 0.1 % (0.0-1.0); EOSINOPHILS # (AUTO) 0.1 (0.0-0.4); EOSINOPHILS % 0.4 % (0.0-6.0); HEMATOCRIT 25.3 % (38.2-49.6); HEMOGLOBIN 8.7 g/dL (14.0-18.0); LYMPHOCYTES # (AUTO) 0.9 (1.0-3.2); LYMPHOCYTES % 6.4 % (18.0-39.1); MEAN CORPUSCULAR HGB CONC 34.4 g/dL (31-35); MEAN CORPUSCULAR VOLUME 81.4 fL (81-99); MONOCYTES # (AUTO) 1.1 (0.2-0.8); MONOCYTES % 7.7 % (4.4-11.3); NEUTROPHILS % 84.6 % (38.7-80.0); PLATELET COUNT 245 x10e3/uL (140-360); RED BLOOD COUNT 3.11 x10e6/uL (4.3-5.7); RED CELL DISTRIBUTION WIDTH 12.1 % (11.7-14.4)
[2020-08-05 06:07] LABS: ALANINE AMINOTRANSFERASE 18 IU/L (0-55); ALBUMIN 1.9 g/dL (3.5-5.0); ALBUMIN/GLOBULIN RATIO 0.7 (0.8-2.0); ALKALINE PHOSPHATASE 80 IU/L (40-150); ANION GAP 11.5 mmol/L (8-16); BLOOD UREA NITROGEN 7 mg/dL (7-26); BUN/CREATININE RATIO 13 (6-25); CALCIUM 7.8 mg/dL (8.4-10.2); CARBON DIOXIDE 22 mmol/L (22-29); CHLORIDE 102 mmol/L (98-107); CREATININE, SERUM 0.54 mg/dL (0.72-1.25); EST GLOMERULAR FILTRATION RATE > 60 ML/MIN (60-); GLUCOSE 134 mg/dL (74-118); POTASSIUM 3.5 mmol/L (3.5-5.1); SODIUM 132 mmol/L (136-145)
[2020-08-05] MEDS: MEROPENEM 1GM 100 ML IV SCH ×3 (06:41→22:28)
[2020-08-05] MEDS: METOCLOPRAMIDE HCL 10 MG TAB PO SCH ×3 (06:41→22:28)
--- NOTE | 2020-08-05 08:38 | Diagnostic Imaging Report ---
No change from CHEST SINGLE (PORTABLE) with report dated 08/04/2020 6:49 AM. TECHNIQUE: Frontal view of the chest. INDICATION: ^resp failure ^[id number] ^0599 COMPARISON: Prior day. DISCUSSION: Limited evaluation due to portable technique. Lines and hardware: Stable. Heart and mediastinum: Stable. Lungs and pleura: Lungs are well expanded. Stable left mid lung and lower lobe consolidation. Blunting of the left costophrenic angle is stable. Right lung is clear. Negative for pneumothorax. Soft tissues and bones: No acute abnormality. IMPRESSION: Stable exam demonstrating left lower lobe consolidation and small left pleural effusion. Signed by: Vipul Smith MD on 08/05/2020 8:35 AM
--- NOTE | 2020-08-05 08:43 | Diagnostic Imaging Report ---
Abdomen, one view INDICATION: ^FECAL IMPACTION ^[id number] ^0540 Comparison: X-ray dated 08/03/2020. Discussion: Stable appearance of gastrostomy tube projecting over the mid gastric body. No dilated loops of small bowel are identified. Previous identified significant fecal impaction at the level of the rectum has improved. Stool burden throughout the remainder of the colon is also improved. Mild amount of residual stool is noted throughout the colon. IMPRESSION: Significant improvement in fecal impaction at the level of the rectum. There is also improvement in the stool and gaseous distention of the sigmoid and proximal colon. Mild residual colonic stool burden is noted. Signed by: Vipul Smith MD on 08/05/2020 8:40 AM
[2020-08-05] MEDS: SENNOSIDES 8.6 MG TAB PO SCH ×2 (09:02→18:35)
[2020-08-05] MEDS: FAMOTIDINE 20 MG TAB PO SCH ×2 (09:02→22:27)
[2020-08-05] MEDS: DOCUSATE SODIUM LIQD 100 MG/10 ML UDC NG SCH ×2 (09:02→18:35)
[2020-08-05] MEDS: CARBAMAZEPINE 200 MG TAB PEG SCH ×3 (09:02→22:27)
--- NOTE | 2020-08-05 17:09 | NUR ---
WOUND CARE CONSULT FOR SKIN ASSESSMENT HEELS HAS BLANCHABLE REDNESS BILATERALLY BILATERAL GLUTEAL AREA PINK AND BLANCHABLE RECOMMENDATION NURSING TO CONTINUE TO MONITOR PATIENT AND KEEP SKIN CLEAN AND FREE FROM LOOSE STOOL OR IRRITATING MOISTURE AND CONTINUE TO FOLLOW MODERATE PUP INTERVENTIONS WITH BILATERAL HEEL SUSPENSION NURSING TO CONTINUE TO ASSIST PATIENT WITH MEALS AND NUTRITION TO SUPPORT HEALTHY SKIN AND HEALING Addendum: 08/05/20 at 1714 by Madi Smith RN Amended: Links added.
--- NOTE | 2020-08-05 18:13 | Progress Note ---
DATE: SUBJECTIVE: The patient required a soapsuds enema. He is not having fevers. PHYSICAL EXAMINATION: VITAL SIGNS: Blood pressure is 112/37, saturation is 98%. HEENT: Shows no facial swelling or erythema. LYMPHATIC: Shows no submandibular, cervical, or supraclavicular adenopathy. CARDIAC: Reveals regular rate and rhythm with normal S1, S2. LUNGS: Auscultation of lungs reveal decreased breath sounds at the bases. There is no wheezing. ABDOMEN: Soft and nontender. There is no rebound or guarding. LABORATORY DATA: White blood cell count is 14.2, hemoglobin is 8.7. The platelet count is 245. The BUN to creatinine ratio is normal. The potassium is 3.5 and the sodium is 132. Albumin is 1.9. RADIOGRAPHIC DATA: Chest x-ray shows left lower lobe consolidation and small left pleural effusion. MICROBIOLOGICAL DATA: Urinalysis shows Pseudomonas. IMPRESSION: 1. Pseudomonas urinary tract infection with sepsis, present on admission. 2. Aspiration pneumonia, present on admission. 3. Fecal impaction. 4. Hyponatremia. 5. Anemia. 6. History of traumatic brain injury. PLAN: 1. Continue to monitor sodium levels. 2. Continue meropenem. 3. Restart enteral feedings. 4. Physical therapy. 5. DVT prophylaxis. Ernesto Roblero MD [facility] /[id number]
--- NOTE | 2020-08-05 18:16 | NUR ---
patient resting in bed, no distress noted, PEG tube is intact, IJ line is intact, Dr Britt Roblero here for rounds said to start with feeding jevity 1.2 @ rate of 20cc/hr
[2020-08-05 18:24] LABS: BASOPHILS % 0.3 % (0.0-1.0); EOSINOPHILS # (AUTO) 0.1 (0.0-0.4); EOSINOPHILS % 0.7 % (0.0-6.0); HEMATOCRIT 27.2 % (38.2-49.6); HEMOGLOBIN 9.2 g/dL (14.0-18.0); LYMPHOCYTES # (AUTO) 0.8 (1.0-3.2); MEAN CORPUSCULAR HEMOGLOBIN 27.5 pg (28-32); MEAN CORPUSCULAR HGB CONC 33.8 g/dL (31-35); MEAN CORPUSCULAR VOLUME 81.2 fL (81-99); MONOCYTES % 7.6 % (4.4-11.3); NEUTROPHILS # (AUTO) 11.6 (2.1-6.9); NEUTROPHILS % 84.7 % (38.7-80.0); PLATELET COUNT 269 x10e3/uL (140-360); RED BLOOD COUNT 3.35 x10e6/uL (4.3-5.7); RED CELL DISTRIBUTION WIDTH 12.1 % (11.7-14.4)
[2020-08-05 18:43] LABS: ALANINE AMINOTRANSFERASE 19 IU/L (0-55); ALBUMIN/GLOBULIN RATIO 0.7 (0.8-2.0); ALKALINE PHOSPHATASE 83 IU/L (40-150); ANION GAP 12.5 mmol/L (8-16); BLOOD UREA NITROGEN 8 mg/dL (7-26); BUN/CREATININE RATIO 16 (6-25); CALCIUM 7.9 mg/dL (8.4-10.2); CARBON DIOXIDE 24 mmol/L (22-29); CHLORIDE 100 mmol/L (98-107); EST GLOMERULAR FILTRATION RATE > 60 ML/MIN (60-); GLUCOSE 112 mg/dL (74-118); POTASSIUM 3.5 mmol/L (3.5-5.1); SODIUM 133 mmol/L (136-145)
[2020-08-05] MEDS ORDERED: MAGNESIUM SULFATE 2GM/50ML 50 ML IV ONE (18:45)
--- NOTE | 2020-08-05 20:03 | Progress Note ---
DATE: CONSULTING PHYSICIAN: Dr. Ernesto Roblero with Pulmonology/Critical Care Medicine. SUBJECTIVE: The patient remains nonverbal. He had a soapsuds enema today with fecal impaction, improved. He is having BMs. His Jevity tube feeding was started today via his PEG. OBJECTIVE/PHYSICAL EXAMINATION: VITAL SIGNS: Temperature 98.0, T-max 101.0, blood pressure 99/73, respirations 20, oxygen saturation 100% on room air. GENERAL: Supine. Makes eye contact. However, is nonverbal, which is his baseline. LUNGS: Clear to auscultation, diminished in the bases. HEENT: EOMI. Dry mucous membranes. NECK: Supple. No lymphadenopathy, thyromegaly, or JVD noted. CARDIOVASCULAR: Regular rate and rhythm without murmur. Right IJ central venous catheter without IV fluids. ABDOMEN: Bowel sounds positive. Soft, nontender. Jevity tube feeds infusing at 20 mL an hour via PEG. Soft. Minimal distention. EXTREMITIES: Contractured in all 4 extremities. No pitting edema. No clubbing, cyanosis, or signs of DVT. NEUROLOGIC: Functional quadriplegia, nonverbal. LABORATORY DATA: WBC 13.63, hemoglobin 9.2, hematocrit 27.2, platelets 269. Sodium 132, potassium 3.5, chloride 102, CO2 of 22, anion gap 11.5. BUN 7, creatinine 0.54, estimated GFR greater than 60, glucose 134, calcium 7.8, total bilirubin 0.8. AST 19, ALT 18, alkaline phosphatase 80, total bilirubin 4.5, albumin 1.9, magnesium 1.6. Random vancomycin level 23.5. Coronavirus PCR was negative on 08/03. On 08/03, final urine culture grew multidrug resistant Pseudomonas aeruginosa. IMAGING/OTHER: Abdominal x-ray showed significant improvement in fecal impaction. Chest x-ray showed left lower lobe consolidation and small left pleural effusion. ASSESSMENT AND PLAN: 1. Bibasilar aspiration pneumonia with sepsis (POA). Continue IV vancomycin and Merrem. Pulmonology/Critical Care Medicine following. Appreciate recommendations. Continue Reglan. We will add DuoNeb. 2. Multidrug-resistant Pseudomonas aeruginosa urinary tract infection, POA. Continue IV Merrem. 3. Traumatic brain injury, POA, supportive care. 4. Chronic seizures, POA. Continue Tegretol. 5. Functional quadriplegia. Supportive care. Continue PEG feedings and Reglan. 6. Acute hypomagnesemia. Magnesium level 1.6. We will give 2 g of magnesium sulfate IV once. 7. Mild acute hypokalemia. Potassium level 3.5 (3.4). We will give 40 mEq potassium chloride via PEG tube. 8. Mild acute hyponatremia. Sodium level 132 (132). Monitor while on tube feedings. BUN and creatinine ratio 7 to 0.54. Monitor renal function. 9. Prophylaxis. Pepcid and SCDs. Inpatient, billing code [id number], time spent 35 minutes. Dictated by Win Fay NP Noble Gamez MD [facility] /[id number]
[2020-08-05] MEDS ORDERED: POTASSIUM CHLORIDE 20MEQ/15ML UDC PEG ONE (21:45)
[2020-08-05] MEDS: MIRTAZAPINE 15 MG TAB PO SCH (22:27)
[2020-08-05] MEDS: HEPARIN SOD (PORCINE) 5,000 UNIT/ML VIAL SC SCH (22:29)
[2020-08-06] VITALS (8 sets, daily range): BP systolic 98–125; BP diastolic 65–81
[2020-08-06] MEDS: ALBUTEROL/IPRATROPIUM 3 ML NEB NEB SCH ×6 (03:20→23:05)
[2020-08-06 06:02] LABS: BASOPHILS # (AUTO) 0.1 (0.0-0.1); BASOPHILS % 0.4 % (0.0-1.0); EOSINOPHILS # (AUTO) 0.1 (0.0-0.4); EOSINOPHILS % 0.9 % (0.0-6.0); HEMATOCRIT 28.4 % (38.2-49.6); HEMOGLOBIN 9.6 g/dL (14.0-18.0); LYMPHOCYTES % 8.8 % (18.0-39.1); MEAN CORPUSCULAR HEMOGLOBIN 27.7 pg (28-32); MEAN CORPUSCULAR HGB CONC 33.8 g/dL (31-35); MEAN CORPUSCULAR VOLUME 81.8 fL (81-99); MONOCYTES # (AUTO) 1.1 (0.2-0.8); MONOCYTES % 9.1 % (4.4-11.3); NEUTROPHILS # (AUTO) 9.5 (2.1-6.9); NEUTROPHILS % 80.3 % (38.7-80.0); PLATELET COUNT 310 x10e3/uL (140-360); RED BLOOD COUNT 3.47 x10e6/uL (4.3-5.7); RED CELL DISTRIBUTION WIDTH 12.2 % (11.7-14.4)
[2020-08-06] MEDS: METOCLOPRAMIDE HCL 10 MG TAB PO SCH ×3 (06:14→21:53)
[2020-08-06] MEDS: MEROPENEM 1GM 100 ML IV SCH ×3 (06:14→21:53)
[2020-08-06 06:34] LABS: MAGNESIUM 2.1 MG/DL (1.3-2.1); PHOSPHORUS 2.1 MG/DL (2.3-4.7)
[2020-08-06] MEDS: CARBAMAZEPINE 200 MG TAB PEG SCH ×3 (09:08→21:52)
[2020-08-06] MEDS: FAMOTIDINE 20 MG TAB PO SCH ×2 (09:08→21:52)
[2020-08-06] MEDS: SENNOSIDES 8.6 MG TAB PO SCH ×2 (09:09→18:34)
[2020-08-06] MEDS: DOCUSATE SODIUM LIQD 100 MG/10 ML UDC NG SCH ×2 (09:09→18:34)
[2020-08-06] MEDS: HEPARIN SOD (PORCINE) 5,000 UNIT/ML VIAL SC SCH ×2 (09:09→21:53)
[2020-08-06] MEDS ORDERED: LORAZEPAM 0.5 MG PEG PRN (12:15)
[2020-08-06] MEDS ORDERED: LORAZEPAM 0.5 MG TAB PO PRN (12:30)
[2020-08-06] MEDS ORDERED: HYDRALAZINE HCL 20 MG/ML VIAL IV PRN (12:30)
[2020-08-06] MEDS ORDERED: ACETAMINOPHEN 325 MG TAB PO PRN (12:30)
[2020-08-06] MEDS ORDERED: LORAZEPAM 0.5 MG TAB PEG PRN (12:30)
--- NOTE | 2020-08-06 15:04 | NUR ---
Nutrition Intervention Note RD Recommendation(s) for Physician: -Recommend Jevity 1.2 @ goal rate of 60 mL/hr (provides 1728 kcal, 80 g protein, and 1162 mL water) -Water/fluid management per MD Plan of Care: RD following, monitoring for tolerance and adequacy, tube feed recommendation Nutrition reason for involvement: enteral nutrition and consult RD Assessment (08/06/20) Pt is a 60 year old male admitted with dehydration, hyponatremia, and UTI. Pt has h/o of traumatic brain injury, CVA, and has a PEG tube. Pt is non-verbal and there were no family members present at bedside; therefore, unable to obtain nutrition history from pt. Per weight history in chart, pt weighed 140 lbs on 06/28/2020 and currently has a weight of 131 lbs. If accurate, this would be a 6% weight loss in one month which is considered significant weight loss. Tube feeding of Jevity 1.[address] RD to manage TF order per Dr. Roblero. Will continue to monitor. Principal Problems/Diagnoses: dehydration, hyponatremia, and UTI. PMH: Status post PEG placement, History of traumatic brain injury, Nephrolithiasis, Fecal impaction, Neurological impairment, Prior cerebrovascular accident. GI: round/firm/distended abdomen, last recorded BM 08/06 Skin: suspected deep tissue injury right heel Labs: (08/06/20) Na 133, K 3.5, BUN 8, Cr 0.50, Glu 112, Ca 7.9 Meds: senokot, colace, pepcid, reglan, antibiotic, hydralazine, zofran Ht: 64 in Wt: 131 lbs BMI: 22.5 kg/m2 IBW: 130 lbs Malnutrition Evaluation (08/06/20) Unable to fully assess. The patient does not meet criteria for a specified degree of malnutrition at this time. Will re-evaluate at follow-up as appropriate. Energy intake: Unable to assess at this time Weight loss: >5% in 1 month (Acute) per chart history Fat loss: pt is contracted, sleeping at time of visit unable to assess Muscle loss: pt is contracted, sleeping at time of visit unable to assess Supporting Evidence: Fluid accumulation: no accumulation identified per MD note Functional Status: not assessed Nutrition Prescription (Diet Order): Jevity 1.2 @ 20 mL/hr Estimated Nutritional Needs: Calories: 4060-6834 calories/day (25-30 kcal/kg CBW) Protein: 60-90 g protein/day (1-1.5 g pro/kg CBW) Diet Adequacy: TF order not meeting calorie needs, not meeting protein needs Tolerance: Tolerating TF Diet Education Needs Assessment: Diet education not indicated Nutrition Care Level: moderate Nutrition Diagnosis: Swallowing difficulty related to h/o CVA and brain injury as evidenced by need for enteral nutrition. Goal: Patient will meet 75-100% of estimated needs by follow up Progress: N/A Interventions: -Composition, Rate, Route, Recommended Modifications, Collaboration with other providers Monitoring/Evaluation: -Total energy intake, Total protein intake, Formula/Solution, Weight change Signed: Vicky Franco RD, LD
[2020-08-06] MEDS ORDERED: CEFTAZIDIME 1 GM VIAL IV SCH (16:30)
[2020-08-06] MEDS ORDERED: DIVALPROEX SODIUM 125 MG PEG SCH (17:00)
--- NOTE | 2020-08-06 17:58 | NUR ---
Patient got rashes on hands , legs and chest after start with Ceftazidime IV, Stopped the antibiotic, No distress, O2 Sat 97% on RA, Notified Dr Britt Roblero, he said to Stop and to start with Merrem 1g q8, keep monitoring
[2020-08-06] MEDS ORDERED: CEFTAZIDIME SOD 1 GM/NS 50ML 50 ML IV SCH (18:00)
--- NOTE | 2020-08-06 18:24 | Progress Note ---
DATE: SUBJECTIVE: The patient is afebrile. His urine cultures growing out Pseudomonas. PHYSICAL EXAMINATION: VITAL SIGNS: Blood pressure is 98/66 and saturation is 100%. The pulse is 101. HEENT: Shows no facial swelling or erythema. There is a right IJ line. The site looks clean. There is no drainage. CARDIAC: Reveals regular rate and rhythm with normal S1 and S2. LUNGS: Auscultation of lungs reveals decreased breath sounds at the bases. There is no wheezing. ABDOMEN: Soft and nontender. There is no rebound or guarding. EXTREMITIES: Show no leg edema or calf tenderness. There is no cyanosis or clubbing. SKIN: Shows no rashes. NEUROLOGICAL: Shows no focal abnormalities. LABORATORY DATA: The white blood cell count is 11.85 and the hemoglobin is 9.6. The platelet count is 310. IMPRESSION: 1. Pseudomonas urinary tract infection with sepsis, present on admission. 2. Aspiration pneumonia, present on admission. 3. Fecal impaction. 4. Hyponatremia. 5. History of traumatic brain injury. PLAN: 1. Switch the patient to ceftazidime and complete additional 5 days of therapy. The patient could hopefully be switched to p.o. if he remains afebrile and his white count continues to improve. 2. Continue to monitor sodium. 3. Continue enteral feedings. 4. DVT prophylaxis. Ernesto Roblero MD [facility] /[id number]
[2020-08-06] MEDS: VALPROATE 250MG/5ML ORAL LIQ 5ml PEG SCH (18:34)
[2020-08-06] MEDS: MIRTAZAPINE 15 MG TAB PO SCH (21:52)
[2020-08-06] MEDS ORDERED: MEROPENEM 1GRAM 1 GM in SODIUM CHLORIDE 0.9% 100 ML 100 ML IV SCH (22:00)
[2020-08-07] VITALS: BP 138/89
[2020-08-07] MEDS: ALBUTEROL/IPRATROPIUM 3 ML NEB NEB SCH ×3 (03:15→11:55)
[2020-08-07 04:00] VITALS: BP 143/90
[2020-08-07 06:31] LABS: BASOPHILS % 0.4 % (0.0-1.0); EOSINOPHILS # (AUTO) 0.3 (0.0-0.4); EOSINOPHILS % 3.5 % (0.0-6.0); HEMATOCRIT 25.3 % (38.2-49.6); HEMOGLOBIN 8.5 g/dL (14.0-18.0); LYMPHOCYTES # (AUTO) 0.9 (1.0-3.2); LYMPHOCYTES % 11.8 % (18.0-39.1); MEAN CORPUSCULAR HEMOGLOBIN 27.5 pg (28-32); MEAN CORPUSCULAR HGB CONC 33.6 g/dL (31-35); MEAN CORPUSCULAR VOLUME 81.9 fL (81-99); MONOCYTES # (AUTO) 0.7 (0.2-0.8); MONOCYTES % 10.2 % (4.4-11.3); NEUTROPHILS # (AUTO) 5.3 (2.1-6.9); NEUTROPHILS % 73.4 % (38.7-80.0); PLATELET COUNT 298 x10e3/uL (140-360); RED BLOOD COUNT 3.09 x10e6/uL (4.3-5.7); RED CELL DISTRIBUTION WIDTH 12.3 % (11.7-14.4)
--- NOTE | 2020-08-07 06:44 | NUR ---
RECEIVED BEDSIDE SHIFT REPORT FROM OFF GOING NURSE. PATIENT IS RESTING IN BED. NO ACUTE DISTRESS NOTED AT THIS TIME. CALL LIGHT WITHIN REACH, BED IN THE LOWEST POSITION.
[2020-08-07] MEDS: MEROPENEM 1GM 100 ML IV SCH (06:47)
[2020-08-07] MEDS: METOCLOPRAMIDE HCL 10 MG TAB PO SCH (06:48)
[2020-08-07 06:55] LABS: ALANINE AMINOTRANSFERASE 18 IU/L (0-55); ALBUMIN 1.9 g/dL (3.5-5.0); ALBUMIN/GLOBULIN RATIO 0.7 (0.8-2.0); ALKALINE PHOSPHATASE 87 IU/L (40-150); BLOOD UREA NITROGEN 9 mg/dL (7-26); BUN/CREATININE RATIO 18 (6-25); CALCIUM 7.6 mg/dL (8.4-10.2); CARBON DIOXIDE 27 mmol/L (22-29); CHLORIDE 100 mmol/L (98-107); CREATININE, SERUM 0.49 mg/dL (0.72-1.25); EST GLOMERULAR FILTRATION RATE > 60 ML/MIN (60-); GLUCOSE 125 mg/dL (74-118); SODIUM 134 mmol/L (136-145)
[2020-08-07 08:43] VITALS: BP 121/80
[2020-08-07] MEDS: DOCUSATE SODIUM LIQD 100 MG/10 ML UDC NG SCH (09:00)
[2020-08-07] MEDS: VALPROATE 250MG/5ML ORAL LIQ 5ml PEG SCH (09:00)
[2020-08-07] MEDS: CARBAMAZEPINE 200 MG TAB PEG SCH (09:00)
[2020-08-07] MEDS: SENNOSIDES 8.6 MG TAB PO SCH (09:00)
[2020-08-07] MEDS: HEPARIN SOD (PORCINE) 5,000 UNIT/ML VIAL SC SCH (09:00)
[2020-08-07] MEDS: FAMOTIDINE 20 MG TAB PO SCH (09:00)
--- NOTE | 2020-08-07 09:02 | NUR ---
ASSESSED FEEDING TUBE RESIDUAL, NONE NOTED AT THIS TIME. PATIENT'S HOB ELEVATED AT 35 DEGREE ANGLE.
[2020-08-07 09:11] VITALS: BP 121/80
[2020-08-07] MEDS ORDERED: LEVOFLOXACIN250 MG PEG (10:49)
--- NOTE | 2020-08-07 10:56 | NUR ---
CALLED PATIENT'S MOTHER TO NOTIFY HER THAT PATIENT IS GOING TO BE DISCHARGED HOME, ALSO TO FIND OUT IF PATIENT HAS HOME HEALTH. PER MOM, PATIENT DOES NOT NEED HOME HEALTH AT THIS TIME. MOTHER AND SISTER CAN CARE FOR HIM AT HOME. MOM WILL GET HERE SOON POSSIBLE FOR DISCHARGE TEACHING.
[2020-08-07 11:18] VITALS: BP 122/76
[2020-08-07] MEDS ORDERED: ONDANSETRON HCL 4 MG ORAL DISINTEGRATING TAB PO PRN (11:30)
--- NOTE | 2020-08-07 11:48 | NUR ---
DISCHARGE TEACHING PROVIDED TO PATIENT'S MOTHER, TUCKER BANERJEE. PATIENT'S MOTHER AT BEDSIDE. TRANSITION OF CARE FOLDER WITH DC PAPERWORK AND PRESCRIPTIONS ON HAND. ALL PERSONAL ITEMS ON HAND. CENTRAL LINE DISCONTINUED WITH TIP INTACT, PRESSURE DRESSING APPLIED, NO BLEEDING NOTED.
--- NOTE | 2020-08-07 12:05 | NUR ---
CALLED [facility] FOR TRANSPORTATION AT THIS TIME. ETA IS 45 MINUTES.
--- NOTE | 2020-08-07 13:10 | NUR ---
RECEIVED DC ORDER FROM CLINTON SOLORIO. PATIENT IS IN STABLE CONDITION. DISCHARGE TEACHING PROVIDED TO PATIENT'S MOTHER, SHE VERBALIZED UNDERSTANDING. PATIENT TRANSPORTED HOME VIA [facility]ER BY AMBULANCE.
--- NOTE | 2020-08-07 14:28 | Progress Note ---
DATE: SUBJECTIVE: The patient had central line removed today. He is not having fevers. PHYSICAL EXAMINATION: VITAL SIGNS: Blood pressure is 122/76, saturation is 99%. HEENT: Shows no facial swelling or erythema. LYMPHATIC: Shows no submandibular, cervical, or supraclavicular adenopathy. CARDIAC: Reveals a regular rate and rhythm with normal S1 and S2. LUNGS: Auscultation of lungs reveals decreased breath sounds at the bases. There is no wheezing. ABDOMEN: Soft, nontender. LABORATORY DATA: White blood cell count is 7.18, hemoglobin is 8.5. The platelet count is 298,000. The BUN to creatinine ratio is 9 to 0.49. Other electrolytes are within normal limits and the albumin is 1.9. IMPRESSION: 1. Aspiration pneumonia, present on admission. 2. Pseudomonas urinary tract infection. 3. Fecal impaction. 4. History of traumatic brain injury. PLAN: 1. The patient had an allergic reaction to ceftazidime last night. He was switched back to Merrem. Hopefully, he can be subsequently switched to p.o. antibiotics. 2. Continue enteral feedings. 3. The patient should have a repeat chest x-ray in 3-4 weeks after discharge. Ernesto Roblero MD [facility]/[place] /[id number]
--- NOTE | 2020-08-08 03:23 | Discharge Summary ---
ADMISSION DIAGNOSES: 1. Bibasilar aspiration pneumonia with sepsis, present on admission. 2. Pseudomonas urinary tract infection, present on admission. 3. Traumatic brain injury with seizures and functional quadriplegia, present on admission. DISCHARGE DIAGNOSES: 1. Bibasilar aspiration pneumonia with sepsis, present on admission. 2. Pseudomonas urinary tract infection, present on admission. 3. Traumatic brain injury with seizures and functional quadriplegia, present on admission. 4. Rule out COVID. 5. Rule out bacteremia. HISTORY: Traumatic brain injury, CVA, and seizures. SURGICAL HISTORY: PEG placement. FAMILY HISTORY: Noncontributory. SOCIAL HISTORY: Noncontributory. HOSPITAL COURSE: A 60-year-old male was brought by EMS due to fever for one day. On admission, chest x-ray showed increasing bibasilar opacities, left greater than right, suggestive of pneumonia in the setting of fever. The patient was started on IV Merrem. KUB showed large rectal fecal impaction and colonic stool burden. The patient was started on a bowel regimen to help and have multiple bowel movements. Sodium level on admission was 125, which trended up as the patient started to tolerate diet. White blood cell count trended down after IV antibiotics. The patient had central line placed due to the hyponatremia and dehydration. Urine came back positive for Pseudomonas. Blood cultures were negative. Few days later, a repeat KUB was done, which showed significant improvement in the fecal impaction. Coronavirus was negative. Since the patient is tolerating diet, having bowel movements and labs have improved, he will discharge home with new prescription for 7 more days of Levaquin. He will follow up with primary care in 1 to 2 weeks. He lives at home with family, who takes very good care of him. They are refusing home health and states they get their tube feedings through their primary care doctor. At time of discharge, vital signs are stable. The patient is afebrile. Dictated by Jewell Dimas NP Noble Gamez MD JOSSY/MODL /[id number]
== END 2020-08-07 13:10 | disposition home or self-care (01) | DRG 871 ==
LOC: ER 13:30 → ERHOLD 15:01 → MED/SURG3 19:00
PROVIDERS: ADMIT Internal Medicine; ATTEND Internal Medicine
PROC: 02HV33Z Insertion of Infusion Device into Superior Vena Cava, Percutaneous Approach (ICD-10-PCS; principal; 2020-08-03)
DX: A41.9 Sepsis, unspecified organism (principal); J69.0 Pneumonitis due to inhalation of food and vomit; R53.2 Functional quadriplegia; E44.0 Moderate protein-calorie malnutrition; N39.0 Urinary tract infection, site not specified; E87.1 Hypo-osmolality and hyponatremia; Z87.820 Personal history of traumatic brain injury; D64.9 Anemia, unspecified; B96.5 Pseudomonas (aeruginosa) (mallei) (pseudomallei) as the cause of diseases classified elsewhere; Z11.59 Encounter for screening for other viral diseases; K56.41 Fecal impaction; R47.9 Unspecified speech disturbances; E87.6 Hypokalemia; Z93.1 Gastrostomy status
CPT/HCPCS: 36415; 71045; 74018; 80053; 80156; 80202; 81001; 82550; 82553; 83605; 83735; 84100; 84484; 85025; 85610; 85730; 87040; 87086; 87186; 93306; 94640; 99251; 99285; J0456; J0610; J0696; J0713; J1644; J2001; J2405; J3475; J3480; J7030; J7050

== ENCOUNTER 2021-02-21 20:11 | Inpatient (IN) | payer OTHER ==
[~2021-02-21] VITALS: Ht 162.6 cm; Wt 55.5 kg
[~2021-02-21 20:11] MED LIST changes: +LEVOFLOXACIN250 MG PEG
[2021-02-21 20:36] LABS: BASOPHILS # (AUTO) 0.1 (0.0-0.1); BASOPHILS % 0.4 % (0.0-1.0); EOSINOPHILS # (AUTO) 0.2 (0.0-0.4); EOSINOPHILS % 1.1 % (0.0-6.0); HEMOGLOBIN 13.5 g/dL (14.0-18.0); LYMPHOCYTES # (AUTO) 7.8 (1.0-3.2); LYMPHOCYTES % 48.2 % (18.0-39.1); MEAN CORPUSCULAR HEMOGLOBIN 28.5 pg (28-32); MEAN CORPUSCULAR HGB CONC 33.8 g/dL (31-35); MEAN CORPUSCULAR VOLUME 84.6 fL (81-99); MONOCYTES # (AUTO) 1.2 (0.2-0.8); MONOCYTES % 7.4 % (4.4-11.3); NEUTROPHILS # (AUTO) 6.9 (2.1-6.9); NEUTROPHILS % 42.6 % (38.7-80.0); PLATELET COUNT 262 x10e3/uL (140-360); RED BLOOD COUNT 4.73 x10e6/uL (4.3-5.7); RED CELL DISTRIBUTION WIDTH 12.5 % (11.7-14.4)
[2021-02-21] MEDS ORDERED: LEVETIRACETAM 500MG/5ML VIAL 500 MG in SODIUM CHLORIDE 0.9% 100 ML 100 ML IV STA ×6 (20:41)
[2021-02-21] MEDS ORDERED: LORAZEPAM INJ 2 MG/ML VIAL IV ONE (20:45)
[2021-02-21 20:51] LABS: ALANINE AMINOTRANSFERASE 82 IU/L (0-55); ALBUMIN 3.9 g/dL (3.5-5.0); ALBUMIN/GLOBULIN RATIO 1.2 (0.8-2.0); ALKALINE PHOSPHATASE 120 IU/L (40-150); ANION GAP 18.8 mmol/L (8-16); BLOOD UREA NITROGEN 16 mg/dL (7-26); BUN/CREATININE RATIO 23 (6-25); CALCIUM 9.1 mg/dL (8.4-10.2); CARBON DIOXIDE 21 mmol/L (22-29); CHLORIDE 101 mmol/L (98-107); CREATINE KINASE 45 IU/L (30-200); CREATININE, SERUM 0.71 mg/dL (0.72-1.25); EST GLOMERULAR FILTRATION RATE > 60 ML/MIN (60-); GLUCOSE 152 mg/dL (74-118); POTASSIUM 3.8 mmol/L (3.5-5.1); SODIUM 137 mmol/L (136-145)
[2021-02-21] MEDS ORDERED: VANCOMYCIN 1GM/NS 250 ML 250 ML IV STA (21:11)
[2021-02-21] MEDS ORDERED: ACYCLOVIR SODIUM INJ 1,000 MG in SODIUM CHLORIDE 0.9% 250ML 250 ML IV STA (21:11)
[2021-02-21] MEDS: SODIUM CHLORIDE 0.9% 1000ML 1,000 ML IV SCH (21:15)
[2021-02-21] MEDS ORDERED: CEFTRIAXONE SOD 2 GM/100 ML ML IV ONE (21:15)
[2021-02-21] MEDS ORDERED: DEXAMETHASONE SOD PHOS 10 MG/1 ML VIAL IV ONE (21:15)
[2021-02-21] MEDS ORDERED: ASPIRIN 81 MG CHEW TAB PO ONE (21:15)
[2021-02-21] MEDS ORDERED: CEFTRIAXONE SOD 2 GM in SODIUM CHLORIDE 0.9% 100 ML IV ONE (21:30)
[2021-02-21 21:43] LABS: EOSINOPHILS % (MANUAL) 2 % (0-7); LYMPHOCYTES % (MANUAL) 17 % (19-48); MONOCYTES % (MANUAL) 2 % (3.4-9.0); NEUTROPHILS % (MANUAL) 45 % (40-74); PLATELET ESTIMATE ADEQUATE; PLATELET MORPHOLOGY COMMENT NORMAL; RBC MORPHOLOGY COMMENT NORMAL
[2021-02-22] VITALS (7 sets, daily range): BP systolic 102–114; BP diastolic 69–103
[2021-02-22 05:31] LABS: BASOPHILS % 0.3 % (0.0-1.0); EOSINOPHILS % 0.1 % (0.0-6.0); HEMOGLOBIN 11.8 g/dL (14.0-18.0); LYMPHOCYTES # (AUTO) 1.1 (1.0-3.2); LYMPHOCYTES % 14.7 % (18.0-39.1); MEAN CORPUSCULAR HEMOGLOBIN 28.3 pg (28-32); MEAN CORPUSCULAR HGB CONC 33.7 g/dL (31-35); MEAN CORPUSCULAR VOLUME 83.9 fL (81-99); MONOCYTES # (AUTO) 0.6 (0.2-0.8); MONOCYTES % 8.2 % (4.4-11.3); NEUTROPHILS # (AUTO) 5.8 (2.1-6.9); NEUTROPHILS % 76.3 % (38.7-80.0); PLATELET COUNT 160 x10e3/uL (140-360); RED BLOOD COUNT 4.17 x10e6/uL (4.3-5.7); RED CELL DISTRIBUTION WIDTH 12.5 % (11.7-14.4)
[2021-02-22 06:43] LABS: ALANINE AMINOTRANSFERASE 67 IU/L (0-55); ALBUMIN 3.4 g/dL (3.5-5.0); ALBUMIN/GLOBULIN RATIO 1.3 (0.8-2.0); ALKALINE PHOSPHATASE 96 IU/L (40-150); ANION GAP 12.4 mmol/L (8-16); BLOOD UREA NITROGEN 16 mg/dL (7-26); BUN/CREATININE RATIO 27 (6-25); CALCIUM 8.7 mg/dL (8.4-10.2); CARBON DIOXIDE 25 mmol/L (22-29); CHLORIDE 104 mmol/L (98-107); CREATININE, SERUM 0.59 mg/dL (0.72-1.25); EST GLOMERULAR FILTRATION RATE > 60 ML/MIN (60-); GLUCOSE 131 mg/dL (74-118); PHOSPHORUS 2.8 MG/DL (2.3-4.7); POTASSIUM 4.4 mmol/L (3.5-5.1); SODIUM 137 mmol/L (136-145)
[2021-02-22] MEDS ORDERED: VANCOMYCIN 1GM/NS 250 ML 250 ML IV SCH (06:45)
[2021-02-22] MEDS ORDERED: LEVETIRACETAM 500MG/5ML VIAL 500 MG in SODIUM CHLORIDE 0.9% 100 ML 100 ML IV SCH (06:45)
[2021-02-22] MEDS ORDERED: DOCUSATE SODIUM 100 MG CAP PO PRN (06:45)
[2021-02-22] MEDS ORDERED: ACETAMINOPHEN 325 MG TAB PO PRN (06:45)
[2021-02-22] MEDS ORDERED: ONDANSETRON HCL INJ 2MG/ML 2ML 2 MG/ML VIAL IV PRN (06:45)
[2021-02-22] MEDS ORDERED: LORAZEPAM 0.5 MG TAB PO PRN (06:45)
[2021-02-22] MEDS ORDERED: CEFTRIAXONE SOD 2 GM/100 ML ML IV SCH (06:45)
[2021-02-22] MEDS ORDERED: CEFTRIAXONE SOD 2 GM in SODIUM CHLORIDE 0.9% 50ML 50 ML IV SCH (07:00)
[2021-02-22 07:01] LABS: CREATINE KINASE MB 0.9 ng/mL (0-5.0)
[2021-02-22] MEDS ORDERED: TOPIRAMATE 25 MG TAB PEG SCH (09:00)
[2021-02-22] MEDS: SENNOSIDES 8.6 MG TAB PO SCH ×2 (09:00→16:49)
[2021-02-22] MEDS: DIVALPROEX SODIUM 125 MG TABDR...ER PO SCH ×2 (09:00→17:42)
[2021-02-22] MEDS: BUSPIRONE HCL 5 MG TAB PEG SCH (09:00)
[2021-02-22] MEDS: SODIUM CHLORIDE 0.9% 1000ML 1,000 ML IV SCH ×2 (12:30→13:15)
[2021-02-22] MEDS: CARBAMAZEPINE 200 MG TAB PEG SCH ×3 (12:49→21:44)
[2021-02-22] MEDS ORDERED: ACYCLOVIR SODIUM INJ 500 MG in SODIUM CHLORIDE 0.9% 100 ML 100 ML IV SCH (14:00)
[2021-02-22] MEDS: TOPIRAMATE 100 MG TAB PO SCH (16:49)
[2021-02-22] MEDS: ACYCLOVIR SODIUM INJ 500 MG in SODIUM CHLORIDE 0.9% 100 ML 100 ML IV SCH (17:43)
[2021-02-23] VITALS (7 sets, daily range): BP systolic 100–116; BP diastolic 69–82
[2021-02-23] MEDS: LEVETIRACETAM 500MG/5ML VIAL 500 MG in SODIUM CHLORIDE 0.9% 100 ML 100 ML IV SCH ×2 (00:25→12:34)
[2021-02-23] MEDS ORDERED: SODIUM CHLORIDE 0.9% 100 ML ONE (00:28)
[2021-02-23] MEDS: ACYCLOVIR SODIUM INJ 500 MG in SODIUM CHLORIDE 0.9% 100 ML 100 ML IV SCH (02:08)
[2021-02-23] MEDS: SODIUM CHLORIDE 0.9% 1000ML 1,000 ML IV SCH ×4 (05:48→21:19)
[2021-02-23 06:57] LABS: BASOPHILS % 0.4 % (0.0-1.0); EOSINOPHILS # (AUTO) 0.1 (0.0-0.4); EOSINOPHILS % 1.9 % (0.0-6.0); HEMATOCRIT 30.2 % (38.2-49.6); HEMOGLOBIN 10.4 g/dL (14.0-18.0); LYMPHOCYTES # (AUTO) 1.2 (1.0-3.2); LYMPHOCYTES % 20.5 % (18.0-39.1); MEAN CORPUSCULAR HEMOGLOBIN 28.8 pg (28-32); MEAN CORPUSCULAR HGB CONC 34.4 g/dL (31-35); MEAN CORPUSCULAR VOLUME 83.7 fL (81-99); MONOCYTES # (AUTO) 0.7 (0.2-0.8); MONOCYTES % 12.4 % (4.4-11.3); NEUTROPHILS # (AUTO) 3.6 (2.1-6.9); NEUTROPHILS % 64.4 % (38.7-80.0); PLATELET COUNT 102 x10e3/uL (140-360); RED BLOOD COUNT 3.61 x10e6/uL (4.3-5.7); RED CELL DISTRIBUTION WIDTH 12.4 % (11.7-14.4)
[2021-02-23 07:11] LABS: ANION GAP 10.3 mmol/L (8-16); BLOOD UREA NITROGEN 11 mg/dL (7-26); BUN/CREATININE RATIO 19 (6-25); CALCIUM 8.2 mg/dL (8.4-10.2); CARBON DIOXIDE 24 mmol/L (22-29); CHLORIDE 108 mmol/L (98-107); CREATININE, SERUM 0.59 mg/dL (0.72-1.25); EST GLOMERULAR FILTRATION RATE > 60 ML/MIN (60-); GLUCOSE 138 mg/dL (74-118); POTASSIUM 3.3 mmol/L (3.5-5.1); SODIUM 139 mmol/L (136-145)
[2021-02-23] MEDS: BUSPIRONE HCL 5 MG TAB PEG SCH (08:26)
[2021-02-23] MEDS: SENNOSIDES 8.6 MG TAB PO SCH ×2 (08:27→16:17)
[2021-02-23] MEDS: DIVALPROEX SODIUM 125 MG TABDR...ER PO SCH ×2 (08:28→16:17)
[2021-02-23] MEDS: CARBAMAZEPINE 200 MG TAB PEG SCH ×3 (08:28→21:19)
[2021-02-23] MEDS: TOPIRAMATE 100 MG TAB PO SCH ×2 (08:30→16:17)
[2021-02-23] MEDS: CEFTRIAXONE SOD 2 GM 100 ML IV SCH (11:00)
[2021-02-23] MEDS ORDERED: POTASSIUM CHLORIDE 10MEQ EA PEG ONE (12:45)
[2021-02-23] MEDS ORDERED: KCL 20 MEQ PACKET/ ORAL SOLN PEG ONE (13:30)
[2021-02-23] MEDS: CIPROFLOXACIN-DEXAMETHASONE (OTIC) 7.5 ML BOTTLE OT SCH (21:20)
[2021-02-24] VITALS (8 sets, daily range): BP systolic 88–129; BP diastolic 63–86
[2021-02-24] MEDS: LEVETIRACETAM 500MG/5ML VIAL 500 MG in SODIUM CHLORIDE 0.9% 100 ML 100 ML IV SCH ×2 (00:29→12:30)
[2021-02-24] MEDS: SODIUM CHLORIDE 0.9% 1000ML 1,000 ML IV SCH ×3 (01:00→20:29)
[2021-02-24 05:53] LABS: BASOPHILS % 0.5 % (0.0-1.0); EOSINOPHILS # (AUTO) 0.3 (0.0-0.4); EOSINOPHILS % 5.5 % (0.0-6.0); HEMATOCRIT 32.6 % (38.2-49.6); LYMPHOCYTES # (AUTO) 1.9 (1.0-3.2); LYMPHOCYTES % 31.5 % (18.0-39.1); MEAN CORPUSCULAR HEMOGLOBIN 28.2 pg (28-32); MEAN CORPUSCULAR HGB CONC 33.7 g/dL (31-35); MEAN CORPUSCULAR VOLUME 83.6 fL (81-99); MONOCYTES # (AUTO) 0.7 (0.2-0.8); MONOCYTES % 10.7 % (4.4-11.3); NEUTROPHILS # (AUTO) 3.2 (2.1-6.9); NEUTROPHILS % 51.5 % (38.7-80.0); PLATELET COUNT 121 x10e3/uL (140-360); RED CELL DISTRIBUTION WIDTH 12.5 % (11.7-14.4)
[2021-02-24] MEDS ORDERED: ONDANSETRON HCL 4 MG ORAL DISINTEGRATING TAB PO PRN (09:00)
[2021-02-24] MEDS: CIPROFLOXACIN-DEXAMETHASONE (OTIC) 7.5 ML BOTTLE OT SCH ×2 (09:15→20:25)
[2021-02-24] MEDS: SENNOSIDES 8.6 MG TAB PO SCH ×2 (09:15→17:06)
[2021-02-24] MEDS: CARBAMAZEPINE 200 MG TAB PEG SCH ×3 (09:15→20:25)
[2021-02-24] MEDS: BUSPIRONE HCL 5 MG TAB PEG SCH (09:15)
[2021-02-24] MEDS: DIVALPROEX SODIUM 125 MG TABDR...ER PO SCH ×2 (09:15→17:06)
[2021-02-24] MEDS: TOPIRAMATE 100 MG TAB PO SCH ×2 (09:15→17:06)
[2021-02-24] MEDS: CEFTRIAXONE SOD 2 GM 100 ML IV SCH (10:30)
[2021-02-25] VITALS (7 sets, daily range): BP systolic 106–145; BP diastolic 72–102
[2021-02-25] MEDS: LEVETIRACETAM 500MG/5ML VIAL 500 MG in SODIUM CHLORIDE 0.9% 100 ML 100 ML IV SCH ×2 (00:50→11:33)
[2021-02-25] MEDS: SODIUM CHLORIDE 0.9% 1000ML 1,000 ML IV SCH (04:43)
[2021-02-25] MEDS: CARBAMAZEPINE 200 MG TAB PEG SCH ×2 (08:34→16:14)
[2021-02-25] MEDS: SENNOSIDES 8.6 MG TAB PO SCH ×2 (08:34→16:14)
[2021-02-25] MEDS: CIPROFLOXACIN-DEXAMETHASONE (OTIC) 7.5 ML BOTTLE OT SCH (08:34)
[2021-02-25] MEDS: BUSPIRONE HCL 5 MG TAB PEG SCH (08:34)
[2021-02-25] MEDS: TOPIRAMATE 100 MG TAB PO SCH ×2 (08:34→16:14)
[2021-02-25] MEDS: DIVALPROEX SODIUM 125 MG TABDR...ER PO SCH ×2 (08:34→16:14)
[2021-02-25 09:18] LABS: ANION GAP 11.5 mmol/L (8-16); BLOOD UREA NITROGEN 7 mg/dL (7-26); BUN/CREATININE RATIO 13 (6-25); CALCIUM 8.4 mg/dL (8.4-10.2); CARBON DIOXIDE 21 mmol/L (22-29); CHLORIDE 112 mmol/L (98-107); CREATININE, SERUM 0.54 mg/dL (0.72-1.25); EST GLOMERULAR FILTRATION RATE > 60 ML/MIN (60-); GLUCOSE 109 mg/dL (74-118); POTASSIUM 3.5 mmol/L (3.5-5.1); SODIUM 141 mmol/L (136-145)
[2021-02-25] MEDS: CEFTRIAXONE SOD 2 GM 100 ML IV SCH (10:45)
[2021-02-26] MEDS ORDERED: BUSPIRONE HCL 5 MG TAB PEG SCH (09:00)
== END 2021-02-25 17:15 | disposition home or self-care (01) | DRG 101 ==
LOC: ER 21:38 → ERHOLD 23:31 → MED/SURG3 02-22 13:45
PROVIDERS: ADMIT Internal Medicine; ATTEND Internal Medicine
DX: G40.909 Epilepsy, unspecified, not intractable, without status epilepticus (principal); Z74.01 Bed confinement status; Z20.822 Contact with and (suspected) exposure to COVID-19
CPT/HCPCS: 36415; 36569; 70450; 71045; 80048; 80053; 80156; 82542; 82550; 82553; 84100; 84146; 84484; 85025; 85730; 93005; 95812; 96361; 99285; J0696; J1100; J3370; J7030; J7050; U0002

== ENCOUNTER 2021-08-06 17:06 | Inpatient (IN) | payer OTHER ==
[~2021-08-06] VITALS: Ht 162.6 cm; Wt 58.7 kg
[2021-08-06] MEDS ORDERED: AMPICILLIN SOD/SULBACTAM 1.5GM 50 ML IV SCH (18:00)
[2021-08-06 18:07] LABS: BASOPHILS % 0.2 % (0.0-1.0); EOSINOPHILS % 0.1 % (0.0-6.0); HEMATOCRIT 30.1 % (38.2-49.6); HEMOGLOBIN 10.1 g/dL (14.0-18.0); LYMPHOCYTES # (AUTO) 0.9 (1.0-3.2); LYMPHOCYTES % 5.4 % (18.0-39.1); MEAN CORPUSCULAR HEMOGLOBIN 27.7 pg (28-32); MEAN CORPUSCULAR HGB CONC 33.6 g/dL (31-35); MEAN CORPUSCULAR VOLUME 82.5 fL (81-99); MONOCYTES # (AUTO) 1.4 (0.2-0.8); MONOCYTES % 8.5 % (4.4-11.3); NEUTROPHILS # (AUTO) 14.3 (2.1-6.9); NEUTROPHILS % 84.9 % (38.7-80.0); PLATELET COUNT 347 x10e3/uL (140-360); RED BLOOD COUNT 3.65 x10e6/uL (4.3-5.7)
[2021-08-06 18:31] LABS: ALBUMIN/GLOBULIN RATIO 0.8 (0.8-2.0); ANION GAP 14.9 mmol/L (8-16); CALCIUM 8.3 mg/dL (8.4-10.2); CREATININE, SERUM 0.61 mg/dL (0.72-1.25); POTASSIUM 4.9 mmol/L (3.5-5.1)
[2021-08-06 21:13] VITALS: BP 101/81
[2021-08-06] MEDS: PIPERACILLIN/TAZOBACTAM 2.25 GM in SODIUM CHLORIDE 0.9% 50ML 50 ML IV SCH (23:46)
[2021-08-07] VITALS (13 sets, daily range): BP systolic 89–119; BP diastolic 71–86
[2021-08-07] MEDS: PIPERACILLIN/TAZOBACTAM 2.25 GM in SODIUM CHLORIDE 0.9% 50ML 50 ML IV SCH ×3 (07:36→20:13)
[2021-08-07] MEDS ORDERED: SODIUM CHLORIDE 0.9% 50ML 50 ML ONE ×2 (07:36→16:28)
[2021-08-07] MEDS ORDERED: LORAZEPAM INJ 2 MG/ML VIAL IV PRN (09:30)
[2021-08-07] MEDS: SODIUM CHLORIDE 0.9% 1000ML 1,000 ML IV SCH ×2 (10:15→23:40)
[2021-08-07] MEDS: TOPIRAMATE 100 MG TAB PEG SCH (10:30)
[2021-08-07] MEDS: BUSPIRONE HCL 5 MG TAB PEG SCH (10:37)
[2021-08-07] MEDS: CARBAMAZEPINE 200 MG TAB PEG SCH ×2 (15:42→20:13)
[2021-08-07] MEDS: SENNOSIDES 8.6 MG TAB PO SCH (16:11)
[2021-08-07] MEDS: VALPROATE 250MG/5ML ORAL LIQ 5ml PEG SCH (16:11)
[2021-08-07] MEDS: ENOXAPARIN SOD INJ 40 MG/0.4 ML SYR SC SCH (16:12)
[2021-08-07] MEDS ORDERED: IOPAMIDOL 370 MG/ML 200 ML INFUS..BTL INJ ONE (16:28)
[2021-08-07] MEDS ORDERED: DIVALPROEX SODIUM 125 MG TABDR...ER PO SCH (17:00)
[2021-08-07] MEDS: MIRTAZAPINE 15 MG TAB PO SCH (20:14)
[2021-08-08] MEDS: PIPERACILLIN/TAZOBACTAM 2.25 GM in SODIUM CHLORIDE 0.9% 50ML 50 ML IV SCH ×4 (02:00→20:50)
[2021-08-08 05:17] VITALS: BP 108/78
[2021-08-08 06:40] LABS: BASOPHILS % 0.3 % (0.0-1.0); EOSINOPHILS % 0.2 % (0.0-6.0); HEMATOCRIT 23.4 % (38.2-49.6); LYMPHOCYTES # (AUTO) 0.9 (1.0-3.2); LYMPHOCYTES % 8.7 % (18.0-39.1); MEAN CORPUSCULAR HEMOGLOBIN 27.4 pg (28-32); MEAN CORPUSCULAR HGB CONC 34.2 g/dL (31-35); MEAN CORPUSCULAR VOLUME 80.1 fL (81-99); MONOCYTES # (AUTO) 1.2 (0.2-0.8); MONOCYTES % 11.6 % (4.4-11.3); NEUTROPHILS # (AUTO) 8.1 (2.1-6.9); NEUTROPHILS % 78.5 % (38.7-80.0); PLATELET COUNT 323 x10e3/uL (140-360); RED BLOOD COUNT 2.92 x10e6/uL (4.3-5.7)
[2021-08-08 07:02] LABS: ANION GAP 10.9 mmol/L (8-16); CALCIUM 8.1 mg/dL (8.4-10.2); CREATININE, SERUM 0.57 mg/dL (0.72-1.25); POTASSIUM 3.9 mmol/L (3.5-5.1)
[2021-08-08 07:03] LABS: MAGNESIUM 1.9 MG/DL (1.3-2.1); PHOSPHORUS 3.1 MG/DL (2.3-4.7)
[2021-08-08 07:23] LABS: THYROID STIMULATING HORMONE 1.236 uIU/mL (0.350-4.940)
[2021-08-08 08:22] VITALS: BP 103/74
[2021-08-08] MEDS: TOPIRAMATE 100 MG TAB PEG SCH (09:18)
[2021-08-08] MEDS: CARBAMAZEPINE 200 MG TAB PEG SCH ×3 (09:18→20:51)
[2021-08-08] MEDS: SENNOSIDES 8.6 MG TAB PO SCH ×2 (09:18→17:45)
[2021-08-08] MEDS: BUSPIRONE HCL 5 MG TAB PEG SCH (09:18)
[2021-08-08] MEDS: VALPROATE 250MG/5ML ORAL LIQ 5ml PEG SCH ×2 (09:18→17:45)
[2021-08-08 09:30] VITALS: BP 103/74
[2021-08-08 12:28] VITALS: BP 110/77
[2021-08-08] MEDS ORDERED: PROPOFOL IV EMULSION 10 MG/ML 20 ML VIAL ONE (12:50)
[2021-08-08] MEDS ORDERED: POVIDONE IODINE 0.05% 0.05 % ML PO ONE (12:50)
[2021-08-08] MEDS: SODIUM CHLORIDE 0.9% 1000ML 1,000 ML IV SCH (13:09)
[2021-08-08] MEDS: ENOXAPARIN SOD INJ 40 MG/0.4 ML SYR SC SCH (17:45)
[2021-08-08 20:17] VITALS: BP 115/71
[2021-08-08] MEDS: MIRTAZAPINE 15 MG TAB PO SCH (20:51)
[2021-08-08 23:47] VITALS: BP 87/68
[2021-08-09] VITALS (8 sets, daily range): BP systolic 87–108; BP diastolic 58–69
[2021-08-09] MEDS: PIPERACILLIN/TAZOBACTAM 2.25 GM in SODIUM CHLORIDE 0.9% 50ML 50 ML IV SCH ×4 (02:59→20:07)
[2021-08-09] MEDS: SODIUM CHLORIDE 0.9% 1000ML 1,000 ML IV SCH ×2 (02:59→09:16)
[2021-08-09] MEDS: TOPIRAMATE 100 MG TAB PEG SCH (09:16)
[2021-08-09] MEDS: SENNOSIDES 8.6 MG TAB PO SCH ×2 (09:16→17:12)
[2021-08-09] MEDS: CARBAMAZEPINE 200 MG TAB PEG SCH ×3 (09:16→20:07)
[2021-08-09] MEDS: VALPROATE 250MG/5ML ORAL LIQ 5ml PEG SCH ×2 (09:16→17:12)
[2021-08-09] MEDS: BUSPIRONE HCL 5 MG TAB PEG SCH (09:16)
[2021-08-09] MEDS ORDERED: PIPERACILLIN/TAZOBACTAM SOD 2.25 GM VIAL ONE (15:12)
[2021-08-09] MEDS: ENOXAPARIN SOD INJ 40 MG/0.4 ML SYR SC SCH (17:12)
[2021-08-09] MEDS: MIRTAZAPINE 15 MG TAB PO SCH (20:07)
[2021-08-10] VITALS (8 sets, daily range): BP systolic 94–118; BP diastolic 58–81
[2021-08-10] MEDS ORDERED: MAGNESIUM HYDROXIDE 30 ML UDC PO ONE (01:30)
[2021-08-10] MEDS: PIPERACILLIN/TAZOBACTAM 2.25 GM in SODIUM CHLORIDE 0.9% 50ML 50 ML IV SCH ×4 (03:09→20:24)
[2021-08-10 05:46] LABS: BASOPHILS % 0.6 % (0.0-1.0); EOSINOPHILS # (AUTO) 0.2 (0.0-0.4); EOSINOPHILS % 2.7 % (0.0-6.0); HEMATOCRIT 23.2 % (38.2-49.6); HEMOGLOBIN 7.6 g/dL (14.0-18.0); LYMPHOCYTES # (AUTO) 1.2 (1.0-3.2); LYMPHOCYTES % 17.9 % (18.0-39.1); MEAN CORPUSCULAR HEMOGLOBIN 27.7 pg (28-32); MEAN CORPUSCULAR HGB CONC 32.8 g/dL (31-35); MEAN CORPUSCULAR VOLUME 84.7 fL (81-99); MONOCYTES # (AUTO) 0.9 (0.2-0.8); MONOCYTES % 12.9 % (4.4-11.3); NEUTROPHILS # (AUTO) 4.2 (2.1-6.9); NEUTROPHILS % 64.2 % (38.7-80.0); PLATELET COUNT 423 x10e3/uL (140-360); RED BLOOD COUNT 2.74 x10e6/uL (4.3-5.7); RED CELL DISTRIBUTION WIDTH 12.5 % (11.7-14.4)
[2021-08-10 06:05] LABS: ANION GAP 13.8 mmol/L (8-16); CALCIUM 8.1 mg/dL (8.4-10.2); CREATININE, SERUM 0.55 mg/dL (0.72-1.25); POTASSIUM 3.8 mmol/L (3.5-5.1)
[2021-08-10] MEDS: TOPIRAMATE 100 MG TAB PEG SCH (08:12)
[2021-08-10] MEDS: BUSPIRONE HCL 5 MG TAB PEG SCH (08:12)
[2021-08-10] MEDS: CARBAMAZEPINE 200 MG TAB PEG SCH ×3 (08:12→21:28)
[2021-08-10] MEDS: VALPROATE 250MG/5ML ORAL LIQ 5ml PEG SCH ×2 (08:12→16:07)
[2021-08-10] MEDS: SENNOSIDES 8.6 MG TAB PO SCH ×2 (08:12→16:07)
[2021-08-10] MEDS: IRON SUCROSE 100 MG in SODIUM CHLORIDE 0.9% 100 ML 100 ML IV SCH (09:49)
[2021-08-10] MEDS: MIRTAZAPINE 15 MG TAB PO SCH (21:28)
[2021-08-11] VITALS (8 sets, daily range): BP systolic 100–121; BP diastolic 62–77
[2021-08-11] MEDS: PIPERACILLIN/TAZOBACTAM 2.25 GM in SODIUM CHLORIDE 0.9% 50ML 50 ML IV SCH ×4 (01:59→22:39)
[2021-08-11 05:36] LABS: % IRON SATURATION 21 % (15-50); IRON 53 ug/dL (65-175); TOTAL IRON BINDING CAPACITY 252 ug/dL (261-478); TRANSFERRIN 180 mg/dL (174-364)
[2021-08-11] MEDS ORDERED: SODIUM CHLORIDE 0.9% 50ML 50 ML ONE (08:24)
[2021-08-11] MEDS: CARBAMAZEPINE 200 MG TAB PEG SCH ×3 (09:38→22:27)
[2021-08-11] MEDS: VALPROATE 250MG/5ML ORAL LIQ 5ml PEG SCH ×2 (09:38→16:36)
[2021-08-11] MEDS: SENNOSIDES 8.6 MG TAB PO SCH ×2 (09:38→16:36)
[2021-08-11] MEDS: BUSPIRONE HCL 5 MG TAB PEG SCH (09:38)
[2021-08-11] MEDS: IRON SUCROSE 100 MG in SODIUM CHLORIDE 0.9% 100 ML 100 ML IV SCH (09:38)
[2021-08-11] MEDS: TOPIRAMATE 100 MG TAB PEG SCH (09:38)
[2021-08-11] MEDS: MIRTAZAPINE 15 MG TAB PO SCH (22:28)
[2021-08-12] VITALS (9 sets, daily range): BP systolic 104–133; BP diastolic 70–84
[2021-08-12] MEDS: PIPERACILLIN/TAZOBACTAM 2.25 GM in SODIUM CHLORIDE 0.9% 50ML 50 ML IV SCH ×4 (02:00→21:13)
[2021-08-12] MEDS ORDERED: PIPERACILLIN/TAZOBACTAM SOD 2.25 GM VIAL ONE (04:20)
[2021-08-12 06:27] LABS: BASOPHILS % 0.4 % (0.0-1.0); EOSINOPHILS # (AUTO) 0.2 (0.0-0.4); EOSINOPHILS % 2.7 % (0.0-6.0); HEMATOCRIT 24.7 % (38.2-49.6); HEMOGLOBIN 7.5 g/dL (14.0-18.0); LYMPHOCYTES # (AUTO) 1.4 (1.0-3.2); LYMPHOCYTES % 15.9 % (18.0-39.1); MEAN CORPUSCULAR HEMOGLOBIN 27.8 pg (28-32); MEAN CORPUSCULAR HGB CONC 30.4 g/dL (31-35); MEAN CORPUSCULAR VOLUME 91.5 fL (81-99); MONOCYTES # (AUTO) 1.2 (0.2-0.8); MONOCYTES % 13.9 % (4.4-11.3); NEUTROPHILS # (AUTO) 5.7 (2.1-6.9); NEUTROPHILS % 63.4 % (38.7-80.0); PLATELET COUNT 423 x10e3/uL (140-360); RED CELL DISTRIBUTION WIDTH 14.4 % (11.7-14.4)
[2021-08-12 06:47] LABS: ANION GAP 14.9 mmol/L (8-16); CALCIUM 7.7 mg/dL (8.4-10.2); CREATININE, SERUM 0.52 mg/dL (0.72-1.25); POTASSIUM 3.9 mmol/L (3.5-5.1)
[2021-08-12 06:55] LABS: INR 1.07; PROTHROMBIN TIME 14.4 seconds (11.9-14.5)
[2021-08-12 06:56] LABS: PARTIAL THROMBOPLASTIN TIME 32.1 seconds (23.8-35.5)
[2021-08-12] MEDS: IRON SUCROSE 100 MG in SODIUM CHLORIDE 0.9% 100 ML 100 ML IV SCH (08:54)
[2021-08-12] MEDS ORDERED: SODIUM CHLORIDE 0.9% 250ML 250 ML IV ONE (10:00)
[2021-08-12] MEDS ORDERED: FUROSEMIDE INJ 10 MG/ML 2 ML VIAL IV PRN (10:00)
[2021-08-12] MEDS ORDERED: ACETAMINOPHEN 325 MG/10 ML UDC PEG NR (10:00)
[2021-08-12] MEDS: VALPROATE 250MG/5ML ORAL LIQ 5ml PEG SCH ×2 (14:34→16:37)
[2021-08-12] MEDS: SENNOSIDES 8.6 MG TAB PO SCH ×2 (14:34→16:37)
[2021-08-12] MEDS: BUSPIRONE HCL 5 MG TAB PEG SCH (14:34)
[2021-08-12] MEDS: CARBAMAZEPINE 200 MG TAB PEG SCH ×3 (14:34→21:13)
[2021-08-12] MEDS: TOPIRAMATE 100 MG TAB PEG SCH (14:34)
[2021-08-12] MEDS: MIRTAZAPINE 15 MG TAB PO SCH (21:13)
[2021-08-13] VITALS (9 sets, daily range): BP systolic 95–118; BP diastolic 71–78
[2021-08-13] MEDS: PIPERACILLIN/TAZOBACTAM 2.25 GM in SODIUM CHLORIDE 0.9% 50ML 50 ML IV SCH ×4 (00:57→20:08)
[2021-08-13] MEDS: CARBAMAZEPINE 200 MG TAB PEG SCH ×3 (08:18→20:08)
[2021-08-13] MEDS: SENNOSIDES 8.6 MG TAB PO SCH ×2 (08:18→16:55)
[2021-08-13] MEDS: BUSPIRONE HCL 5 MG TAB PEG SCH (08:18)
[2021-08-13] MEDS: TOPIRAMATE 100 MG TAB PEG SCH (08:18)
[2021-08-13] MEDS: VALPROATE 250MG/5ML ORAL LIQ 5ml PEG SCH ×2 (08:18→16:56)
[2021-08-13] MEDS: IRON SUCROSE 100 MG in SODIUM CHLORIDE 0.9% 100 ML 100 ML IV SCH (09:14)
[2021-08-13 09:52] LABS: BASOPHILS # (AUTO) 0.1 (0.0-0.1); BASOPHILS % 0.6 % (0.0-1.0); EOSINOPHILS # (AUTO) 0.3 (0.0-0.4); EOSINOPHILS % 2.4 % (0.0-6.0); HEMATOCRIT 29.4 % (38.2-49.6); HEMOGLOBIN 9.3 g/dL (14.0-18.0); LYMPHOCYTES # (AUTO) 1.9 (1.0-3.2); LYMPHOCYTES % 17.6 % (18.0-39.1); MEAN CORPUSCULAR HEMOGLOBIN 27.8 pg (28-32); MEAN CORPUSCULAR HGB CONC 31.6 g/dL (31-35); MEAN CORPUSCULAR VOLUME 87.8 fL (81-99); MONOCYTES # (AUTO) 1.4 (0.2-0.8); MONOCYTES % 12.7 % (4.4-11.3); NEUTROPHILS # (AUTO) 6.7 (2.1-6.9); NEUTROPHILS % 62.5 % (38.7-80.0); PLATELET COUNT 397 x10e3/uL (140-360); RED BLOOD COUNT 3.35 x10e6/uL (4.3-5.7)
[2021-08-13] MEDS: MIRTAZAPINE 15 MG TAB PO SCH (20:08)
[2021-08-14] VITALS (9 sets, daily range): BP systolic 103–137; BP diastolic 73–83
[2021-08-14] MEDS: PIPERACILLIN/TAZOBACTAM 2.25 GM in SODIUM CHLORIDE 0.9% 50ML 50 ML IV SCH ×4 (03:19→20:25)
[2021-08-14] MEDS: TOPIRAMATE 100 MG TAB PEG SCH (07:49)
[2021-08-14] MEDS: CARBAMAZEPINE 200 MG TAB PEG SCH ×3 (07:49→20:25)
[2021-08-14] MEDS: SENNOSIDES 8.6 MG TAB PO SCH ×2 (07:49→16:12)
[2021-08-14] MEDS: VALPROATE 250MG/5ML ORAL LIQ 5ml PEG SCH ×2 (07:49→16:12)
[2021-08-14] MEDS: BUSPIRONE HCL 5 MG TAB PEG SCH (07:49)
[2021-08-14] MEDS ORDERED: ENOXAPARIN 30 MG/0.3 ML SYR SC SCH (17:00)
[2021-08-14] MEDS: MIRTAZAPINE 15 MG TAB PO SCH (20:25)
[2021-08-14] MEDS: ACETAMINOPHEN 325 MG/10 ML UDC PEG PRN (20:26)
[2021-08-14] MEDS: ENOXAPARIN SOD INJ 60 MG/0.6 ML SYR SC SCH (21:44)
[2021-08-15] VITALS (9 sets, daily range): BP systolic 103–125; BP diastolic 66–89
[2021-08-15] MEDS ORDERED: PIPERACILLIN/TAZOBACTAM SOD 2.25 GM VIAL ONE (01:44)
[2021-08-15] MEDS: PIPERACILLIN/TAZOBACTAM 2.25 GM in SODIUM CHLORIDE 0.9% 50ML 50 ML IV SCH ×4 (02:00→20:12)
[2021-08-15] MEDS: TRAMADOL HCL 50 MG TAB NG PRN ×2 (02:06→20:12)
[2021-08-15] MEDS: BUSPIRONE HCL 5 MG TAB PEG SCH (07:51)
[2021-08-15] MEDS: CARBAMAZEPINE 200 MG TAB PEG SCH ×3 (07:52→20:12)
[2021-08-15] MEDS: TOPIRAMATE 100 MG TAB PEG SCH (07:52)
[2021-08-15] MEDS: SENNOSIDES 8.6 MG TAB PO SCH ×2 (07:52→16:19)
[2021-08-15] MEDS: VALPROATE 250MG/5ML ORAL LIQ 5ml PEG SCH ×2 (07:52→16:19)
[2021-08-15] MEDS: ENOXAPARIN SOD INJ 60 MG/0.6 ML SYR SC SCH (07:52)
[2021-08-15] MEDS ORDERED: FENTANYL CITRATE/PF 100MCG/2 ML INJ ONE (16:49)
[2021-08-15] MEDS ORDERED: KETAMINE HCL INJ 50 MG/ML 10 ML VIAL ONE (16:49)
[2021-08-15 19:58] LABS: BASOPHILS # (AUTO) 0.1 (0.0-0.1); BASOPHILS % 0.5 % (0.0-1.0); EOSINOPHILS # (AUTO) 0.1 (0.0-0.4); EOSINOPHILS % 0.9 % (0.0-6.0); HEMATOCRIT 29.5 % (38.2-49.6); HEMOGLOBIN 9.3 g/dL (14.0-18.0); LYMPHOCYTES # (AUTO) 1.2 (1.0-3.2); LYMPHOCYTES % 9.7 % (18.0-39.1); MEAN CORPUSCULAR HEMOGLOBIN 28.1 pg (28-32); MEAN CORPUSCULAR HGB CONC 31.5 g/dL (31-35); MEAN CORPUSCULAR VOLUME 89.1 fL (81-99); MONOCYTES # (AUTO) 1.4 (0.2-0.8); MONOCYTES % 12.2 % (4.4-11.3); NEUTROPHILS # (AUTO) 8.9 (2.1-6.9); NEUTROPHILS % 75.1 % (38.7-80.0); PLATELET COUNT 367 x10e3/uL (140-360); RED BLOOD COUNT 3.31 x10e6/uL (4.3-5.7); RED CELL DISTRIBUTION WIDTH 16.5 % (11.7-14.4)
[2021-08-15] MEDS: MIRTAZAPINE 15 MG TAB PO SCH (20:12)
[2021-08-15 20:13] LABS: INR 0.91
[2021-08-15 20:14] LABS: PARTIAL THROMBOPLASTIN TIME 34.2 seconds (23.8-35.5)
[2021-08-15 20:22] LABS: ANION GAP 15.2 mmol/L (8-16); CALCIUM 8.2 mg/dL (8.4-10.2); CREATININE, SERUM 0.54 mg/dL (0.72-1.25); POTASSIUM 4.2 mmol/L (3.5-5.1)
[2021-08-16] VITALS (8 sets, daily range): BP systolic 107–132; BP diastolic 61–98
[2021-08-16] MEDS: ACETAMINOPHEN 325 MG/10 ML UDC PEG PRN (01:59)
[2021-08-16] MEDS: PIPERACILLIN/TAZOBACTAM 2.25 GM in SODIUM CHLORIDE 0.9% 50ML 50 ML IV SCH ×4 (02:01→20:00)
[2021-08-16] MEDS: CARBAMAZEPINE 200 MG TAB PEG SCH ×3 (07:42→21:45)
[2021-08-16] MEDS: BUSPIRONE HCL 5 MG TAB PEG SCH (07:42)
[2021-08-16] MEDS: SENNOSIDES 8.6 MG TAB PO SCH ×2 (07:42→15:43)
[2021-08-16] MEDS: VALPROATE 250MG/5ML ORAL LIQ 5ml PEG SCH ×2 (07:42→15:41)
[2021-08-16] MEDS: TOPIRAMATE 100 MG TAB PEG SCH (07:42)
[2021-08-16] MEDS ORDERED: KETOROLAC TROMETHAMINE 30 MG/ML VIAL IV PRN (09:15)
[2021-08-16] MEDS ORDERED: BUPIVACAINE HCL 0.5% INJ 30 ML VIAL INJ ONE (11:47)
[2021-08-16] MEDS ORDERED: POVIDONE IODINE 0.05% 0.05 % ML PO ONE (13:42)
[2021-08-16] MEDS ORDERED: PHENYLEPHRINE HCL 1% 10 MG/ML VIAL ONE (13:42)
[2021-08-16] MEDS ORDERED: LIDOCAINE HCL 2% LOCAL INJ 5 ML SDV VIAL INJ ONE (13:42)
[2021-08-16] MEDS ORDERED: SEVOFLURANE INHAL SOLN 250 ML PEN BTL ONE (13:42)
[2021-08-16] MEDS ORDERED: PROPOFOL IV EMULSION 10 MG/ML 20 ML VIAL ONE (13:42)
[2021-08-16 15:18] LABS: BASOPHILS # (AUTO) 0.1 (0.0-0.1); BASOPHILS % 0.4 % (0.0-1.0); EOSINOPHILS # (AUTO) 0.1 (0.0-0.4); EOSINOPHILS % 0.3 % (0.0-6.0); HEMATOCRIT 32.5 % (38.2-49.6); LYMPHOCYTES # (AUTO) 1.4 (1.0-3.2); LYMPHOCYTES % 4.4 % (18.0-39.1); MEAN CORPUSCULAR HEMOGLOBIN 28.7 pg (28-32); MEAN CORPUSCULAR HGB CONC 30.8 g/dL (31-35); MEAN CORPUSCULAR VOLUME 93.1 fL (81-99); MONOCYTES # (AUTO) 2.1 (0.2-0.8); MONOCYTES % 6.7 % (4.4-11.3); NEUTROPHILS # (AUTO) 26.8 (2.1-6.9); NEUTROPHILS % 86.6 % (38.7-80.0); PLATELET COUNT 405 x10e3/uL (140-360); RED BLOOD COUNT 3.49 x10e6/uL (4.3-5.7); RED CELL DISTRIBUTION WIDTH 16.3 % (11.7-14.4)
[2021-08-16 15:53] LABS: ANION GAP 15.8 mmol/L (8-16); CREATININE, SERUM 0.58 mg/dL (0.72-1.25); POTASSIUM 3.8 mmol/L (3.5-5.1)
[2021-08-16] MEDS: Morphine 2mg Syringe 2 MG/ML SYR IV PRN (16:12)
[2021-08-16] MEDS: Vancomycin IV 1 GM in SODIUM CHLORIDE 0.9% 250ML 250 ML IV SCH (16:19)
[2021-08-16] MEDS: MIRTAZAPINE 15 MG TAB PO SCH (21:45)
[2021-08-16 22:23] LABS: BAND NEUTROPHILS % (MANUAL) 2 %; LYMPHOCYTES % (MANUAL) 4 % (19-48); METAMYELOCYTES % (MANUAL) 2 % (0-0); MONOCYTES % (MANUAL) 4 % (3.4-9.0); MYELOCYTES % (MANUAL) 2 % (0-0); NEUTROPHILS % (MANUAL) 86 % (40-74)
[2021-08-16 22:24] LABS: PLATELET ESTIMATE ADEQUATE; PLATELET MORPHOLOGY COMMENT FEW GIANT; RBC MORPHOLOGY COMMENT NORMAL
[2021-08-17] VITALS: BP 119/76
[2021-08-17] MEDS: PIPERACILLIN/TAZOBACTAM 2.25 GM in SODIUM CHLORIDE 0.9% 50ML 50 ML IV SCH ×4 (01:40→21:28)
[2021-08-17] MEDS: Morphine 2mg Syringe 2 MG/ML SYR IV PRN (02:05)
[2021-08-17] MEDS: Vancomycin IV 1 GM in SODIUM CHLORIDE 0.9% 250ML 250 ML IV SCH ×2 (02:05→02:22)
[2021-08-17 04:00] VITALS: BP 120/62
[2021-08-17 09:17] LABS: BASOPHILS % 0.1 % (0.0-1.0); EOSINOPHILS % 0.1 % (0.0-6.0); HEMATOCRIT 24.7 % (38.2-49.6); HEMOGLOBIN 8.1 g/dL (14.0-18.0); LYMPHOCYTES # (AUTO) 1.3 (1.0-3.2); LYMPHOCYTES % 11.2 % (18.0-39.1); MEAN CORPUSCULAR HEMOGLOBIN 28.8 pg (28-32); MEAN CORPUSCULAR HGB CONC 32.8 g/dL (31-35); MEAN CORPUSCULAR VOLUME 87.9 fL (81-99); MONOCYTES # (AUTO) 1.6 (0.2-0.8); MONOCYTES % 14.6 % (4.4-11.3); NEUTROPHILS # (AUTO) 8.2 (2.1-6.9); NEUTROPHILS % 73.3 % (38.7-80.0); PLATELET COUNT 310 x10e3/uL (140-360); RED BLOOD COUNT 2.81 x10e6/uL (4.3-5.7); RED CELL DISTRIBUTION WIDTH 16.3 % (11.7-14.4)
[2021-08-17] MEDS: SENNOSIDES 8.6 MG TAB PO SCH ×2 (09:21→17:24)
[2021-08-17] MEDS: TOPIRAMATE 100 MG TAB PEG SCH (09:21)
[2021-08-17] MEDS: BUSPIRONE HCL 5 MG TAB PEG SCH (09:21)
[2021-08-17] MEDS: CARBAMAZEPINE 200 MG TAB PEG SCH ×3 (09:21→21:25)
[2021-08-17 09:49] VITALS: BP 138/89
[2021-08-17 09:52] LABS: ANION GAP 12.7 mmol/L (8-16); CALCIUM 7.8 mg/dL (8.4-10.2); CREATININE, SERUM 0.51 mg/dL (0.72-1.25); POTASSIUM 3.7 mmol/L (3.5-5.1)
[2021-08-17] MEDS ORDERED: FENTANYL 25 MCG/HR PATCH TOP SCH (11:00)
[2021-08-17] MEDS: VALPROATE 250MG/5ML ORAL LIQ 5ml PEG SCH ×2 (11:46→17:24)
[2021-08-17] MEDS ORDERED: ENOXAPARIN SOD INJ 40 MG/0.4 ML SYR SC SCH (17:00)
[2021-08-17 20:00] VITALS: BP 109/73
[2021-08-17] MEDS: MIRTAZAPINE 15 MG TAB PO SCH (21:25)
[2021-08-18] VITALS (8 sets, daily range): BP systolic 116–127; BP diastolic 81–86
[2021-08-18] MEDS: PIPERACILLIN/TAZOBACTAM 2.25 GM in SODIUM CHLORIDE 0.9% 50ML 50 ML IV SCH ×4 (02:23→21:30)
[2021-08-18 07:24] LABS: CALCIUM 8.2 mg/dL (8.4-10.2); CREATININE, SERUM 0.54 mg/dL (0.72-1.25)
[2021-08-18] MEDS: CARBAMAZEPINE 200 MG TAB PEG SCH ×3 (08:23→21:30)
[2021-08-18] MEDS: VALPROATE 250MG/5ML ORAL LIQ 5ml PEG SCH ×2 (08:23→17:27)
[2021-08-18] MEDS: TOPIRAMATE 100 MG TAB PEG SCH (08:23)
[2021-08-18] MEDS: BUSPIRONE HCL 5 MG TAB PEG SCH (08:23)
[2021-08-18] MEDS: SENNOSIDES 8.6 MG TAB PO SCH ×2 (08:23→17:27)
[2021-08-18 09:20] LABS: BASOPHILS % 0.3 % (0.0-1.0); EOSINOPHILS # (AUTO) 0.1 (0.0-0.4); EOSINOPHILS % 0.5 % (0.0-6.0); HEMATOCRIT 26.8 % (38.2-49.6); HEMOGLOBIN 8.7 g/dL (14.0-18.0); LYMPHOCYTES # (AUTO) 1.9 (1.0-3.2); LYMPHOCYTES % 16.2 % (18.0-39.1); MEAN CORPUSCULAR HEMOGLOBIN 29.6 pg (28-32); MEAN CORPUSCULAR HGB CONC 32.5 g/dL (31-35); MEAN CORPUSCULAR VOLUME 91.2 fL (81-99); MONOCYTES # (AUTO) 1.6 (0.2-0.8); MONOCYTES % 13.6 % (4.4-11.3); NEUTROPHILS # (AUTO) 8.1 (2.1-6.9); NEUTROPHILS % 68.6 % (38.7-80.0); PLATELET COUNT 350 x10e3/uL (140-360); RED BLOOD COUNT 2.94 x10e6/uL (4.3-5.7); RED CELL DISTRIBUTION WIDTH 16.8 % (11.7-14.4)
[2021-08-18] MEDS ORDERED: APIXAB 2.5 MG TABLET PO SCH (10:00)
[2021-08-18] MEDS: APIXAB 2.5 MG TABLET PO SCH (21:30)
[2021-08-18] MEDS: MIRTAZAPINE 15 MG TAB PO SCH (21:30)
[2021-08-19] VITALS (8 sets, daily range): BP systolic 105–117; BP diastolic 74–82
[2021-08-19] MEDS: PIPERACILLIN/TAZOBACTAM 2.25 GM in SODIUM CHLORIDE 0.9% 50ML 50 ML IV SCH ×4 (02:00→20:25)
[2021-08-19 06:20] LABS: BASOPHILS % 0.4 % (0.0-1.0); EOSINOPHILS # (AUTO) 0.1 (0.0-0.4); EOSINOPHILS % 1.3 % (0.0-6.0); HEMATOCRIT 23.9 % (38.2-49.6); HEMOGLOBIN 7.6 g/dL (14.0-18.0); LYMPHOCYTES # (AUTO) 1.3 (1.0-3.2); LYMPHOCYTES % 19.5 % (18.0-39.1); MEAN CORPUSCULAR HEMOGLOBIN 28.6 pg (28-32); MEAN CORPUSCULAR HGB CONC 31.8 g/dL (31-35); MEAN CORPUSCULAR VOLUME 89.8 fL (81-99); MONOCYTES % 15.2 % (4.4-11.3); NEUTROPHILS # (AUTO) 4.3 (2.1-6.9); NEUTROPHILS % 62.7 % (38.7-80.0); PLATELET COUNT 341 x10e3/uL (140-360); RED BLOOD COUNT 2.66 x10e6/uL (4.3-5.7); RED CELL DISTRIBUTION WIDTH 16.4 % (11.7-14.4)
[2021-08-19 06:59] LABS: ALBUMIN 2.1 g/dL (3.5-5.0); ALBUMIN/GLOBULIN RATIO 0.7 (0.8-2.0); ANION GAP 12.1 mmol/L (8-16); CALCIUM 7.9 mg/dL (8.4-10.2); CREATININE, SERUM 0.52 mg/dL (0.72-1.25); POTASSIUM 4.1 mmol/L (3.5-5.1)
[2021-08-19] MEDS: IRON-VITAMIN-MINERAL CAPSULE GT SCH ×2 (09:46→17:02)
[2021-08-19] MEDS: BUSPIRONE HCL 5 MG TAB PEG SCH (09:46)
[2021-08-19] MEDS: VALPROATE 250MG/5ML ORAL LIQ 5ml PEG SCH ×2 (09:47→17:02)
[2021-08-19] MEDS: SENNOSIDES 8.6 MG TAB PO SCH ×2 (09:48→17:02)
[2021-08-19] MEDS: CARBAMAZEPINE 200 MG TAB PEG SCH ×3 (09:48→20:25)
[2021-08-19] MEDS: TRAMADOL HCL 50 MG TAB NG PRN (09:48)
[2021-08-19] MEDS: APIXAB 2.5 MG TABLET PO SCH ×2 (09:48→20:25)
[2021-08-19] MEDS: TOPIRAMATE 100 MG TAB PEG SCH (09:48)
[2021-08-19] MEDS: FENTANYL 50 MCG/HR PATCH TOP SCH (11:57)
[2021-08-19 15:03] LABS: % IRON SATURATION 13 % (15-50); IRON 31 ug/dL (65-175); TOTAL IRON BINDING CAPACITY 237 ug/dL (261-478); TRANSFERRIN 169 mg/dL (174-364)
[2021-08-19] MEDS ORDERED: SODIUM CHLORIDE 0.9% 250ML 250 ML ONE (20:21)
[2021-08-19] MEDS: MIRTAZAPINE 15 MG TAB PO SCH (20:25)
[2021-08-19] MEDS ORDERED: MAGNESIUM HYDROXIDE 30 ML UDC PO ONE (23:45)
[2021-08-20] VITALS (8 sets, daily range): BP systolic 103–126; BP diastolic 72–84
[2021-08-20] MEDS ORDERED: MAGNESIUM HYDROXIDE 30 ML UDC PO ONE (01:45)
[2021-08-20] MEDS: PIPERACILLIN/TAZOBACTAM 2.25 GM in SODIUM CHLORIDE 0.9% 50ML 50 ML IV SCH ×4 (02:12→20:43)
[2021-08-20 06:13] LABS: BASOPHILS % 0.5 % (0.0-1.0); CALCIUM 7.9 mg/dL (8.4-10.2); CREATININE, SERUM 0.53 mg/dL (0.72-1.25); EOSINOPHILS # (AUTO) 0.1 (0.0-0.4); EOSINOPHILS % 2.4 % (0.0-6.0); HEMOGLOBIN 7.7 g/dL (14.0-18.0); LYMPHOCYTES % 17.5 % (18.0-39.1); MEAN CORPUSCULAR HEMOGLOBIN 27.8 pg (28-32); MEAN CORPUSCULAR HGB CONC 30.8 g/dL (31-35); MEAN CORPUSCULAR VOLUME 90.3 fL (81-99); MONOCYTES # (AUTO) 0.8 (0.2-0.8); MONOCYTES % 13.9 % (4.4-11.3); NEUTROPHILS # (AUTO) 3.9 (2.1-6.9); NEUTROPHILS % 65.2 % (38.7-80.0); PLATELET COUNT 377 x10e3/uL (140-360); RED BLOOD COUNT 2.77 x10e6/uL (4.3-5.7); RED CELL DISTRIBUTION WIDTH 15.9 % (11.7-14.4)
[2021-08-20] MEDS: CARBAMAZEPINE 200 MG TAB PEG SCH ×3 (11:24→20:43)
[2021-08-20] MEDS: VALPROATE 250MG/5ML ORAL LIQ 5ml PEG SCH ×2 (11:24→16:57)
[2021-08-20] MEDS: APIXAB 2.5 MG TABLET PO SCH ×2 (11:24→20:43)
[2021-08-20] MEDS: BUSPIRONE HCL 5 MG TAB PEG SCH (11:24)
[2021-08-20] MEDS: IRON-VITAMIN-MINERAL CAPSULE GT SCH ×2 (11:24→16:57)
[2021-08-20] MEDS: TOPIRAMATE 100 MG TAB PEG SCH (11:24)
[2021-08-20] MEDS: SENNOSIDES 8.6 MG TAB PO SCH ×2 (11:24→16:57)
[2021-08-20] MEDS: MIRTAZAPINE 15 MG TAB PO SCH (20:44)
[2021-08-21] VITALS (8 sets, daily range): BP systolic 110–134; BP diastolic 71–99
[2021-08-21] MEDS: ACETAMINOPHEN 325 MG/10 ML UDC PEG PRN (01:11)
[2021-08-21] MEDS: PIPERACILLIN/TAZOBACTAM 2.25 GM in SODIUM CHLORIDE 0.9% 50ML 50 ML IV SCH ×5 (02:00→20:55)
[2021-08-21] MEDS: BUSPIRONE HCL 5 MG TAB PEG SCH (09:00)
[2021-08-21] MEDS: VALPROATE 250MG/5ML ORAL LIQ 5ml PEG SCH ×2 (09:00→17:08)
[2021-08-21] MEDS: SENNOSIDES 8.6 MG TAB PO SCH ×2 (09:00→17:08)
[2021-08-21] MEDS: APIXAB 2.5 MG TABLET PO SCH ×2 (09:00→20:55)
[2021-08-21] MEDS: IRON-VITAMIN-MINERAL CAPSULE GT SCH ×2 (09:00→17:08)
[2021-08-21] MEDS: TOPIRAMATE 100 MG TAB PEG SCH (09:00)
[2021-08-21] MEDS: CARBAMAZEPINE 200 MG TAB PEG SCH ×3 (09:00→20:55)
[2021-08-21] MEDS: MIRTAZAPINE 15 MG TAB PO SCH (20:55)
[2021-08-22] VITALS (8 sets, daily range): BP systolic 104–134; BP diastolic 73–92
[2021-08-22] MEDS: PIPERACILLIN/TAZOBACTAM 2.25 GM in SODIUM CHLORIDE 0.9% 50ML 50 ML IV SCH (01:06)
[2021-08-22] MEDS ORDERED: MAGNESIUM HYDROXIDE 30 ML UDC PO PRN (02:00)
[2021-08-22] MEDS ORDERED: HYDROCODONE BIT/ACETAMINOPHEN 2.5 MG/108MG PER 5 ML SOLUTION PEG PRN (09:15)
[2021-08-22] MEDS: BUSPIRONE HCL 5 MG TAB PEG SCH (09:40)
[2021-08-22] MEDS: APIXAB 2.5 MG TABLET PO SCH ×2 (09:40→21:18)
[2021-08-22] MEDS: SENNOSIDES 8.6 MG TAB PO SCH ×2 (09:40→17:07)
[2021-08-22] MEDS: CARBAMAZEPINE 200 MG TAB PEG SCH ×3 (09:40→21:18)
[2021-08-22] MEDS: IRON-VITAMIN-MINERAL CAPSULE GT SCH ×2 (09:40→17:06)
[2021-08-22] MEDS: TOPIRAMATE 100 MG TAB PEG SCH (09:40)
[2021-08-22] MEDS: VALPROATE 250MG/5ML ORAL LIQ 5ml PEG SCH ×2 (09:40→17:06)
[2021-08-22] MEDS ORDERED: AMOXICILLIN/CLAV (ORAL SUSP) 250 MG/5 ML SUSP PO SCH (10:00)
[2021-08-22 10:31] LABS: BASOPHILS % 0.8 % (0.0-1.0); EOSINOPHILS # (AUTO) 0.2 (0.0-0.4); EOSINOPHILS % 3.8 % (0.0-6.0); HEMATOCRIT 30.1 % (38.2-49.6); HEMOGLOBIN 9.5 g/dL (14.0-18.0); LYMPHOCYTES # (AUTO) 1.4 (1.0-3.2); LYMPHOCYTES % 27.5 % (18.0-39.1); MEAN CORPUSCULAR HEMOGLOBIN 28.5 pg (28-32); MEAN CORPUSCULAR HGB CONC 31.6 g/dL (31-35); MEAN CORPUSCULAR VOLUME 90.4 fL (81-99); MONOCYTES # (AUTO) 0.8 (0.2-0.8); MONOCYTES % 15.4 % (4.4-11.3); NEUTROPHILS # (AUTO) 2.6 (2.1-6.9); NEUTROPHILS % 51.5 % (38.7-80.0); PLATELET COUNT 372 x10e3/uL (140-360); RED BLOOD COUNT 3.33 x10e6/uL (4.3-5.7); RED CELL DISTRIBUTION WIDTH 15.9 % (11.7-14.4)
[2021-08-22 10:48] LABS: ANION GAP 12.9 mmol/L (8-16); CREATININE, SERUM 0.5 mg/dL (0.72-1.25); POTASSIUM 3.9 mmol/L (3.5-5.1)
[2021-08-22] MEDS ORDERED: AMOXICILLIN/CLAVULANATE K 250 MG TAB PO SCH (11:00)
[2021-08-22] MEDS: FENTANYL 50 MCG/HR PATCH TOP SCH (12:02)
[2021-08-22] MEDS: AMOXICILLIN/CLAVULANATE K 500 MG TAB PO SCH (21:18)
[2021-08-22] MEDS: MIRTAZAPINE 15 MG TAB PO SCH (21:18)
[2021-08-23] VITALS (8 sets, daily range): BP systolic 106–117; BP diastolic 76–89
[2021-08-23] MEDS ORDERED: MAGNESIUM HYDROXIDE 30 ML UDC PO STA (02:22)
[2021-08-23] MEDS: AMOXICILLIN/CLAVULANATE K 500 MG TAB PO SCH ×2 (10:00→21:37)
[2021-08-23] MEDS: CARBAMAZEPINE 200 MG TAB PEG SCH ×3 (10:00→21:37)
[2021-08-23] MEDS: SENNOSIDES 8.6 MG TAB PO SCH ×2 (10:00→16:29)
[2021-08-23] MEDS: BUSPIRONE HCL 5 MG TAB PEG SCH (10:00)
[2021-08-23] MEDS: TOPIRAMATE 100 MG TAB PEG SCH (10:00)
[2021-08-23] MEDS: IRON-VITAMIN-MINERAL CAPSULE GT SCH ×2 (10:00→16:29)
[2021-08-23] MEDS: VALPROATE 250MG/5ML ORAL LIQ 5ml PEG SCH ×2 (10:00→16:29)
[2021-08-23] MEDS: APIXAB 2.5 MG TABLET PO SCH ×2 (10:00→21:37)
[2021-08-23] MEDS: MIRTAZAPINE 15 MG TAB PO SCH (21:37)
[2021-08-24 04:49] VITALS: BP 143/97
[2021-08-24 06:07] LABS: BASOPHILS % 0.6 % (0.0-1.0); EOSINOPHILS # (AUTO) 0.1 (0.0-0.4); EOSINOPHILS % 2.8 % (0.0-6.0); HEMATOCRIT 31.3 % (38.2-49.6); HEMOGLOBIN 9.9 g/dL (14.0-18.0); LYMPHOCYTES % 20.8 % (18.0-39.1); MEAN CORPUSCULAR HEMOGLOBIN 28.4 pg (28-32); MEAN CORPUSCULAR HGB CONC 31.6 g/dL (31-35); MEAN CORPUSCULAR VOLUME 89.7 fL (81-99); MONOCYTES # (AUTO) 0.6 (0.2-0.8); MONOCYTES % 12.6 % (4.4-11.3); NEUTROPHILS # (AUTO) 3.1 (2.1-6.9); NEUTROPHILS % 62.6 % (38.7-80.0); PLATELET COUNT 387 x10e3/uL (140-360); RED BLOOD COUNT 3.49 x10e6/uL (4.3-5.7)
[2021-08-24 06:28] LABS: ANION GAP 14.7 mmol/L (8-16); CALCIUM 8.4 mg/dL (8.4-10.2); CREATININE, SERUM 0.56 mg/dL (0.72-1.25); POTASSIUM 3.7 mmol/L (3.5-5.1)
[2021-08-24 07:56] VITALS: BP 124/98
[2021-08-24 08:00] VITALS: BP 124/98
[2021-08-24] MEDS: IRON-VITAMIN-MINERAL CAPSULE GT SCH ×2 (08:01→16:02)
[2021-08-24] MEDS: SENNOSIDES 8.6 MG TAB PO SCH ×2 (08:02→16:02)
[2021-08-24] MEDS: APIXAB 2.5 MG TABLET PO SCH ×2 (08:03→21:43)
[2021-08-24] MEDS: VALPROATE 250MG/5ML ORAL LIQ 5ml PEG SCH ×2 (08:03→16:02)
[2021-08-24] MEDS: AMOXICILLIN/CLAVULANATE K 500 MG TAB PO SCH ×2 (08:03→21:43)
[2021-08-24] MEDS: BUSPIRONE HCL 5 MG TAB PEG SCH (08:03)
[2021-08-24] MEDS: CARBAMAZEPINE 200 MG TAB PEG SCH ×3 (08:04→21:43)
[2021-08-24] MEDS: TOPIRAMATE 100 MG TAB PEG SCH (08:04)
[2021-08-24 11:56] VITALS: BP 123/88
[2021-08-24 15:35] VITALS: BP 122/80
[2021-08-24 20:00] VITALS: BP 125/79
[2021-08-24] MEDS: MIRTAZAPINE 15 MG TAB PO SCH (21:43)
[2021-08-25] VITALS: BP 123/60
[2021-08-25 04:00] VITALS: BP 116/75
[2021-08-25 08:00] VITALS: BP 102/70
[2021-08-25 08:22] VITALS: BP 102/70
[2021-08-25] MEDS: BUSPIRONE HCL 5 MG TAB PEG SCH (08:36)
[2021-08-25] MEDS: VALPROATE 250MG/5ML ORAL LIQ 5ml PEG SCH (08:36)
[2021-08-25] MEDS: IRON-VITAMIN-MINERAL CAPSULE GT SCH (08:36)
[2021-08-25] MEDS: APIXAB 2.5 MG TABLET PO SCH (08:37)
[2021-08-25] MEDS: TOPIRAMATE 100 MG TAB PEG SCH (08:37)
[2021-08-25] MEDS: SENNOSIDES 8.6 MG TAB PO SCH (08:37)
[2021-08-25] MEDS: CARBAMAZEPINE 200 MG TAB PEG SCH (08:37)
[2021-08-25] MEDS: AMOXICILLIN/CLAVULANATE K 500 MG TAB PO SCH (08:37)
[2021-08-25 11:10] VITALS: BP 102/81
[2021-08-25] MEDS: FENTANYL 50 MCG/HR PATCH TOP SCH (11:29)
== END 2021-08-25 13:15 | disposition home or self-care (01) | DRG 853 ==
LOC: ER 17:09 → ERHOLD 17:25 → IMCU 19:57 → MED/SURG3 08-16 14:44
PROVIDERS: ADMIT Internal Medicine; ATTEND Internal Medicine
PROC: 0DW68UZ Revision of Feeding Device in Stomach, Via Natural or Artificial Opening Endoscopic (ICD-10-PCS; principal; 2021-08-08 14:30)
PROC: 30233N1 Transfusion of Nonautologous Red Blood Cells into Peripheral Vein, Percutaneous Approach (ICD-10-PCS; 2021-08-12)
PROC: 0QSB04Z Reposition Right Lower Femur with Internal Fixation Device, Open Approach (ICD-10-PCS; 2021-08-16)
DX: A41.9 Sepsis, unspecified organism (principal); J69.0 Pneumonitis due to inhalation of food and vomit; J85.1 Abscess of lung with pneumonia; G82.50 Quadriplegia, unspecified; E43 Unspecified severe protein-calorie malnutrition; K94.23 Gastrostomy malfunction; I82.401 Acute embolism and thrombosis of unspecified deep veins of right lower extremity; R56.1 Post traumatic seizures; E87.1 Hypo-osmolality and hyponatremia; S72.401A Unspecified fracture of lower end of right femur, initial encounter for closed fracture; M24.50 Contracture, unspecified joint; Z87.820 Personal history of traumatic brain injury; K56.41 Fecal impaction; Z68.22 Body mass index [BMI] 22.0-22.9, adult; D50.9 Iron deficiency anemia, unspecified; R00.0 Tachycardia, unspecified; Z74.01 Bed confinement status; X58.XXXA Exposure to other specified factors, initial encounter; K29.70 Gastritis, unspecified, without bleeding; Z20.822 Contact with and (suspected) exposure to COVID-19
CPT/HCPCS: 36415; 43246; 71045; 71260; 74177; 76000; 80048; 80053; 82550; 82553; 82607; 82746; 82948; 83540; 83735; 83880; 84100; 84443; 84466; 84484; 85025; 85045; 85610; 85730; 86850; 86900; 86920; 93005; 93970; 96360; 96361; 97139; 99251; 99284; C1713; J0295; J1650; J1756; J2001; J2270; J2370; J2543; J3010; J3370; J7030; J7050; P9016; Q9967; U0002